=== PATIENT | female | born 1945 | race Caucasian/White ===

== ENCOUNTER 2019-03-08 08:23 | Emergency (ER) | payer MEDICARE, OTHER, SELFPAY ==
--- NOTE | ~2019-03-08 | XR_ITS ---
EXAMINATION: XR chest 2V EXAM DATE: 03/08/2019 08:47 INDICATION: Nausea, weakness. TECHNIQUE: Frontal and lateral projections of the chest obtained and reviewed. Comparison is made to prior examination from 02/15/2019. FINDINGS: Right lower lobe posterior segmental airspace disease probably interval development of pne umonia. There is severe chronic hyperinflation. There is no pneumothorax suspected. There are no pleu ral effusions. Cardiomediastinal silhouette is normal. The bones are osteopenic. There are bony dege nerative changes. IMPRESSION: 1. Interval development segmental right basilar airspace disease probably pneumonia. Reviewed, dictated and finalized at location A. SFER WORKER IMPRESSION: 1. Interval development segmental right basilar airspace disease probably pne umonia.
--- NOTE | 2019-03-08 08:26 | ECG_ITS ---
Measurements Intervals [place] Rate: 102 P: 71 MO: 122 QRS: -52 QRSD: 98 T: 79 QT: 318 QTc: 414 Interpretive Statements SINUS TACHYCARDIA VENTRICULAR PREMATURE COMPLEX LEFT ANTERIOR FASCICULAR BLOCK ABNORMAL ECG Electronically Signed On 03-08-2019 8:45:17 REVERSE UNIT OPERATOR FISHERMAN by Kevin Conde D.O.
[2019-03-08 08:28] VITALS: BP 119/82; PULSE 104; RESP 18; TEMP 36.9; O2SAT 97
[2019-03-08 08:41] VITALS: PULSE 104
--- NOTE | 2019-03-08 08:41 | ED.CHESTPAIN ---
HPI - Chest Pain General Chief Complaint: Chest Pain Stated Complaint: well, Im sick all over Time Seen by Provider: 03/08/19 08:27 Source: patient and RN notes reviewed Mode of arrival: ambulatory Limitations: no limitations History of Present Illness HPI narrative: Pt is a 73 y/o female who presents to the ED with c/o midsternal chest pain which radiates to her LUE. She reports the pain to be a 4/10. Pt also reports a fever, a productive cough, sinus congestion, and SOB which she has been feeling for several weeks. She has tried to use inhalers without much relief. Pt also reports nausea, but denies vomiting. Pt reports a PMHx of COPD. She states she went to an Urgent Care about 3 weeks ago, but was not having any alleviation of her symptoms. MD complaint: chest pain (midsternal) Pertinent past history: other (COPD) Onset (ago): unknown Pain location: other (midsternal) Pain radiation: left arm Pain scale (0-10): 4 Relieving factors: nothing Associated symptoms: nausea, dyspnea, fever, cough (productive) and other (sinus congestion) Treatment prior to arrival: other (inhaler) Related Data Home Medications Medication Instructions Recorded Confirmed albuterol sulfate 90 mcg/actuation 1 - 2 puff INHALATION Q4-6H PRN gm 03/08/19 03/08/19 aerosol inhaler fluticasone propionate-salmeterol 2 puff INHALATION BID 03/08/19 03/08/19 115 mcg-21 mcg/actuation HFA inhaler tiotropium bromide 18 mcg capsule 1 cap INHALATION DAILY 03/08/19 03/08/19 with inhalation device Allergies Allergy/AdvReac Type Severity Reaction Status Date / Time prednisone Allergy Agitated Verified 03/08/19 08:56 Review of Systems Review of Systems: All systems reviewed & are unremarkable except as noted in HPI and below Constitutional: Constitutional: Reports fever(s) ENT: Reports nasal congestion (sinus congestion) Cardiovascular: Cardiovascular: Reports chest pain (midsternal chest pain which radiates to her LUE) Respiratory: Respiratory: Reports cough (productive) and Reports dyspnea Gastrointestinal: Gastrointestinal: Reports nausea and Denies vomiting PMF Past Medical History Medical History (Updated 03/08/19 @ 10:32 by Marv Cali MD) COPD (chronic obstructive pulmonary disease) (Acute) Fibromyalgia (Acute) Surgical History Surgical History (Updated 03/08/19 @ 08:50 by Ann Maldonado [facility]) H/O: hysterectomy (Acute) History of hip surgery (Acute) Family History Family History (Updated 02/23/15 @ 14:08 by DOCTOR UNKNOWN) Other Family history of arthritis Family history of cardiovascular disease Family history of congenital heart disease Family history of multiple sclerosis Social History Social History Smoking status: Former smoker Smoking end date: 04/28/93 Alcohol intake: never Comments PCP: Dr. Ramirez Exam Const: Nutritional Appearance: thin (frail; elderly) Limitations: no limitations HENMT: Head: normal to inspection (atraumatic) Mouth: Yes moist mucous membranes Eyes: Conjunctivae: conjunctivae normal Chest: Chest palpation & inspection: normal inspection of the chest Resp: Auscultation: rhonchi (at the right base) Cardio: Rate: regular rate Rhythm: regular rhythm Other: no edema GI: Palpation (GI): Yes soft and Yes mass (no masses) Auscultation: normal bowel sounds Other: non-tender Back/Spine/Pelvis: Back: no CVA tenderness Other: normal ROM Skin: General skin exam: normal color Rashes: no rashes Neuro: General: oriented x3 and CN's II-XI intact bilaterally Speech: normal speech Other: motor intact Psych: Appearance: grossly normal Mental Status: mental status grossly normal Affect: normal affect Thought content: Yes normal Course Course Emergency Course: remains stable. vs wnl, sats jeaneth d/w dr freed for early f/u Reevaluation(s) Additional Reevaluation(s): PORT = low risk Vital Signs Vital signs: Vital Signs Temperature
[2019-03-08 08:43] VITALS: O2SAT 100
[2019-03-08] MEDS: ASPIRIN 81 MG CHEWABLE TABLET 324 MG PO (08:45)
--- NOTE | 2019-03-08 08:45 | PC.NURSE ---
Pt to xray via stretcher on tele monitor.
[2019-03-08 08:46] LABS: Basophils Percent Auto 0.2 % (0.2-1.2); Eosinophils Percent Auto 0.5 % (0-4.4); Hematocrit 38.6 % (37.0-47.0); Hemoglobin 12.5 g/dL (12.0-15.0); Immature Granulocyte Absolute 0.13 K/mm3 (0.00-0.031); Immature Granulocyte Percent A 1.5 % (0-0.5); Lymphocytes Absolute Auto 1.46 K/mm3 (0.9-3.2); Lymphocytes Percent Auto 16.5 % (18.3-44.2); Mean Corpuscular HGB Conc 32.4 g/dl (32-36); Mean Corpuscular Volume 98.7 fl (80-100); Mean Platelet Volume 9.1 fl (7.4-10.4); Monocytes Absolute Auto 0.6 K/mm3 (0.1-0.6); Monocytes Percent Auto 7.2 % (2.6-8.5); Neutrophils Absolute Auto 6.6 K/mm3 (1.3-6.7); Neutrophils Percent Auto 74.1 % (45.5-73.1); Platelet Count Result 256 k/mm3 (150-375); Red Blood Count 3.91 M/mm3 (4.2-5.4); Red Cell Distribution Width 13.9 % (11.5-14.5); White Blood Count 8.9 K/mm3 (4.5-10.0)
[2019-03-08 08:55] LABS: INR 0.9; Prothrombin Time 12.3 Seconds (11.1-14.7)
[2019-03-08 08:56] LABS: Partial Thromboplastin Time 35.6 SECONDS (22.3-36.8)
[2019-03-08 09:01] LABS: Blood Urea Nitrogen 29 mg/dL (7-17); Calcium 9.8 mg/dL (8.4-10.2); Carbon Dioxide 27 mmol/L (22-30); Chloride 104 mmol/L (98-107); Estimated CRCL calculation 63 ml/min; Estimated Glomerular Filt Rate > 60; Glucose 122 mg/dL (65-105); Potassium 3.3 mmol/L (3.4-5.0); Sodium 141 mmol/L (137-145)
[2019-03-08 09:13] LABS: Troponin I < 0.012 ng/mL (0.000-0.034)
[2019-03-08] MEDS: ALBUTEROL SULFATE NEB 2.5 MG/0.5 ML INH 5 MG INHALATION (09:18)
[2019-03-08] MEDS: IPRATROPIUM BR 0.02% INH SOLN 0.5 MG/2.5 ML VIAL INHALATION (09:18)
[2019-03-08 09:19] VITALS: PULSE 95; RESP 15
[2019-03-08 09:23] VITALS: PULSE 92; RESP 17; O2SAT 96
[2019-03-08] MEDS: DEXAMETHASONE SOD PHOS INJ 4 MG/ML VIAL 10 MG IV PUSH (09:39)
[2019-03-08] MEDS: POTASSIUM CHLORIDE 20 MEQ PACKET (FOR LIQUID) 40 MEQ PO (10:36)
[2019-03-08 11:20] VITALS: BP 125/70; PULSE 101; RESP 23; O2SAT 98
== END 2019-03-08 11:21 | disposition home or self-care (01) ==
PROVIDERS: Emergency Provider Emergency Medicine; PCP Internal Medicine
DX: J18.1 Lobar pneumonia, unspecified organism (principal); Z87.891 Personal history of nicotine dependence; J44.9 Chronic obstructive pulmonary disease, unspecified; M79.7 Fibromyalgia; R07.9 Chest pain, unspecified
CPT/HCPCS: 36415; 71046; 80048; 84484; 85025; 85610; 85730; 93005; 96365; 96366; 96375; 99284; A9270; J1100; J1956

== ENCOUNTER → 2019-06-10 10:31 | Outpatient (CLI) | payer MEDICARE, OTHER, SELFPAY ==
--- NOTE | ~2019-06-10 | XR_ITS ---
EXAMINATION: XR thoracic spine 2V DATE: 06/10/2019 11:28 INDICATION: Thoracic back pain. TECHNIQUE: 3 views of thoracic spine were obtained. COMPARISON: Thoracic spine radiographs 04/29/2019 FINDINGS: There is 19 degrees levoscoliosis of thoracic spine. There is kyphosis of thoracic spine. T here is mild chronic height loss of L1, T12, T8, T5, and T3 vertebral bodies. There is a compression fracture of L2 with changes of vertebroplasty. There is mildly decreased disc height at multiple leve ls. There is severely decreased disc height at T3-T4. There are endplate osteophytes at most levels. IMPRESSION: 1. Moderate thoracic spondylosis. 2. Thoracic levoscoliosis and kyphosis. Reviewed, dictated and finalized at location A. DENTIAL SUBCONTRACTOR
--- NOTE | ~2019-06-10 | XR_ITS ---
EXAMINATION: XR lumbar spine 2-3V DATE: 06/10/2019 11:28 INDICATION: Lumbar radiculopathy. TECHNIQUE: 3 views of lumbar spine were obtained. COMPARISON: Lumbar spine radiographs 05/18/2019, MRI 05/18/2019 FINDINGS: There is 22 degrees dextroscoliosis of lumbar spine. There is a compression fracture of L2 with changes of vertebroplasty. There is mild chronic height loss of L1 vertebral body. There is mode rately decreased disc height at L1-L2 and L2-L3 and severely decreased disc height at L3-L4. There is multilevel facet joint osteoarthritis, severe on the right at L5-S1. IMPRESSION: 1. Severe lumbar spondylosis. 2. Lumbar dextroscoliosis. Reviewed, dictated and finalized at location A. ISTRY TECHNOLOGIST
== END ==
PROVIDERS: Visit Provider Nurse Practitioner Adult Health
DX: M47.814 Spondylosis without myelopathy or radiculopathy, thoracic region (principal); M41.86 Other forms of scoliosis, lumbar region; M41.84 Other forms of scoliosis, thoracic region; M47.26 Other spondylosis with radiculopathy, lumbar region
CPT/HCPCS: 72070; 72100

== ENCOUNTER 2019-09-24 11:21 | Outpatient (CLI) | payer MEDICARE, OTHER, SELFPAY ==
--- NOTE | ~2019-09-24 | XR_ITS ---
XR chest 2V 09/24/2019 11:40 Indication: Shortness of breath. COPD. Procedure: PA and lateral views of the chest Comparison: Comparison to multiple prior studies sequentially, with oldest reviewed study dated 11/2014. Findings: Heart size normal. Chronic basilar scarring. No focal air space disease, pulmonary edema, p leural effusion or suspected pneumothorax. There is atherosclerosis. There are vertebroplasty changes in the upper lumbar spine. Impression: 1: No acute cardiopulmonary disease. Reviewed, dictated and finalized at location A. Impression: 1: No acute cardiopulmonary disease.
== END 2019-09-24 11:22 | disposition home or self-care (01) ==
PROVIDERS: PCP Internal Medicine; Visit Provider Clinical Nurse Specialist
DX: J44.9 Chronic obstructive pulmonary disease, unspecified (principal)
CPT/HCPCS: 71046

== ENCOUNTER → 2021-08-23 13:25 | Outpatient (CLI) | payer MEDICARE, SELFPAY ==
--- NOTE | ~2021-08-23 | MR_ITS ---
EXAMINATION: MR thoracic spine wo con DATE: 08/23/2021 14:09 INDICATION: Thoracic radiculopathy. Back pain. TECHNIQUE: Magnetic resonance imaging (MRI) of the thoracic spine was performed without intravenous c ontrast. Sagittal localizer T1-weighted FSE of the cervical spine was obtained. Thoracic spine sequen fabi included sagittal T2-weighted FSE, sagittal T1-weighted FSE, sagittal T2-weighted FS FSE, and axi al T2-weighted FSE. COMPARISON: Thoracic spine MRI 05/18/2019 FINDINGS: There is 27 degrees levoscoliosis of thoracic spine. There is kyphosis of thoracic spine. T here are chronic compression fractures of T3, T5, T6, T8, T12, L1, L2, and L3. There are changes of v ertebroplasty in T12 and L2. There is mildly decreased disc height at multiple levels. There is moder ately decreased disc height at T4-T5, severely decreased disc height at T5-T6, moderately decreased d isc height at T6-T7, severely decreased disc height at T7-T8, moderately decreased disc height at T8- T9 and T9-T10, and severely decreased disc height at T12-L1. At T5-T6, there is a left central extrus ion with mild central canal stenosis and ventral indentation of the spinal cord. At T6-T7, there is a right central extrusion with mild central canal stenosis. At T8-T9, there is a right central extrusi on with mild central canal stenosis. At T11-T12, the disc is bulging with mild central canal stenosis . At T12-L1, the disc is bulging with mild central canal stenosis. There is multilevel facet joint os teoarthritis. On the right, there is mild neural foraminal stenosis at T11-T12 and T12-L1, on the lef t, there is mild neural foraminal stenosis at T1-T2 and T12-L1. The spinal cord signal intensity is n ormal. IMPRESSION: 1. Severe thoracic spondylosis, stable from 05/18/2019. 2. Thoracic levoscoliosis and kyphosis. Reviewed, dictated and finalized at location A.
--- NOTE | ~2021-08-23 | MR_ITS ---
EXAMINATION: MR lumbar spine wo con DATE: 08/23/2021 14:16 INDICATION: Lumbar radiculopathy TECHNIQUE: Magnetic resonance imaging (MRI) of the lumbar spine was performed without intravenous con trast. Sequences included sagittal T2-weighted FSE, sagittal T2-weighted FS FSE, sagittal T1-weighted FSE, and axial T2-weighted FSE. COMPARISON: Lumbar spine radiographs dated 06/10/2019 and MRI dated 05/18/2019 FINDINGS: 20 degrees lumbar dextroscoliosis. 3 mm retrolisthesis L5 on S1. Chronic L2 compression fractures wit h 20% anterior vertebral body height loss and changes of prior vertebroplasty. Additional chronic mil d T12 and L1 compression fractures with Schmorl's nodes along the superior endplates in 20% anterior vertebral body height loss at both levels. Severe left-sided predominant disc height loss at L3-L4. M ild to moderate right-sided predominant disc height loss at L5-S1. Mild left-sided predominant disc h eight loss at T12-L1 through L2-L3. The conus medullaris terminates at L1-L2. There is normal signal in the caudal spinal cord. A millimeter T2 hyperintense right renal cyst. There is focal lung disease at the posterior sulci of the bilateral lower lobes. The following disc levels are specifically disc ussed: T12-L1: Disc is bulging with superimposed annular fissure and small right paracentral disc extrusion with disc material extending up to 5 mm cephalad to the inferior endplate of T12.. There is mild bila teral facet joint osteoarthritis. There is moderate right and mild left neural foraminal stenosis. Th ere is mild central canal stenosis. L1-L2: Annular fissure and broad-based disc extrusion extending from foraminal zone to foraminal zone with disc material extending a few millimeters cephalad and caudal to the level of the endplates. Th ere is hypertrophy of the ligamentum flavum. There is mild left and moderate right facet joint osteo arthritis. There is moderate bilateral, right greater than left neural foraminal stenosis. There is m ild central canal stenosis. L2-L3: Annular fissure with broad-based disc extrusion extending from foraminal zone to foraminal zon e with disc material extending a few millimeters cephalad and caudal to the level of the endplates. T here is mild hypertrophy of the ligamentum flavum. There is mild to moderate left and mild right fac et joint osteoarthritis. There is moderate bilateral, left greater than right neural foraminal stenos is. There is moderate central canal stenosis. L3-L4: Annular fissure and broad-based disc extrusion extending from foraminal zone to foraminal zone with disc material extending 3 mm caudal to the level of the superior endplate of L4. There is mild bilateral facet joint osteoarthritis. There is moderate right and moderate to severe left neural fora jamal stenosis. There is mild to moderate central canal stenosis. L4-L5: Disc is bulging. There is mild to moderate bilateral facet joint osteoarthritis. There is mode rate bilateral neural foraminal stenosis. There is mild to moderate central canal stenosis. L5-S1: Annular fissure with disc extrusion extending from foraminal zone to foraminal zone with disc material extending up to 4 mm caudal to the level of the superior endplate of S1. There is moderate b ilateral facet joint osteoarthritis. There is moderate right and moderate to severe left neural jaleesa inal stenosis. There is mild central canal stenosis. IMPRESSION: 1. Mild lumbar dextroscoliosis with severe spondylosis. 2. Focal lung disease at the posterior sulci of the bilateral lower lobes most likely atelectasis or pneumonia. Consider with chest radiograph or CT for further evaluation. Reviewed, dictated and finalized at location B.
== END ==
PROVIDERS: PCP Internal Medicine; Visit Provider Nurse Practitioner Adult Health
DX: M47.25 Other spondylosis with radiculopathy, thoracolumbar region (principal); M48.05 Spinal stenosis, thoracolumbar region; M40.204 Unspecified kyphosis, thoracic region; M47.27 Other spondylosis with radiculopathy, lumbosacral region; M48.07 Spinal stenosis, lumbosacral region
CPT/HCPCS: 72146; 72148

== ENCOUNTER 2021-08-28 10:55 | Emergency (ER) | payer MEDICARE, SELFPAY ==
--- NOTE | ~2021-08-28 | XR_ITS ---
EXAMINATION: XR chest 2V DATE: 08/28/2021 11:31 INDICATION: Cough TECHNIQUE: PA and lateral views of the chest are obtained. COMPARISON: 09/24/2019 FINDINGS: The lungs are hyperinflated free of acute opacities. There is no pleural effusion or pneumo thorax. The cardiomediastinal silhouette is normal. There is moderate thoracic spondylosis. Vertebrop lasty changes noted in the upper lumbar spine. IMPRESSION: 1. No acute cardiopulmonary abnormality. Reviewed, dictated and finalized at location A.
[2021-08-28 11:12] VITALS: BP 136/72; PULSE 114; RESP 24; TEMP 37.1; O2SAT 90
--- NOTE | 2021-08-28 11:14 | PC.NURSE ---
Pt. stated that 90% pulse ox is her normal.
--- NOTE | 2021-08-28 11:22 | ED.URI ---
HPI - URI/Sore Throat General Chief Complaint: Upper Respiratory Infection Stated Complaint: Bilateral Ear Irritation,Sore Throat,Runny Nose Time Seen by Provider: 08/28/21 11:15 Source: patient and RN notes reviewed Mode of arrival: ambulatory Limitations: no limitations History of Present Illness HPI Narrative: 76-year-old female with a history of COPD presented for complaint of headache, sinus congestion and runny nose, sore throat and cough for 2 days. She endorses breathing is labored but states it is due to sinus congestion. Also states 90% on room air is normal for her. Also states cough is not significantly worse than her chronic COPD cough. She is taking Tylenol and Mucinex for symptoms along with breathing treatments. She denies nausea, vomiting, diarrhea, fever or chills. 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 She cannot recall her home medications stating my head hurts too much. States she needs a COVID test before returning to work. MD elicited complaint: cough Related Data Home Medications Medication Instructions Recorded Confirmed albuterol sulfate 90 mcg/actuation 1 - 2 puff INHALATION Q4-6H PRN gm 03/08/19 10/19/20 aerosol inhaler Allergies Allergy/AdvReac Type Severity Reaction Status Date / Time No Known Allergies Allergy Verified 08/28/21 11:19 Review of Systems Review of Systems: CONSTITUTIONAL: Denies malaise, chills, sweats, fever EYES: Denies visual changes, redness, or discharge ENT: Reports rhinorrhea, congestion, sinus pain CARDIOVASCULAR: Denies chest pain, palpitations, edema RESPIRATORY: Reports cough, post nasal drainage, dyspnea GASTROINTESTINAL: Denies abdominal pain, nausea, vomiting, diarrhea SKIN: Denies rash or itching MUSCULOSKELETAL: denies myalgia NEUROLOGIC: Denies headache [facility] Past Medical History Medical History COPD (chronic obstructive pulmonary disease) Fibromyalgia Surgical History Surgical History H/O: hysterectomy History of hip surgery right hip surgery Family History Family History Other Family history of arthritis Family history of cardiovascular disease Family history of congenital heart disease Family history of multiple sclerosis Social History Social History Smoking status: Former smoker Smoking end date: 04/28/93 Alcohol intake: never Exam Narrative: GENERAL: Ill-appearing,pale, no acute distress. HEAD: Normocephalic EYES: conjunctivae clear ENT: Mucous membranes moist. TM pearly augustine with dull light reflex bilaterally; no tragal tenderness. Oropharynx erythematous without lesions or exudate, no drooling, no hoarseness, no trismus, uvula midline. No tripod positioning, muffled voice, soft palate or pharyngeal wall bulging NECK: Supple. No lymphadenopathy CHEST: Appears labored at rest, tachypneic, Audible expiration, Right upper lobe wheezing. speaks in full sentences. HEART: Regular rate and rhythm. No murmur heard. SKIN: Warm, dry, no rash. NEURO: Alert and oriented x3. PSYCH: Normal affect Course Course Emergency Course: Patient is aware of diagnosis, understands and agrees to treatment plan. Anticipatory guidance given. Patient agrees to follow-up as directed and is aware of reasons to seek care at the emergency department. Portions of this record may have been created with voice recognition software Level of Care: Express Care Visit Vital Signs Vital signs: Vital Signs Temperature 98.8 F 08/28/21 11:12 Pulse Rate 114 H 08/28/21 11:12 Respiratory Rate 24 H 08/28/21 11:12 Blood Pressure 136/72 08/28/21 11:12 Pulse Oximetry 90 08/28/21 11:12 Temperature 98.8 F 08/28/21 11:12 Pulse Rate 114 H 08/28/21 11:12 Respiratory Rate 24 H 08/28/21 11:12 B
== END 2021-08-28 11:56 | disposition home or self-care (01) ==
PROVIDERS: Emergency Provider Nurse Practitioner Family; PCP Internal Medicine
DX: J44.1 Chronic obstructive pulmonary disease with (acute) exacerbation (principal); M79.7 Fibromyalgia; Z87.891 Personal history of nicotine dependence; Z20.822 Contact with and (suspected) exposure to COVID-19
CPT/HCPCS: 71046; 87081; 87426; 87804; 87880; 99213; C9803; G0463

== ENCOUNTER 2021-12-12 10:09 | Outpatient (CLI) | payer MEDICARE, SELFPAY ==
[2021-12-12 18:28] LABS: Basophils Absolute Auto 0.1 K/mm3 (0.0-0.1); Basophils Percent Auto 0.5 % (0.2-1.2); Eosinophils Absolute Auto 0.1 K/mm3 (0-0.3); Eosinophils Percent Auto 0.9 % (0-4.4); Hematocrit 41.7 % (37.0-47.0); Hemoglobin 12.7 g/dL (12.0-15.0); Immature Granulocyte Absolute 0.05 K/mm3 (0.00-0.031); Immature Granulocyte Percent A 0.5 % (0-0.5); Lymphocytes Absolute Auto 2.45 K/mm3 (0.9-3.2); Lymphocytes Percent Auto 23.5 % (18.3-44.2); Mean Corpuscular HGB Conc 30.5 g/dl (32-36); Mean Corpuscular Hemoglobin 29.6 pg (26-34); Mean Corpuscular Volume 97.2 fl (80-100); Monocytes Absolute Auto 0.4 K/mm3 (0.1-0.6); Monocytes Percent Auto 3.8 % (2.6-8.5); Neutrophils Absolute Auto 7.4 K/mm3 (1.3-6.7); Neutrophils Percent Auto 70.8 % (45.5-73.1); Platelet Count Result 262 k/mm3 (150-375); Red Blood Count 4.29 M/mm3 (4.2-5.4); Red Cell Distribution Width 14.6 % (11.5-14.5); White Blood Count 10.4 K/mm3 (4.5-10.0)
[2021-12-12 18:39] LABS: Alanine Aminotransferase 17 U/L (6-35); Albumin Level 4.6 g/dL (3.5-5.1); Alkaline Phosphatase 111 U/L (38-126); Anion Gap 8 mmol/L (8-16); Aspartate Amino Transferase 30 U/L (14-36); Bilirubin,Total 0.5 mg/dL (0.2-1.3); Blood Urea Nitrogen 17 mg/dL (7-17); Calcium 9.5 mg/dL (8.4-10.2); Carbon Dioxide 27 mmol/L (22-30); Chloride 101 mmol/L (98-107); Cholesterol 213 mg/dL (0-200); Estimated Glomerular Filt Rate > 60; Glucose 92 mg/dL (65-110); HDL Direct 73 mg/dL; Potassium 4.4 mmol/L (3.4-5.0); Sodium 136 mmol/L (137-145); Triglycerides 84 mg/dL (<150)
[2021-12-12 18:50] LABS: LDL Cholesterol Direct 106 mg/dL
[2021-12-12 18:53] LABS: Vitamin D 25 Hydroxy 50.9 ng/mL
== END 2021-12-12 10:10 | disposition home or self-care (01) ==
PROVIDERS: PCP Internal Medicine; Visit Provider Nurse Practitioner
DX: Z13.29 Encounter for screening for other suspected endocrine disorder (principal); E55.9 Vitamin D deficiency, unspecified; E78.5 Hyperlipidemia, unspecified
CPT/HCPCS: 36415; 80053; 80061; 82306; 85025

== ENCOUNTER 2022-04-08 09:19 | Inpatient (IN) | payer MEDICARE, SELFPAY ==
[2022-04-08] VITALS (67 sets, daily range): BP systolic 115–172; BP diastolic 75–112; PULSE 90–111; RESP 14–33; TEMP 36.3–36.5; O2SAT 93–100
--- NOTE | ~2022-04-08 | XR_ITS ---
EXAMINATION: XR chest 2V Exam Date/Time: 04/10/2022 17:45 DIRECTOR SAFETY COUNCIL HISTORY: o2 sat, WEAKNESS, SOB, COPD Comparison: 04/08/2022 and 08/28/2021. RESULT: Lines, tubes, and devices: Vertebroplasty cement at L2. Lungs and pleura: Slightly increased peripheral mid and lower lung reticular opacities. Mild right c ostophrenic angle blunting Severe emphysematous change. Cardiomediastinal silhouette: Stable. Other: No acute osseous or upper abdominal finding. Moderate wedge deformity at T11. IMPRESSION: Pulmonary opacities may represent mild interstitial edema. Small right pleural effusion. Moderate wed ge deformity at T11, new since the comparison study from August, may represent acute or chronic Reviewed, dictated and finalized at location K. CTOR SAFETY COUNCIL IMPRESSION: Pulmonary opacities may represent mild interstitial edema. Small right pleural effusion. Moderate wedge deformity at T11, new since the comparison study from August, may represent acute or chronic
--- NOTE | ~2022-04-08 | NM_ITS ---
History: Right lower quadrant pain Interpretation: Following intravenous administration of 4.8 mCi. of technetium 99m Choletec, serial i mages obtained reveal prompt concentration by the liver which is normal in size and without any focal abnormalities. There is normal excretion from the liver. The gallbladder and small bowel are visua lized by 60 minutes. At 60 minutes the patient intravenously received 0.02 mcg/kg of CCK and 30 cc normal saline delivered by palm over 60 minutes. The patient was imaged for approximately the next 40 minutes. Regions of in terest were drawn about the gallbladder and background and gallbladder ejection fraction calculated. The gallbladder ejection fraction measures 36%. ( GBEF will measure > or = 49%, in 95% of normals. GBEF will measure > or= 38% in 99% of normals ) Impression: Patent cystic duct. Decreased gallbladder ejection fraction. This could reflect biliary dyskinesia. Darian et al.,Sincalide-Stimulated Cholescintigraphy: A Multicenter Investigation to Determine Opti mal Infusion Methodology and Gallbladder Ejection Fraction Normal Values. JNM. Vol 51. No.2. May 2009 . Reviewed, dictated and finalized at location . CONTROL MANAGER Impression: Patent cystic duct. Decreased gallbladder ejection fraction. This could reflect biliary dyskinesia. Darian et al.,Sincalide-Stimulated Cholescintigraphy: A Multicenter Investiga tion to Determine Optimal Infusion Methodology and Gallbladder Ejection Fractio n Normal Values. JNM. Vol 51. No.2. May 2009.
--- NOTE | ~2022-04-08 | CT_ITS ---
EXAMINATION: CT chest abdomen pelvis wo con DATE: 04/09/2022 10:29 INDICATION: Diarrhea. Vomiting. TECHNIQUE: Computed tomography (CT) of the chest, abdomen, and pelvis was performed without intraveno us contrast. Automated exposure control and iterative reconstruction technique were employed. The dos e-length product was 217.77 mGy-cm. COMPARISON: Chest CT 01/05/2015 FINDINGS: CHEST CT: There is mild scarring at the lung apices. There is severe emphysema. There is mild atelectasis in th e lungs with an inferior predominance. There is mucous in the mainstem bronchi and inferior trachea. There is a 5 mm nodule in right lower lobe, likely benign. A calcified right lung nodule and calcifie d right hilar lymph nodes are consistent with old granulomatous disease. No pleural effusion. The hea rt size is normal. There are coronary artery calcifications. No pericardial effusion. There is wall t hickening of the mid and distal esophagus. There is moderate lumbar spondylosis. There are multiple c hronic vertebral body fractures. ABDOMEN/PELVIS CT: The liver is normal. There are gallstones in the gallbladder, which is normal in size. The spleen, pa ncreas, and adrenal glands are normal. There is a 9 mm cyst in right kidney. There is calcified ather osclerosis of the aorta and many of the other arteries. A 4 mm calcification at the hilum of right ki dney may be a stone or vascular calcification. There are vascular calcifications at the hilum of left kidney. There is calcified plaque in infrarenal aorta with at least moderate stenosis. There is calc ified plaque in right common femoral artery with at least severe stenosis. There is wall thickening i n the distal stomach and proximal duodenum. There are no dilated loops of bowel. The appendix is not visualized. There are no pathologically enlarged lymph nodes. There is no free intraperitoneal fluid. There are pins in proximal right femur. There is severe lumbar spondylosis. There are multiple chron ic vertebral body fractures. There are changes of vertebroplasty in the L2. IMPRESSION: 1. Wall thickening of the mid and distal esophagus, likely esophagitis. 2. Wall thickening of the distal stomach and proximal duodenum, consistent with inflammation. 3. Severe emphysema. Reviewed, dictated and finalized at location A. RT MANAGER
--- NOTE | ~2022-04-08 | US_ITS ---
EXAMINATION: US abdomen limited DATE: 04/10/2022 20:21 INDICATION: RUQ pain, N/V TECHNIQUE: Multiple grayscale and Doppler ultrasound images of limited portions of the abdomen were o btained. COMPARISON: CT abdomen and pelvis 04/09/2022. FINDINGS: The visualized portions of the pancreas are normal. The liver is normal with normal echogen icity and echotexture. No surface nodularity. Normal hepatopetal flow in the main portal vein. Multip le adherent gallstones. No wall thickening or pericholecystic fluid. The common bile duct measures 2 mm. There was no sonographic Mata sign. IMPRESSION: Cholelithiasis, otherwise normal limited abdominal ultrasound findings. Specifically there is no sono graphic evidence of acute cholecystitis. Reviewed, dictated and finalized at location K. ENT RELATIONS LIAISON IMPRESSION: Cholelithiasis, otherwise normal limited abdominal ultrasound findings. Specifi yomi there is no sonographic evidence of acute cholecystitis.
--- NOTE | ~2022-04-08 | XR_ITS ---
EXAMINATION: XR chest 1V portable DATE: 04/08/2022 10:03 INDICATION: Shortness of breath. TECHNIQUE: A single frontal view of the chest was obtained. COMPARISON: Chest 2 views 08/28/2021, chest CT 01/05/2015 FINDINGS: The lungs are hyperexpanded with lucencies, consistent with emphysema. A calcified right ramy ng nodule and calcified mediastinal lymph nodes are consistent with old granulomatous disease. No ple ural effusion or pneumothorax. The heart size is normal. There are changes of vertebroplasty in lumba r spine. IMPRESSION: 1. Emphysema. Reviewed, dictated and finalized at location A. ARCH INTERVIEWER IMPRESSION: 1. Emphysema.
--- NOTE | 2022-04-08 09:52 | ED.SOB ---
HPI - SOB/Dyspnea General Chief Complaint: Shortness of Breath/Dyspnea Stated Complaint: SOB AND SICK CASE X 1 WEEK Time Seen by Provider: 04/08/22 09:22 History of Present Illness HPI Narrative: 77-year-old female with history of COPD presenting to the emergency department for evaluation of generalized fatigue with associated nausea and diarrhea. Patient reports she has had decreased p.o. intake over the course of the last week. Patient states that she does have a history of smoking but no longer smokes. Related Data Home Medications Medication Instructions Recorded Confirmed pregabalin 50 mg capsule (Lyrica) 50 mg PO TID 09/12/21 02/05/22 Allergies Allergy/AdvReac Type Severity Reaction Status Date / Time No Known Allergies Allergy Verified 04/08/22 09:32 Review of Systems Review of Systems: CONSTITUTIONAL: Generalized fatigue EYES: Denies visual changes, redness, or discharge. ENT: Denies rhinorrhea, congestion, sore throat, or otalgia. CARDIOVASCULAR: Denies chest pain, palpitations, or edema. RESPIRATORY: See HPI GASTROINTESTINAL: Denies abdominal pain but does have nausea and diarrhea GENITOURINARY: Denies dysuria or hematuria. SKIN: Denies rash or itching. MUSCULOSKELETAL: Denies back pain, joint pain, or myalgia. NEUROLOGIC: Denies headache, numbness, or weakness. [facility] Past Medical History Medical History COPD (chronic obstructive pulmonary disease) Depression Fibromyalgia Pain in thoracic spine Trochanteric bursitis, right hip Surgical History Surgical History H/O: hysterectomy History of hip surgery right hip surgery Hx of cataract surgery (~12/2021) Family History Family History Other Family history of arthritis Family history of cardiovascular disease Family history of congenital heart disease Family history of multiple sclerosis Social History Social History Smoking packs per day: 1.5 Smoking cigarettes per day: 30.0 Smoking status: Former smoker Tobacco type: cigarettes Smoking end date: 04/28/93 Alcohol intake: never Substance use: never Substance use type: does not use Lack of Transportation: No Lack of Food: Never True Current Housing: I Have Housing Concerned About Future Housing: No Difficulty Paying Gas/Electric Bills: No Difficulty Paying for Meds: No Currently Unemployed: No Education: Trade/Vocational Certificate Difficulty w/ Childcare or Family Care: No Spiritual care concerns: No (catholic) Exam Narrative: APPEARANCE: Ill and cachectic appearing HEAD: normocephalic, atraumatic. EYES: PERRLA/EOMI, conjunctivae clear. NOSE: Normal no drainage EARS:TMS clear with good light reflex. THROAT: Pharynx clear, no exudate. NECK: Supple. No adenopathy, no masses. RESPIRATORY: Airway patent, respirations nonlabored. Coarse lung sounds bilaterally but no wheezing.. CARDIOVASCULAR: Regular rate and rhythm without murmurs rubs or gallops. ABDOMINAL: Soft, nontender, nondistended, normal bowel sounds MUSCULOSKELETAL: Moves all extremities. Strength/ROM intact, No edema, No calf tenderness. NEURO: Alert. Cranial nerves II through XII intact. Grossly intact SKIN: Warm, dry. Normal Color Course Course Emergency Course: Patient is afebrile with a leukocytosis of 10.5. Awaiting patient was hypokalemic at 2.9. Patient's UA shows no evidence of a urinary tract infection. Patient was negative for influenza COVID and RSV. Patient was treated with Rocephin for a suspected underlying UTI. Due to patient's decreased p.o. intake and general fatigue she states she is unable to care for herself at home. Case was discussed with the hospitalist and patient was accepted for admission. Stool cultures were pending at time of admission
[2022-04-08 10:22] LABS: Basophils Percent Auto 0.3 % (0.2-1.2); Eosinophils Percent Auto 0.2 % (0-4.4); Hematocrit 43.3 % (37.0-47.0); Hemoglobin 14.1 g/dL (12.0-15.0); Immature Granulocyte Absolute 0.05 K/mm3 (0.00-0.031); Immature Granulocyte Percent A 0.5 % (0-0.5); Lymphocytes Absolute Auto 1.63 K/mm3 (0.9-3.2); Lymphocytes Percent Auto 15.5 % (18.3-44.2); Mean Corpuscular HGB Conc 32.6 g/dl (32-36); Mean Corpuscular Hemoglobin 29.6 pg (26-34); Mean Platelet Volume 9.4 fl (7.4-10.4); Monocytes Absolute Auto 0.6 K/mm3 (0.1-0.6); Neutrophils Absolute Auto 8.2 K/mm3 (1.3-6.7); Neutrophils Percent Auto 77.5 % (45.5-73.1); Platelet Count Result 351 k/mm3 (150-375); Red Blood Count 4.76 M/mm3 (4.2-5.4); Red Cell Distribution Width 14.6 % (11.5-14.5); White Blood Count 10.5 K/mm3 (4.5-10.0)
[2022-04-08 10:29] LABS: Alanine Aminotransferase 21 U/L (6-35); Albumin Level 4.4 g/dL (3.5-5.1); Alkaline Phosphatase 70 U/L (38-126); Anion Gap 6 mmol/L (8-16); Aspartate Amino Transferase 21 U/L (14-36); Bilirubin,Total 0.6 mg/dL (0.2-1.3); Blood Urea Nitrogen 31 mg/dL (7-17); Calcium 9.6 mg/dL (8.4-10.2); Carbon Dioxide 32 mmol/L (22-30); Chloride 100 mmol/L (98-107); Estimated CRCL calculation 38 ml/min; Estimated Glomerular Filt Rate > 60; Glucose 109 mg/dL (65-110); Potassium 2.9 mmol/L (3.4-5.0); Sodium 138 mmol/L (137-145)
[2022-04-08 10:30] LABS: Lactic Acid Reflex 1.1 mmol/L (0.7-2.0)
[2022-04-08 10:33] LABS: Influenza A QL RT-PCR Negative (Negative); Influenza B QL RT-PCR Negative (Negative); RSV RNA, RT-PCR Negative (Negative); SARS-CoV-2 RNA PCR Negative
[2022-04-08 10:36] LABS: INR 1.3; Prothrombin Time 15.7 Seconds (11.1-14.7)
[2022-04-08 10:37] LABS: Partial Thromboplastin Time 32.5 SECONDS (22.3-36.8)
[2022-04-08] MEDS: SODIUM CHLORIDE 0.9% IV 1,000 ML 999 ML IV CONT ×2 (10:54→12:50)
[2022-04-08 12:16] LABS: Appearance Urine Slightly Cloudy (Clear); Bilirubin Urine 1+ (Negative); Blood Urine 2+ (Negative); Glucose Urine UA Negative (Negative); Ketones Urine 2+ mg/dL (Negative); Leukocyte Esterase Ur Trace LEU/UL (Negative); Nitrate Urine Negative (Negative); Protein Urine 2+ mg/dL (Negative); Specific Grav Ur 1.025 (1.001-1.035); Urobilinogen Urine 0.2 mg/dL (<2.0); pH Urine 5.5 (5.0-9.0)
[2022-04-08 12:18] LABS: Add Urine Microscopic? YES; Color Urine Light Yellow (Yellow)
[2022-04-08 12:43] LABS: Bacteria Urine Trace /hpf; Mucus Urine Moderate /lpf; Squamous Epithelial Cell Urine Occasional /hpf (Few); WBC Urine 31-50 /hpf
[2022-04-08] MEDS: POTASSIUM CHLORIDE 20 MEQ PACKET (FOR LIQUID) PO (13:07)
[2022-04-08] MEDS: KCL 20 MEQ/SW 100 ML 100 ML 50 MEQ IVPB (13:24)
[2022-04-08] MEDS: ALBUTEROL SULFATE NEB 2.5 MG/3 ML INH 5 MG INHALATION ×2 (13:59→21:21)
--- NOTE | 2022-04-08 14:23 | ECG_ITS ---
Measurements Intervals [place] Rate: 110 P: 75 IA: 126 QRS: -70 QRSD: 98 T: 75 QT: 322 QTc: 437 Interpretive Statements SINUS TACHYCARDIA POSSIBLE LEFT ATRIAL ENLARGEMENT [-0.1mV P WAVE IN V1/V2] LEFT ANTERIOR FASCICULAR BLOCK [QRS AXIS <= -45, QR IN I, RS IN II] LEFT VENTRICULAR HYPERTROPHY AND ST-T CHANGE [VOLTAGE CRITERIA PLUS ST/T ABNORMALITY] ABNORMAL ECG COMPARED TO ECG 03/08/2019 08:31:59 PATIENT IS MORE TACHYCARDIC AND PVCS ARE NOT SEEN Electronically Signed On 04-08-2022 15:07:19 REEL CART OPERATOR by Froilan Peterson M.D.
--- NOTE | 2022-04-08 17:13 | PC.NURSE ---
clear liquid dinner tray ordered
--- NOTE | 2022-04-08 18:00 | PM.IMHP ---
H&P: HPI History of Present Illness Date/Time: 04/08/22 18:00 Chief Complaint: Multiple complaints. Narrative: This is a pleasant 77-year-old female former smoker with COPD who presented to the emergency department for evaluation of multiple complaints. She has not been feeling well for the last week or so with multiple symptoms to include chills, subjective fever, acute on chronic nonproductive cough, multiple episodes of diarrhea each day, nausea, poor oral intake, and progressive weakness. She also feels more short of breath from baseline and reports that her nebulizers are not providing her with longstanding benefit. At the time my evaluation she is also complaining of acute on chronic back pain which she attributes to the uncomfortable gurney on which she is lying in the ED. She denies sick contacts, headache, sinus congestion, sore throat, abdominal pain, chest pain, pleuritic pain, vomiting, and dysuria. No known sick contacts. She denies recent travel and antibiotic use. Review of Systems Review of Systems: Contacts. Twelve systems were reviewed and are negative except for as per HPI. [facility] Past Medical History Medical History COPD (chronic obstructive pulmonary disease) Depression Fibromyalgia Pain in thoracic spine Trochanteric bursitis, right hip Surgical History Surgical History H/O: hysterectomy History of hip surgery right hip surgery Hx of cataract surgery (~12/2021) Family History Family History Other Family history of arthritis Family history of cardiovascular disease Family history of congenital heart disease Family history of multiple sclerosis Social History Social History (Updated 04/08/22 @ 21:49 by Maria De Jesus Zendejas PA-C) Social History: Code status: Full code. Smoking packs per day: 1.5 Smoking cigarettes per day: 30.0 Smoking status: Former smoker Tobacco type: cigarettes Smoking end date: 04/28/93 Alcohol intake: never Substance use: never Substance use type: does not use Lack of Transportation: No Lack of Food: Never True Current Housing: I Have Housing Concerned About Future Housing: No Difficulty Paying Gas/Electric Bills: No Difficulty Paying for Meds: No Currently Unemployed: No Education: Trade/Vocational Certificate Difficulty w/ Childcare or Family Care: No Additional living arrangements comments: Lives with in [place]. Spiritual care concerns: No Meds Home Medications and Allergies Home Medications Medication Instructions Recorded Confirmed Type albuterol sulfate 90 mcg/actuation 1 - 2 puff inhalation Q4-6H PRN 02/05/22 04/08/22 Rx aerosol inhaler (ProAir HFA) Shortness Of Breath #8.5 grams fluticasone 250 mcg-salmeterol 50 1 inh inhalation BID #60 ea 02/05/22 04/08/22 Rx mcg/dose blistr powdr for inhalation (Advair Diskus) sertraline 50 mg tablet 50 mg PO DAILY #90 tabs 02/05/22 04/08/22 Rx trazodone 100 mg tablet 100 mg PO QHS PRN insomnia #90 tabs 02/05/22 04/08/22 Rx albuterol sulfate 2.5 mg/3 mL See Rx Instructions .Route 03/26/22 04/08/22 Rx (0.083 %) solution for nebulization .COMPLEX #75 mL Allergies Allergy/AdvReac Type Severity Reaction Status Date / Time No Known Allergies Allergy Verified 04/08/22 09:32 Vital Signs Vital Signs - 24 hr 04/08/22 09:22 04/08/22 09:30 04/08/22 09:31 Temperature 97.7 F Pulse Rate 111 H 110 H Respiratory Rate 33 H Blood Pressure 146/95 H Pulse Oximetry 100 100 Oxygen Delivery Room Air Room Air 04/08/22 09:34 04/08/22 14:03 04/08/22 09:33 Temperature Pulse Rate 99 110 H Respiratory Rate 24 H 19 Blood Pressure Pulse Oximetry 98 100 Oxygen Delivery Room Air 04/08/22 09:45 04/08/22 09:46 04/08/22 10:00 Temperature Pulse Rate 108 H 108 H
--- NOTE | 2022-04-08 18:42 | ADMGEN ---
This patient, Cecy Jackson, was admitted to 3 [facility] Room 315-01. Patient/family oriented to hospital policies and general routines including ID bracelet, bed and alarms, visiting hours, pain management, procedures, bathroom and other care routines, personal items, smoking policy, room service/diet, and visiting hours. Information on how to activate the Rapid Response Team has been discussed. Patient/Family are encouraged to report perceived risks to care and to ask questions if they do not understand what they are told or what they should do. Got report from Supa in the ER.
[2022-04-08] MEDS: MORPHINE SULFATE (*CRX) 2 MG/ML INJ 1 MG IV PUSH (21:55)
[2022-04-08 22:29] LABS: Anion Gap 7 mmol/L (8-16); Blood Urea Nitrogen 22 mg/dL (7-17); Calcium 8.8 mg/dL (8.4-10.2); Carbon Dioxide 24 mmol/L (22-30); Chloride 103 mmol/L (98-107); Estimated CRCL calculation 55 ml/min; Estimated Glomerular Filt Rate > 60; Glucose 112 mg/dL (65-110); Magnesium 1.8 mg/dL (1.6-2.3); Potassium 2.9 mmol/L (3.4-5.0); Sodium 134 mmol/L (137-145)
[2022-04-08] MEDS: traMADol HCL (*CRX) 25 MG TABLET PO (22:42)
[2022-04-08] MEDS: SODIUM CHLORIDE 0.9% IV 1,000 ML 75 ML IV CONT (22:42)
[2022-04-09] VITALS (10 sets, daily range): BP systolic 122–143; BP diastolic 71–88; PULSE 86–112; RESP 14–24; TEMP 36.3–37.2; O2SAT 90–94; BMI 15.5
[2022-04-09] MEDS: ACETAMINOPHEN 325 MG TABLET 650 MG PO (00:12)
[2022-04-09] MEDS: traZODone HCL 50 MG TABLET 100 MG PO ×2 (00:13→20:34)
[2022-04-09] MEDS: POTASSIUM CHLORIDE 20 MEQ TABLET 40 MEQ PO (02:01)
[2022-04-09] MEDS: ALBUTEROL SULFATE NEB 2.5 MG/3 ML INH 5 MG INHALATION ×3 (02:42→21:55)
[2022-04-09] MEDS: MORPHINE SULFATE (*CRX) 2 MG/ML INJ 1 MG IV PUSH ×5 (04:39→22:41)
[2022-04-09] MEDS: traMADol HCL (*CRX) 25 MG TABLET PO ×2 (04:39→20:34)
[2022-04-09] MEDS: FLUTICASONE/SALMETEROL 115-21 MCG INHALER 1 PUFF 2 PUFF INHALATION ×2 (08:12→21:55)
[2022-04-09] MEDS: SERTRALINE HCL 50 MG TABLET PO (08:20)
--- NOTE | 2022-04-09 09:00 | PM.IMPN ---
Progress Note: A&P Assessment and Plan (1) Diarrhea: Code(s): R19.7 - Diarrhea, unspecified Status: Acute Assessment and Plan: CT abdomen pelvis: Wall thickening of the mid and distal esophagus, likely esophagitis. Wall thickening of the distal stomach and proximal duodenum consistent with inflammation. Severe emphysema. White blood cell count of 11.9. Inflammation could be due to retching and vomiting. Zofran 4 mg q.6 hours Protonix 40 b.i.d. Analgesics prescribed for pain and discomfort. C diff negative Stool cultures pending Continue hydration with IV fluids (2) Dehydration: Code(s): E86.0 - Dehydration Status: Acute Assessment and Plan: patient put on continuous IV fluids monitor BMP and CBC. (3) Hypokalemia: Code(s): E87.6 - Hypokalemia Status: Acute Assessment and Plan: Patient given potassium and ED. Will replenish potassium as needed Potassium this morning 3.6. Continue to monitor (4) Abnormal urinalysis: Code(s): R82.90 - Unspecified abnormal findings in urine Status: Acute Assessment and Plan: UA: Trace leukocyte esterase, 6-10 rbc's and 21-50 WBC Urine culture pending Patient started on ceftriaxone 1 g daily (5) Chronic obstructive pulmonary disease: Code(s): J44.9 - Chronic obstructive pulmonary disease, unspecified Status: Acute Assessment and Plan: Ipratropium neb q.6 hours albuterol nebs q.6 hours (6) Back pain: Code(s): M54.9 - Dorsalgia, unspecified Status: Acute Assessment and Plan: analgesics p.r.n. Time Spent With Patient Time with patient: Greater than 35 minutes Subjective Date/time seen: 04/09/22 09:00 Interval history: 77 year old with a history of COPD, CHF and chronic back pain. Patient presented to the ER with increased fatigue,nausea and vomiting. patient states that she has felt ill for a week and has gotten increasingly worse patient has not had a episode of vomiting since arriving to the floor but has had continuous diarrhea. She describes the diarrhea as extremely foul smelling. Patient has a loss of appetite. Patient has had increasing shortness of breath and states that she has had COVID 3 times in the past 2 years and each time her shortness of breath has worsened and not recovered. Patient denies associated cough and fever. Review of Systems Review of Systems: All systems reviewed & are unremarkable except as noted in HPI and below Exam Narrative: GENERAL: Comfortable, no acute distress , cachectic HENMT: moist mucous membranes EYES: EOM intact b/l NECK: no lymphadenopathy RESPIRATORY: decreased breath sounds CARDIO: distant heart sounds GI: soft, nontender, bowel sounds present SKIN: no rashes EXTREMITIES: no edema, redness or tenderness Objective Data Vital Signs Vital Signs: Vital Signs - 24 hr 04/08/22 09:22 04/08/22 09:30 04/08/22 09:31 Temperature 97.7 F Pulse Rate 111 H 110 H Respiratory Rate 33 H Blood Pressure 146/95 H Pulse Oximetry 100 100 Oxygen Delivery Room Air Room Air 04/08/22 09:34 04/08/22 14:03 04/08/22 09:33 Temperature Pulse Rate 99 110 H Respiratory Rate 24 H 19 Blood Pressure Pulse Oximetry 98 100 Oxygen Delivery Room Air 04/08/22 09:45 04/08/22 09:46 04/08/22 10:00 Temperature Pulse Rate 108 H 108 H 106 H Respiratory Rate 25 H 31 H 31 H Blood Pressure 127/100 H Pulse Oximetry 97 97 100 Oxygen Delivery 04/08/22 10:01 04/08/22 10:15 04/08/22 10:30 Temperature Pulse Rate 110 H 104 H 104 H Respiratory Rate 19 33 H 21 H Blood Pressure 115/85 Pulse Oximetry 99 95 95 Oxygen Delivery 04/08/22 10:45 04/08/22 11:00 04/08/22 11:15 Temperature Pulse Rate 101 H 101 H 99 Respiratory Rate 21 H 25 H 17 Blood Pressure Pulse Oximetry 94 94 94 Oxygen Delivery 04/08/22 11:30 04/08/22 11:45 04/08/22 12:00 Temperature Pulse
[2022-04-09 09:22] LABS: Hematocrit 38.1 % (37.0-47.0); Hemoglobin 12.1 g/dL (12.0-15.0); Mean Corpuscular HGB Conc 31.8 g/dl (32-36); Mean Corpuscular Volume 94.5 fl (80-100); Platelet Count Result 284 k/mm3 (150-375); Red Blood Count 4.03 M/mm3 (4.2-5.4); White Blood Count 11.9 K/mm3 (4.5-10.0)
[2022-04-09 09:33] LABS: Anion Gap 8 mmol/L (8-16); Blood Urea Nitrogen 18 mg/dL (7-17); Calcium 9.1 mg/dL (8.4-10.2); Carbon Dioxide 24 mmol/L (22-30); Chloride 106 mmol/L (98-107); Estimated CRCL calculation 58 ml/min; Estimated Glomerular Filt Rate > 60; Glucose 93 mg/dL (65-110); Potassium 3.6 mmol/L (3.4-5.0); Sodium 138 mmol/L (137-145)
[2022-04-09 09:54] LABS: Toxigenic C. Diff NEGATIVE (NEGATIVE)
[2022-04-09] MEDS: SODIUM CHLORIDE 0.9% IV 1,000 ML 75 ML IV CONT (11:54)
[2022-04-09] MEDS: ONDANSETRON INJ 4 MG/2 ML VIAL IV PUSH ×3 (12:05→22:41)
[2022-04-09] MEDS: PANTOPRAZOLE SODIUM IV 40 MG VIAL IV PUSH (20:34)
[2022-04-09] MEDS: IPRATROPIUM BR 0.02% INH SOLN 0.5 MG/2.5 ML VIAL INHALATION (21:56)
[2022-04-10] VITALS (8 sets, daily range): BP systolic 123–141; BP diastolic 63–89; PULSE 84–104; RESP 14–18; TEMP 36.4–37.1; O2SAT 91–98
[2022-04-10] MEDS: MORPHINE SULFATE (*CRX) 2 MG/ML INJ 1 MG IV PUSH ×5 (02:39→19:57)
[2022-04-10] MEDS: SODIUM CHLORIDE 0.9% IV 1,000 ML 75 ML IV CONT ×2 (02:39→16:26)
[2022-04-10] MEDS: ONDANSETRON INJ 4 MG/2 ML VIAL IV PUSH (06:29)
[2022-04-10 06:59] LABS: Hematocrit 33.3 % (37.0-47.0); Hemoglobin 10.3 g/dL (12.0-15.0); Mean Corpuscular HGB Conc 30.9 g/dl (32-36); Mean Corpuscular Hemoglobin 29.1 pg (26-34); Mean Corpuscular Volume 94.1 fl (80-100); Mean Platelet Volume 8.7 fl (7.4-10.4); Platelet Count Result 265 k/mm3 (150-375); Red Blood Count 3.54 M/mm3 (4.2-5.4); Red Cell Distribution Width 15.2 % (11.5-14.5); White Blood Count 8.9 K/mm3 (4.5-10.0)
[2022-04-10 07:16] LABS: Alanine Aminotransferase 18 U/L (6-35); Albumin Level 3.4 g/dL (3.5-5.1); Alkaline Phosphatase 49 U/L (38-126); Anion Gap 3 mmol/L (8-16); Aspartate Amino Transferase 22 U/L (14-36); Bilirubin,Total 0.3 mg/dL (0.2-1.3); Blood Urea Nitrogen 8 mg/dL (7-17); Calcium 8.2 mg/dL (8.4-10.2); Carbon Dioxide 29 mmol/L (22-30); Chloride 105 mmol/L (98-107); Estimated CRCL calculation 64 ml/min; Estimated Glomerular Filt Rate > 60; Glucose 100 mg/dL (65-110); Magnesium 1.8 mg/dL (1.6-2.3); Sodium 137 mmol/L (137-145)
[2022-04-10] MEDS: PANTOPRAZOLE SODIUM IV 40 MG VIAL IV PUSH ×2 (08:01→20:01)
[2022-04-10] MEDS: SERTRALINE HCL 50 MG TABLET PO (08:01)
[2022-04-10] MEDS: ALBUTEROL SULFATE NEB 2.5 MG/3 ML INH 5 MG INHALATION ×2 (09:28→13:58)
[2022-04-10] MEDS: IPRATROPIUM BR 0.02% INH SOLN 0.5 MG/2.5 ML VIAL INHALATION ×2 (09:28→13:57)
[2022-04-10] MEDS: FLUTICASONE/SALMETEROL 115-21 MCG INHALER 1 PUFF 2 PUFF INHALATION (09:28)
[2022-04-10] MEDS: POTASSIUM CHLORIDE 20 MEQ PACKET (FOR LIQUID) 60 MEQ PO (09:32)
--- NOTE | 2022-04-10 13:23 | PM.IMPN ---
Progress Note: A&P Assessment and Plan (1) Diarrhea: Code(s): R19.7 - Diarrhea, unspecified Status: Acute Assessment and Plan: CT abdomen pelvis: Wall thickening of the mid and distal esophagus, likely esophagitis. Wall thickening of the distal stomach and proximal duodenum consistent with inflammation. Severe emphysema. White blood cell count of 11.9. Continue Zofran 4 mg q.6 hours PRN, Protonix 40 b.i.d. and Analgesics prescribed for pain and discomfort. C diff negative Stool cultures pending Consult GI for persistent symptoms and new anemia. Trial empiric antibiotics- ciprofloxacin 400 mg IV BID and metronidazole 500 mg Q8 hours. Diet as tolerated. (2) Dehydration: Code(s): E86.0 - Dehydration Status: Acute Assessment and Plan: patient put on continuous IV fluids on admission, but with increased SOB and chest x-ray suggesting pulmonary edema. Stop IV fluids for now. Hold diuretics as she will be NPO after midnight. monitor BMP and CBC. Monitor I/O. (3) Hypokalemia: Code(s): E87.6 - Hypokalemia Status: Acute Assessment and Plan: K 2.9 on admission secondary to loose stool. She was given potassium replacement in the ED. BMP monitored. 04/10- K 3.0. given 60 mEQ PO x1 today. Check Magnesium level. (4) Abnormal urinalysis: Code(s): R82.90 - Unspecified abnormal findings in urine Status: Acute Assessment and Plan: UA: Trace leukocyte esterase, 6-10 rbc's and 21-50 WBC Urine culture pending Rocephin stopped due to medication change to cipro and metronidazole. (5) Chronic obstructive pulmonary disease: Qualifiers: COPD type: emphysema Emphysema type: unspecified Qualified Code(s): J43.9 - Emphysema, unspecified Code(s): J44.9 - Chronic obstructive pulmonary disease, unspecified Status: Chronic Assessment and Plan: Chronic, continue Ipratropium neb q.6 hours and albuterol nebs q.6 hours Monitor respiratory status (6) Back pain: Qualifiers: Back pain location: low back pain Chronicity: chronic Back pain laterality: midline Sciatica presence: without sciatica Qualified Code(s): M54.50 - Low back pain, unspecified; G89.29 - Other chronic pain Code(s): M54.9 - Dorsalgia, unspecified Status: Chronic Assessment and Plan: Chronic, continue analgesics p.r.n. Plan code status: full code Disposition: inpatient Discharge plan: home with spouse. Time Spent With Patient Time with patient: 25 - 35 minutes Subjective Date/time seen: 04/10/22 13:23 She reports persistent abdominal pain and nausea. She tried eating oatmeal today and kept some of it down. She has had symptoms for more than 1 week. Nursing reports the patient c/o SOB and required 1 L O2 NC applied this afternoon for spO2 91%. Chest x-ray obtained. Review of Systems Review of Systems: All systems reviewed & are unremarkable except as noted in HPI and below Exam Narrative: GENERAL: Mild distress , cachectic, frail older adult male. HEENT: Normocephalic. sclera nonicteric. PERRL. EOM intact, dry mucous membranes NECK: no lymphadenopathy. No JVD. RESPIRATORY: RR regular at rest. Lung sounds decreased bibasilar lobes. No wheezing. CARDIO: Normal S1 and S2 regular rate and rhythm. No murmurs. GI: soft, RUQ/epigastric tenderness to palpation. bowel sounds present SKIN: Fair, warm & dry. no rashes or open lesions. EXTREMITIES: Grossly normal ROM. no edema, redness or tenderness. radial and dorsalis pedis pulses palpable and equal. NEURO: no focal deficits. Cranial nerves 2-12 grossly normal. Objective Data Vital Signs Vital Signs: Vital Signs - 24 hr 04/09/22 14:00 04/09/22 20:00 04/09/22 20:00 Temperature 99.0 F 98.9 F Pulse Rate 97 101 H Respiratory Rate 16 14 Blood Pressure 122/71 143/79 H Pulse Oximetry 90 90 Oxygen Delivery Room Air 04/09/22 21:50 04/09/22 21:50
[2022-04-10] MEDS: metroNIDAZOLE 500 MG/ISO 100ML 500 MG/100 ML BAG 100 MG IVPB ×2 (13:42→23:31)
[2022-04-10 14:32] LABS: Lactic Acid Reflex 1.3 mmol/L (0.7-2.0)
[2022-04-10] MEDS: CIPROFLOXACIN 400 MG/D5W 200ML 200 ML 200 MG IVPB ×2 (14:49→19:59)
[2022-04-10] MEDS: PROMETHAZINE HCL 25 MG/ML AMPUL 12.5 MG IV PUSH ×2 (14:57→19:57)
[2022-04-10 15:05] LABS: Hepatitis B Surface Antigen Negative (Negative)
[2022-04-10 15:10] LABS: HAV RESULT Negative (Negative); Hepatitis B Core IgM Result Negative (Negative)
[2022-04-10 15:22] LABS: Hepatitis C Virus Antibody Negative (Negative)
--- NOTE | 2022-04-10 15:31 | WPDGICN ---
Assessment and Plan Assessment and plan (1) Nausea and vomiting: Code(s): R11.2 - Nausea with vomiting, unspecified Status: Acute Assessment and Plan: for the past week she has been very nauseated has been vomiting as well she does not have issues with food getting caught when she eats. (2) Abnormal CT scan, gastrointestinal tract: Code(s): R93.3 - Abnormal findings on diagnostic imaging of other parts of digestive tract Status: Acute Assessment and Plan: CT scan shows: 1. Wall thickening of the mid and distal esophagus, likely esophagitis. 2. Wall thickening of the distal stomach and proximal duodenum, consistent with inflammation. 3. Severe emphysema. This could be due to gastritis and/or esophagitis or even ulcer disease particularly with the thickening in the duodenum. I will schedule her for EGD to be done tomorrow morning. (3) Chronic obstructive pulmonary disease: Code(s): J44.9 - Chronic obstructive pulmonary disease, unspecified Status: Acute Assessment and Plan: This is an ongoing problem. She is an ex-smoker (4) Fatigue: Code(s): R53.83 - Other fatigue Status: Acute Assessment and Plan: she feels very tired. She states it is difficult to lift her arms because they are so fatigued. (5) Diarrhea: Code(s): R19.7 - Diarrhea, unspecified Status: Acute Assessment and Plan: This began about a week ago when the nausea vomiting began. A stool for C difficile has been performed and is negative. (6) Anemia: Code(s): D64.9 - Anemia, unspecified Status: Acute Assessment and Plan: hemoglobin has dropped from 14.12 days ago to 10.3 at present time. There is no sign however of bleeding. Stool Hemoccult has been ordered. GI Consult Note Consult date/time: 04/10/22 15:31 HPI: Cecy Jackson is a 77 year old female With severe COPD who is admitted at this time because of diarrhea and severe nausea for the past week. She feels very tired. She states that her arms feel very heavy and she has a headache. She denies dysphagia but states that she has no appetite. Her stools have been loose but not bloody. She does have COPD for which she uses nebulizers. Review of Systems Review of Systems: All systems reviewed & are unremarkable except as noted in HPI and below PMFSH Past Medical History Medical History COPD (chronic obstructive pulmonary disease) Depression Fibromyalgia Pain in thoracic spine Trochanteric bursitis, right hip Surgical History Surgical History H/O: hysterectomy History of hip surgery right hip surgery Hx of cataract surgery (~12/2021) Family History Family History Other Family history of arthritis Family history of cardiovascular disease Family history of congenital heart disease Family history of multiple sclerosis Social History Social History Social History: Code status: Full code. Smoking packs per day: 1.5 Smoking cigarettes per day: 30.0 Smoking status: Former smoker Tobacco type: cigarettes Smoking end date: 04/28/93 Alcohol intake: never Substance use: never Substance use type: does not use Lack of Transportation: No Lack of Food: Never True Current Housing: I Have Housing Concerned About Future Housing: No Difficulty Paying Gas/Electric Bills: No Difficulty Paying for Meds: No Currently Unemployed: No Education: Trade/Vocational Certificate Difficulty w/ Childcare or Family Care: No Additional living arrangements comments: Lives with in [place]. Spiritual care concerns: No Meds Home Medications and Allergies Home Medications Medication Instructions Recorded Confirmed Typ
[2022-04-10] MEDS: traZODone HCL 50 MG TABLET 100 MG PO (19:58)
[2022-04-10] MEDS: traMADol HCL (*CRX) 25 MG TABLET PO (19:58)
[2022-04-10] MEDS: ACETAMINOPHEN 325 MG TABLET 650 MG PO (23:50)
[2022-04-11] VITALS (17 sets, daily range): BP systolic 89–140; BP diastolic 52–97; PULSE 88–107; RESP 12–24; TEMP 36.2–37.1; O2SAT 87–98
--- NOTE | 2022-04-11 00:43 | PCRCNOTE ---
window of time for administration has passed. see next available administration.
[2022-04-11] MEDS: MORPHINE SULFATE (*CRX) 2 MG/ML INJ 1 MG IV PUSH ×5 (00:55→21:56)
[2022-04-11] MEDS: PROMETHAZINE HCL 25 MG/ML AMPUL 12.5 MG IV PUSH ×3 (00:56→20:08)
[2022-04-11] MEDS: IPRATROPIUM BR 0.02% INH SOLN 0.5 MG/2.5 ML VIAL INHALATION ×3 (01:45→21:19)
[2022-04-11] MEDS: ALBUTEROL SULFATE NEB 2.5 MG/3 ML INH 5 MG INHALATION ×3 (01:45→21:18)
[2022-04-11] MEDS: metroNIDAZOLE 500 MG/ISO 100ML 500 MG/100 ML BAG 100 MG IVPB ×3 (05:33→23:04)
[2022-04-11] MEDS: traMADol HCL (*CRX) 25 MG TABLET PO ×2 (05:33→18:37)
[2022-04-11 06:42] LABS: Basophils Percent Auto 0.4 % (0.2-1.2); Eosinophils Absolute Auto 0.2 K/mm3 (0-0.3); Eosinophils Percent Auto 2.7 % (0-4.4); Hematocrit 36.3 % (37.0-47.0); Hemoglobin 11.4 g/dL (12.0-15.0); Immature Granulocyte Absolute 0.17 K/mm3 (0.00-0.031); Lymphocytes Absolute Auto 2.06 K/mm3 (0.9-3.2); Lymphocytes Percent Auto 24.1 % (18.3-44.2); Mean Corpuscular HGB Conc 31.4 g/dl (32-36); Mean Corpuscular Volume 95.5 fl (80-100); Mean Platelet Volume 8.8 fl (7.4-10.4); Monocytes Absolute Auto 0.6 K/mm3 (0.1-0.6); Monocytes Percent Auto 7.3 % (2.6-8.5); Neutrophils Absolute Auto 5.4 K/mm3 (1.3-6.7); Neutrophils Percent Auto 63.5 % (45.5-73.1); Platelet Count Result 288 k/mm3 (150-375); Red Cell Distribution Width 15.3 % (11.5-14.5); White Blood Count 8.5 K/mm3 (4.5-10.0)
[2022-04-11 06:48] LABS: INR 1.1; Prothrombin Time 13.8 Seconds (11.1-14.7)
[2022-04-11 06:49] LABS: Partial Thromboplastin Time 30.2 SECONDS (22.3-36.8)
[2022-04-11 06:51] LABS: Anion Gap 2 mmol/L (8-16); Blood Urea Nitrogen 4 mg/dL (7-17); Calcium 8.3 mg/dL (8.4-10.2); Carbon Dioxide 30 mmol/L (22-30); Chloride 100 mmol/L (98-107); Estimated CRCL calculation 52 ml/min; Estimated Glomerular Filt Rate > 60; Glucose 98 mg/dL (65-110); Potassium 3.3 mmol/L (3.4-5.0); Sodium 132 mmol/L (137-145)
[2022-04-11] MEDS: PANTOPRAZOLE SODIUM IV 40 MG VIAL IV PUSH ×2 (08:21→20:04)
[2022-04-11] MEDS: SERTRALINE HCL 50 MG TABLET PO (08:21)
[2022-04-11] MEDS: CIPROFLOXACIN 400 MG/D5W 200ML 200 ML 100 MG IVPB (08:21)
--- NOTE | 2022-04-11 08:42 | PM.IMPN ---
Progress Note: A&P Assessment and Plan (1) Diarrhea: Qualifiers: Diarrhea type: presumed infectious Qualified Code(s): R19.7 - Diarrhea, unspecified Code(s): R19.7 - Diarrhea, unspecified Status: Acute Assessment and Plan: CT abdomen pelvis: Wall thickening of the mid and distal esophagus, likely esophagitis. Wall thickening of the distal stomach and proximal duodenum consistent with inflammation. Severe emphysema. White blood cell count of 11.9. Continue Zofran 4 mg q.6 hours PRN, Protonix 40 b.i.d. and Analgesics prescribed for pain and discomfort. C diff negative Stool cultures pending Consult GI for persistent symptoms and new anemia. Day 2 empiric antibiotics- ciprofloxacin 400 mg IV BID and metronidazole 500 mg Q8 hours. EGD scheduled for today (2) Nausea and vomiting: Qualifiers: Vomiting type: bilious vomiting Qualified Code(s): R11.14 - Bilious vomiting Code(s): R11.2 - Nausea with vomiting, unspecified Status: Acute Assessment and Plan: N/V x 1 week with RUQ abd pain. CT abdomen/pelvis as above. GI following and EGD today RUQ US with cholelithiasis noted, but no CBD distension or gallbladder wall thickening. If EGD negative and pain persists, will consider HIDA scan (3) Dehydration: Code(s): E86.0 - Dehydration Status: Acute Assessment and Plan: patient put on continuous IV fluids on admission, but with increased SOB and chest x-ray suggesting pulmonary edema. Stop IV fluids for now. Hold diuretics as she will be NPO after midnight. monitor BMP and CBC. Monitor I/O. (4) Hypokalemia: Code(s): E87.6 - Hypokalemia Status: Acute Assessment and Plan: K 2.9 on admission secondary to loose stool. She was given potassium replacement in the ED. BMP monitored. 04/10- K 3.0. given 60 mEQ PO x1 today. 04/11 K 3.3. give 40 mEQ IVPB x1 (5) Abnormal urinalysis: Code(s): R82.90 - Unspecified abnormal findings in urine Status: Acute Assessment and Plan: UA: Trace leukocyte esterase, 6-10 rbc's and 21-50 WBC Urine culture with mixed betsy Rocephin stopped due to medication change to cipro and metronidazole for above GI coverage (6) Chronic obstructive pulmonary disease: Qualifiers: COPD type: emphysema Emphysema type: unspecified Qualified Code(s): J43.9 - Emphysema, unspecified Code(s): J44.9 - Chronic obstructive pulmonary disease, unspecified Status: Chronic Assessment and Plan: Chronic, continue Ipratropium neb q.6 hours and albuterol nebs q.6 hours Monitor respiratory status 04/10 Chest x-ray with pulmonary opacities with mild interstitial edema and small right pleural effusion. No cardiomegaly. IV fluids stopped. (7) Back pain: Qualifiers: Back pain laterality: midline Back pain location: low back pain Chronicity: chronic Sciatica presence: without sciatica Qualified Code(s): M54.50 - Low back pain, unspecified; G89.29 - Other chronic pain Code(s): M54.9 - Dorsalgia, unspecified Status: Chronic Assessment and Plan: Chronic, continue analgesics p.r.n. Plan code status: full code Disposition: inpatient Discharge plan: home with spouse. Time Spent With Patient Time with patient: 25 - 35 minutes Subjective Date/time seen: 04/11/22 08:42 She reports back pain radiating to her chest and abdomen that is sharp. She has nausea, but no emesis. She is scheduled for EGD today. She does endorse previous episodes of neck pain with radiating pain down both arms, but she is not having this pain today, she states. Repeat EKG obtained. Review of Systems Review of Systems: All systems reviewed & are unremarkable except as noted in HPI and below Exam Narrative: GENERAL: Mild distress, cachectic, frail older adult female. Sitting up in the chair. HEENT: Normocephalic. sclera nonicteric. PERRL. EOM intact,
[2022-04-11] MEDS: FLUTICASONE/SALMETEROL 115-21 MCG INHALER 1 PUFF 2 PUFF INHALATION ×2 (10:00→21:23)
--- NOTE | 2022-04-11 10:47 | ECG_ITS ---
Measurements Intervals [place] Rate: 99 P: 69 [place]: 120 QRS: -64 QRSD: 112 T: 70 QT: 336 QTc: 432 Interpretive Statements SINUS RHYTHM LEFT ANTERIOR FASCICULAR BLOCK [QRS AXIS <= -45, QR IN I, RS IN II] ANTERIOR MYOCARDIAL INFARCTION , OF INDETERMINATE AGE [40+ ms Q WAVE AND/OR ST/T ABNORMALITY IN V3/V4] COMPARED TO ECG 04/08/2022 09:30:08 SINUS RHYTHM NOW PRESENT Electronically Signed On 04-11-2022 16:05:14 [employer] by Manuela Robledo M.D.
[2022-04-11] MEDS: POTASSIUM CHLORIDE INJ 40 MEQ in SODIUM CHLORIDE 0.9% IV 500 ML 130 MEQ IVPB (12:31)
--- NOTE | 2022-04-11 13:47 | WPDANESEPPF ---
Anes - Initial Pre Proc Eval Procedure: Operation Date: 04/11/22 13:00 Proposed Procedures p Esophagogastroduodenoscopy - Stevenson Holt MD Date/Time: 04/11/22 13:47 Surgeon: Emiliano Beaver MD Pre Op Diagnosis: Dehydration/Generalized Fatigue/Tachycardia Patient Data Age: 77 Gender: F Height: 1.57 m Weight: 44 kg Last Vital Signs Temp 36.5 C 04/11/22 09:45 Pulse 91 04/11/22 10:05 Resp 22 H 04/11/22 10:05 BP 117/71 04/11/22 09:45 Pulse Ox 87 L 04/11/22 10:05 O2 Del Method Room Air 04/11/22 10:05 O2 Flow Rate 2 04/11/22 07:06 Allergies Allergy/AdvReac Type Severity Reaction Status Date / Time No Known Allergies Allergy Verified 04/08/22 09:32 Home Medications Medication Instructions Recorded Confirmed Type albuterol sulfate 90 mcg/actuation 1 - 2 puff inhalation Q4-6H PRN 02/05/22 04/08/22 Rx aerosol inhaler (ProAir HFA) Shortness Of Breath #8.5 grams fluticasone 250 mcg-salmeterol 50 1 inh inhalation BID #60 ea 02/05/22 04/08/22 Rx mcg/dose blistr powdr for inhalation (Advair Diskus) sertraline 50 mg tablet 50 mg PO DAILY #90 tabs 02/05/22 04/08/22 Rx trazodone 100 mg tablet 100 mg PO QHS PRN insomnia #90 tabs 02/05/22 04/08/22 Rx albuterol sulfate 2.5 mg/3 mL See Rx Instructions .Route 03/26/22 04/08/22 Rx (0.083 %) solution for nebulization .COMPLEX #75 mL Laboratory Tests 04/10/22 04/10/22 04/10/22 13:56 13:56 13:56 WBC RBC Hgb Cancelled Hct Cancelled MCV MCH MCHC RDW Plt Count MPV Immature Gran % (Auto) Neut % (Auto) Lymph % (Auto) [place] % (Auto) Eos % (Auto) Baso % (Auto) Lymph # (Auto) [place] # (Auto) Eos # (Auto) Baso # (Auto) Abs Immat Gran (auto) Absolute Neuts (auto) Absolute Nucleated RBC Nucleated RBC % PT INR APTT Sodium Potassium Chloride Carbon Dioxide Anion Gap BUN Creatinine Estim Creat Clear Calc Estimated GFR Glucose Lactic Acid 1.3 mmol/L mmol/L (0.7-2.0) Calcium Hepatitis A IgM Ab Negative (Negative) Hep Bs Antigen Negative (Negative) Hep B Core IgM Ab Negative (Negative) Hepatitis C Ab Screen Negative (Negative) 04/11/22 04/11/22 04/11/22 06:17 06:17 06:17 WBC 8.5 K/mm3 K/mm3 (4.5-10.0) RBC 3.80 M/mm3 L M/mm3 (4.2-5.4) Hgb 11.4 g/dL L g/dL (12.0-15.0) Hct 36.3 % L % (37.0-47.0) MCV 95.5 fl fl (80-100) MCH 30.0 pg pg (26-34) MCHC 31.4 g/dl L g/dl (32-36) RDW 15.3 % H % (11.5-14.5) Plt Count 288 k/mm3 k/mm3 (150-375) MPV 8.8 fl fl (7.4-10.4) Immature Gran % (Auto) 2.0 % H % (0-0.5) Neut % (Auto) 63.5 % % (45.5-73.1) Lymph % (Auto) 24.1 % % (18.3-44.2) [place] % (Auto) 7.3 % % (2.6-8.5) Eos % (Auto) 2.7 % % (0-4.4) Baso % (Auto) 0.4 % % (0.2-1.2) Lymph # (Auto) 2.06 K/mm3 K/mm3 (0.9-3.2) [place] # (Auto) 0.6 K/mm3 K/mm3 (0.1-0.6) Eos # (Auto) 0.2 K/mm3 K/mm3 (0-0.3) Baso # (Auto) 0.0 K/mm3 K/mm3 (0.0-0.1) Abs Immat Gran (auto) 0.17 K/mm3 H K/mm3 (0.00-0.031) Absolute Neuts (auto) 5.4 K/mm3 K/mm3 (1.3-6.7) Absolute Nucleated RBC 0.0 K/mm3 K/mm3 (0.0-0.012) Nucleated RBC % 0.0 % % (0.0-0.2) PT 13.8 Seconds Seconds (11.1-14.7) INR 1.1 APTT 30.2 SECONDS SECONDS (22.3-36.8) Sodium 132 mmol/L
[2022-04-11] MEDS: LACTATED RINGERS 1,000 ML 150 ML IV CONT (14:09)
[2022-04-11] MEDS: CIPROFLOXACIN 400 MG/D5W 200ML 200 ML 200 MG IVPB (21:57)
[2022-04-11] MEDS: traZODone HCL 50 MG TABLET 100 MG PO (22:04)
[2022-04-12] VITALS (15 sets, daily range): BP systolic 91–118; BP diastolic 63–74; PULSE 86–121; RESP 18–22; TEMP 36.8–37.3; O2SAT 87–98
[2022-04-12] MEDS: traMADol HCL (*CRX) 25 MG TABLET PO ×2 (01:30→07:55)
[2022-04-12] MEDS: MORPHINE SULFATE (*CRX) 2 MG/ML INJ 1 MG IV PUSH ×3 (04:53→18:51)
[2022-04-12] MEDS: metroNIDAZOLE 500 MG/ISO 100ML 500 MG/100 ML BAG 100 MG IVPB (05:39)
[2022-04-12] MEDS: SERTRALINE HCL 50 MG TABLET PO (07:50)
[2022-04-12] MEDS: PANTOPRAZOLE SODIUM IV 40 MG VIAL IV PUSH ×2 (07:50→21:24)
[2022-04-12 09:24] LABS: Anion Gap 4 mmol/L (8-16); Blood Urea Nitrogen 3 mg/dL (7-17); Calcium 8.4 mg/dL (8.4-10.2); Carbon Dioxide 31 mmol/L (22-30); Chloride 102 mmol/L (98-107); Estimated CRCL calculation 51 ml/min; Estimated Glomerular Filt Rate > 60; Glucose 110 mg/dL (65-110); Magnesium 1.8 mg/dL (1.6-2.3); Potassium 3.3 mmol/L (3.4-5.0); Sodium 137 mmol/L (137-145)
[2022-04-12] MEDS: ALBUTEROL SULFATE NEB 2.5 MG/3 ML INH 5 MG INHALATION ×2 (09:26→21:28)
[2022-04-12] MEDS: IPRATROPIUM BR 0.02% INH SOLN 0.5 MG/2.5 ML VIAL INHALATION ×2 (09:26→21:28)
[2022-04-12] MEDS: CIPROFLOXACIN 400 MG/D5W 200ML 200 ML 100 MG IVPB (09:40)
--- NOTE | 2022-04-12 10:22 | WPDANESPN ---
Anes - Prog Note Post-Op Date/Time: 04/12/22 10:22 Cardiovascular status: normal Respiratory status: normal Airway patency: baseline Mental status: baseline Post-Op hydration status: normal Vital Signs: Last Vital Signs Temp 36.8 C 04/12/22 05:55 Pulse 97 04/12/22 05:55 Resp 18 04/12/22 05:55 BP 118/74 04/12/22 05:55 Pulse Ox 96 04/12/22 05:55 O2 Del Method Nasal Cannula 04/11/22 20:00 O2 Flow Rate 2 04/11/22 20:00 Pain Score (VAS): 0 I/O: Intake & Output 04/11/22 04/12/22 04/12/22 23:59 07:59 15:59 Intake Total 980 450 Output Total 300 Balance 680 450 Laboratory Tests 04/11/22 06:17 04/12/22 08:58 04/12/22 08:58 Sodium 137 Potassium 3.3 L Chloride 102 Carbon Dioxide 31 H Anion Gap 4 L BUN 3 L Creatinine 0.50 L Estim Creat Clear Calc 51 Estimated GFR > 60 Glucose 110 Calcium 8.4 Magnesium 1.8 Post-procedural complaints: none Patient Feedback: Patient satisfied with anesthetic care.
[2022-04-12] MEDS: ACETAMINOPHEN/CODEINE ELIXIR (*CRX) 120-12 MG/5 ML UDC 10 ML PO ×2 (11:35→22:01)
[2022-04-12] MEDS: ONDANSETRON HCL ODT 4 MG TABLET PO ×2 (13:08→18:46)
--- NOTE | 2022-04-12 13:53 | HOMEO2EVAL ---
Evaluation was performed at [facility] Home Oxygen Evaluation RC: Home Oxygen (O2) Evaluation Start: 04/12/22 10:53 Freq: ONCE Status: Active Protocol: RPE Activity Type Activity Date Activity User E-sign Co-sign Detail Recorded Client Recorded Date Recorded By Document 04/12/22 13:00 MARIYA [email or web address] 04/12/22 13:50 MARIYA Document 04/12/22 13:02 MARIYA [email or web address] 04/12/22 13:50 MARIYA Document 04/12/22 13:05 MARIYA [email or web address] 04/12/22 13:50 MARIYA Document 04/12/22 13:07 MARIYA [email or web address] 04/12/22 13:50 MARIYA Document 04/12/22 13:49 MARIYA [email or web address] 04/12/22 13:50 MARIYA 04/12/22 04/12/22 04/12/22 13:00 13:02 13:05 Home O2 Evaluation [Oxygen] -Test Phase Resting Resting Exercise -Oxygen Delivery Room Air Nasal Cannula Nasal Cannula -Oxygen Flow Rate (L/min) 1 1 [Pulse Oximetry] -Pulse Oximetry (90-100 %) 87 L 91 87 L [Pulse Rate] -Pulse Rate (60-100 beats/min) 90 93 118 H [Comments] -Home Oxygen Evaluation Comments [Charges] -Treatment Charges O2 Evaluation - Inpatient 04/12/22 04/12/22 13:07 13:49 Home O2 Evaluation [Oxygen] -Test Phase Exercise Resting -Oxygen Delivery Nasal Cannula Nasal Cannula -Oxygen Flow Rate (L/min) 2 1 [Pulse Oximetry] -Pulse Oximetry (90-100 %) 92 92 [Pulse Rate] -Pulse Rate (60-100 beats/min) 121 H 93 [Comments] -Home Oxygen Evaluation Comments Pt requires 1 L home O2 at rest and 2 L with activity/ exertion [Charges] -Treatment Charges
[2022-04-12] MEDS: POTASSIUM CHLORIDE 20 MEQ TABLET 40 MEQ PO (14:48)
--- NOTE | 2022-04-12 15:16 | PM.IMPN ---
Progress Note: A&P Assessment and Plan (1) Diarrhea: Qualifiers: Diarrhea type: presumed infectious Qualified Code(s): R19.7 - Diarrhea, unspecified Code(s): R19.7 - Diarrhea, unspecified Status: Acute Assessment and Plan: CT abdomen pelvis: Wall thickening of the mid and distal esophagus, likely esophagitis. Wall thickening of the distal stomach and proximal duodenum consistent with inflammation. Severe emphysema. White blood cell count of 11.9. Continue Zofran 4 mg q.4 hours PRN C diff negative Stool cultures pending (2) Nausea and vomiting: Qualifiers: Vomiting type: bilious vomiting Qualified Code(s): R11.14 - Bilious vomiting Code(s): R11.2 - Nausea with vomiting, unspecified Status: Acute Assessment and Plan: N/V x 1 week with RUQ abd pain. CT abdomen/pelvis as above. Consult GI for persistent symptoms and new anemia. EGD showed gastric and duodenal ulcers not bleeding, esophagitis and severe duodenitis. JONATHAN test and biopsy pending. Continue Protonix 40 mg BID. Stop antibiotics as these are not routinely given for duodenitis, unless H.pylori is present. Analgesics prescribed for pain and discomfort. Trial tylenol w/codeine elixer. (3) Dehydration: Code(s): E86.0 - Dehydration Status: Acute Assessment and Plan: patient put on continuous IV fluids on admission, but with increased SOB and chest x-ray suggesting pulmonary edema. Stopped IV fluids 04/10. monitor BMP and CBC. Monitor I/O. (4) Hypokalemia: Code(s): E87.6 - Hypokalemia Status: Acute Assessment and Plan: K 2.9 on admission secondary to loose stool. She was given potassium replacement in the ED. BMP monitored. 04/10- K 3.0. given 60 mEQ PO x1 today. 04/11 K 3.3. give 40 mEQ IVPB x1 04/12 K 3.3. give 40 mEQ PO x1 (5) Abnormal urinalysis: Code(s): R82.90 - Unspecified abnormal findings in urine Status: Ruled-out Assessment and Plan: UA: Trace leukocyte esterase, 6-10 rbc's and 21-50 WBC Urine culture with mixed betsy Rocephin stopped due to medication change to cipro and metronidazole for above GI coverage (6) Chronic obstructive pulmonary disease: Qualifiers: COPD type: emphysema Emphysema type: unspecified Qualified Code(s): J43.9 - Emphysema, unspecified Code(s): J44.9 - Chronic obstructive pulmonary disease, unspecified Status: Chronic Assessment and Plan: Chronic, continue Ipratropium neb q.6 hours and albuterol nebs q.6 hours Monitor respiratory status 04/10 Chest x-ray with pulmonary opacities with mild interstitial edema and small right pleural effusion. No cardiomegaly. IV fluids stopped. 04/12 home O2 eval shows patient needs 1 liter NC at rest, 2 liter NC with exertion/sleep (7) Back pain: Qualifiers: Back pain location: low back pain Chronicity: chronic Back pain laterality: midline Sciatica presence: without sciatica Qualified Code(s): M54.50 - Low back pain, unspecified; G89.29 - Other chronic pain Code(s): M54.9 - Dorsalgia, unspecified Status: Chronic Assessment and Plan: Chronic, continue analgesics p.r.n. as above Plan code status: full code Disposition: inpatient Discharge plan: home with spouse. Will plan to discharge in am if symptoms improved and tolerating diet. Time Spent With Patient Time with patient: 15 - 25 minutes Subjective Date/time seen: 04/12/22 15:16 Interval history: She still has some nausea and abdominal pain, but it is improving. She is eating small bites of food this morning. No emesis. She has not had loose stool in the past 2 days. She reports seeing Dr. Mccain, Pulmonology, outpatient recently with plans for evaluating her oxygen. She is currently on 1 liter of oxygen. Review of Systems Review of Systems: All systems reviewed & are unremarkable except as noted in HPI and below Exam
--- NOTE | 2022-04-12 16:14 | WPDGIPROGNO ---
Progress Note: A&P Assessment and Plan (1) Nausea and vomiting: Qualifiers: Vomiting type: bilious vomiting Qualified Code(s): R11.14 - Bilious vomiting Code(s): R11.2 - Nausea with vomiting, unspecified Status: Acute Assessment and Plan: for the past week she has been very nauseated has been vomiting as well she does not have issues with food getting caught when she eats. 04/12/2022 EGD did reveal extensive ulceration in the body of the stomach and also small ulcerations and edema in the duodenum. The specimen for H pylori is negative. Duodenal biopsies are pending but will likely only show inflammation. I doubt that she has celiac disease. She is no longer vomiting and is willing to try eating regular food. I will advance her diet tonight (2) Abnormal CT scan, gastrointestinal tract: Code(s): R93.3 - Abnormal findings on diagnostic imaging of other parts of digestive tract Status: Acute Assessment and Plan: CT scan shows: 1. Wall thickening of the mid and distal esophagus, likely esophagitis. 2. Wall thickening of the distal stomach and proximal duodenum, consistent with inflammation. 3. Severe emphysema. This could be due to gastritis and/or esophagitis or even ulcer disease particularly with the thickening in the duodenum. I will schedule her for EGD to be done tomorrow morning. (3) Chronic obstructive pulmonary disease: Qualifiers: COPD type: emphysema Emphysema type: unspecified Qualified Code(s): J43.9 - Emphysema, unspecified Code(s): J44.9 - Chronic obstructive pulmonary disease, unspecified Status: Chronic Assessment and Plan: This is an ongoing problem. She is an ex-smoker (4) Fatigue: Code(s): R53.83 - Other fatigue Status: Acute Assessment and Plan: she feels very tired. She states it is difficult to lift her arms because they are so fatigued. (5) Diarrhea: Qualifiers: Diarrhea type: presumed infectious Qualified Code(s): R19.7 - Diarrhea, unspecified Code(s): R19.7 - Diarrhea, unspecified Status: Acute Assessment and Plan: This began about a week ago when the nausea vomiting began. A stool for C difficile has been performed and is negative. she has not had diarrhea in the last 24 hours. I told her that if it returns that we would investigate further with perhaps other stool cultures. She states that this is not a chronic problem but began around the same time as the nausea. (6) Anemia: Code(s): D64.9 - Anemia, unspecified Status: Acute Assessment and Plan: hemoglobin has dropped from 14.12 days ago to 10.3 at present time. There is no sign however of bleeding. Stool Hemoccult has been ordered. 04/12/2022 hemoglobin actually is increasing now, 11.4 versus 10.3 yesterday. Consequently there is no likelihood of gastrointestinal bleeding Plan Advance diet as tolerated. Probable discharge in morning. Follow-up EGD in 6 weeks Subjective Date/time seen: 04/12/22 16:14 She is tolerating her diet since the EGD. No further nausea or vomiting at this point with full liquid diet. She is willing to try regular diet. H pylori is negative but biopsies from the duodenum are still pending. I asked her again about NSAIDs. She does not seem to take as many as we would expect given the degree of ulcerations in her duodenum and stomach Exam Const: General: alert, tired appearing and thin Nutritional Appearance: thin Orientation/consciousness: patient oriented x3 Resp: Effort & Inspection: pursed lip breathing Auscultation: clear to auscultation bilaterally Cardio: Rhythm: regular rhythm GI: Auscultation: normal bowel sounds Neuro: General: patient oriented x3 Objective Data Vital Signs Vital Signs: Vital Signs - 24 hr 04/11/22 16:34 04/11/22 16:44 04/11/22 16:54 Temperature Pulse Rate 91 93 91 Respiratory Rate 21 H 2
[2022-04-12] MEDS: traZODone HCL 50 MG TABLET 100 MG PO (21:24)
[2022-04-12] MEDS: FLUTICASONE/SALMETEROL 115-21 MCG INHALER 1 PUFF 2 PUFF INHALATION (21:28)
[2022-04-13] VITALS (7 sets, daily range): BP systolic 93–100; BP diastolic 60–68; PULSE 98–102; RESP 16–20; TEMP 36.8–37.1; O2SAT 90–96
[2022-04-13] MEDS: ONDANSETRON HCL ODT 4 MG TABLET PO ×3 (02:55→14:40)
[2022-04-13] MEDS: MORPHINE SULFATE (*CRX) 2 MG/ML INJ 1 MG IV PUSH ×2 (03:11→08:43)
--- NOTE | 2022-04-13 05:17 | PCRCNOTE ---
Patient did want to be awakened for 0200 updraft treatment.
[2022-04-13] MEDS: ACETAMINOPHEN 325 MG TABLET 650 MG PO (06:21)
--- NOTE | 2022-04-13 06:52 | WPDGIPROGNO ---
Progress Note: A&P Assessment and Plan (1) Nausea and vomiting: Qualifiers: Vomiting type: bilious vomiting Qualified Code(s): R11.14 - Bilious vomiting Code(s): R11.2 - Nausea with vomiting, unspecified Status: Acute Assessment and Plan: for the past week she has been very nauseated has been vomiting as well she does not have issues with food getting caught when she eats. 04/12/2022 EGD did reveal extensive ulceration in the body of the stomach and also small ulcerations and edema in the duodenum. The specimen for H pylori is negative. Duodenal biopsies are pending but will likely only show inflammation. I doubt that she has celiac disease. She is no longer vomiting and is willing to try eating regular food. I will advance her diet tonight 04/13/2022. For some reason the kitchen did not bring her dinner last night. She will try breakfast this morning. If she tolerates it well then she could be discharged. The plan is that she will go home PPI b.i.d. and I will perform EGD in 6 weeks for follow-up of her ulcers. (2) Abnormal CT scan, gastrointestinal tract: Code(s): R93.3 - Abnormal findings on diagnostic imaging of other parts of digestive tract Status: Acute Assessment and Plan: CT scan shows: 1. Wall thickening of the mid and distal esophagus, likely esophagitis. 2. Wall thickening of the distal stomach and proximal duodenum, consistent with inflammation. 3. Severe emphysema. This could be due to gastritis and/or esophagitis or even ulcer disease particularly with the thickening in the duodenum. I will schedule her for EGD to be done tomorrow morning. (3) Chronic obstructive pulmonary disease: Qualifiers: COPD type: emphysema Emphysema type: unspecified Qualified Code(s): J43.9 - Emphysema, unspecified Code(s): J44.9 - Chronic obstructive pulmonary disease, unspecified Status: Chronic Assessment and Plan: This is an ongoing problem. She is an ex-smoker (4) Fatigue: Code(s): R53.83 - Other fatigue Status: Acute Assessment and Plan: she feels very tired. She states it is difficult to lift her arms because they are so fatigued. (5) Diarrhea: Qualifiers: Diarrhea type: presumed infectious Qualified Code(s): R19.7 - Diarrhea, unspecified Code(s): R19.7 - Diarrhea, unspecified Status: Acute Assessment and Plan: This began about a week ago when the nausea vomiting began. A stool for C difficile has been performed and is negative. she has not had diarrhea in the last 24 hours. I told her that if it returns that we would investigate further with perhaps other stool cultures. She states that this is not a chronic problem but began around the same time as the nausea. (6) Anemia: Code(s): D64.9 - Anemia, unspecified Status: Acute Assessment and Plan: hemoglobin has dropped from 14.12 days ago to 10.3 at present time. There is no sign however of bleeding. Stool Hemoccult has been ordered. 04/12/2022 hemoglobin actually is increasing now, 11.4 versus 10.3 yesterday. Consequently there is no likelihood of gastrointestinal bleeding Plan Advance diet as tolerated. Probable discharge i Later today Follow-up EGD in 6 weeks Subjective Date/time seen: 04/13/22 06:52 She states that she wanted to eat but apparently her meal never came last night. The nursing staff confirms this. He did however offer her a sandwich However she declined. she states that she is not nauseated today and is eager to try breakfast. Staff added that the patient had requested received morphine last night but this is I think for her back. Exam Const: General: alert, tired appearing and thin Nutritional Appearance: thin Orientation/consciousness: patient oriented x3 Resp: Effort & Inspection: pursed lip breathing Auscultation: clear to auscultation bilaterally Cardio: Rhyth
[2022-04-13] MEDS: FLUTICASONE/SALMETEROL 115-21 MCG INHALER 1 PUFF 2 PUFF INHALATION ×2 (08:31→20:29)
[2022-04-13] MEDS: ALBUTEROL SULFATE NEB 2.5 MG/3 ML INH 5 MG INHALATION (08:31)
[2022-04-13] MEDS: IPRATROPIUM BR 0.02% INH SOLN 0.5 MG/2.5 ML VIAL INHALATION (08:31)
[2022-04-13] MEDS: PANTOPRAZOLE SODIUM IV 40 MG VIAL IV PUSH ×2 (08:47→21:57)
[2022-04-13] MEDS: SERTRALINE HCL 50 MG TABLET PO (08:47)
[2022-04-13 08:59] LABS: Anion Gap 2 mmol/L (8-16); Blood Urea Nitrogen 3 mg/dL (7-17); Calcium 8.6 mg/dL (8.4-10.2); Carbon Dioxide 34 mmol/L (22-30); Chloride 98 mmol/L (98-107); Estimated CRCL calculation 51 ml/min; Estimated Glomerular Filt Rate > 60; Glucose 99 mg/dL (65-110); Sodium 134 mmol/L (137-145)
--- NOTE | 2022-04-13 09:43 | PCPTNOTE ---
Attempted PT evaluation, pt refused stating she feels too nauseous. RN aware. Will follow.
--- NOTE | 2022-04-13 09:47 | PCOTNOTE ---
Attempted OT evaluation, pt refused stating she feels too nauseous. RN aware. Will follow.
--- NOTE | 2022-04-13 12:29 | PM.IMPN ---
Progress Note: A&P Assessment and Plan (1) Diarrhea: Qualifiers: Diarrhea type: presumed infectious Qualified Code(s): R19.7 - Diarrhea, unspecified Code(s): R19.7 - Diarrhea, unspecified Status: Acute Assessment and Plan: CT abdomen pelvis: Wall thickening of the mid and distal esophagus, likely esophagitis. Wall thickening of the distal stomach and proximal duodenum consistent with inflammation. Severe emphysema. White blood cell count of 11.9. Continue Zofran 4 mg ODT or IV phenergan PRN C diff negative Stool cultures- giardia and cryptosporidium negative. Ecoli/Shiga, salmonella, shigella, and campylobacter pending. PRN Imodium (2) Nausea and vomiting: Qualifiers: Vomiting type: bilious vomiting Qualified Code(s): R11.14 - Bilious vomiting Code(s): R11.2 - Nausea with vomiting, unspecified Status: Acute Assessment and Plan: N/V x 1 week with RUQ abd pain. CT abdomen/pelvis as above. Consult GI for persistent symptoms and anemia. EGD showed gastric and duodenal ulcers not bleeding, esophagitis and severe duodenitis. JONATHAN test and biopsy pending. Continue Protonix 40 mg BID. 04/12 Stopped antibiotics as these are not routinely given for duodenitis, unless H.pylori is present. Analgesics PO/IV prescribed for pain and discomfort. Morphine appears to help the best. RUQ US with cholelithiasis, but no evidence of common bile duct dilation, obstruction or gallbladder wall thickening. Patient's symptoms persist. Trial carafate before meals. PRN phenergan IV Will get HIDA scan on Friday to rule out gallbladder as source of symptoms. 04/[address]/SR left anterior fascicular block and Q-waves V3-4 unchanged from 04/08. LAFB also noted in EKG on 02/2019 and not new. N/V and pain appears related to GI source. (3) Dehydration: Code(s): E86.0 - Dehydration Status: Acute Assessment and Plan: patient put on continuous IV fluids on admission, but with increased SOB and chest x-ray suggesting pulmonary edema. Stopped IV fluids 04/10. monitor BMP and CBC. Monitor I/O. (4) Hypokalemia: Code(s): E87.6 - Hypokalemia Status: Acute Assessment and Plan: K 2.9 on admission secondary to loose stool. She was given potassium replacement in the ED. BMP monitored. 04/10- K 3.0. given 60 mEQ PO x1 today. 04/11 K 3.3. give 40 mEQ IVPB x1 04/12 K 3.3. give 40 mEQ PO x1 04/13 K 4.0 (5) Abnormal urinalysis: Code(s): R82.90 - Unspecified abnormal findings in urine Status: Ruled-out Assessment and Plan: UA: Trace leukocyte esterase, 6-10 rbc's and 21-50 WBC Urine culture with mixed betsy Antibiotics stopped. (6) Chronic obstructive pulmonary disease: Qualifiers: COPD type: emphysema Emphysema type: unspecified Qualified Code(s): J43.9 - Emphysema, unspecified Code(s): J44.9 - Chronic obstructive pulmonary disease, unspecified Status: Chronic Assessment and Plan: Chronic, continue Ipratropium and albuterol nebs q.6 hours PRN Continue Advair and add Incruse Ellipta for triple therapy. Monitor respiratory status 04/10 Chest x-ray with pulmonary opacities with mild interstitial edema and small right pleural effusion. No cardiomegaly. IV fluids stopped. 04/12 home O2 eval shows patient needs 1 liter NC at rest, 2 liter NC with exertion/sleep Started on mucinex BID (7) Back pain: Qualifiers: Back pain location: low back pain Chronicity: chronic Back pain laterality: midline Sciatica presence: without sciatica Qualified Code(s): M54.50 - Low back pain, unspecified; G89.29 - Other chronic pain Code(s): M54.9 - Dorsalgia, unspecified Status: Chronic Assessment and Plan: Chronic, continue analgesics p.r.n. as above ?worsening of back pain secondary to gallbladder disease. Plan code status: full code Disposition: inpatient Discharge plan: home
[2022-04-13] MEDS: guaiFENesin 12 HR 600 MG TABCR PO ×2 (13:15→21:57)
[2022-04-13] MEDS: MORPHINE SULFATE (*CRX) 2 MG/ML INJ IV PUSH ×2 (13:18→22:05)
[2022-04-13] MEDS: ENOXAPARIN 40 MG/0.4 ML SYRINGE SUB-Q (17:42)
[2022-04-13] MEDS: SUCRALFATE SUSP 100 MG/ML 10 ML UDC 1000 MG PO ×2 (17:43→21:56)
[2022-04-13] MEDS: traZODone HCL 50 MG TABLET 100 MG PO (21:57)
[2022-04-14] VITALS (9 sets, daily range): BP systolic 88–101; BP diastolic 50–65; PULSE 94–104; RESP 18–22; TEMP 36.4; O2SAT 94–95
[2022-04-14] MEDS: ONDANSETRON HCL ODT 4 MG TABLET PO (04:00)
[2022-04-14] MEDS: SODIUM CHLORIDE 0.9% IV 250 ML IV CONT (06:23)
[2022-04-14] MEDS: SUCRALFATE SUSP 100 MG/ML 10 ML UDC 1000 MG PO ×4 (07:20→21:37)
[2022-04-14] MEDS: PANTOPRAZOLE SODIUM IV 40 MG VIAL IV PUSH ×2 (08:46→21:37)
[2022-04-14] MEDS: guaiFENesin 12 HR 600 MG TABCR PO ×2 (08:46→21:37)
[2022-04-14] MEDS: SERTRALINE HCL 50 MG TABLET PO (08:46)
[2022-04-14] MEDS: ENOXAPARIN 40 MG/0.4 ML SYRINGE SUB-Q (08:46)
[2022-04-14] MEDS: MORPHINE SULFATE (*CRX) 2 MG/ML INJ IV PUSH (08:51)
[2022-04-14] MEDS: UMECLIDINIUM BROMIDE 62.5 MCG ELLIPTA 1 PUFF INHALATION (09:31)
[2022-04-14] MEDS: FLUTICASONE/SALMETEROL 115-21 MCG INHALER 1 PUFF 2 PUFF INHALATION ×2 (09:31→21:06)
--- NOTE | 2022-04-14 10:46 | PCPTNOTE ---
Attempted PT evaluation. Pt refused stating she is getting up and going to the bathroom by herself. Hospitalist contacted about pt refusing and agreeable to Discharge of therapy orders at this time.
[2022-04-14 11:00] LABS: Basophils Absolute Auto 0.1 K/mm3 (0.0-0.1); Basophils Percent Auto 0.5 % (0.2-1.2); Eosinophils Absolute Auto 0.2 K/mm3 (0-0.3); Eosinophils Percent Auto 2.1 % (0-4.4); Hematocrit 34.9 % (37.0-47.0); Hemoglobin 10.7 g/dL (12.0-15.0); Immature Granulocyte Absolute 0.06 K/mm3 (0.00-0.031); Immature Granulocyte Percent A 0.5 % (0-0.5); Lymphocytes Absolute Auto 2.23 K/mm3 (0.9-3.2); Lymphocytes Percent Auto 20.3 % (18.3-44.2); Mean Corpuscular HGB Conc 30.7 g/dl (32-36); Mean Corpuscular Hemoglobin 30.1 pg (26-34); Mean Platelet Volume 8.5 fl (7.4-10.4); Monocytes Absolute Auto 0.5 K/mm3 (0.1-0.6); Monocytes Percent Auto 4.7 % (2.6-8.5); Neutrophils Absolute Auto 7.9 K/mm3 (1.3-6.7); Neutrophils Percent Auto 71.9 % (45.5-73.1); Platelet Count Result 333 k/mm3 (150-375); Red Blood Count 3.56 M/mm3 (4.2-5.4); Red Cell Distribution Width 16.1 % (11.5-14.5)
[2022-04-14 11:07] LABS: Alanine Aminotransferase 21 U/L (6-35); Albumin Level 3.8 g/dL (3.5-5.1); Alkaline Phosphatase 54 U/L (38-126); Anion Gap 3 mmol/L (8-16); Aspartate Amino Transferase 24 U/L (14-36); Bilirubin,Total 0.4 mg/dL (0.2-1.3); Blood Urea Nitrogen 3 mg/dL (7-17); Calcium 8.8 mg/dL (8.4-10.2); Carbon Dioxide 32 mmol/L (22-30); Chloride 100 mmol/L (98-107); Estimated CRCL calculation 51 ml/min; Estimated Glomerular Filt Rate > 60; Glucose 129 mg/dL (65-110); Potassium 3.8 mmol/L (3.4-5.0); Sodium 135 mmol/L (137-145)
[2022-04-14] MEDS: SODIUM CHLORIDE 0.9% IV 250 ML 100 ML IV CONT (11:07)
[2022-04-14] MEDS: SODIUM CHLORIDE 0.9% IV 1,000 ML 70 ML IV CONT ×2 (11:07→21:52)
--- NOTE | 2022-04-14 12:16 | PCOTNOTE ---
Pt refuses evaluation and reports she is getting up and going to the bathroom by herself. Hospitalist contacted about pt refusing and agreeable to Discharge of therapy orders at this time.
[2022-04-14] MEDS: ACETAMINOPHEN/CODEINE ELIXIR (*CRX) 120-12 MG/5 ML UDC 10 ML PO (12:57)
--- NOTE | 2022-04-14 13:14 | PM.IMPN ---
Progress Note: A&P Assessment and Plan (1) Diarrhea: Qualifiers: Diarrhea type: presumed infectious Qualified Code(s): R19.7 - Diarrhea, unspecified Code(s): R19.7 - Diarrhea, unspecified Status: Acute Assessment and Plan: CT abdomen pelvis: Wall thickening of the mid and distal esophagus, likely esophagitis. Wall thickening of the distal stomach and proximal duodenum consistent with inflammation. Severe emphysema. White blood cell count of 11.9. Continue Zofran 4 mg ODT or IV phenergan PRN C diff negative Stool cultures- giardia and cryptosporidium negative. Ecoli/Shiga, salmonella, shigella, and campylobacter pending. PRN Imodium (2) Nausea and vomiting: Qualifiers: Vomiting type: bilious vomiting Qualified Code(s): R11.14 - Bilious vomiting Code(s): R11.2 - Nausea with vomiting, unspecified Status: Acute Assessment and Plan: N/V x 1 week with RUQ abd pain. CT abdomen/pelvis as above. Consult GI for persistent symptoms and anemia. EGD showed gastric and duodenal ulcers not bleeding, esophagitis and severe duodenitis. JONATHAN test and biopsy pending. Continue Protonix 40 mg BID. 04/12 Stopped antibiotics as these are not routinely given for duodenitis, unless H.pylori is present. Analgesics PO/IV prescribed for pain and discomfort. Morphine appears to help the best. RUQ US with cholelithiasis, but no evidence of common bile duct dilation, obstruction or gallbladder wall thickening. Patient's symptoms persist. Trial carafate before meals. PRN phenergan IV Will get HIDA scan on Friday to rule out gallbladder as source of symptoms. 04/[address]/SR left anterior fascicular block and Q-waves V3-4 unchanged from 04/08. LAFB also noted in EKG on 02/2019 and not new. N/V and pain appears related to GI source. 04/14 awaiting HIDA scan in am. (3) Dehydration: Code(s): E86.0 - Dehydration Status: Acute Assessment and Plan: patient put on continuous IV fluids on admission, but with increased SOB and chest x-ray suggesting pulmonary edema. Stopped IV fluids 04/10. monitor BMP and CBC. Monitor I/O. BP 88/65, HR 104 and patient appears dry. 250 mL NS bolus x1 then start gentle fluids NS@70 mL/hour. (4) Hypokalemia: Code(s): E87.6 - Hypokalemia Status: Acute Assessment and Plan: K 2.9 on admission secondary to loose stool. She was given potassium replacement in the ED. BMP monitored. 04/10- K 3.0. given 60 mEQ PO x1 today. 04/11 K 3.3. give 40 mEQ IVPB x1 04/12 K 3.3. give 40 mEQ PO x1 04/13 K 4.0 Stable. (5) Abnormal urinalysis: Code(s): R82.90 - Unspecified abnormal findings in urine Status: Ruled-out Assessment and Plan: UA: Trace leukocyte esterase, 6-10 rbc's and 21-50 WBC Urine culture with mixed betsy Antibiotics stopped. (6) Chronic obstructive pulmonary disease: Qualifiers: COPD type: emphysema Emphysema type: unspecified Qualified Code(s): J43.9 - Emphysema, unspecified Code(s): J44.9 - Chronic obstructive pulmonary disease, unspecified Status: Chronic Assessment and Plan: Chronic, continue Ipratropium and albuterol nebs q.6 hours PRN Continue Advair and add Incruse Ellipta for triple therapy. Monitor respiratory status 04/10 Chest x-ray with pulmonary opacities with mild interstitial edema and small right pleural effusion. No cardiomegaly. IV fluids stopped. 04/12 home O2 eval shows patient needs 1 liter NC at rest, 2 liter NC with exertion/sleep Started on mucinex BID (7) Back pain: Qualifiers: Back pain laterality: midline Back pain location: low back pain Chronicity: chronic Sciatica presence: without sciatica Qualified Code(s): M54.50 - Low back pain, unspecified; G89.29 - Other chronic pain Code(s): M54.9 - Dorsalgia, unspecified Status: Chronic Assessment and Plan: Chronic, continue analgesics p.r.n. as
[2022-04-14] MEDS: DULoxetine HCL 30 MG CAPSULE.DR PO (15:06)
[2022-04-14] MEDS: CYCLOBENZAPRINE HCL 5 MG TABLET PO ×2 (15:06→21:39)
[2022-04-14] MEDS: ACETAMINOPHEN 325 MG TABLET 650 MG PO ×2 (15:07→21:37)
[2022-04-14] MEDS: predniSONE 20 MG TABLET PO (15:07)
[2022-04-14] MEDS: traZODone HCL 50 MG TABLET 100 MG PO (21:37)
[2022-04-15] MEDS: ACETAMINOPHEN/CODEINE ELIXIR (*CRX) 120-12 MG/5 ML UDC 10 ML PO ×2 (01:46→05:54)
[2022-04-15 05:50] VITALS: BP 130/74; PULSE 66; RESP 20; TEMP 36.4; O2SAT 95
[2022-04-15] MEDS: SUCRALFATE SUSP 100 MG/ML 10 ML UDC 1000 MG PO ×3 (05:54→20:24)
[2022-04-15 06:49] LABS: Basophils Percent Auto 0.2 % (0.2-1.2); Eosinophils Percent Auto 0.1 % (0-4.4); Hematocrit 32.6 % (37.0-47.0); Hemoglobin 10.2 g/dL (12.0-15.0); Immature Granulocyte Absolute 0.06 K/mm3 (0.00-0.031); Immature Granulocyte Percent A 0.6 % (0-0.5); Lymphocytes Absolute Auto 1.63 K/mm3 (0.9-3.2); Mean Corpuscular HGB Conc 31.3 g/dl (32-36); Mean Corpuscular Hemoglobin 29.7 pg (26-34); Mean Platelet Volume 9.3 fl (7.4-10.4); Monocytes Absolute Auto 0.3 K/mm3 (0.1-0.6); Monocytes Percent Auto 3.3 % (2.6-8.5); Neutrophils Absolute Auto 7.6 K/mm3 (1.3-6.7); Neutrophils Percent Auto 78.8 % (45.5-73.1); Platelet Count Result 296 k/mm3 (150-375); Red Blood Count 3.43 M/mm3 (4.2-5.4); Red Cell Distribution Width 15.9 % (11.5-14.5); White Blood Count 9.6 K/mm3 (4.5-10.0)
[2022-04-15 07:19] LABS: Alanine Aminotransferase 20 U/L (6-35); Albumin Level 3.4 g/dL (3.5-5.1); Alkaline Phosphatase 56 U/L (38-126); Anion Gap 3 mmol/L (8-16); Aspartate Amino Transferase 18 U/L (14-36); Bilirubin,Total 0.2 mg/dL (0.2-1.3); Blood Urea Nitrogen 7 mg/dL (7-17); Calcium 8.5 mg/dL (8.4-10.2); Carbon Dioxide 30 mmol/L (22-30); Chloride 105 mmol/L (98-107); Estimated CRCL calculation 62 ml/min; Estimated Glomerular Filt Rate > 60; Glucose 120 mg/dL (65-110); Potassium 3.7 mmol/L (3.4-5.0); Sodium 138 mmol/L (137-145)
--- NOTE | 2022-04-15 07:40 | PCRCNOTE ---
HOME O2 1L AT REST AND 2L WITH ACTIVITY. SET UP WITH [employer]. PHONE NUMBER
[2022-04-15 08:00] VITALS: O2SAT 93
[2022-04-15] MEDS: FLUTICASONE/SALMETEROL 115-21 MCG INHALER 1 PUFF 2 PUFF INHALATION (08:42)
[2022-04-15 08:43] VITALS: PULSE 86; RESP 16; O2SAT 93
[2022-04-15] MEDS: UMECLIDINIUM BROMIDE 62.5 MCG ELLIPTA 1 PUFF INHALATION (08:43)
[2022-04-15 09:00] VITALS: PULSE 86; RESP 16
[2022-04-15] MEDS: BUMETANIDE INJ 1 MG/4 ML VIAL (09:50)
[2022-04-15] MEDS: guaiFENesin 12 HR 600 MG TABCR PO ×2 (09:51→20:24)
[2022-04-15] MEDS: PANTOPRAZOLE SODIUM IV 40 MG VIAL IV PUSH ×2 (09:51→20:24)
[2022-04-15] MEDS: predniSONE 20 MG TABLET PO (09:51)
[2022-04-15] MEDS: ENOXAPARIN 40 MG/0.4 ML SYRINGE SUB-Q (09:51)
[2022-04-15] MEDS: SERTRALINE HCL 50 MG TABLET PO (09:51)
[2022-04-15] MEDS: polyethylene glycoL 3350 17 GM POWD.PACK PO (09:52)
--- NOTE | 2022-04-15 10:58 | PCNFU ---
Nutrition Follow-Up Complete: Inadequate energy intake related to poor appetite and intake as evidenced by pt report, low BMI of 15.6 Goal:PO intake 50% or greater for meals and supplements Pt current nutrition is NPO for a scan, was low fiber. Nutrition recommendation: reinitiate diet post procedure, Add Ensure Enlive BID to trays Last recorded weight is 41.3 kg - up from 38kg. Bowel Motility: +BM 04/13 Labs Reviewed: Hgb:10.2, HCT:32.6, Alb:3.4, CR:0.4 Meds Noted: lovenox, prednisone Skin: no skin issues noted Additional Notes: Pt NPO for a HIDA scan today, was low fiber. Noted dislikes the Ensure Clear. Agreed to Ensure Enlive when diet is restarted. Monitor intake, wt, labs. Follow up in 5 days.
--- NOTE | 2022-04-15 11:37 | PM.IMPN ---
Progress Note: A&P Assessment and Plan (1) Diarrhea: Qualifiers: Diarrhea type: presumed infectious Qualified Code(s): R19.7 - Diarrhea, unspecified Code(s): R19.7 - Diarrhea, unspecified Status: Acute Assessment and Plan: CT abdomen pelvis: Wall thickening of the mid and distal esophagus, likely esophagitis. Wall thickening of the distal stomach and proximal duodenum consistent with inflammation. Severe emphysema. White blood cell count of 11.9. Continue Zofran 4 mg ODT or IV phenergan PRN C diff negative Stool cultures- giardia and cryptosporidium negative. Ecoli/Shiga, salmonella, shigella, and campylobacter pending. PRN Imodium (2) Nausea and vomiting: Qualifiers: Vomiting type: bilious vomiting Qualified Code(s): R11.14 - Bilious vomiting Code(s): R11.2 - Nausea with vomiting, unspecified Status: Acute Assessment and Plan: N/V x 1 week with RUQ abd pain. CT abdomen/pelvis as above. Consult GI for persistent symptoms and anemia. EGD showed gastric and duodenal ulcers not bleeding, esophagitis and severe duodenitis. JONATHAN test and biopsy pending. Continue Protonix 40 mg BID. 04/12 Stopped antibiotics as these are not routinely given for duodenitis, unless H.pylori is present. Analgesics PO/IV prescribed for pain and discomfort. Morphine appears to help the best. RUQ US with cholelithiasis, but no evidence of common bile duct dilation, obstruction or gallbladder wall thickening. Patient's symptoms persist. Trial carafate before meals. PRN phenergan IV Will get HIDA scan on Friday to rule out gallbladder as source of symptoms. 04/[address]/SR left anterior fascicular block and Q-waves V3-4 unchanged from 04/08. LAFB also noted in EKG on 02/2019 and not new. N/V and pain appears related to GI source. 04/14 awaiting HIDA scan in am. 04/15 HIDA scan with gallbladder EF 36%. Changed to clear liquid diet. [place] PRN for pain. (3) Dehydration: Code(s): E86.0 - Dehydration Status: Acute Assessment and Plan: patient put on continuous IV fluids on admission, but with increased SOB and chest x-ray suggesting pulmonary edema. Stopped IV fluids 04/10. monitor BMP and CBC. Monitor I/O. BP 88/65, HR 104 and patient appears dry. 250 mL NS bolus x1 then start gentle fluids NS@70 mL/hour. Appears improved. BP 101/66 HR 102 (4) Hypokalemia: Code(s): E87.6 - Hypokalemia Status: Acute Assessment and Plan: K 2.9 on admission secondary to loose stool. She was given potassium replacement in the ED. BMP monitored. 04/10- K 3.0. given 60 mEQ PO x1 today. 04/11 K 3.3. give 40 mEQ IVPB x1 04/12 K 3.3. give 40 mEQ PO x1 04/13 K 4.0 04/15 K 3.7 Stable. (5) Abnormal urinalysis: Code(s): R82.90 - Unspecified abnormal findings in urine Status: Ruled-out Assessment and Plan: UA: Trace leukocyte esterase, 6-10 rbc's and 21-50 WBC Urine culture with mixed betsy Antibiotics stopped. (6) Chronic obstructive pulmonary disease: Qualifiers: COPD type: emphysema Emphysema type: unspecified Qualified Code(s): J43.9 - Emphysema, unspecified Code(s): J44.9 - Chronic obstructive pulmonary disease, unspecified Status: Chronic Assessment and Plan: Chronic, continue Ipratropium and albuterol nebs q.6 hours PRN Continue Advair and added Incruse Ellipta for triple therapy. Monitor respiratory status 04/10 Chest x-ray with pulmonary opacities with mild interstitial edema and small right pleural effusion. No cardiomegaly. IV fluids stopped. 04/12 home O2 eval shows patient needs 1 liter NC at rest, 2 liter NC with exertion/sleep Continue mucinex BID (7) Back pain: Qualifiers: Back pain location: low back pain Chronicity: chronic Back pain laterality: midline Sciatica presence: without sciatica Qualified Code(s): M54.50 - Low back pain, unspecified; G89.29 - Other chronic p
[2022-04-15] MEDS: LORazepam INJ (*CRX) 2 MG/ML VIAL 1 MG IV PUSH (11:48)
[2022-04-15 14:25] VITALS: BP 101/66; PULSE 102; RESP 14; TEMP 36.8; O2SAT 100
[2022-04-15 18:06] LABS: Lipase 77 U/L (23-300)
[2022-04-15] MEDS: HYDROcodone/acetaminophen (*CRX) 5-325 MG TABLET 1 TAB PO (18:09)
[2022-04-15] MEDS: CYCLOBENZAPRINE HCL 5 MG TABLET PO (20:23)
[2022-04-15] MEDS: traZODone HCL 50 MG TABLET 100 MG PO (20:24)
[2022-04-15 22:00] VITALS: BP 108/65; PULSE 94; RESP 16; TEMP 37.1; O2SAT 97
--- NOTE | 2022-04-15 23:43 | PCRCNOTE ---
pt was sleeping however past tx time do to tx load
[2022-04-16] MEDS: HYDROcodone/acetaminophen (*CRX) 5-325 MG TABLET 1 TAB PO ×3 (02:07→14:11)
[2022-04-16 06:00] VITALS: BP 116/60; PULSE 86; RESP 18; TEMP 37.6; O2SAT 95
[2022-04-16] MEDS: CYCLOBENZAPRINE HCL 5 MG TABLET PO (06:11)
[2022-04-16] MEDS: SUCRALFATE SUSP 100 MG/ML 10 ML UDC 1000 MG PO ×2 (06:11→11:20)
[2022-04-16 06:49] LABS: Basophils Percent Auto 0.2 % (0.2-1.2); Eosinophils Absolute Auto 0.1 K/mm3 (0-0.3); Eosinophils Percent Auto 0.8 % (0-4.4); Hematocrit 29.8 % (37.0-47.0); Hemoglobin 9.4 g/dL (12.0-15.0); Immature Granulocyte Absolute 0.04 K/mm3 (0.00-0.031); Immature Granulocyte Percent A 0.5 % (0-0.5); Lymphocytes Absolute Auto 2.27 K/mm3 (0.9-3.2); Lymphocytes Percent Auto 26.4 % (18.3-44.2); Mean Corpuscular HGB Conc 31.5 g/dl (32-36); Mean Corpuscular Hemoglobin 30.4 pg (26-34); Mean Corpuscular Volume 96.4 fl (80-100); Mean Platelet Volume 8.7 fl (7.4-10.4); Monocytes Absolute Auto 0.6 K/mm3 (0.1-0.6); Monocytes Percent Auto 6.5 % (2.6-8.5); Neutrophils Absolute Auto 5.6 K/mm3 (1.3-6.7); Neutrophils Percent Auto 65.6 % (45.5-73.1); Platelet Count Result 326 k/mm3 (150-375); Red Blood Count 3.09 M/mm3 (4.2-5.4); Red Cell Distribution Width 15.9 % (11.5-14.5); White Blood Count 8.6 K/mm3 (4.5-10.0)
[2022-04-16 06:57] LABS: Alanine Aminotransferase 17 U/L (6-35); Albumin Level 3.3 g/dL (3.5-5.1); Alkaline Phosphatase 50 U/L (38-126); Anion Gap 1 mmol/L (8-16); Aspartate Amino Transferase 20 U/L (14-36); Bilirubin,Total 0.3 mg/dL (0.2-1.3); Blood Urea Nitrogen 13 mg/dL (7-17); Calcium 8.7 mg/dL (8.4-10.2); Carbon Dioxide 34 mmol/L (22-30); Chloride 97 mmol/L (98-107); Estimated CRCL calculation 62 ml/min; Estimated Glomerular Filt Rate > 60; Glucose 84 mg/dL (65-110); Potassium 3.8 mmol/L (3.4-5.0); Sodium 132 mmol/L (137-145)
[2022-04-16] MEDS: PANTOPRAZOLE SODIUM IV 40 MG VIAL IV PUSH (08:28)
[2022-04-16] MEDS: ACETAMINOPHEN 325 MG TABLET 650 MG PO (08:28)
[2022-04-16] MEDS: DULoxetine HCL 30 MG CAPSULE.DR PO (08:29)
[2022-04-16] MEDS: SERTRALINE HCL 50 MG TABLET PO (08:29)
[2022-04-16] MEDS: guaiFENesin 12 HR 600 MG TABCR PO (08:29)
[2022-04-16] MEDS: predniSONE 20 MG TABLET PO (08:29)
[2022-04-16] MEDS: ENOXAPARIN 40 MG/0.4 ML SYRINGE SUB-Q (08:29)
[2022-04-16] MEDS: HYDROmorphone HCL INJ (*CRX) 1 MG/ML SYR 0.5 MG IV PUSH (08:31)
[2022-04-16 08:50] VITALS: O2SAT 96
--- NOTE | 2022-04-16 10:59 | PM.DS ---
DS: Admitting Diagnosis Discharge Date 04/16/22 1110 Admitting Diagnosis Dehydration Hypokalemia Diarrhea Abnormal urinalysis Chronic obstructive pulmonary disease Back pain DS: Discharge Diagnosis Discharge Diagnosis (1) Diarrhea: Qualifiers: Diarrhea type: presumed infectious Qualified Code(s): R19.7 - Diarrhea, unspecified Code(s): R19.7 - Diarrhea, unspecified Status: Acute Assessment and Plan: CT abdomen pelvis: Wall thickening of the mid and distal esophagus, likely esophagitis. Wall thickening of the distal stomach and proximal duodenum consistent with inflammation. Severe emphysema. White blood cell count of 11.9 on admission Continue Zofran 4 mg ODT or IV phenergan PRN for nausea C diff negative Stool cultures- giardia and cryptosporidium negative. Ecoli/Shiga, salmonella, shigella, and campylobacter pending. PRN Imodium EGD showed gastritis/duodenitis with non-bleeding ulcerations (2) Nausea and vomiting: Qualifiers: Vomiting type: bilious vomiting Qualified Code(s): R11.14 - Bilious vomiting Code(s): R11.2 - Nausea with vomiting, unspecified Status: Acute Assessment and Plan: N/V x 1 week with RUQ abd pain. CT abdomen/pelvis as above. Consult GI for persistent symptoms and anemia. EGD showed gastric and duodenal ulcers not bleeding, esophagitis and severe duodenitis. JONATHNA test and biopsy pending. Continued Protonix 40 mg BID. 04/12 Empirically treated with IV ciprofloxacin and metronidazole for severe symptoms. Stopped antibiotics as these are not routinely given for duodenitis, unless H.pylori is present. Analgesics PO/IV prescribed for pain and discomfort. Morphine frequently requested as it appeared to help the best. RUQ US with cholelithiasis, but no evidence of common bile duct dilation, obstruction or gallbladder wall thickening. Patient's symptoms persist. Trialled carafate before meals. PRN phenergan IV 04/14 HIDA scan showed gallbladder EF 36% and otherwise stable. Discussed with GI. Changed to clear liquid diet. [place] PRN for pain.? 04/[address]/SR left anterior fascicular block and Q-waves V3-4 unchanged from 04/08. LAFB also noted in EKG on 02/2019 and not new. N/V and pain appears related to GI source. ?N/V secondary to severe back pain (3) Dehydration: Code(s): E86.0 - Dehydration Status: Acute Assessment and Plan: patient put on continuous IV fluids on admission, but with increased SOB and chest x-ray suggesting pulmonary edema. Stopped IV fluids 04/10. 04/14/22 BP 88/65, HR 104 and patient appears dry. 250 mL NS bolus x1 then start gentle fluids NS@70 mL/hour. Improved. BP 101/66 HR 102 I/O monitored (4) Hypokalemia: Code(s): E87.6 - Hypokalemia Status: Acute Assessment and Plan: K 2.9 on admission secondary to loose stool. She was given potassium replacement in the ED. BMP monitored. 04/10- K 3.0. given 60 mEQ PO x1 today. 04/11 K 3.3. give 40 mEQ IVPB x1 04/12 K 3.3. give 40 mEQ PO x1 04/13 K 4.0 04/15 K 3.7 Stable. (5) Abnormal urinalysis: Code(s): R82.90 - Unspecified abnormal findings in urine Status: Ruled-out Assessment and Plan: UTI ruled out. UA: Trace leukocyte esterase, 6-10 rbc's and 21-50 WBC Urine culture with mixed betsy Antibiotics stopped. (6) Chronic obstructive pulmonary disease: Qualifiers: COPD type: emphysema Emphysema type: unspecified Qualified Code(s): J43.9 - Emphysema, unspecified Code(s): J44.9 - Chronic obstructive pulmonary disease, unspecified Status: Chronic Assessment and Plan: Chronic, continue Ipratropium and albuterol nebs q.6 hours PRN Continue Advair and added Incruse Ellipta for triple therapy. Monitor respiratory status 04/10 Chest x-ray with pulmonary opacities with mild interstitial edema and small right pleural effusion. No cardiomegaly. IV fluids stopped. 04/12 Pat
[2022-04-16 14:00] VITALS: PULSE 94; O2SAT 88
[2022-04-16 14:05] VITALS: PULSE 95; O2SAT 92
--- NOTE | 2022-04-16 15:43 | HOMEO2EVAL ---
Evaluation was performed at [facility] Home Oxygen Evaluation RC: Home Oxygen (O2) Evaluation Start: 04/12/22 10:53 Freq: ONCE Status: Discharge Protocol: RPE Activity Type Activity Date Activity User E-sign Co-sign Detail Recorded Client Recorded Date Recorded By Document 04/16/22 14:00 MARIYA [id number] 04/16/22 15:43 MARIYA Document 04/16/22 14:05 MARIYA [id number] 04/16/22 15:43 MARIYA 04/16/22 04/16/22 14:00 14:05 Home O2 Evaluation [Oxygen] -Test Phase Resting Resting -Oxygen Delivery Room Air Nasal Cannula -Oxygen Flow Rate (L/min) 1 [Pulse Oximetry] -Pulse Oximetry (90-100 %) 88 L 92 [Pulse Rate] -Pulse Rate (60-100 beats/min) 94 95 [Comments] -Home Oxygen Evaluation Comments ROOM AIR 1 LITER O2 [Charges] -Treatment Charges O2 Evaluation - Inpatient
== END 2022-04-16 14:50 | disposition home or self-care (01) | DRG 392 ==
LOC: ANHED 13:47 → ANH3MEDSUR 16:13
PROVIDERS: Internal Medicine Critical Care Medicine; Internal Medicine Gastroenterology; Physician Assistant; Admitting Provider Internal Medicine; Emergency Provider Emergency Medicine; PCP Internal Medicine; Visit Provider Nurse Practitioner Family
PROC: 0DJ08ZZ Inspection of Upper Intestinal Tract, Via Natural or Artificial Opening Endoscopic (ICD-10-PCS; CPT 43235; principal; 2022-04-11 13:00)
DX: R19.7 Diarrhea, unspecified (principal); R64 Cachexia; Z68.1 Body mass index [BMI] 19.9 or less, adult; R11.2 Nausea with vomiting, unspecified; E86.0 Dehydration; K21.00 Gastro-esophageal reflux disease with esophagitis, without bleeding; K25.9 Gastric ulcer, unspecified as acute or chronic, without hemorrhage or perforation; K26.9 Duodenal ulcer, unspecified as acute or chronic, without hemorrhage or perforation; K29.80 Duodenitis without bleeding; R93.3 Abnormal findings on diagnostic imaging of other parts of digestive tract; E87.6 Hypokalemia; M54.50 Low back pain, unspecified; J43.9 Emphysema, unspecified; F41.9 Anxiety disorder, unspecified; G89.29 Other chronic pain; Z20.822 Contact with and (suspected) exposure to COVID-19; M79.7 Fibromyalgia; I50.9 Heart failure, unspecified; M70.61 Trochanteric bursitis, right hip; D64.9 Anemia, unspecified; R82.90 Unspecified abnormal findings in urine; Z87.891 Personal history of nicotine dependence; Z90.710 Acquired absence of both cervix and uterus; Z86.16 Personal history of COVID-19
CPT/HCPCS: 36415; 71045; 71046; 71250; 74176; 76705; 78226; 80048; 80053; 80074; 81001; 83605; 83690; 83735; 85025; 85027; 85610; 85730; 87045; 87081; 87086; 87088; 87269; 87272; 87427; 87493; 87637; 88305; 89055; 93005; 94618; 94640; 96361; 96365; 96366; 96368; 96375; 96376; 99285; A9270; A9537; C9113; G0378; J0131; J0696; J0744; J1170; J1650; J2060; J2270; J2405; J2550; J2704; J3480; J7030; J7040; J7050; J7120; J7512

== ENCOUNTER 2022-06-12 08:12 | Outpatient (CLI) | payer MEDICARE, SELFPAY ==
[2022-06-12 08:38] LABS: Alveolar/Arterial O2 Gradient 31.6 mmHg; Fractional Inspired Oxygen 21 %; HCO3 ABG 25.3 mEq/l (22.0-26.0); Oxygen Content ABG 15.8 %vol (16.0-22.0); Oxygen Saturation ABG 92.4 % (95.0-100.0); Oxyhemoglobin 91.4 % THb (90.0-100.0); PO2 ABG 65.4 mmHg (80.0-100.0); PO2 FiO2 Ratio Arterial Blood 3.11 %; Total Hemoglobin 12.3 g/dL (12.0-18.0); pH ABG 7.378 (7.350-7.450)
[2022-06-12 08:41] LABS: Device ROOM AIR; Modified Allen's Test Pass; Site Drawn RIGHT RADIAL
--- NOTE | 2022-06-12 09:08 | PCRCNOTE ---
6 MINUTE WALK NOT DONE, PT STATES IT WAS DONE IN DR ESCOBAR'S OFFICE. THIS IS ALSO NOTED ON MY SCHEDULE
--- NOTE | 2022-06-12 12:59 | WPDPFTINT ---
PFT Procedure Performed PFT Procedure Performed Spirometry with Pre/Post Bronchodilator Plethysmography (Lung Vol) Diffusing Cap (DLCO) Flow Vol Loop PFT Interpretation This is a pulmonary function test with pre and post-bronchodilator spirometry, plethysmography and diffusing capacity. The test was performed and results interpreted in accordance with the 2019 and 2005 ATS/ERS Task Force guidelines respectively using the Global Lung Function Initiative-2012 reference equations. Patient demonstrated good effort and cooperation. Reproducibility criteria were met. The quality of the pre bronchodilator spirometry maneuver was Grade A and post bronchodilator spirometry maneuver was Grade A. Findings: Spirometry: There is decreased maximal expiratory airflow at all lung volumes with concave expiratory flow tracing. The contour the inspiratory flow tracing is normal. The pre bronchodilator FVC is 1.85 L, 78% predicted. The pre bronchodilator FEV1 is 0.68 L, 38% predicted peak. The pre bronchodilator FEV1: FVC ratio is 37%. The post bronchodilator FVC is 1.86 L, representing no change. The post bronchodilator FEV1 is 0.67 L, representing a 2% decrease. The post bronchodilator FEV1: FVC ratio was 36%. Plethysmography: The total lung capacity is 5.54 L, 120% predicted. The functional residual capacity is 4.24 L, 161% predicted. The residual volume is 3.68 L, 169% predicted. Diffusing capacity: The diffusing capacity unadjusted for hemoglobin and carboxyhemoglobin is 7.9, 43% predicted. The diffusing capacity adjusted for alveolar volume is 2.66, 62% predicted. Impression: There is a severe obstructive abnormality without significant improvement after inhaling a single dose of albuterol. The increase in residual volume is consistent with air trapping from an obstructive abnormality. Hyperinflation is present as demonstrated by the increase in functional residual capacity and is consistent with an obstructive abnormality. The diffusing capacity unadjusted for hemoglobin and carboxyhemoglobin is moderately decreased and remains mildly decreased when adjusted for alveolar volume. There are no prior studies for comparison
== END 2022-06-12 08:13 | disposition home or self-care (01) ==
LOC: ANHPFT 08:13
PROVIDERS: PCP Internal Medicine; Visit Provider Internal Medicine Critical Care Medicine
DX: U09.9 Post COVID-19 condition, unspecified (principal); J44.9 Chronic obstructive pulmonary disease, unspecified; R06.09 Other forms of dyspnea
CPT/HCPCS: 36600; 82805; 94060; 94726; 94729

== ENCOUNTER 2022-07-01 08:31 | Outpatient (CLI) | payer MEDICARE, SELFPAY ==
--- NOTE | ~2022-07-01 | NM_ITS ---
EXAMINATION: NM ming stress w perfusion DATE: 07/01/2022 12:16 INDICATION: Chest pain, unspecified. TECHNIQUE: Rest images were obtained following intravenous administration of 10.9 mCi Tc99m tetrofosm in (Myoview). The patient was infused intravenously with Lexiscan (regadenoson). Then, 33.6 mCi Tc99m tetrofosmin (Myoview) was administered intravenously, and stress images were obtained. Data was stefanie nstructed into short axis and horizontal and vertical long axis SPECT images. Gated SPECT images were also obtained. COMPARISON: Chest CT 04/09/2022 FINDINGS: There is a large, severe, predominantly reversible perfusion defect involving left ventricu lar apex, apical segments, and mid anteroseptal segment, consistent with ischemia. There is a small, mild, fixed perfusion defect in apical septal segment of left ventricle, consistent with infarct. The re is no segmental wall motion abnormality. Left ventricular ejection fraction measures 68%. IMPRESSION: 1. Large distribution of severe ischemia involving left ventricular apex, the apical segments, and mi d anteroseptal segment 2. Small area of mild infarct involving apical septal segment of left ventricle. 3. Normal left ventricular ejection fraction measuring 68%. Reviewed, dictated and finalized at location A. LAB OPERATOR IMPRESSION: 1. Large distribution of severe ischemia involving left ventricular apex, the a pical segments, and mid anteroseptal segment 2. Small area of mild infarct involving apical septal segment of left ventricle . 3. Normal left ventricular ejection fraction measuring 68%.
--- NOTE | 2022-07-01 08:47 | ECHO_ITS ---
Patient Info Name: Cecy Jackson Age: 77 years : 1945 Gender: Female Ht: 61 in Wt: 86 lbs BSA: 1.28 m2 HR: 94 bpm BP: 148 / 89 mmHg Technical Quality: Good Exam Date: 07/01/2022 8:55 AM Exam Location: [facility] Pulmonary Patient Status: Outpatient Admit Date: 07/01/2022 Staff Ordering Physician: Kevin Conde DO [place] Cutter: Mavis Al RDCS Attending Provider: Kevin Conde DO Referring Physician: Elton KIM; Exam Type: CA echo doppler color flow Study Info Indications R06.09 - Other forms of dyspnea Complete two-dimensional, color flow and Doppler transthoracic echocardiogram is performed. Summary 1. Complete two-dimensional, color flow and Doppler transthoracic echocardiogram is performed. 2. Left ventricular chamber dimension is normal. 3. Left ventricular systolic function is normal, estimated at 55-60%. 4. There is mild concentric increased left ventricular wall thickness. 5. The left ventricular diastolic function is grade I diastolic dysfunction. 6. E/e' 9 is minimally elevated. 7. Global longitudinal strain is abnormal at -12.5%. 8. Right ventricular systolic function is reduced based on abnormal TAPSE 1.6 cm. 9. There is mild aortic valve sclerosis. 10. There is mild aortic valve stenosis based on a peak velocity of 254.52 cm/s, mean gradient of 7 mmHg, and aortic valve area of 1.49 cm2. 11. There is mild tricuspid valve regurgitation. 12. No pulmonary hypertension, estimated pulmonary arterial systolic pressure is 34 mmHg. Left Ventricle E/e' 9 is minimally elevated. Global longitudinal strain is abnormal at -12.5%. Left ventricular chamber dimension is normal. Left ventricular systolic function is normal, estimated at 55-60%. There is mild concentric increased left ventricular wall thickness. The left ventricular diastolic function is grade I diastolic dysfunction. Right Ventricle Right ventricular systolic function is reduced based on abnormal TAPSE 1.6 cm. Right ventricular chamber dimension is not well visualized. Left Atria Left atrial chamber dimension is normal. Right Atria Right atrial chamber dimension is normal. Aortic Valve There is mild aortic valve stenosis based on a peak velocity of 254.52 cm/s, mean gradient of 7 mmHg, and aortic valve area of 1.49 cm2. The aortic valve is trileaflet. There is mild aortic valve sclerosis. There is no aortic valve regurgitation. Pulmonic Valve There is no pulmonic regurgitation. Mitral Valve There is no mitral valve stenosis. There is no mitral valve regurgitation. Tricuspid Valve There is mild tricuspid valve regurgitation. No pulmonary hypertension, estimated pulmonary arterial systolic pressure is 34 mmHg. Pericardium/Pleural There is no pericardial effusion. Inferior Vena Cava Normal inferior vena cava with >50% collapse upon inspiration consistent with normal right atrial pressure, 5 mmHg. Aorta The aortic root size at the sinus of Valsalva is normal. Left Ventricular Outflow Tract Name Value Normal LVOT 2D LVOT Diameter 1.93 cm LVOT Doppler LVOT Peak Gradient 7 mmHg
--- NOTE | 2022-07-01 08:47 | EST_ITS ---
Patient Info Name: Cecy Jackson Age: 77 years : 1945 Gender: Female Ht: 61 in Wt: 86 lbs BSA: 1.28 m2 HR: 97 bpm BP: 144 / 86 mmHg Exam Date: 07/01/2022 11:11 AM Exam Location: [facility] Stress Patient Status: Outpatient Admit Date: 07/01/2022 Staff Ordering Physician: Kevin Conde DO Attending Provider: Kevin Conde DO Exercise Technologist: Sonia Vidal CT Exercise Physician: Kevin Conde DO Exam Type: CA stress ming w NM Study Info Indications R07.9 - Chest pain, unspecified A regadenoson stress test was performed. Summary 1. 1. Negative lexiscan stress test for ischemic ST changes by ECG criteria. 2. 2. Baseline hypertension. 3. 3. Nuclear scan to follow and will be reported separately. Please correlate with it. 4. 4. Patient informed of the above results. Protocol: Lexiscan Stress ECG Details Stage: REST Duration (min): 1 min : 39 sec HR (bpm): 95 SBP (mmHg): 144 DBP (mmHg): 86 Stage: REST Duration (min): 8 min : 23 sec HR (bpm): 98 SBP (mmHg): 144 DBP (mmHg): 86 Stage: STAGE 1 Duration (min): 0 min : 59 sec HR (bpm): 110 SBP (mmHg): 140 DBP (mmHg): 71 Stage: RECOVERY Duration (min): 1 min : 0 sec HR (bpm): 117 SBP (mmHg): 140 DBP (mmHg): 71 Stage: RECOVERY Duration (min): 2 min : 0 sec HR (bpm): 117 SBP (mmHg): 140 DBP (mmHg): 71 Stage: RECOVERY Duration (min): 3 min : 0 sec HR (bpm): 118 SBP (mmHg): 136 DBP (mmHg): 74 Stage: RECOVERY Duration (min): 3 min : 25 sec HR (bpm): 116 SBP (mmHg): 136 DBP (mmHg): 74 Rest HR: 98 bpm Peak HR: 120 bpm Rest Sys BP: 144 mmHg Peak Sys BP: 140 mmHg Max Pred HR: 143 bpm % Max Pred HR: 84 % Target HR: 122 bpm Max RPP: 16,800 bpm*mmHg Termination Reason: Completed protocol Cardiac Symptoms: Shortness of breath Total Time: 1 min : 0 sec Rest Moon BP: 86 mmHg Peak Moon BP: 71 mmHg Total Dose: 0.4 mg Resting ECG Sinus rhythm, cannot r/o septal infarct, age indeterminate. Stress ECG No ST changes. Arrhythmias None. Report Signatures
== END 2022-07-01 08:32 | disposition home or self-care (01) ==
LOC: ANHCARD 08:32
PROVIDERS: PCP Internal Medicine; Visit Provider Internal Medicine Cardiovascular Disease
DX: R06.09 Other forms of dyspnea (principal); R07.9 Chest pain, unspecified; I36.1 Nonrheumatic tricuspid (valve) insufficiency
CPT/HCPCS: 78452; 93017; 93306; A9502; J2785

== ENCOUNTER 2022-07-19 00:57 | Day surgery (SDC) | payer MEDICARE, SELFPAY ==
[2022-07-12 08:48] VITALS: BMI 16.2
--- NOTE | 2022-07-18 14:32 | PM.HPGS ---
History of Present Illness History of Present Illness Consent: Risks, benefits, and alternatives have been discussed and questions answered. Patient agrees to proceed with procedure. Chief complaint: gastric ulcers Narrative: Cecy Jackson is a 77 year old female Who in March was hospitalized found to have multiple gastric ulcers up to 25 mm in diameter. She also had duodenitis with several small duodenal ulcers. She returns now after treatment with pantoprazole 40 mg b.i.d. for a couple months to assess the degree of healing. Review of Systems Review of Systems: All systems reviewed & are unremarkable except as noted in HPI and below PMFSH Past Medical History Medical History Abnormal CT scan, gastrointestinal tract Anxiety Back pain CAD (coronary artery disease) needs stent, cardiology wants to confirm no ulcers before stenting Chronic obstructive pulmonary disease COPD (chronic obstructive pulmonary disease) Depression Fibromyalgia Hyperlipidemia Insomnia Malnutrition of mild degree On home O2 Pain in thoracic spine Trochanteric bursitis, right hip Surgical History Surgical History H/O: hysterectomy History of hip surgery right hip surgery Hx of cataract surgery (~12/2021) Family History Family History Other Family history of arthritis Family history of cardiovascular disease Family history of congenital heart disease Family history of multiple sclerosis Social History Social History Social History: Code status: Full code. Smoking packs per day: 1.5 Smoking cigarettes per day: 30.0 Years smoked: 30 Smoking pack-years: 45.00 Smoking status: Former smoker Tobacco type: cigarettes Smoking end date: 04/28/93 Alcohol intake: never Substance use: never Substance use type: does not use Lack of Transportation: No Lack of Food: Never True Current Housing: I Have Housing Concerned About Future Housing: No Difficulty Paying Gas/Electric Bills: No Difficulty Paying for Meds: No Currently Unemployed: No Education: Trade/Vocational Certificate Difficulty w/ Childcare or Family Care: No Living arrangements: with family Additional living arrangements comments: Lives with in [place]. Spiritual care concerns: No Meds Home Medications and Allergies Home Medications Medication Instructions Recorded Confirmed Type albuterol sulfate 90 mcg/actuation 1 - 2 puff inhalation Q4-6H PRN 02/05/22 07/19/22 Rx aerosol inhaler (ProAir HFA) Shortness Of Breath #8.5 grams ondansetron 4 mg oral soluble film 4 mg PO Q8H PRN nausea and 04/16/22 07/19/22 Rx vomiting #21 ea trazodone 50 mg tablet 50 mg PO QHS PRN insomnia #30 tabs 04/30/22 07/19/22 Rx duloxetine 30 mg capsule,delayed 30 mg PO QAM #90 caps 05/15/22 07/19/22 Rx release (Cymbalta) pantoprazole 40 mg tablet,delayed 40 mg PO BID #60 tabs 05/17/22 07/19/22 Rx release sertraline 50 mg tablet 50 mg PO DAILY #90 tabs 06/13/22 07/19/22 Rx cyclobenzaprine 5 mg tablet 5 mg PO TID PRN muscle spasm #30 06/24/22 07/19/22 Rx tabs pravastatin 10 mg tablet 10 mg PO DAILY #90 tabs 07/03/22 07/19/22 Rx aspirin 325 mg tablet 325 mg PO DAILY 07/12/22 07/19/22 History albuterol sulfate 2.5 mg/3 mL 2.5 mg (3 mL) inhalation Q6H PRN 07/15/22 07/19/22 Rx (0.083 %) solution for nebulization shortness of breath or wheezing 3 months #180 vials hydrocodone 5 mg-acetaminophen 325 1 tablet PO Q6H PRN Pain Rated 4-6 07/18/22 07/19/22 Rx mg tablet #30 tabs Allergies Allergy/AdvReac Type Severity Reaction Status Date / Time No Known Allergies Allergy Verified 07/19/22 06:58 Exam Const: General: alert Orientation/consciousness: patient oriented x3 Resp: Auscultation: clear to a
[2022-07-19 07:01] VITALS: BP 126/75; PULSE 97; RESP 18; TEMP 37; O2SAT 91
--- NOTE | 2022-07-19 07:05 | WPDANESEPPF ---
Anes - Initial Pre Proc Eval Procedure: Operation Date: 07/19/22 08:00 Proposed Procedures p Esophagogastroduodenoscopy - Stevenson Holt MD Date/Time: 07/19/22 07:05 Surgeon: Stevenson Holt MD Pre Op Diagnosis: gastric ulcers Patient Data Age: 77 Gender: F Height: 1.55 m Weight: 39 kg Allergies Allergy/AdvReac Type Severity Reaction Status Date / Time No Known Allergies Allergy Verified 07/19/22 06:58 Home Medications Medication Instructions Recorded Confirmed Type albuterol sulfate 90 mcg/actuation 1 - 2 puff inhalation Q4-6H PRN 02/05/22 07/19/22 Rx aerosol inhaler (ProAir HFA) Shortness Of Breath #8.5 grams ondansetron 4 mg oral soluble film 4 mg PO Q8H PRN nausea and 04/16/22 07/19/22 Rx vomiting #21 ea trazodone 50 mg tablet 50 mg PO QHS PRN insomnia #30 tabs 04/30/22 07/19/22 Rx duloxetine 30 mg capsule,delayed 30 mg PO QAM #90 caps 05/15/22 07/19/22 Rx release (Cymbalta) pantoprazole 40 mg tablet,delayed 40 mg PO BID #60 tabs 05/17/22 07/19/22 Rx release sertraline 50 mg tablet 50 mg PO DAILY #90 tabs 06/13/22 07/19/22 Rx cyclobenzaprine 5 mg tablet 5 mg PO TID PRN muscle spasm #30 06/24/22 07/19/22 Rx tabs pravastatin 10 mg tablet 10 mg PO DAILY #90 tabs 07/03/22 07/19/22 Rx aspirin 325 mg tablet 325 mg PO DAILY 07/12/22 07/19/22 History albuterol sulfate 2.5 mg/3 mL 2.5 mg (3 mL) inhalation Q6H PRN 07/15/22 07/19/22 Rx (0.083 %) solution for nebulization shortness of breath or wheezing 3 months #180 vials hydrocodone 5 mg-acetaminophen 325 1 tablet PO Q6H PRN Pain Rated 4-6 07/18/22 07/19/22 Rx mg tablet #30 tabs Patient hx anesthesia problems: none Family hx anesthesia problems: none Results Review: All pre-operative results and documents have been reviewed as part of the pre-operative evaluation. [facility] Past Medical History Medical History (Updated 07/19/22 @ 07:24 by Jose Cruz Schmitz DO) Abnormal CT scan, gastrointestinal tract Anxiety Back pain CAD (coronary artery disease) needs stent, cardiology wants to confirm no ulcers before stenting Chronic obstructive pulmonary disease COPD (chronic obstructive pulmonary disease) Depression Fibromyalgia Hyperlipidemia Insomnia Malnutrition of mild degree On home O2 Pain in thoracic spine Trochanteric bursitis, right hip Surgical History Surgical History H/O: hysterectomy History of hip surgery right hip surgery Hx of cataract surgery (~12/2021) Family History Family History Other Family history of arthritis Family history of cardiovascular disease Family history of congenital heart disease Family history of multiple sclerosis Social History Social History Social History: Code status: Full code. Smoking packs per day: 1.5 Smoking cigarettes per day: 30.0 Years smoked: 30 Smoking pack-years: 45.00 Smoking status: Former smoker Tobacco type: cigarettes Smoking end date: 04/28/93 Alcohol intake: never Substance use: never Substance use type: does not use Lack of Transportation: No Lack of Food: Never True Current Housing: I Have Housing Concerned About Future Housing: No Difficulty Paying Gas/Electric Bills: No Difficulty Paying for Meds: No Currently Unemployed: No Education: Trade/Vocational Certificate Difficulty w/ Childcare or Family Care: No Living arrangements: with family Additional living arrangements comments: Lives with in [place]. Spiritual care concerns: No Anes - Eval Final PreProcedure Day of Procedure 07/19/22 07:05 Patient weight: cachectic Heart: regular rate and rhythm Lungs: clear to auscultation Airway: Mallampati scale class II Neurological: alert and oriented Last oral intake: >/= 8 hours ASA classification: IV Emergen
[2022-07-19] MEDS: LACTATED RINGERS 1,000 ML 150 ML IV CONT (07:17)
[2022-07-19] MEDS: BENZOCAINE (*SP) 60 ML SPRAY CAN (HURRICAINE) 1 SPRAY MUCOUS MEM (07:55)
[2022-07-19 08:21] VITALS: BP 153/77; PULSE 92; RESP 22; O2SAT 91
[2022-07-19 08:31] VITALS: BP 145/79; PULSE 93; RESP 22; O2SAT 91
[2022-07-19 08:41] VITALS: BP 147/80; PULSE 88; RESP 20; O2SAT 100
== END 2022-07-19 08:54 | disposition home or self-care (01) ==
PROVIDERS: PCP Internal Medicine; Visit Provider Internal Medicine Gastroenterology
PROC: 0DJ08ZZ Inspection of Upper Intestinal Tract, Via Natural or Artificial Opening Endoscopic (ICD-10-PCS; CPT 43235; principal; 2022-07-19 08:00)
DX: Z09 Encounter for follow-up examination after completed treatment for conditions other than malignant neoplasm (principal); K21.9 Gastro-esophageal reflux disease without esophagitis; K29.70 Gastritis, unspecified, without bleeding; Z87.11 Personal history of peptic ulcer disease; I25.10 Atherosclerotic heart disease of native coronary artery without angina pectoris; J44.9 Chronic obstructive pulmonary disease, unspecified; E78.5 Hyperlipidemia, unspecified; M79.7 Fibromyalgia; F32.A Depression, unspecified; F41.9 Anxiety disorder, unspecified; Z99.81 Dependence on supplemental oxygen; Z87.891 Personal history of nicotine dependence; R64 Cachexia; Z68.1 Body mass index [BMI] 19.9 or less, adult; Z79.51 Long term (current) use of inhaled steroids; Z79.82 Long term (current) use of aspirin; Z79.891 Long term (current) use of opiate analgesic
CPT/HCPCS: 43235; J7120

== ENCOUNTER 2022-07-30 00:09 | Day surgery (SDC) | payer MEDICARE, SELFPAY ==
[2022-07-29 11:30] VITALS: BMI 17.2
[2022-07-30] VITALS (14 sets, daily range): BP systolic 96–152; BP diastolic 49–89; PULSE 60–95; RESP 16–20; TEMP 36.9–37; O2SAT 90–98; BMI 16.7
[2022-07-30 07:55] LABS: Basophils Percent Auto 0.6 % (0.2-1.2); Eosinophils Absolute Auto 0.1 K/mm3 (0-0.3); Eosinophils Percent Auto 2.6 % (0-4.4); Hematocrit 36.9 % (37.0-47.0); Hemoglobin 11.1 g/dL (12.0-15.0); Immature Granulocyte Absolute 0.01 K/mm3 (0.00-0.031); Immature Granulocyte Percent A 0.2 % (0-0.5); Lymphocytes Percent Auto 32.6 % (18.3-44.2); Mean Corpuscular HGB Conc 30.1 g/dl (32-36); Mean Corpuscular Hemoglobin 28.9 pg (26-34); Mean Corpuscular Volume 96.1 fl (80-100); Mean Platelet Volume 9.6 fl (7.4-10.4); Monocytes Absolute Auto 0.4 K/mm3 (0.1-0.6); Monocytes Percent Auto 8.1 % (2.6-8.5); Neutrophils Absolute Auto 2.7 K/mm3 (1.3-6.7); Neutrophils Percent Auto 55.9 % (45.5-73.1); Platelet Count Result 164 k/mm3 (150-375); Red Blood Count 3.84 M/mm3 (4.2-5.4); Red Cell Distribution Width 15.9 % (11.5-14.5); White Blood Count 4.9 K/mm3 (4.5-10.0)
[2022-07-30 08:04] LABS: Anion Gap 7 mmol/L (8-16); Blood Urea Nitrogen 18 mg/dL (7-17); Calcium 9.1 mg/dL (8.4-10.2); Carbon Dioxide 34 mmol/L (22-30); Chloride 99 mmol/L (98-107); Estimated CRCL calculation 61 ml/min; Estimated Glomerular Filt Rate > 60; Glucose 101 mg/dL (65-110); Potassium 3.8 mmol/L (3.4-5.0); Sodium 140 mmol/L (137-145)
--- NOTE | 2022-07-30 08:45 | WPDHPUPDATE1 ---
History and Physical Update Update Date/Time: 07/30/22 08:45 History and Physical has been reviewed, including an updated exam of the patient. There are NO changes in the patient's condition. Risks, benefits, and alternatives have been discussed and questions answered. Patient agrees to proceed with procedure.
--- NOTE | 2022-07-30 08:45 | WPDMODSED ---
Moderate Sedation Note-Pt Data Patient Data Diagnosis: Abnormal stress test Present Complaint: Abnormal stress test Procedure to be performed/Plan: Coronary angiography, LHC, +/-PCI Allergies Allergy/AdvReac Type Severity Reaction Status Date / Time No Known Allergies Allergy Verified 07/30/22 07:39 Home Medications Medication Instructions Recorded Confirmed Type albuterol sulfate 90 mcg/actuation 1 - 2 puff inhalation Q4-6H PRN 02/05/22 07/29/22 Rx aerosol inhaler (ProAir HFA) Shortness Of Breath #8.5 grams trazodone 50 mg tablet 50 mg PO QHS PRN insomnia #30 tabs 04/30/22 07/29/22 Rx duloxetine 30 mg capsule,delayed 30 mg PO QAM #90 caps 05/15/22 07/29/22 Rx release (Cymbalta) pantoprazole 40 mg tablet,delayed 40 mg PO BID #60 tabs 05/17/22 07/29/22 Rx release sertraline 50 mg tablet 50 mg PO DAILY #90 tabs 06/13/22 07/29/22 Rx cyclobenzaprine 5 mg tablet 5 mg PO TID PRN muscle spasm #30 06/24/22 07/29/22 Rx tabs pravastatin 10 mg tablet 10 mg PO DAILY #90 tabs 07/03/22 07/29/22 Rx albuterol sulfate 2.5 mg/3 mL 2.5 mg (3 mL) inhalation Q6H PRN 07/15/22 07/30/22 Rx (0.083 %) solution for nebulization shortness of breath or wheezing 3 months #180 vials hydrocodone 5 mg-acetaminophen 325 1 tablet PO Q6H PRN Pain Rated 4-6 07/18/22 07/29/22 Rx mg tablet #30 tabs aspirin 81 mg tablet,delayed 81 mg PO DAILY 07/24/22 07/29/22 History release Current Medications: Active Medications Sodium Chloride (Normal Saline Iv) 500 mls @ 100 mls/hr IV CONT .Q5H AMBER Sedation/Anesthesia: No previous sedation/anesthesia problems (including family history). [facility] Past Medical History Medical History Abnormal CT scan, gastrointestinal tract Anxiety Back pain CAD (coronary artery disease) needs stent, cardiology wants to confirm no ulcers before stenting Chronic obstructive pulmonary disease COPD (chronic obstructive pulmonary disease) Depression Fibromyalgia Hyperlipidemia Insomnia Malnutrition of mild degree On home O2 Pain in thoracic spine Trochanteric bursitis, right hip Surgical History Surgical History H/O: hysterectomy History of hip surgery right hip surgery Hx of cataract surgery (~12/2021) Family History Family History Other Family history of arthritis Family history of cardiovascular disease Family history of congenital heart disease Family history of multiple sclerosis Social History Social History Social History: Code status: Full code. Smoking packs per day: 1.5 Smoking cigarettes per day: 30.0 Years smoked: 30 Smoking pack-years: 45.00 Smoking status: Former smoker Tobacco type: cigarettes Second hand tobacco smoke exposure: No Smoking end date: 04/28/13 Alcohol intake: never Substance use: never Substance use type: does not use Lack of Transportation: No Lack of Food: Never True Current Housing: I Have Housing Concerned About Future Housing: No Difficulty Paying Gas/Electric Bills: No Difficulty Paying for Meds: No Currently Unemployed: No Education: Trade/Vocational Certificate Difficulty w/ Childcare or Family Care: No Living arrangements: with family Additional living arrangements comments: Lives with in [place]. Spiritual care concerns: No Mod Sed Physical Exam Physical Exam Pre Procedural Exam: Normal: Appearance, Lungs, Heart Rate, Heart Rhythm, Neuro Exam, Abdomen, Extremities and Skin Hours since solid foods: 12 Hours since liquid intake: 8 Mallampati Classification: class II Internal Medicine - PN: Obj Da Vital Signs Vital Signs: Vital Signs - 24 hr 07/30/22 07:45 Temperature 36.9 C Pulse Rate 82 Respiratory Rate 20 Blood Pressure 152/89 H Pulse Oximetry 95 Oxygen Deliver
--- NOTE | 2022-07-30 08:46 | WPDCARDPROC ---
Cardiac Cath Procedure Note Date of procedure:: 07/30/22 Performing physician:: CATHETERIZATION LABORATORY REPORT Procedure Date: 07/30/2022 Psychology Teacher: Manuela Robledo M.D., [facility]? Referring Physician: Dr. Conde ? Anesthesia: Versed and Fentanyl were ordered and given in my presence at 08:45, procedure ended at 09:15. Supervision of nurse monitored moderate sedation with Versed and Fentanyl was provided for 30 minutes. Total of Versed 1.5mg and Fentanyl 100mcg were administered by the Spar Machine Operator Helper RN Graciela Rivera. Pre-op Diagnosis: Coronary artery disease Post-op Diagnosis: Multivessel coronary artery disease involving the distal left main, ramus, OM-1, and RCA along with PHYSICAL THERAPIST TECHNICIAN of LAD and PHYSICAL THERAPIST TECHNICIAN of OM-2 Procedure(s): Coronary angiography Access Site: Right radial artery Brief History and Clinical Indications: Patient is a 77-year-old female who is referred for [facility] for anginal symptoms in the setting of abnormal stress test. All risks, benefits and alternatives to left heart catheterization with or without percutaneous coronary intervention was discussed at length with the patient. Risk of complications including but not limited to bleeding, infection, arrhythmia, stroke, worsening kidney function, blood loss, groin hematoma, limb loss, emergency coronary artery bypass grafting, and even were discussed with the patient and all questions were answered. The patient understood and wished to proceed. Time out called, patient name, date of , medical record number, allergies, procedure performed, identify Psychology Teacher, patient and staff member concurred with accurate data, procedure carried on. Findings: LEFT HEART CATHETERIZATION FINDINGS: 1. Left main: The left main coronary artery is heavily calcified. The distal left main has a significantly hazy calcific eccentric 80% stenosis. 2. Left anterior descending: Calcifications seen in the LAD. The LAD is PHYSICAL THERAPIST TECHNICIAN in its ostium. The distal LAD is supplied by retrograde flow from well-formed rezbj-dk-ycap collaterals. There are some odet-kr-admw collaterals seen filling very small caliber diagonal branches. 3. Ramus: There is a Ramus branch with moderate ostial disease. The mid portion has a 70-80% stenosis. 4. Left circumflex: The proximal LCX has 50-60% stenosis. The LCX continues into OM-1 vessel that has a 70-80% stenosis in its proximal-mid section. The remainder of the OM vessel is without obstructive disease. There is a second OM branch that is PHYSICAL THERAPIST TECHNICIAN, which is filled distally via xixt-kw-fhne collaterals. 5. Right coronary artery: The RCA is a heavily calcified vessel. The RCA is the dominant vessel. The RCA is diffuse diseased. There is a 60-70% lesion in the proximal RCA. The mid-distal portion of the RCA has an 80-90% stenosis. No obstructive disease in the RPDA and the RPLV. The RCA provides well-formed [id number]-ui-dwkk collaterals to the distal LAD. Description of Procedure: Informed consent signed and placed in the chart. Patient transferred to garden labourer room. Prepped and draped in usual sterile fashion. 2% lidocaine injected subcutaneously in right wrist area. 22-gauge venipuncture catheter used to access the right radial artery with the Seldinger technique. 6-FR slender sheath placed in right radial artery. Nitroglycerine and Verapamil were given intraarterial through the sheath. Versacore wire advanced under fluoroscopy 5F Tig 4 diagnostic catheter engaged Left Main Coronary Artery. 5F Tig 4 diagnostic catheter engaged Right Coronary Artery Multiple orthogonal angiogram obtained and reviewed Unable to cross the aortic valve to obtain LVEDP with a 5F Pigtail diagnostic catheter. Hemostasis was achieved by application of TR band. ? Assessment: Multivessel coronary artery disease involving the distal left main, ramus, OM-1, and RCA along with PHYSICAL THERAPIST TECHNICIAN of LAD and PHYSICAL THERAPIST TECHNICIAN of OM-2 Post Operative Condition: Stable No significant blood loss Disposition: Home Plan: The [facility]t
[2022-07-30] MEDS: HYDROcodone/acetaminophen (*CRX) 5-325 MG TABLET 1 TAB PO (10:58)
== END 2022-07-30 15:35 | disposition home or self-care (01) ==
PROVIDERS: PCP Internal Medicine; Visit Provider Internal Medicine
PROC: (CPT 93454; principal; 2022-07-30 08:30)
DX: I25.10 Atherosclerotic heart disease of native coronary artery without angina pectoris (principal); R94.39 Abnormal result of other cardiovascular function study; J44.9 Chronic obstructive pulmonary disease, unspecified; E78.5 Hyperlipidemia, unspecified; M79.7 Fibromyalgia; F41.9 Anxiety disorder, unspecified; F32.A Depression, unspecified; E44.1 Mild protein-calorie malnutrition; Z68.1 Body mass index [BMI] 19.9 or less, adult; Z99.81 Dependence on supplemental oxygen; Z79.51 Long term (current) use of inhaled steroids; Z79.891 Long term (current) use of opiate analgesic; Z87.891 Personal history of nicotine dependence
CPT/HCPCS: 36415; 80048; 85025; 93454; A9270; C1769; C1887; C1894; J1644; J2250; J3010; J7040

== ENCOUNTER 2022-08-20 15:15 | Inpatient (IN) | payer MEDICARE, SELFPAY ==
[2022-08-20] VITALS (19 sets, daily range): BP systolic 102–178; BP diastolic 65–113; PULSE 95–121; RESP 16–30; TEMP 36.2–36.8; O2SAT 90–100; BMI 16.3
--- NOTE | ~2022-08-20 | XR_ITS ---
Portable chest x-ray Comparison: 08/23/2022 Clinical History: Pneumonia Findings: COPD pattern of the lungs present. No consolidation or pleural effusion. Cardiomediastina l silhouette is stable. Bones and soft tissues are unremarkable. Impression: COPD. Reviewed, dictated and finalized at [facility]. Impression: COPD.
--- NOTE | ~2022-08-20 | XR_ITS ---
Portable chest x-ray Comparison: 08/20/2022 Clinical History: Pneumonia Findings: There is COPD with associated probable minimal bibasilar interstitial prominence. No conso lidation or pleural effusion evident. Cardiomediastinal silhouette is stable. Bones and soft tissues are unremarkable. Impression: COPD and associated bibasilar interstitial prominence. Reviewed, dictated and finalized at location . Impression: COPD and associated bibasilar interstitial prominence.
--- NOTE | ~2022-08-20 | CT_ITS ---
EXAMINATION: CTA chest PE abdomen pel DATE: 08/20/2022 17:35 INDICATION: Shortness of breath, pneumonia, generalized abdominal pain, elevated WBC count. TECHNIQUE: Computed tomography angiography (CTA) of the chest was performed with 85 mL Omnipaque-350 intravenous contrast timed to evaluate the pulmonary arteries, followed by portal venous phase imagin g of the abdomen and pelvis. Coronal maximum intensity projection 3D-reconstructions were created by the technologist. The dose-length product (DLP) was 317.41 mGy-cm. Automated exposure control and ite rative reconstruction technique were employed. COMPARISON: 04/09/2022. FINDINGS: CHEST: Lung parenchyma and airways: Stable peripheral right lower lobe nodule, likely benign. Severe emphyse matous change. Left basilar and dependent atelectasis/consolidation. Right basilar scar/atelectasis Pleura: Unremarkable. Thoracic inlet, axillae and chest wall: Unremarkable. Thoracic aorta: Mild ectasia. Moderate atherosclerotic calcification.. Mediastinum: Calcified lymph nodes. Heart and pericardium: Normal. Coronary artery calcifications: Moderate. Thoracic bones: No acute osseous finding. Stable severe T11 compression deformity Pulmonary arteries: Study quality: Adequate. No pulmonary emboli detected. ABDOMEN/PELVIS: Liver: Normal. Biliary/Gallbladder: Gallbladder is partially collapsed. Gallstones. No bile duct dilation. Pancreas: No mass or duct dilation. Spleen: Normal. Adrenals:No mass. Kidneys: Simple right upper pole cyst. Bilateral hypodensities too small to characterize but most lik josé represent cysts. Bilateral nonobstructing calculi. GI tract: Mild distal esophageal wall edema. No small or large bowel dilation. Appendix not, probably visualized Mesentery/Peritoneum: No ascites, mass, or free air. Retroperitoneum: No mass. Atherosclerotic abdominal aortic and/or arterial calcifications. Moderate i nfrarenal abdominal aorta stenosis. Severe right common femoral artery stenosis. Pelvis: Normal urinary bladder. Uterus not visualized. Soft Tissues: Soft tissues and body wall unremarkable. Abdominopelvic bones: No acute osseous finding. Stable multilevel vertebral body height loss. Verteb roplasty cement at L2. Uncomplicated appearing right femoral neck fixation IMPRESSION: No CT evidence of acute pulmonary embolus. Dependent atelectasis/consolidation in the left lung base, infection and aspiration should be considered in the differential. Mild distal esophagitis, otherwis e no acute abdominopelvic process detected. Reviewed, dictated and finalized at location [facility]. IMPRESSION: No CT evidence of acute pulmonary embolus. Dependent atelectasis/consolidation in the left lung base, infection and aspiration should be considered in the dif ferential. Mild distal esophagitis, otherwise no acute abdominopelvic process d etected.
--- NOTE | ~2022-08-20 | XR_ITS ---
EXAMINATION: XR chest 2V DATE: 08/20/2022 16:13 INDICATION: Chest pain and shortness of breath TECHNIQUE: AP and lateral views of the chest are obtained. COMPARISON: 04/10/2022 FINDINGS: There are trace pleural effusions without significant change. Minimal airspace opacities ar e present in the lung bases. The cardiomediastinal silhouette is normal. Calcified mediastinal and ri ght hilar lymph nodes are consistent with old granulomatous disease. There is moderate thoracic spond ylosis and chronic compression fracture of the lower thoracic spine. IMPRESSION: 1. Small pleural effusions with minimal bibasilar airspace opacity, atelectasis versus pneumonia. Reviewed, dictated and finalized at location L.
--- NOTE | 2022-08-20 15:30 | ECG_ITS ---
Measurements Intervals [place] Rate: 116 P: 71 DC: 142 QRS: -58 QRSD: 93 T: 79 QT: 305 QTc: 424 Interpretive Statements SINUS TACHYCARDIA LEFT ANTERIOR FASCICULAR BLOCK [QRS AXIS <= -45, QR IN I, RS IN II] SEPTAL MYOCARDIAL INFARCTION , PROBABLY OLD [40+ ms Q WAVE IN V1/V2] COMPARED TO ECG 04/11/2022 11:12:30 SINUS TACHYCARDIA NOW PRESENT Electronically Signed On 08-21-2022 9:34:48 CDT by Manuela Robledo M.D.
--- NOTE | 2022-08-20 15:42 | ED.GENADULT ---
HPI - General Adult General Chief complaint: Shortness of Breath/Dyspnea Stated complaint: sob Time Seen by Provider: 08/20/22 15:32 History of Present Illness HPI narrative: 77 yo female with a pmh of cad/copd presents for eval of worsening dyspnea and pain all over for the past few days. Pt recently had cardiac cath and they were unable to place stents because everything is blocked . She is awaiting eval with cardiothoracic surgery. Related Data Home Medications Medication Instructions Recorded Confirmed aspirin 81 mg tablet,delayed 81 mg PO DAILY 07/24/22 08/19/22 release Allergies Allergy/AdvReac Type Severity Reaction Status Date / Time No Known Allergies Allergy Verified 08/20/22 16:05 Review of Systems Review of Systems: CONSTITUTIONAL: Denies fever, chills, or sweats. EYES: Denies visual changes, redness, or discharge. ENT: Denies rhinorrhea, congestion, sore throat, or otalgia. CARDIOVASCULAR: Denies chest pain, palpitations, or edema. RESPIRATORY: Denies cough or dyspnea. GASTROINTESTINAL: Denies abdominal pain, nausea, vomiting, or diarrhea. GENITOURINARY: Denies dysuria or hematuria. SKIN: Denies rash or itching. MUSCULOSKELETAL: Denies back pain, joint pain, or myalgia. NEUROLOGIC: Denies headache, numbness, or weakness. PSYCHIATRIC: Denies anxiety or depression. [facility] Past Medical History Medical History Abnormal CT scan, gastrointestinal tract Anxiety Back pain CAD (coronary artery disease) needs stent, cardiology wants to confirm no ulcers before stenting Chronic obstructive pulmonary disease COPD (chronic obstructive pulmonary disease) Depression Fibromyalgia Hyperlipidemia Insomnia Malnutrition of mild degree On home O2 Pain in thoracic spine Trochanteric bursitis, right hip Surgical History Surgical History H/O: hysterectomy History of hip surgery right hip surgery Hx of cataract surgery (~12/2021) Family History Family History Other Family history of arthritis Family history of cardiovascular disease Family history of congenital heart disease Family history of multiple sclerosis Social History Social History Social History: Code status: Full code. Smoking packs per day: 1.5 Smoking cigarettes per day: 30.0 Years smoked: 30 Smoking pack-years: 45.00 Smoking status: Former smoker Tobacco type: cigarettes Second hand tobacco smoke exposure: No Smoking end date: 04/28/13 Alcohol intake: never Substance use: never Substance use type: does not use Lack of Transportation: No Lack of Food: Never True Current Housing: I Have Housing Concerned About Future Housing: No Difficulty Paying Gas/Electric Bills: No Difficulty Paying for Meds: No Currently Unemployed: No Education: Trade/Vocational Certificate Difficulty w/ Childcare or Family Care: No Living arrangements: with family Additional living arrangements comments: Lives with in [place]. Spiritual care concerns: No Exam Narrative: GENERAL: Well-appearing, cachectic, and in no acute distress. HEAD: Normocephalic, atraumatic. EYES: PERRLA and EOMI. ENT: Nares clear, no rhinorrhea or epistaxis. Mucous membranes moist. NECK: Supple. CHEST: Decreased breath sounds HEART: Regular rate and rhythm. No murmur heard. Normal peripheral pulses. ABDOMEN: Soft, nontender, nondistended, normal active bowel sounds. EXTREMITIES: Normal range of motion. No edema. SKIN: Warm, dry, no rash. NEURO: No focal deficits. Alert and oriented x3. PSYCH: Normal mood and affect. Course Vital Signs Vital signs: Vital Signs Temperature 98.3 F 08/20/22 15:18 Pulse Rate 121 H 08/20/22 15:18 Respiratory Rate 24 H 08/20/22 15:18 Pulse Oxim
[2022-08-20 15:48] LABS: Basophils Percent Auto 0.2 % (0.2-1.2); Eosinophils Percent Auto 0.2 % (0-4.4); Hematocrit 36.6 % (37.0-47.0); Hemoglobin 11.2 g/dL (12.0-15.0); Immature Granulocyte Absolute 0.15 K/mm3 (0.00-0.031); Immature Granulocyte Percent A 0.6 % (0-0.5); Lymphocytes Absolute Auto 1.67 K/mm3 (0.9-3.2); Mean Corpuscular HGB Conc 30.6 g/dl (32-36); Mean Corpuscular Hemoglobin 28.7 pg (26-34); Mean Corpuscular Volume 93.8 fl (80-100); Mean Platelet Volume 9.7 fl (7.4-10.4); Monocytes Absolute Auto 1.4 K/mm3 (0.1-0.6); Monocytes Percent Auto 5.7 % (2.6-8.5); Neutrophils Absolute Auto 20.5 K/mm3 (1.3-6.7); Neutrophils Percent Auto 86.3 % (45.5-73.1); Platelet Count Result 174 k/mm3 (150-375); Red Cell Distribution Width 15.2 % (11.5-14.5); White Blood Count 23.7 K/mm3 (4.5-10.0)
[2022-08-20] MEDS: ALBUTEROL SULFATE NEB 2.5 MG/3 ML INH INHALATION (15:54)
[2022-08-20 16:00] LABS: Alanine Aminotransferase 21 U/L (6-35); Albumin Level 4.5 g/dL (3.5-5.1); Alkaline Phosphatase 75 U/L (38-126); Anion Gap 6 mmol/L (8-16); Aspartate Amino Transferase 31 U/L (14-36); Bilirubin,Total 0.9 mg/dL (0.2-1.3); Blood Urea Nitrogen 18 mg/dL (7-17); Calcium 9.5 mg/dL (8.4-10.2); Carbon Dioxide 32 mmol/L (22-30); Chloride 101 mmol/L (98-107); Estimated Glomerular Filt Rate > 60; Glucose 135 mg/dL (65-110); Lipase 35 U/L (23-300); Potassium 3.8 mmol/L (3.4-5.0); Sodium 139 mmol/L (137-145)
[2022-08-20 16:01] LABS: INR 1.1; Prothrombin Time 13.4 Seconds (11.1-14.7)
[2022-08-20 16:02] LABS: Partial Thromboplastin Time 35.7 SECONDS (22.3-36.8)
[2022-08-20] MEDS: MAGNESIUM SULF 1 GM/D5W 100 ML 1 GM/100 ML BAG IVPB (16:02)
[2022-08-20 16:10] LABS: Troponin I 0.012 ng/mL (0.000-0.034)
[2022-08-20] MEDS: ASPIRIN 81 MG CHEWABLE TABLET 324 MG PO (16:38)
[2022-08-20] MEDS: MORPHINE SULFATE (*CRX) 2 MG/ML INJ IV PUSH (18:01)
[2022-08-20] MEDS: PIPERACILLN/TAZ 3.375GM/NS50ML 3.375 GM/50 ML BAG IVPB (18:01)
[2022-08-20 19:20] LABS: Troponin I < 0.012 ng/mL (0.000-0.034)
--- NOTE | 2022-08-20 20:02 | PM.IMHP ---
H&P: HPI History of Present Illness Date/Time: 08/20/22 20:02 Chief Complaint: Shortness of breath Narrative: This is a 77-year-old female with past medical history significant for COPD/emphysema, hypoxic respiratory failure on 2 L of supplemental oxygen by nasal cannula, coronary artery disease, fibromyalgia. Patient presents to the emergency room due to worsening shortness of breath for the last 2 days or so at nighttime had to increase her oxygen to 3 L from 2 L has had cough productive of [place] to greenish sputum which is unusual for her has had chills but and subjective fevers, poor appetite. Patient needs coronary artery bypass graft and is in the midst of getting her appointment with the doctor however doctor has relocated to [place] she is currently getting her care establish with a new doctor. Preliminary workup today was significant for chest x-ray was reported as: EXAMINATION: XR chest 2V DATE: 08/20/2022 16:13 INDICATION: Chest pain and shortness of breath TECHNIQUE: AP and lateral views of the chest are obtained. COMPARISON: 04/10/2022 FINDINGS: There are trace pleural effusions without significant change. Minimal airspace opacities are present in the lung bases. The cardiomediastinal silhouette is normal. Calcified mediastinal and right hilar lymph nodes are consistent with old granulomatous disease. There is moderate thoracic spondylosis and chronic compression fracture of the lower thoracic spine. IMPRESSION: 1. Small pleural effusions with minimal bibasilar airspace opacity, atelectasis versus pneumonia. CTA of chest abdomen and pelvis: FINDINGS:? CHEST: Lung parenchyma and airways: Stable peripheral right lower lobe nodule, likely benign. Severe emphysematous change. Left basilar and dependent atelectasis/consolidation. Right basilar scar/atelectasis Pleura: Unremarkable. Thoracic inlet, axillae and chest wall: Unremarkable. Thoracic aorta: Mild ectasia. Moderate atherosclerotic calcification.. Mediastinum: Calcified lymph nodes. Heart and pericardium: Normal. Coronary artery calcifications: Moderate. Thoracic bones: No acute osseous finding. Stable severe T11 compression deformity Pulmonary arteries: Study quality: Adequate. No pulmonary emboli detected. ABDOMEN/PELVIS: Liver: Normal.? Biliary/Gallbladder: Gallbladder is partially collapsed. Gallstones. No bile duct dilation. Pancreas: No mass or duct dilation. Spleen: Normal. Adrenals:No mass. Kidneys: Simple right upper pole cyst. Bilateral hypodensities too small to characterize but most likely represent cysts. Bilateral nonobstructing calculi. GI tract: Mild distal esophageal wall edema. No small or large bowel dilation. Appendix not, probably visualized Mesentery/Peritoneum: No ascites, mass, or free air. Retroperitoneum: No mass. Atherosclerotic abdominal aortic and/or arterial calcifications. Moderate infrarenal abdominal aorta stenosis. Severe right common femoral artery stenosis. Pelvis: Normal urinary bladder. Uterus not visualized. Soft Tissues: Soft tissues and body wall unremarkable. Abdominopelvic bones:? No acute osseous finding. Stable multilevel vertebral body height loss. Vertebroplasty cement at L2. Uncomplicated appearing right femoral neck fixation IMPRESSION: No CT evidence of acute pulmonary embolus. Dependent atelectasis/consolidation in the left lung base, infection and aspiration should be considered in the differential. Mild distal esophagitis, otherwise no acute abdominopelvic process detected. Review of Systems Review of Systems: Shortness of breath, productive cough of [place] to green sputum, chills, subjective fever, poor appetite Constitutional: Constitutional: Reports chills, Reports fatigue, Reports fever(s), Reports lethargy, Reports malaise, Reports poor appetite and Reports weakness Eyes: Eyes: Denies change in vision ENT: Denies dysphagia, Denies vertigo, Denies dizziness and Denies odynophagia Cardiovascular: Cardiovascul
--- NOTE | 2022-08-20 21:57 | ADMGEN ---
This patient, Cecy Jackson, was admitted to 2 Medical Room 259-01. Patient/family oriented to hospital policies and general routines including ID bracelet, bed and alarms, visiting hours, pain management, procedures, bathroom and other care routines, personal items, smoking policy, room service/diet, and visiting hours. Information on how to activate the Rapid Response Team has been discussed. Patient/Family are encouraged to report perceived risks to care and to ask questions if they do not understand what they are told or what they should do.
[2022-08-20 22:50] LABS: Troponin I < 0.012 ng/mL (0.000-0.034)
[2022-08-21] VITALS (11 sets, daily range): BP systolic 104–152; BP diastolic 65–90; PULSE 85–119; RESP 15–30; TEMP 35.8–36.8; O2SAT 95–100; BMI 16.3
[2022-08-21] MEDS: HYDROcodone/acetaminophen (*CRX) 5-325 MG TABLET 1 TAB PO ×4 (01:04→22:58)
[2022-08-21] MEDS: traZODone HCL 50 MG TABLET PO ×2 (01:11→22:58)
[2022-08-21] MEDS: PRAVASTATIN SODIUM 10 MG TABLET PO ×2 (01:11→21:36)
[2022-08-21 05:41] LABS: Estimated CRCL calculation 59 ml/min; Estimated Glomerular Filt Rate > 60
[2022-08-21] MEDS: ASPIRIN 81 MG ENTERIC TABLET PO (08:12)
[2022-08-21] MEDS: DULoxetine HCL 30 MG CAPSULE.DR PO (08:12)
[2022-08-21] MEDS: PANTOPRAZOLE 40 MG TABLET PO (08:13)
[2022-08-21] MEDS: SERTRALINE HCL 50 MG TABLET PO (08:13)
[2022-08-21] MEDS: ENOXAPARIN 40 MG/0.4 ML SYRINGE SUB-Q (08:15)
[2022-08-21] MEDS: ALBUTEROL SULFATE (*SP) AEROSOL 1 PUFF 2 PUFF INHALATION (09:25)
[2022-08-21] MEDS: FLUTICASONE/SALMETEROL 115-21 MCG INHALER 1 PUFF 2 PUFF INHALATION ×2 (09:25→21:15)
[2022-08-21] MEDS: CYCLOBENZAPRINE HCL 5 MG TABLET PO ×2 (10:05→16:38)
--- NOTE | 2022-08-21 11:44 | ECG_ITS ---
Measurements Intervals [place] Rate: 115 P: 68 [place]: 148 QRS: -56 QRSD: 97 T: 81 QT: 323 QTc: 447 Interpretive Statements SINUS TACHYCARDIA INCOMPLETE RIGHT BUNDLE BRANCH BLOCK [90+ ms QRS DURATION, TERMINAL R IN V1/V2, 40+ ms S IN I/aVL/V4/V5/V6] LEFT ANTERIOR FASCICULAR BLOCK [QRS AXIS <= -45, QR IN I, RS IN II] SEPTAL MYOCARDIAL INFARCTION , PROBABLY OLD [40+ ms Q WAVE IN V1/V2] ABNORMAL ECG Electronically Signed On 08-21-2022 13:38:28 CDT by Cristo Flor M.D.
[2022-08-21] MEDS: metroNIDAZOLE 500 MG/ISO 100ML 500 MG/100 ML BAG 100 MG IVPB ×3 (11:46→22:58)
[2022-08-21] MEDS: MORPHINE SULFATE (*CRX) 2 MG/ML INJ 1 MG IV PUSH (12:15)
[2022-08-21 12:24] LABS: Troponin I < 0.012 ng/mL (0.000-0.034)
--- NOTE | 2022-08-21 12:47 | PCCCNOTE ---
On 08/21/22, the student, [Michelle Vidal], provided care and completed [facility] documentation on this patient. I have reviewed the student's documentation and agree with the findings.
--- NOTE | 2022-08-21 13:03 | WPDPN ---
Progress Note: A&P Assessment and Plan (1) Pneumonia: Code(s): J18.9 - Pneumonia, unspecified organism Status: Acute Assessment and Plan: Admit to regular medical floor Patient started on Rocephin and Zithromax Await cultures Supportive care 08/21/2022 interval history: Patient admitted with shortness of breath is found to have aspiration pneumonia and being treated with ceftriaxone, vancomycin and Flagyl, patient also has a history of severe coronary artery disease, and Interventional Cardiology recommended thoracic surgery for revascularization however patient also complains persistent chest pain will order EKG, troponin and consult cashier ticket selling further recommend will continue to monitor. (2) Acute and chronic respiratory failure with hypoxia: Code(s): J96.21 - Acute and chronic respiratory failure with hypoxia Status: Acute Assessment and Plan: On supplemental oxygen by nasal cannula Patient is usually a on 2 L of oxygen by nasal cannula at home (3) CAD (coronary artery disease): Qualifiers: Coronary Disease-Associated Artery/Lesion type: [place] artery [place] vs. transplanted heart: [place] heart Associated angina: with unspecified form of angina Qualified Code(s): I25.119 - Atherosclerotic heart disease of [place] coronary artery with unspecified angina pectoris Code(s): I25.10 - Atherosclerotic heart disease of [place] coronary artery without angina pectoris Status: Acute Assessment and Plan: No chest pain at this time Patient is status post left heart catheterization Awaiting coronary artery bypass graft (4) Acute UTI: Code(s): N39.0 - Urinary tract infection, site not specified Status: Acute Assessment and Plan: Continue Rocephin Await cultures (5) COPD (chronic obstructive pulmonary disease): Qualifiers: COPD type: unspecified COPD Qualified Code(s): J44.9 - Chronic obstructive pulmonary disease, unspecified Code(s): J44.9 - Chronic obstructive pulmonary disease, unspecified Status: Acute Assessment and Plan: Schedule breathing treatments Subjective Date/time seen: 08/21/22 13:03 Shortness of breath HPI-Narrative: This is a 77-year-old female with past medical history significant for COPD/emphysema, hypoxic respiratory failure on 2 L of supplemental oxygen by nasal cannula, coronary artery disease, fibromyalgia.? Patient presents to the emergency room due to worsening shortness of breath for the last 2 days or so at nighttime had to increase her oxygen to 3 L from 2 L has had cough productive of [place] to greenish sputum which is unusual for her has had chills but and subjective fevers, poor appetite.? Patient needs coronary artery bypass graft and is in the midst of getting her appointment with the doctor however? doctor has relocated to [place] she is currently getting her care establish with a new doctor.? Preliminary workup today was significant for chest x-ray was reported as: 08/21/2022 interval history: Patient admitted with shortness of breath is found to have aspiration pneumonia and being treated with ceftriaxone, vancomycin and Flagyl, patient also has a history of severe coronary artery disease, and Interventional Cardiology recommended thoracic surgery for revascularization however patient also complains persistent chest pain will order EKG, troponin and consult cashier ticket selling further recommend will continue to monitor. Review of Systems Review of Systems: Shortness of breath, productive cough of [place] to green sputum, chills, subjective fever, poor appetite Constitutional: Constitutional: Reports chills, Reports fatigue, Reports fever(s), Reports lethargy, Reports malaise, Reports poor appetite and Reports weakness Eyes: Eyes: Denies change in vision ENT: Denies dysphagia, Denies vertigo, Denies dizziness and Denies odynophagia Cardiovascular: Cardiovascular: Denies irregular heart rhythm,
--- NOTE | 2022-08-21 13:17 | PM.CNCAR ---
Assessment and Plan Assessment and plan (1) Pneumonia: Code(s): J18.9 - Pneumonia, unspecified organism Status: Acute Assessment and Plan: On antibiotics. Followed by hospitalist. (2) CAD (coronary artery disease): Qualifiers: Coronary Disease-Associated Artery/Lesion type: [place] artery [place] vs. transplanted heart: [place] heart Associated angina: with unspecified form of angina Qualified Code(s): I25.119 - Atherosclerotic heart disease of [place] coronary artery with unspecified angina pectoris Code(s): I25.10 - Atherosclerotic heart disease of [place] coronary artery without angina pectoris Status: Acute Assessment and Plan: Stable. She had been referred to CV surgeon at [facility] for CABG, awaiting appointment with them. On aspirin. (3) Hyperlipidemia: Code(s): E78.5 - Hyperlipidemia, unspecified Status: Acute Assessment and Plan: On Pravastatin. (4) COPD with exacerbation: Code(s): J44.1 - Chronic obstructive pulmonary disease with (acute) exacerbation Status: Acute History of Present Illness History of Present Illness Consult date/time: 08/21/22 13:17 Reason For Visit: pna, sob Narrative: 77 yr old woman who is my regular cardiology patient and a patient of Dr. Landis presents to hospital for sob. She has a history of CAD, dyslipidemia, COPD on home oxygen, covid infection on 08/30/19 and she had it 2 more times, former smoking quit in 2013. Reports in last 2 days having intermittent sob associated with left chest and arm pain. It was found she had Left sided pneumonia. She wears her oxygen for sleep and sometimes while walking. She is limited at walking short distances due to MASTERS first then chronic back pain. Reports random chest heaviness in mid chest with radiation down both arms intermittently for last 2 months. Denies orthopnea, PND, edema, palpitations, dizziness. 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 [place]o: Distal LM 80%, LAD [employer] UND[employer]WR[employer] ostial, with right to left collaterals, Ramus 70-80% mid, LCx with prox 50-60% prox OM1, 70-80% prox-mid OM2 with left to left collaterals, RCA heavily calcified with 60-70% prox, 80-90% mid. Echo/MUGA:: 07/01/22 Echo: EF 55-60%, mild LVH, grade I diastolic dysfunction (E/e' 9), RV hypokinesis based on TAPSE 1.6 cm, mild (MARCIO 1.46 cm2), mild TR. Electrophysiology:: 08/15/22 EKG: Sinus rhythm, IRBBB, LAFB. 04/11/22 EKG: Sinus rhythm, LAFB, anteroseptal infarct, age indeterminate. Stress Tests:: 07/01/22 Lexiscan myoview: Abnormal with large area of ischemia of apical and mid anteroseptal segments. 04/11/22 CT chest: Esophagitis, duodenitis. Severe emphysema. Small right pleural effusion. Review of Systems Review of Systems: All systems reviewed & are unremarkable except as noted in HPI and below Constitutional: Constitutional: Reports as per HPI, Reports chills, Reports fatigue and Reports fever(s) Cardiovascular: Cardiovascular: Reports as per HPI, Reports chest pain and Denies irregular heart rhythm Respiratory: Respiratory: Reports as per HPI and Reports dyspnea Gastrointestinal: Gastrointestinal: Reports as per HPI and Denies abdominal pain Genitourinary: Genitourinary: Reports as per HPI and Denies dysuria Musculoskeletal: Musculoskeletal: Reports as per HPI Neurologic: Reports as per HPI, Denies dizziness and Denies syncope PMFSH Past Medical History Medical History Abnormal CT scan, gastrointestinal tract Anxiety Back pain CAD (coronary artery disease) needs stent, cardiology wants to confirm no ulcers before stenting Chronic obstructive pulmonary disease COPD (chronic obstructive pulmonary disease) Depression Fibromyalgia Hyperlipidemia Insomnia Malnutrition of mild degree On home O2 Pain in thoracic spine Trochanteric bursitis, right hip Surgical History Surgical History (Reviewed 08/20/22 @ 15:44 by Andrew Thomson
[2022-08-21] MEDS: cefTRIAXone 2 GM/NS 100 ML 2 GM/100 ML BAG IVPB (13:20)
[2022-08-22] VITALS (13 sets, daily range): BP systolic 95–145; BP diastolic 60–74; PULSE 83–106; RESP 14–18; TEMP 36.5–36.7; O2SAT 93–100
[2022-08-22] MEDS: metroNIDAZOLE 500 MG/ISO 100ML 500 MG/100 ML BAG 100 MG IVPB ×4 (05:31→23:07)
[2022-08-22 05:49] LABS: Estimated CRCL calculation 49 ml/min; Estimated Glomerular Filt Rate > 60
[2022-08-22 06:03] LABS: Vancomycin Trough 7.1 ug/mL (10.0-20.0)
[2022-08-22] MEDS: HYDROcodone/acetaminophen (*CRX) 5-325 MG TABLET 1 TAB PO ×3 (06:33→22:32)
--- NOTE | 2022-08-22 07:51 | PM.PNCARD ---
Progress Note: A&P Assessment and Plan (1) Pneumonia: Code(s): J18.9 - Pneumonia, unspecified organism Status: Acute Assessment and Plan: On antibiotics. Followed by hospitalist. (2) CAD (coronary artery disease): Qualifiers: Coronary Disease-Associated Artery/Lesion type: [place] artery [place] vs. transplanted heart: [place] heart Associated angina: with unspecified form of angina Qualified Code(s): I25.119 - Atherosclerotic heart disease of [place] coronary artery with unspecified angina pectoris Code(s): I25.10 - Atherosclerotic heart disease of [place] coronary artery without angina pectoris Status: Acute Assessment and Plan: Stable. She had been referred to CV surgeon at [facility] for CABG, awaiting appointment with them. On aspirin. Start Isosorbide mononitrate 15 mg daily. (3) Hyperlipidemia: Code(s): E78.5 - Hyperlipidemia, unspecified Status: Acute Assessment and Plan: On Pravastatin. (4) COPD with exacerbation: Code(s): J44.1 - Chronic obstructive pulmonary disease with (acute) exacerbation Status: Acute Subjective Date/time seen: 08/22/22 07:51 Interval history: Patient has left sided chest pain that is improving but intermittent. Has sob. Exam Const: General: cooperative, healthy appearing and comfortable Orientation/consciousness: oriented to person, oriented to place and oriented to time Resp: Auscultation: no crackles, no rales, no rhonchi, no wheezes and diminished lung sounds Cardio: Rate: regular rate Rhythm: regular rhythm Heart sounds: no murmurs Peripheral pulses: dorsalis pedis present Neuro: General: oriented to person, oriented to place and oriented to time Extrem: Right lower extremity: no edema Left lower extremity: no edema Objective Data Vital Signs Vital Signs: Vital Signs - 24 hr 08/21/22 08:00 08/21/22 09:28 08/21/22 08:00 Temperature 97.8 F Pulse Rate 90 103 H Respiratory Rate 16 Blood Pressure 123/81 Pulse Oximetry 100 95 Oxygen Delivery Nasal Cannula Oxygen Flow Rate 2 08/21/22 08:00 08/21/22 11:49 08/21/22 12:00 Temperature Pulse Rate 119 H 114 H Respiratory Rate Blood Pressure 116/65 Pulse Oximetry 95 99 Oxygen Delivery Nasal Cannula Oxygen Flow Rate 2 08/21/22 14:00 08/21/22 16:00 08/21/22 16:00 Temperature 97.9 F 98.3 F Pulse Rate 108 H 105 H 110 H Respiratory Rate 20 20 Blood Pressure 116/73 104/69 Pulse Oximetry 99 96 Oxygen Delivery Oxygen Flow Rate 08/21/22 20:00 08/21/22 21:18 08/21/22 20:00 Temperature 98.0 F Pulse Rate 94 96 Respiratory Rate 15 Blood Pressure 113/90 Pulse Oximetry 96 96 Oxygen Delivery Nasal Cannula Oxygen Flow Rate 2 08/21/22 20:00 08/22/22 00:00 08/22/22 00:00 Temperature 98.0 F Pulse Rate 94 100 95 Respiratory Rate 15 14 Blood Pressure 111/69 Pulse Oximetry 96 96 Oxygen Delivery Nasal Cannula Oxygen Flow Rate 2 08/22/22 04:00 08/22/22 04:00 Temperature 97.9 F Pulse Rate 83 92 Respiratory Rate 15 Blood Pressure 145/73 H Pulse Oximetry 93 Oxygen Delivery Oxygen Flow Rate Intake/Output Intake/Output: Intake & Output 08/19/22 08/20/22 08/21/22 08/22/22 23:59 23:59 23:59 23:59 Intake Total 400 1420 100 Output Total 300 0 Balance 400 1120 100 Meds/Results Medications: Active Medications Generic Name Dose Route Start Last Admin Trade Name Freq PRN Reason Stop Dose Admin Hydrocodone Bitart/Acetaminophen 1 tab 08/21/22 00:39 08/22/22 06:33 Hydrocodone/Acetaminophen (*Crx) 5-325 Mg Tablet PO 1 tab Q6H PRN Administration Pain Rated 4-6 Albuterol 2.5 mg 08/21/22 00:39 Albuterol Sulfate Neb 2.5 Mg/3 Ml Inh INHALATION Q6H PRN Wheezing Albuterol 2 puff 08/21/22 00:39 08/21/22 09:25 Albuterol Sulfate (*Sp) Aerosol 1 Puff INHALATION 2 puff Q4-6H PRN Administration Shortness Of Breath Aspiri
[2022-08-22] MEDS: DULoxetine HCL 30 MG CAPSULE.DR PO (08:21)
[2022-08-22] MEDS: SERTRALINE HCL 50 MG TABLET PO (08:21)
[2022-08-22] MEDS: ASPIRIN 81 MG ENTERIC TABLET PO (08:21)
[2022-08-22] MEDS: PANTOPRAZOLE 40 MG TABLET PO (08:21)
[2022-08-22] MEDS: FLUTICASONE/SALMETEROL 115-21 MCG INHALER 1 PUFF 2 PUFF INHALATION ×2 (08:52→21:41)
[2022-08-22] MEDS: ISOSORBIDE MONONITRATE 15 MG TAB.ER.24H PO (09:29)
[2022-08-22] MEDS: ENOXAPARIN 40 MG/0.4 ML SYRINGE SUB-Q (10:27)
[2022-08-22] MEDS: cefTRIAXone 2 GM/NS 100 ML 2 GM/100 ML BAG IVPB (12:09)
--- NOTE | 2022-08-22 12:24 | P.CDI_ITS ---
CDI Query Clarified Diagnosis Clarified Diagnosis: BMI 16.3 Nutritional Diagnostic Statement: Severe Malnutrition related to inadequate protein-energy intake with increased protein-energy needs in the setting of chronic disease or condition (COPD) as evidence by minimal oral intake for > 1-2 months; severe subcutaneous fat loss (orbital fat pads) and muscle wasting (deltoids). Please refer to Comprehensive Nutrition assessment for further information. Please clarify severity of protein calorie malnutrition: * Mild * Moderate * Severe * Other /Unspecified <Yasmine Trujillo RN - Last Filed: 08/22/22 12:31> Provider Comments Severe Malnutrition related to inadequate protein-energy intake with increased protein-energy needs in the setting of chronic disease or condition (COPD) as evidence by minimal oral intake for > 1-2 months; severe subcutaneous fat loss (orbital fat pads) and muscle wasting (deltoids). <Joselo Gomez MD - Last Filed: 08/25/22 16:39>
--- NOTE | 2022-08-22 13:39 | PM.IMPN ---
Progress Note: A&P Assessment and Plan (1) Pneumonia: Code(s): J18.9 - Pneumonia, unspecified organism Status: Acute Assessment and Plan: Admit to regular medical floor Patient started on Rocephin and Zithromax Await cultures Supportive care 08/22/2022 interval history: Patient admitted with shortness of breath is found to have aspiration pneumonia and being treated with ceftriaxone, vancomycin and Flagyl, today patient stats her breathing has improved and not as short of breath, patient also has a history of severe coronary artery disease, and Interventional Cardiology recommended thoracic surgery for revascularization however patient also complains persistent chest pain will order EKG, troponin and consult roof bolting coal miner, her trops and EKG were showed not acute injury and seen by roof bolting coal miner started patient low dose imdur 15mg qd, will monitor. will have PT/OT evaluate the patient (2) Acute and chronic respiratory failure with hypoxia: Code(s): J96.21 - Acute and chronic respiratory failure with hypoxia Status: Acute Assessment and Plan: On supplemental oxygen by nasal cannula Patient is usually a on 2 L of oxygen by nasal cannula at home (3) CAD (coronary artery disease): Qualifiers: Coronary Disease-Associated Artery/Lesion type: [place] artery [place] vs. transplanted heart: [place] heart Associated angina: with unspecified form of angina Qualified Code(s): I25.119 - Atherosclerotic heart disease of [place] coronary artery with unspecified angina pectoris Code(s): I25.10 - Atherosclerotic heart disease of [place] coronary artery without angina pectoris Status: Acute Assessment and Plan: No chest pain at this time Patient is status post left heart catheterization Awaiting coronary artery bypass graft (4) Acute UTI: Code(s): N39.0 - Urinary tract infection, site not specified Status: Acute Assessment and Plan: Continue Rocephin Await cultures (5) COPD (chronic obstructive pulmonary disease): Qualifiers: COPD type: unspecified COPD Qualified Code(s): J44.9 - Chronic obstructive pulmonary disease, unspecified Code(s): J44.9 - Chronic obstructive pulmonary disease, unspecified Status: Acute Assessment and Plan: Schedule breathing treatments Subjective Date/time seen: 08/22/22 13:39 Admit to regular medical floor Patient started on Rocephin and Zithromax Await cultures Supportive care 08/22/2022 interval history: Patient admitted with shortness of breath is found to have aspiration pneumonia and being treated with ceftriaxone, vancomycin and Flagyl, today patient stats her breathing has improved and not as short of breath, patient also has a history of severe coronary artery disease, and Interventional Cardiology recommended thoracic surgery for revascularization however patient also complains persistent chest pain will order EKG, troponin and consult roof bolting coal miner, her trops and EKG were showed not acute injury and seen by roof bolting coal miner started patient low dose imdur 15mg qd, will monitor. will have PT/OT evaluate the patient Review of Systems Review of Systems: Shortness of breath, productive cough of [place] to green sputum, chills, subjective fever, poor appetite Exam Narrative: Elderly frail Patient is comfortable, NAD HEENT: eyes are clear and none icteric LUNGS: Normal respiratory effort ABD: Not distended Lower extremities: no edema SKIN: nonjaundiced Neuro: grossly intact. Objective Data Vital Signs Vital Signs: Vital Signs - 24 hr 08/21/22 14:00 08/21/22 16:00 08/21/22 16:00 Temperature 97.9 F 98.3 F Pulse Rate 108 H 105 H 110 H Respiratory Rate 20 20 Blood Pressure 116/73 104/69 Pulse Oximetry 99 96 Oxygen Delivery Oxygen Flow Rate 08/21/22 20:00 08/21/22 21:18 08/21/22 20:00 Temperature 98.0 F Pulse Rate 94 96 Respiratory Rate 15 Blood Pressu
--- NOTE | 2022-08-22 13:40 | PC.NURSE ---
On 08/22/22, the student, [Marcia Spears], provided care and completed [facility] documentation on this patient. I have reviewed the student's documentation and agree with the findings.
--- NOTE | 2022-08-22 15:24 | PCCCNOTE ---
On 08/22/22, the student, [Michelle Vidal], provided care and completed [facility] documentation on this patient. I have reviewed the student's documentation and agree with the findings.
[2022-08-22] MEDS: PRAVASTATIN SODIUM 10 MG TABLET PO (20:52)
[2022-08-22] MEDS: CYCLOBENZAPRINE HCL 5 MG TABLET PO (20:52)
[2022-08-22] MEDS: traZODone HCL 50 MG TABLET PO (23:19)
[2022-08-23] VITALS (16 sets, daily range): BP systolic 110–132; BP diastolic 56–77; PULSE 78–113; RESP 16–18; TEMP 36.4–36.8; O2SAT 95–99
[2022-08-23] MEDS: metroNIDAZOLE 500 MG/ISO 100ML 500 MG/100 ML BAG 100 MG IVPB ×2 (05:45→13:06)
[2022-08-23] MEDS: HYDROcodone/acetaminophen (*CRX) 5-325 MG TABLET 1 TAB PO ×3 (05:45→20:43)
[2022-08-23 07:14] LABS: Estimated CRCL calculation 59 ml/min; Estimated Glomerular Filt Rate > 60
[2022-08-23] MEDS: FLUTICASONE/SALMETEROL 115-21 MCG INHALER 1 PUFF 2 PUFF INHALATION ×2 (07:38→20:42)
[2022-08-23 07:39] LABS: Vancomycin Trough 20.2 ug/mL (10.0-20.0)
--- NOTE | 2022-08-23 07:41 | PM.PNCARD ---
Progress Note: A&P Assessment and Plan (1) Pneumonia: Code(s): J18.9 - Pneumonia, unspecified organism Status: Acute Assessment and Plan: On antibiotics. Followed by hospitalist. (2) CAD (coronary artery disease): Qualifiers: Coronary Disease-Associated Artery/Lesion type: [place] artery [place] vs. transplanted heart: [place] heart Associated angina: with unspecified form of angina Qualified Code(s): I25.119 - Atherosclerotic heart disease of [place] coronary artery with unspecified angina pectoris Code(s): I25.10 - Atherosclerotic heart disease of [place] coronary artery without angina pectoris Status: Acute Assessment and Plan: Stable. She had been referred to CV surgeon at [facility] for CABG, awaiting appointment with them. On aspirin. Started Isosorbide mononitrate 15 mg daily and BP tolerating it well. She has been contacted by [facility] CV surgeon and will arrange for it once complete treatment for pneumonia. (3) Hyperlipidemia: Code(s): E78.5 - Hyperlipidemia, unspecified Status: Acute Assessment and Plan: On Pravastatin. (4) COPD with exacerbation: Code(s): J44.1 - Chronic obstructive pulmonary disease with (acute) exacerbation Status: Acute Subjective Date/time seen: 08/23/22 07:41 Interval history: Patient has left sided chest pain that is improving but intermittent. Has sob. Exam Const: General: cooperative, healthy appearing and comfortable Orientation/consciousness: oriented to person, oriented to place and oriented to time Resp: Auscultation: no crackles, no rales, no rhonchi, no wheezes and diminished lung sounds Cardio: Rate: regular rate Rhythm: regular rhythm Heart sounds: no murmurs Peripheral pulses: dorsalis pedis present Neuro: General: oriented to person, oriented to place and oriented to time Extrem: Right lower extremity: no edema Left lower extremity: no edema Objective Data Vital Signs Vital Signs: Vital Signs - 24 hr 08/22/22 08:00 08/22/22 08:55 08/22/22 08:55 Temperature 97.7 F Pulse Rate 87 95 94 Respiratory Rate 16 Blood Pressure 120/68 Pulse Oximetry 100 98 Oxygen Delivery Nasal Cannula Oxygen Flow Rate 2 08/22/22 09:33 08/22/22 08:56 08/22/22 08:00 Temperature Pulse Rate 91 Respiratory Rate Blood Pressure 128/74 Pulse Oximetry 98 Oxygen Delivery Nasal Cannula Oxygen Flow Rate 2 08/22/22 11:05 08/22/22 12:00 08/22/22 16:00 Temperature Pulse Rate 106 H 90 Respiratory Rate Blood Pressure Pulse Oximetry 96 Oxygen Delivery Nasal Cannula Oxygen Flow Rate 2 08/22/22 12:00 08/22/22 16:00 08/22/22 14:00 Temperature 97.7 F 97.7 F 97.7 F Pulse Rate 88 96 102 H Respiratory Rate 16 16 16 Blood Pressure 126/68 100/68 95/60 L Pulse Oximetry 98 99 98 Oxygen Delivery Oxygen Flow Rate 08/22/22 21:42 08/22/22 20:57 08/23/22 00:28 Temperature 97.7 F 97.8 F Pulse Rate 96 84 Respiratory Rate 18 16 Blood Pressure 119/68 120/62 Pulse Oximetry 94 98 99 Oxygen Delivery Nasal Cannula Oxygen Flow Rate 2 08/22/22 20:00 08/22/22 20:00 08/23/22 00:00 Temperature Pulse Rate 87 84 82 Respiratory Rate 16 Blood Pressure Pulse Oximetry 99 Oxygen Delivery Nasal Cannula Oxygen Flow Rate 2 08/23/22 04:00 08/23/22 05:17 Temperature 97.6 F Pulse Rate 95 95 Respiratory Rate 16 Blood Pressure 132/77 Pulse Oximetry 95 Oxygen Delivery Oxygen Flow Rate Intake/Output Intake/Output: Intake & Output 08/20/22 08/21/22 08/22/22 08/23/22 23:59 23:59 23:59 23:59 Intake Total 400 1420 1860 400 Output Total 300 0 Balance 400 1120 1860 400 Meds/Results Medications: Active Medications Generic Name Dose Route Start Last Admin Trade Name Freq PRN Reason Stop Dose Admin Hydrocodone Bitart/Acetaminophen 1 tab 08/21/22 00:39 08/23/22 05:45 Hydrocodone/Acetaminophen (*Crx) 5-325 Mg Tablet PO 1 t
[2022-08-23] MEDS: ISOSORBIDE MONONITRATE 15 MG TAB.ER.24H PO (08:24)
[2022-08-23] MEDS: ASPIRIN 81 MG ENTERIC TABLET PO (08:24)
[2022-08-23] MEDS: PANTOPRAZOLE 40 MG TABLET PO (08:24)
[2022-08-23] MEDS: SERTRALINE HCL 50 MG TABLET PO (08:24)
[2022-08-23] MEDS: ENOXAPARIN 40 MG/0.4 ML SYRINGE SUB-Q (08:24)
[2022-08-23] MEDS: DULoxetine HCL 30 MG CAPSULE.DR PO (08:24)
[2022-08-23] MEDS: cefTRIAXone 2 GM/NS 100 ML 2 GM/100 ML BAG IVPB (12:33)
--- NOTE | 2022-08-23 12:37 | PC.NURSE ---
On 08/23/22, the student, [Marcia Spears], provided care and [facility]. I have reviewed the student's documentation and agree with the findings.
--- NOTE | 2022-08-23 13:20 | PM.IMPN ---
Progress Note: A&P Assessment and Plan (1) Pneumonia: Code(s): J18.9 - Pneumonia, unspecified organism Status: Acute Assessment and Plan: Admit to regular medical floor Patient started on Rocephin and Zithromax Await cultures Supportive care 08/23/2022 interval history: Patient admitted with shortness of breath is found to have aspiration pneumonia and being treated with ceftriaxone, vancomycin and Flagyl, repeat x-ray showed improvement in her pneumonia, also patient stats her breathing has improved and not as short of breath, patient also has a history of severe coronary artery disease, and Interventional Cardiology recommended thoracic surgery for revascularization however patient also complains persistent chest pain will order EKG, troponin and consult creative manager, her trops and EKG were showed no acute injury and seen by creative manager started patient low dose imdur 15mg qd, will monitor. Because of patient severe coronary artery disease unable to participate in PT. (2) Acute and chronic respiratory failure with hypoxia: Code(s): J96.21 - Acute and chronic respiratory failure with hypoxia Status: Acute Assessment and Plan: On supplemental oxygen by nasal cannula Patient is usually a on 2 L of oxygen by nasal cannula at home (3) CAD (coronary artery disease): Qualifiers: Associated angina: with unspecified form of angina Coronary Disease-Associated Artery/Lesion type: [place] artery [place] vs. transplanted heart: [place] heart Qualified Code(s): I25.119 - Atherosclerotic heart disease of [place] coronary artery with unspecified angina pectoris Code(s): I25.10 - Atherosclerotic heart disease of [place] coronary artery without angina pectoris Status: Acute Assessment and Plan: No chest pain at this time Patient is status post left heart catheterization Awaiting coronary artery bypass graft (4) Acute UTI: Code(s): N39.0 - Urinary tract infection, site not specified Status: Acute Assessment and Plan: Continue Rocephin Await cultures (5) COPD (chronic obstructive pulmonary disease): Qualifiers: COPD type: unspecified COPD Qualified Code(s): J44.9 - Chronic obstructive pulmonary disease, unspecified Code(s): J44.9 - Chronic obstructive pulmonary disease, unspecified Status: Acute Assessment and Plan: Schedule breathing treatments Subjective Date/time seen: 08/23/22 13:20 Interval history: Admit to regular medical floor Patient started on Rocephin and Zithromax Await cultures Supportive care 08/23/2022 interval history: Patient admitted with shortness of breath is found to have aspiration pneumonia and being treated with ceftriaxone, vancomycin and Flagyl, repeat x-ray showed improvement in her pneumonia, also patient stats her breathing has improved and not as short of breath, patient also has a history of severe coronary artery disease, and Interventional Cardiology recommended thoracic surgery for revascularization however patient also complains persistent chest pain will order EKG, troponin and consult creative manager, her trops and EKG were showed no acute injury and seen by creative manager started patient low dose imdur 15mg qd, will monitor. Because of patient severe coronary artery disease unable to participate in PT. Review of Systems Review of Systems: Shortness of breath, productive cough of [place] to green sputum, chills, subjective fever, poor appetite Exam Narrative: Elderly frail Patient is comfortable, NAD HEENT: eyes are clear and none icteric LUNGS: Normal respiratory effort ABD: Not distended Lower extremities: no edema SKIN: nonjaundiced Neuro: grossly intact. Objective Data Vital Signs Vital Signs: Vital Signs - 24 hr 08/22/22 16:00 08/22/22 16:00 08/22/22 14:00 Temperature 97.7 F 97.7 F Pulse Rate 90 96 102 H Respiratory Rate 16 16 Blood Pressure 100/68 95
[2022-08-23] MEDS: CYCLOBENZAPRINE HCL 5 MG TABLET PO (17:38)
[2022-08-23] MEDS: PRAVASTATIN SODIUM 10 MG TABLET PO (21:10)
[2022-08-23] MEDS: metroNIDAZOLE 250 MG TABLET 500 MG PO (21:10)
[2022-08-23] MEDS: traZODone HCL 50 MG TABLET PO (21:10)
[2022-08-24] VITALS (10 sets, daily range): BP systolic 111–134; BP diastolic 70–84; PULSE 67–123; RESP 16–24; TEMP 36.4–37.2; O2SAT 94–99
[2022-08-24] MEDS: metroNIDAZOLE 250 MG TABLET 500 MG PO ×3 (05:27→21:15)
[2022-08-24] MEDS: HYDROcodone/acetaminophen (*CRX) 5-325 MG TABLET 1 TAB PO ×3 (05:27→21:15)
[2022-08-24] MEDS: ASPIRIN 81 MG ENTERIC TABLET PO (08:08)
[2022-08-24] MEDS: ISOSORBIDE MONONITRATE 15 MG TAB.ER.24H PO (08:08)
[2022-08-24] MEDS: ENOXAPARIN 40 MG/0.4 ML SYRINGE SUB-Q (08:08)
[2022-08-24] MEDS: SERTRALINE HCL 50 MG TABLET PO (08:08)
[2022-08-24] MEDS: PANTOPRAZOLE 40 MG TABLET PO (08:08)
[2022-08-24] MEDS: DULoxetine HCL 30 MG CAPSULE.DR PO (08:08)
[2022-08-24] MEDS: CYCLOBENZAPRINE HCL 5 MG TABLET PO ×2 (08:09→17:27)
[2022-08-24] MEDS: FLUTICASONE/SALMETEROL 115-21 MCG INHALER 1 PUFF 2 PUFF INHALATION ×2 (08:17→22:48)
[2022-08-24] MEDS: cefTRIAXone 2 GM/NS 100 ML 2 GM/100 ML BAG IVPB (12:30)
--- NOTE | 2022-08-24 13:04 | PM.IMPN ---
Progress Note: A&P Assessment and Plan (1) Pneumonia: Code(s): J18.9 - Pneumonia, unspecified organism Status: Acute Assessment and Plan: Admit to regular medical floor Patient started on Rocephin and Zithromax Await cultures Supportive care 08/24/2022 interval history: Patient admitted with shortness of breath is found to have aspiration pneumonia and being treated with ceftriaxone, vancomycin and Flagyl, repeat x-ray showed improvement in her pneumonia, also patient stats her breathing has improved and not as short of breath, still feels tired and fatigue, patient also has a history of severe coronary artery disease, and Interventional Cardiology recommended thoracic surgery for revascularization however patient also complains persistent chest pain will order EKG, troponin and consult marina manager, her trops and EKG were showed no acute injury and seen by marina manager started patient low dose imdur 15mg qd, will monitor. Because of patient severe coronary artery disease unable to participate in PT. (2) Acute and chronic respiratory failure with hypoxia: Code(s): J96.21 - Acute and chronic respiratory failure with hypoxia Status: Acute Assessment and Plan: On supplemental oxygen by nasal cannula Patient is usually a on 2 L of oxygen by nasal cannula at home (3) CAD (coronary artery disease): Qualifiers: Coronary Disease-Associated Artery/Lesion type: [place] artery [place] vs. transplanted heart: [place] heart Associated angina: with unspecified form of angina Qualified Code(s): I25.119 - Atherosclerotic heart disease of [place] coronary artery with unspecified angina pectoris Code(s): I25.10 - Atherosclerotic heart disease of [place] coronary artery without angina pectoris Status: Acute Assessment and Plan: No chest pain at this time Patient is status post left heart catheterization Awaiting coronary artery bypass graft (4) Acute UTI: Code(s): N39.0 - Urinary tract infection, site not specified Status: Acute Assessment and Plan: Continue Rocephin Await cultures (5) COPD (chronic obstructive pulmonary disease): Qualifiers: COPD type: unspecified COPD Qualified Code(s): J44.9 - Chronic obstructive pulmonary disease, unspecified Code(s): J44.9 - Chronic obstructive pulmonary disease, unspecified Status: Acute Assessment and Plan: Schedule breathing treatments Subjective Date/time seen: 08/24/22 13:04 Interval history: Admit to regular medical floor Patient started on Rocephin and Zithromax Await cultures Supportive care 08/24/2022 interval history: Patient admitted with shortness of breath is found to have aspiration pneumonia and being treated with ceftriaxone, vancomycin and Flagyl, repeat x-ray showed improvement in her pneumonia, also patient stats her breathing has improved and not as short of breath, still feels tired and fatigue, patient also has a history of severe coronary artery disease, and Interventional Cardiology recommended thoracic surgery for revascularization however patient also complains persistent chest pain will order EKG, troponin and consult marina manager, her trops and EKG were showed no acute injury and seen by marina manager started patient low dose imdur 15mg qd, will monitor. Because of patient severe coronary artery disease unable to participate in PT. Review of Systems Review of Systems: Shortness of breath, productive cough of [place] to green sputum, chills, subjective fever, poor appetite Exam Narrative: Elderly frail Patient is comfortable, NAD HEENT: eyes are clear and none icteric LUNGS: Normal respiratory effort ABD: Not distended Lower extremities: no edema SKIN: nonjaundiced Neuro: grossly intact. Objective Data Vital Signs Vital Signs: Vital Signs - 24 hr 08/23/22 16:00 08/23/22 14:00 08/23/22 16:00 Temperature 98.0 F 98.2 F Pulse Rate 9
[2022-08-24] MEDS: traZODone HCL 50 MG TABLET PO (21:16)
[2022-08-24] MEDS: PRAVASTATIN SODIUM 10 MG TABLET PO (21:16)
[2022-08-25] VITALS (13 sets, daily range): BP systolic 94–133; BP diastolic 62–74; PULSE 85–110; RESP 12–18; TEMP 36.2–36.9; O2SAT 95–98
[2022-08-25] MEDS: HYDROcodone/acetaminophen (*CRX) 5-325 MG TABLET 1 TAB PO ×3 (05:49→21:01)
[2022-08-25] MEDS: metroNIDAZOLE 250 MG TABLET 500 MG PO ×3 (05:49→21:02)
[2022-08-25 06:16] LABS: Hematocrit 38.8 % (37.0-47.0); Hemoglobin 11.7 g/dL (12.0-15.0); Mean Corpuscular HGB Conc 30.2 g/dl (32-36); Mean Corpuscular Hemoglobin 28.1 pg (26-34); Mean Corpuscular Volume 93.3 fl (80-100); Mean Platelet Volume 8.8 fl (7.4-10.4); Platelet Count Result 196 k/mm3 (150-375); Red Blood Count 4.16 M/mm3 (4.2-5.4); Red Cell Distribution Width 14.7 % (11.5-14.5); White Blood Count 5.5 K/mm3 (4.5-10.0)
[2022-08-25 06:25] LABS: Anion Gap 4 mmol/L (8-16); Blood Urea Nitrogen 15 mg/dL (7-17); Calcium 9.2 mg/dL (8.4-10.2); Carbon Dioxide 34 mmol/L (22-30); Chloride 101 mmol/L (98-107); Estimated CRCL calculation 49 ml/min; Estimated Glomerular Filt Rate > 60; Glucose 96 mg/dL (65-110); Magnesium 2.2 mg/dL (1.6-2.3); Potassium 3.8 mmol/L (3.4-5.0); Sodium 139 mmol/L (137-145)
[2022-08-25] MEDS: ISOSORBIDE MONONITRATE 15 MG TAB.ER.24H PO (08:55)
[2022-08-25] MEDS: DULoxetine HCL 30 MG CAPSULE.DR PO (08:55)
[2022-08-25] MEDS: ASPIRIN 81 MG ENTERIC TABLET PO (08:55)
[2022-08-25] MEDS: SERTRALINE HCL 50 MG TABLET PO (08:55)
[2022-08-25] MEDS: PANTOPRAZOLE 40 MG TABLET PO (08:55)
[2022-08-25] MEDS: ENOXAPARIN 40 MG/0.4 ML SYRINGE SUB-Q (08:55)
[2022-08-25] MEDS: FLUTICASONE/SALMETEROL 115-21 MCG INHALER 1 PUFF 2 PUFF INHALATION ×2 (08:56→21:39)
[2022-08-25] MEDS: CYCLOBENZAPRINE HCL 5 MG TABLET PO (10:16)
[2022-08-25] MEDS: cefTRIAXone 2 GM/NS 100 ML 2 GM/100 ML BAG IVPB (12:28)
--- NOTE | 2022-08-25 13:34 | PM.IMPN ---
Progress Note: A&P Assessment and Plan (1) Pneumonia: Code(s): J18.9 - Pneumonia, unspecified organism Status: Acute Assessment and Plan: Admit to regular medical floor Patient started on Rocephin and Zithromax Await cultures Supportive care 08/25/2022 interval history: Patient admitted with shortness of breath is found to have aspiration pneumonia and being treated with ceftriaxone, vancomycin and Flagyl, repeat x-ray showed improvement in her pneumonia, also patient stats her breathing has improved and not as short of breath, still feels tired and fatigue, today patient states see ambulated to bathroom and was quite short winded, will repeat chest x-ray tomorrow and further recommendation to follow, patient also has a history of severe coronary artery disease, and Interventional Cardiology recommended thoracic surgery for revascularization however patient also complains persistent chest pain, ordered EKG, troponin no acute changes and seen by cable respooler, her trops and EKG were showed no acute injury and seen by cable respooler started patient low dose imdur 15mg qd, will monitor. Because of patient severe coronary artery disease unable to participate in PT. (2) Acute and chronic respiratory failure with hypoxia: Code(s): J96.21 - Acute and chronic respiratory failure with hypoxia Status: Acute Assessment and Plan: On supplemental oxygen by nasal cannula Patient is usually a on 2 L of oxygen by nasal cannula at home (3) CAD (coronary artery disease): Qualifiers: Coronary Disease-Associated Artery/Lesion type: [place] artery [place] vs. transplanted heart: [place] heart Associated angina: with unspecified form of angina Qualified Code(s): I25.119 - Atherosclerotic heart disease of [place] coronary artery with unspecified angina pectoris Code(s): I25.10 - Atherosclerotic heart disease of [place] coronary artery without angina pectoris Status: Acute Assessment and Plan: No chest pain at this time Patient is status post left heart catheterization Awaiting coronary artery bypass graft (4) Acute UTI: Code(s): N39.0 - Urinary tract infection, site not specified Status: Acute Assessment and Plan: Continue Rocephin Await cultures (5) COPD (chronic obstructive pulmonary disease): Qualifiers: COPD type: unspecified COPD Qualified Code(s): J44.9 - Chronic obstructive pulmonary disease, unspecified Code(s): J44.9 - Chronic obstructive pulmonary disease, unspecified Status: Acute Assessment and Plan: Schedule breathing treatments Subjective Date/time seen: 08/25/22 13:34 Interval history: Admit to regular medical floor Patient started on Rocephin and Zithromax Await cultures Supportive care 08/25/2022 interval history: Patient admitted with shortness of breath is found to have aspiration pneumonia and being treated with ceftriaxone, vancomycin and Flagyl, repeat x-ray showed improvement in her pneumonia, also patient stats her breathing has improved and not as short of breath, still feels tired and fatigue, today patient states see ambulated to bathroom and was quite short winded, will repeat chest x-ray tomorrow and further recommendation to follow, patient also has a history of severe coronary artery disease, and Interventional Cardiology recommended thoracic surgery for revascularization however patient also complains persistent chest pain, ordered EKG, troponin no acute changes and seen by cable respooler, her trops and EKG were showed no acute injury and seen by cable respooler started patient low dose imdur 15mg qd, will monitor. Because of patient severe coronary artery disease unable to participate in PT. Review of Systems Review of Systems: Shortness of breath, productive cough of [place] to green sputum, chills, subjective fever, poor appetite Exam Narrative: Elderly frail Patient is comfortable, NAD HEENT: amie
[2022-08-25] MEDS: PRAVASTATIN SODIUM 10 MG TABLET PO (21:02)
[2022-08-25] MEDS: traZODone HCL 50 MG TABLET PO (21:02)
[2022-08-26] VITALS (8 sets, daily range): BP systolic 126–133; BP diastolic 69–76; PULSE 70–112; RESP 16–18; TEMP 36.7–36.8; O2SAT 96–100
[2022-08-26] MEDS: HYDROcodone/acetaminophen (*CRX) 5-325 MG TABLET 1 TAB PO ×2 (05:20→12:14)
[2022-08-26] MEDS: metroNIDAZOLE 250 MG TABLET 500 MG PO (05:20)
[2022-08-26 05:41] LABS: Hematocrit 35.8 % (37.0-47.0); Mean Corpuscular HGB Conc 30.7 g/dl (32-36); Mean Corpuscular Hemoglobin 28.9 pg (26-34); Platelet Count Result 198 k/mm3 (150-375); Red Blood Count 3.81 M/mm3 (4.2-5.4); Red Cell Distribution Width 14.9 % (11.5-14.5); White Blood Count 5.5 K/mm3 (4.5-10.0)
[2022-08-26 06:02] LABS: Anion Gap 5 mmol/L (8-16); Blood Urea Nitrogen 16 mg/dL (7-17); Calcium 8.9 mg/dL (8.4-10.2); Carbon Dioxide 32 mmol/L (22-30); Chloride 103 mmol/L (98-107); Estimated CRCL calculation 49 ml/min; Estimated Glomerular Filt Rate > 60; Glucose 96 mg/dL (65-110); Magnesium 2.1 mg/dL (1.6-2.3); Potassium 3.7 mmol/L (3.4-5.0); Sodium 140 mmol/L (137-145)
[2022-08-26] MEDS: FLUTICASONE/SALMETEROL 115-21 MCG INHALER 1 PUFF 2 PUFF INHALATION (07:55)
[2022-08-26] MEDS: PANTOPRAZOLE 40 MG TABLET PO (09:16)
[2022-08-26] MEDS: ASPIRIN 81 MG ENTERIC TABLET PO (09:16)
[2022-08-26] MEDS: ISOSORBIDE MONONITRATE 15 MG TAB.ER.24H PO (09:17)
[2022-08-26] MEDS: SERTRALINE HCL 50 MG TABLET PO (09:17)
[2022-08-26] MEDS: ENOXAPARIN 40 MG/0.4 ML SYRINGE SUB-Q (09:17)
[2022-08-26] MEDS: DULoxetine HCL 30 MG CAPSULE.DR PO (09:17)
[2022-08-26] MEDS: CYCLOBENZAPRINE HCL 5 MG TABLET PO (09:18)
--- NOTE | 2022-08-26 11:45 | PCNFU ---
Nutrition Follow-Up Complete: Severe Malnutrition related to inadequate protein-energy intake with increased protein-energy needs in the setting of chronic disease or condition (COPD) as evidenced by minimal oral intake for > 1-2 months; servere subcutaneous fat loss (orbital fat pads) and muscle wasting (deltoids). Adequate Intake of at least 75% of meals/supplements - Progressing to goal Goal: Pt current nutrition is Regular diet. Ensure compact ordered BID for additional 220 kcals and 9 g protein each. Nutrition recommendation: Continue current nutrition care plan. Agree with orders Last recorded weight is 39.2 kg. Bowel Motility: Last BM +2 08/15/22 Labs Reviewed: Hgb 11.0, Hct 35.8, Cre 0,5 Meds Noted: Mobile, Lovenox, Protonix Skin: WNL Additional Notes: Appetite is improved to 30-95% meals. Drinking some Ensure. Still having pain which can effect her appetite. RD will monitor every 5 days.
[2022-08-26] MEDS: cefTRIAXone 2 GM/NS 100 ML 2 GM/100 ML BAG IVPB (12:14)
--- NOTE | 2022-08-26 13:10 | PM.DS ---
DS: Admitting Diagnosis Discharge Date 08/26/2022 Admitting Diagnosis Shortness of breath DS: Discharge Diagnosis Discharge Diagnosis (1) Pneumonia: Code(s): J18.9 - Pneumonia, unspecified organism Status: Acute Assessment and Plan: Admit to regular medical floor Patient started on Rocephin and Zithromax Await cultures Supportive care 08/25/2022 interval history: Patient admitted with shortness of breath is found to have aspiration pneumonia and being treated with ceftriaxone, vancomycin and Flagyl, repeat x-ray showed improvement in her pneumonia, also patient stats her breathing has improved and not as short of breath, still feels tired and fatigue, today patient states see ambulated to bathroom and was quite short winded, will repeat chest x-ray tomorrow and further recommendation to follow, patient also has a history of severe coronary artery disease, and Interventional Cardiology recommended thoracic surgery for revascularization however patient also complains persistent chest pain, ordered EKG, troponin no acute changes and seen by adjunct instructor in economics, her trops and EKG were showed no acute injury and seen by adjunct instructor in economics started patient low dose imdur 15mg qd, will monitor. Because of patient severe coronary artery disease unable to participate in PT. (2) Acute and chronic respiratory failure with hypoxia: Code(s): J96.21 - Acute and chronic respiratory failure with hypoxia Status: Acute Assessment and Plan: On supplemental oxygen by nasal cannula Patient is usually a on 2 L of oxygen by nasal cannula at home (3) CAD (coronary artery disease): Qualifiers: Coronary Disease-Associated Artery/Lesion type: [place] artery [place] vs. transplanted heart: [place] heart Associated angina: with unspecified form of angina Qualified Code(s): I25.119 - Atherosclerotic heart disease of [place] coronary artery with unspecified angina pectoris Code(s): I25.10 - Atherosclerotic heart disease of [place] coronary artery without angina pectoris Status: Acute Assessment and Plan: No chest pain at this time Patient is status post left heart catheterization Awaiting coronary artery bypass graft (4) Acute UTI: Code(s): N39.0 - Urinary tract infection, site not specified Status: Acute Assessment and Plan: Continue Rocephin Await cultures (5) COPD (chronic obstructive pulmonary disease): Qualifiers: COPD type: unspecified COPD Qualified Code(s): J44.9 - Chronic obstructive pulmonary disease, unspecified Code(s): J44.9 - Chronic obstructive pulmonary disease, unspecified Status: Acute Assessment and Plan: Schedule breathing treatments DS: Summary Hospital Course Reason for hospitalization: Shortness of breath Narrative: This is a 77-year-old female with past medical history significant for COPD/emphysema, hypoxic respiratory failure on 2 L of supplemental oxygen by nasal cannula, coronary artery disease, fibromyalgia.? Patient presents to the emergency room due to worsening shortness of breath for the last 2 days or so at nighttime had to increase her oxygen to 3 L from 2 L has had cough productive of [place] to greenish sputum which is unusual for her has had chills but and subjective fevers, poor appetite.? Patient needs coronary artery bypass graft and is in the midst of getting her appointment with the doctor however? doctor has relocated to [place] she is currently getting her care establish with a new doctor.. Hospital Course: atient admitted with shortness of breath is found to have aspiration pneumonia and being treated with ceftriaxone,? vancomycin and Flagyl, repeat x-ray showed improvement in her pneumonia, also patient stats her breathing has improved and not as short of breath, still feels tired and fatigue, today patient states see ambulated to bathroom and was quite short winded, will repeat chest x-ray tomorrow and further recommend
== END 2022-08-26 14:00 | disposition home or self-care (01) | DRG 177 ==
LOC: ANHED 19:11 → ANH2MED 21:07
PROVIDERS: Emergency Medicine; Admitting Provider Internal Medicine; Emergency Provider Emergency Medicine; PCP Internal Medicine; Visit Provider Family Medicine
DX: J69.0 Pneumonitis due to inhalation of food and vomit (principal); E43 Unspecified severe protein-calorie malnutrition; J96.21 Acute and chronic respiratory failure with hypoxia; N39.0 Urinary tract infection, site not specified; Z68.1 Body mass index [BMI] 19.9 or less, adult; I25.10 Atherosclerotic heart disease of native coronary artery without angina pectoris; J43.9 Emphysema, unspecified; M79.7 Fibromyalgia; M70.61 Trochanteric bursitis, right hip; Z99.81 Dependence on supplemental oxygen; Z90.710 Acquired absence of both cervix and uterus; Z87.891 Personal history of nicotine dependence
CPT/HCPCS: 36415; 71045; 71046; 71275; 74177; 80048; 80053; 80202; 82565; 83690; 83735; 84484; 85025; 85027; 85610; 85730; 87081; 93005; 94640; 96365; 96367; 96375; 99285; A9270; G0378; J0696; J1100; J1650; J2270; J2543; J3370; J3475; Q9967

== ENCOUNTER 2022-09-13 12:37 | Outpatient (CLI) | payer MEDICARE, SELFPAY ==
[2022-09-13 18:11] LABS: Basophils Percent Auto 0.4 % (0.2-1.2); Eosinophils Absolute Auto 0.1 K/mm3 (0-0.3); Eosinophils Percent Auto 1.1 % (0-4.4); Hemoglobin 11.4 g/dL (12.0-15.0); Immature Granulocyte Absolute 0.02 K/mm3 (0.00-0.031); Immature Granulocyte Percent A 0.3 % (0-0.5); Lymphocytes Absolute Auto 1.33 K/mm3 (0.9-3.2); Lymphocytes Percent Auto 18.9 % (18.3-44.2); Mean Corpuscular Hemoglobin 29.1 pg (26-34); Mean Corpuscular Volume 96.9 fl (80-100); Mean Platelet Volume 10.3 fl (7.4-10.4); Monocytes Absolute Auto 0.5 K/mm3 (0.1-0.6); Monocytes Percent Auto 7.1 % (2.6-8.5); Neutrophils Absolute Auto 5.1 K/mm3 (1.3-6.7); Neutrophils Percent Auto 72.2 % (45.5-73.1); Platelet Count Result 190 k/mm3 (150-375); Red Blood Count 3.92 M/mm3 (4.2-5.4); Red Cell Distribution Width 14.7 % (11.5-14.5)
[2022-09-13 18:22] LABS: Anion Gap 6 mmol/L (8-16); Blood Urea Nitrogen 18 mg/dL (7-17); Calcium 9.4 mg/dL (8.4-10.2); Carbon Dioxide 33 mmol/L (22-30); Chloride 102 mmol/L (98-107); Estimated Glomerular Filt Rate > 60; Glucose 95 mg/dL (65-110); Potassium 4.3 mmol/L (3.4-5.0); Sodium 141 mmol/L (137-145)
[2022-09-13 18:23] LABS: Appearance Urine Cloudy (Clear); Bacteria Urine None Seen /hpf; Bilirubin Urine Negative (Negative); Blood Urine Negative (Negative); Color Urine Dark Yellow (Yellow); Glucose Urine UA Negative (Negative); Hyaline Casts Urine Present /lpf; Ketones Urine Negative (Negative); Leukocyte Esterase Ur Negative LEU/UL (NEGATIVE); Nitrate Urine Negative (Negative); Protein Urine 1+ mg/dL (Negative); Squamous Epithelial Cell Urine None seen /hpf (Few); WBC Urine 0-5 /hpf (0-3); pH Urine 5.5 (5.0-9.0)
[2022-09-13 18:25] LABS: Add Urine Microscopic? YES
== END 2022-09-13 12:38 | disposition home or self-care (01) ==
LOC: ANHGOSHLAB 12:41
PROVIDERS: PCP Internal Medicine; Visit Provider Internal Medicine
DX: I25.10 Atherosclerotic heart disease of native coronary artery without angina pectoris (principal)
CPT/HCPCS: 36415; 80048; 81001; 85025

== ENCOUNTER 2022-11-20 13:37 | Observation (INO) | payer MEDICARE, SELFPAY ==
[2022-11-20] VITALS (18 sets, daily range): BP systolic 104–163; BP diastolic 71–101; PULSE 97–116; RESP 13–28; TEMP 36.1–36.8; O2SAT 97–100; BMI 15.5
--- NOTE | ~2022-11-20 | XR_ITS ---
Portable chest x-ray Comparison: 08/26/2022 Clinical History: Dyspnea Findings: Lungs are clear, without focal consolidation or pleural effusion. Possible COPD. Cardiome diastinal silhouette is stable. Bones and soft tissues are unremarkable. Impression: COPD. Clear lungs. Reviewed, dictated and finalized at location . Impression: COPD. Clear lungs.
--- NOTE | ~2022-11-20 | CT_ITS ---
EXAMINATION: CTA chest PE protocol DATE: 11/20/2022 14:58 INDICATION: Dyspnea. Chest pain. TECHNIQUE: Computed tomography angiography (CTA) of the chest was performed with 90 CC Omnipaque 350 intravenous contrast timed to evaluate the pulmonary arteries. Coronal maximum intensity projection 3 D-reconstructions were created by the technologist. Automated exposure control and iterative reconstr uction technique were employed. Exam dose: 132.67 mGy-cm total exam DLP. COMPARISON: 11/20/2022 portable upright AP chest 08/20/2022 CTA chest abdomen pelvis FINDINGS: There is diagnostic contrast enhancement of the pulmonary arteries and no evidence of pulmo nary embolism. Prominent calcified subcarinal lymph nodes. No hilar or mediastinal mass lesion or lymphadenopathy is detected. Prominent calcified subcarinal lymph nodes. Normal heart size. No thoracic aortic aneurysm or dissection is evident. Coronary artery calcificatio ns. Trace pericardial effusion. No pleural effusion. Severe emphysematous changes of the lungs. Mild bila teral apical scarring. Mild discoid atelectasis or scarring at the posteromedial right lung base. Diffuse osteopenia. Fusion at C6-7 interspace. Degenerative disc disease at C4-5 and C5-6. There are numerous chronic compression fractures of the thoracic and upper lumbar spine. Status post vertebroplasty at L2. IMPRESSION: No evidence of pulmonary embolism Severe emphysematous changes Mild focal discoid atelectasis or scarring at the posteromedial right lung base Reviewed, dictated and finalized at Location A. Reviewed, dictated and finalized at location B.
--- NOTE | 2022-11-20 13:37 | ECG_ITS ---
Measurements Intervals [place] Rate: 103 P: 74 [place]: 133 QRS: -65 QRSD: 98 T: 83 QT: 266 QTc: 348 Interpretive Statements SINUS TACHYCARDIA INCOMPLETE RIGHT BUNDLE BRANCH BLOCK LEFT ANTERIOR FASCICULAR BLOCK CANNOT RULE OUT SEPTAL INFARCT, AGE INDETERMINATE BORDERLINE ST-T WAVE ABNORMALITY- LAT/HIGH LAT LEADS BASELINE ARTIFACT- I, II, III, AVR, AVL, AVF, V1-V2 ABNORMAL ECG COMPARED TO ECG 08/21/2022 11:54:41 NO SIGNIFICANT CHANGES Electronically Signed On 11-20-2022 16:14:55 CDT by Kevin Conde D.O.
[2022-11-20 14:01] LABS: Basophils Percent Auto 0.4 % (0.2-1.2); Eosinophils Percent Auto 0.6 % (0-4.4); Hematocrit 41.1 % (37.0-47.0); Hemoglobin 12.7 g/dL (12.0-15.0); Immature Granulocyte Absolute 0.03 K/mm3 (0.00-0.031); Immature Granulocyte Percent A 0.4 % (0-0.5); Lymphocytes Absolute Auto 0.82 K/mm3 (0.9-3.2); Lymphocytes Percent Auto 11.8 % (18.3-44.2); Mean Corpuscular HGB Conc 30.9 g/dl (32-36); Mean Corpuscular Hemoglobin 27.7 pg (26-34); Mean Corpuscular Volume 89.7 fl (80-100); Mean Platelet Volume 9.8 fl (7.4-10.4); Monocytes Absolute Auto 0.5 K/mm3 (0.1-0.6); Monocytes Percent Auto 7.1 % (2.6-8.5); Neutrophils Absolute Auto 5.5 K/mm3 (1.3-6.7); Neutrophils Percent Auto 79.7 % (45.5-73.1); Platelet Count Result 251 k/mm3 (150-375); Red Blood Count 4.58 M/mm3 (4.2-5.4); Red Cell Distribution Width 15.5 % (11.5-14.5)
[2022-11-20] MEDS: MORPHINE SULFATE (*CRX) 4 MG/ML INJ IV PUSH (14:02)
[2022-11-20] MEDS: ONDANSETRON INJ 4 MG/2 ML VIAL IV PUSH (14:02)
[2022-11-20 14:17] LABS: Prothrombin Time 13.1 Seconds (11.1-14.7)
[2022-11-20 14:19] LABS: Alanine Aminotransferase 20 U/L (6-35); Albumin Level 4.7 g/dL (3.5-5.1); Alkaline Phosphatase 105 U/L (38-126); Anion Gap 10 mmol/L (8-16); Aspartate Amino Transferase 31 U/L (14-36); Bilirubin,Total 0.4 mg/dL (0.2-1.3); Blood Urea Nitrogen 17 mg/dL (7-17); Calcium 9.5 mg/dL (8.4-10.2); Carbon Dioxide 30 mmol/L (22-30); Chloride 100 mmol/L (98-107); Estimated Glomerular Filt Rate > 60; Glucose 101 mg/dL (65-110); Lipase 72 U/L (23-300); Potassium 3.4 mmol/L (3.4-5.0); Sodium 140 mmol/L (137-145)
[2022-11-20 14:28] LABS: Troponin I < 0.012 ng/mL (0.000-0.034)
[2022-11-20 14:40] LABS: NT Pro B Type Natriuretic Pept 1640 pg/mL (19.9-100)
[2022-11-20] MEDS: ALBUTEROL SULFATE NEB 2.5 MG/3 ML INH INHALATION (15:47)
--- NOTE | 2022-11-20 16:31 | ED.CHESTPAIN ---
HPI - Chest Pain General Chief Complaint: Chest Pain Stated Complaint: chest/back pain Time Seen by Provider: 11/20/22 13:46 History of Present Illness HPI narrative: This is a 77-year-old female with past history of COPD and coronary artery disease status post multiple stents, who presents emergency department complaining of midline crushing chest pain, rated 7/10, radiating to the bilateral arms beginning approximately 1 hour prior to arrival. Related Data Home Medications Medication Instructions Recorded Confirmed fluticasone 250 mcg-salmeterol 50 1 inh inhalation DAILY 08/20/22 11/20/22 mcg/dose blistr powdr for inhalation (Advair Diskus) pravastatin 10 mg tablet 10 mg PO HS 08/20/22 11/20/22 trazodone 50 mg tablet 50 mg PO QHS 08/20/22 11/20/22 aspirin 81 mg tablet,delayed 81 mg PO BID 10/23/22 11/20/22 release clopidogrel 75 mg tablet (Plavix) 75 mg PO DAILY 10/23/22 11/20/22 guaifenesin 600 mg tablet, 600 mg PO BID PRN Congestion 11/20/22 11/20/22 extended release 12 hr (Mucinex) Allergies Allergy/AdvReac Type Severity Reaction Status Date / Time No Known Allergies Allergy Verified 11/12/22 11:25 Review of Systems Review of Systems: CONSTITUTIONAL: Denies fever, chills, or sweats. CARDIOVASCULAR: Chest pain radiating to both arms denies palpitations, or edema. RESPIRATORY: Cough and dyspnea GASTROINTESTINAL: Denies abdominal pain, nausea, vomiting, or diarrhea. GENITOURINARY: Denies dysuria or hematuria. SKIN: Denies rash or itching. MUSCULOSKELETAL: Back pain denies joint pain, or myalgia. NEUROLOGIC: Denies headache, numbness, dizziness, or weakness. PSYCHIATRIC: Denies anxiety or depression. [facility] Past Medical History Medical History Abnormal CT scan, gastrointestinal tract Anxiety Back pain CAD (coronary artery disease) needs stent, cardiology wants to confirm no ulcers before stenting Chronic obstructive pulmonary disease COPD (chronic obstructive pulmonary disease) Depression Fibromyalgia Hyperlipidemia Insomnia Malnutrition of mild degree On home O2 Pain in thoracic spine Trochanteric bursitis, right hip Surgical History Surgical History H/O: hysterectomy History of hip surgery right hip surgery Hx of cataract surgery (~12/2021) Family History Family History Mother Family history of arthritis Family history of cardiovascular disease Father Family history of arthritis Family history of multiple sclerosis Other Family history of congenital heart disease Social History Social History Social History: Code status: Full code. Smoking packs per day: 1.5 Smoking cigarettes per day: 30.0 Years smoked: 50 Smoking pack-years: 75.00 Smoking status: Former smoker Tobacco type: cigarettes Second hand tobacco smoke exposure: No Smoking end date: 04/28/13 Alcohol intake: current Alcohol use details: socially, very rare. Substance use: never Substance use type: does not use Lack of Transportation: No Lack of Food: Never True Current Housing: I Have Housing Concerned About Future Housing: No Difficulty Paying Gas/Electric Bills: No Difficulty Paying for Meds: No Currently Unemployed: No Education: Trade/Vocational Certificate Difficulty w/ Childcare or Family Care: No Living arrangements: with family Additional living arrangements comments: Lives with in [place]. Occupation/Education: retired Gender identity (if verbalized by the patient): Female Spiritual care concerns: No Exam Narrative: GENERAL: Well-developed, cachectic, in moderate distress due to pain HEAD: Normocephalic, atraumatic. EYES: PERRLA and EOMI. ENT: Nares clear, no rhinorrhea or epistaxis. Mucous membranes dipti
[2022-11-20 17:48] LABS: Troponin I < 0.012 ng/mL (0.000-0.034)
[2022-11-20] MEDS: MORPHINE SULFATE (*CRX) 2 MG/ML INJ IV PUSH (18:14)
--- NOTE | 2022-11-20 19:52 | ADMGEN ---
This patient, Cecy Jackson, was admitted to IMU Room 205-01. Patient/family oriented to hospital policies and general routines including ID bracelet, bed and alarms, visiting hours, pain management, procedures, bathroom and other care routines, personal items, smoking policy, room service/diet, and visiting hours. Information on how to activate the Rapid Response Team has been discussed. Patient/Family are encouraged to report perceived risks to care and to ask questions if they do not understand what they are told or what they should do.
--- NOTE | 2022-11-20 20:51 | PM.IMHP ---
H&P: HPI History of Present Illness Date/Time: 11/20/22 20:51 Chief Complaint: Chest pain Narrative: This is a 77-year-old female patient who has COPD and is chronically on oxygen at home. The patient stated she recently received 6 cardiac stents at [facility].. She had a cardiac catheterization here at [facility] and then was sent to [facility] for a total 6 stents placed in 3 vessels. The patient is chronically on oxygen at 2 L per nasal cannula. The patient came in today because she was complaining of left chest pain that did not radiate to her arm but radiated to her back. The patient stated that her pain was crushing and was rated 7/10. The patient stated that she does have coronary artery disease and has multivessel disease. The patient was given aspirin, morphine, Zofran and a nebulizer treatment in the emergency room. Chest x-ray was read as clear lungs. CTA was read as no evidence of pulmonary embolism severe emphysematous changes. Mild focal discoid atelectasis or scarring at the posterior medial right lung base. Troponin negative x3. the patient is being admitted to observation status on the date of service of 11/20/2022. Review of Systems Review of Systems: All systems reviewed & are unremarkable except as noted in HPI and below Constitutional: Constitutional: Reports as per HPI and Reports no additional constitutional complaints Eyes: Eyes: Reports as per HPI and Reports no additional eye complaints ENT: Reports system reviewed and no additional complaints, except as documented and Reports Normal hearing present Cardiovascular: Cardiovascular: Reports no additional cardiovascular complaints Respiratory: Respiratory: Reports no additional respiratory complaints and Reports no additional respiratory complaints Gastrointestinal: Gastrointestinal: Reports as per HPI and Reports no additional gastrointestinal complaints Musculoskeletal: Musculoskeletal: Reports no additional musculoskeletal complaints Integumentary/Breasts: Skin/Breast: Reports system reviewed and no additional complaints, except as docu and Reports as per HPI Neurologic: Reports system reviewed and no additional complaints, except as documented, Reports as per HPI and Reports Normal hearing present Psychiatric: Psychiatric: Reports no additional psychiatric complaints and Reports as per HPI Endocrine: Endocrine: Reports no additional endocrine complaints Hematologic/Lymphatic: Hematologic/Lymphatic: Reports no additional hematologic/lymphatic complaints Allergic/Immunologic: Allergic/Immunologic: Reports no additional allergic/immunologic complaints [facility] Past Medical History Medical History (Updated 11/20/22 @ 23:05 by Alejandrina Mccurdy NP) Abnormal CT scan, gastrointestinal tract Anxiety Back pain CAD (coronary artery disease) needs stent, cardiology wants to confirm no ulcers before stenting Chest pain Chronic obstructive pulmonary disease COPD (chronic obstructive pulmonary disease) Depression Fibromyalgia Hyperlipidemia Insomnia Malnutrition of mild degree On home O2 Pain in thoracic spine Trochanteric bursitis, right hip Surgical History Surgical History (Updated 11/20/22 @ 22:59 by Alejandrina Mccurdy NP) H/O heart artery stent X6 stents H/O: hysterectomy History of hip surgery right hip surgery Hx of cataract surgery (~12/2021) Family History Family History Mother Family history of arthritis Family history of cardiovascular disease Father Family history of arthritis Family history of multiple sclerosis Other Family history of congenital heart disease Social History Social History (Updated 11/20/22 @ 23:01 by Alejandrina Mccurdy NP) Social History: She lives with her . The patient had 2 sons with a a . Her is her durable power compliance attorney for healthcare. Code status: Full code. Smoking packs per day: 1.5 Smoking cigarettes p
[2022-11-20 21:30] LABS: Troponin I < 0.012 ng/mL (0.000-0.034)
--- NOTE | 2022-11-20 23:01 | PCRCNOTE ---
Window of time for administration has passed. See next scheduled administration.
[2022-11-20] MEDS: HYDROcodone/acetaminophen (*CRX) 5-325 MG TABLET 1 TAB PO (23:07)
[2022-11-20] MEDS: PRAVASTATIN SODIUM 10 MG TABLET PO (23:07)
[2022-11-20] MEDS: traZODone HCL 50 MG TABLET PO (23:07)
[2022-11-21] VITALS (19 sets, daily range): BP systolic 100–132; BP diastolic 65–72; PULSE 82–120; RESP 16–20; TEMP 36.1–36.9; O2SAT 92–100; BMI 15.5
--- NOTE | 2022-11-21 02:59 | PCRCNOTE ---
Pt refused her 0200 treatment due to wanting to sleep. Treatment to resume at 0800.
[2022-11-21 05:15] LABS: Basophils Percent Auto 0.7 % (0.2-1.2); Eosinophils Absolute Auto 0.1 K/mm3 (0-0.3); Eosinophils Percent Auto 2.6 % (0-4.4); Hematocrit 37.5 % (37.0-47.0); Hemoglobin 11.4 g/dL (12.0-15.0); Immature Granulocyte Absolute 0.01 K/mm3 (0.00-0.031); Immature Granulocyte Percent A 0.2 % (0-0.5); Lymphocytes Absolute Auto 1.54 K/mm3 (0.9-3.2); Lymphocytes Percent Auto 28.4 % (18.3-44.2); Mean Corpuscular HGB Conc 30.4 g/dl (32-36); Mean Corpuscular Hemoglobin 27.5 pg (26-34); Mean Corpuscular Volume 90.6 fl (80-100); Mean Platelet Volume 10.1 fl (7.4-10.4); Monocytes Absolute Auto 0.6 K/mm3 (0.1-0.6); Monocytes Percent Auto 10.7 % (2.6-8.5); Neutrophils Absolute Auto 3.1 K/mm3 (1.3-6.7); Neutrophils Percent Auto 57.4 % (45.5-73.1); Platelet Count Result 240 k/mm3 (150-375); Red Blood Count 4.14 M/mm3 (4.2-5.4); Red Cell Distribution Width 15.5 % (11.5-14.5); White Blood Count 5.4 K/mm3 (4.5-10.0)
[2022-11-21 05:35] LABS: Anion Gap 7 mmol/L (8-16); Blood Urea Nitrogen 19 mg/dL (7-17); Calcium 8.9 mg/dL (8.4-10.2); Carbon Dioxide 32 mmol/L (22-30); Chloride 100 mmol/L (98-107); Estimated CRCL calculation 46 ml/min; Estimated Glomerular Filt Rate > 60; Glucose 97 mg/dL (65-110); Potassium 3.1 mmol/L (3.4-5.0); Sodium 139 mmol/L (137-145)
[2022-11-21] MEDS: HYDROcodone/acetaminophen (*CRX) 5-325 MG TABLET 1 TAB PO ×2 (06:02→16:32)
[2022-11-21] MEDS: ALBUTEROL SULFATE NEB 2.5 MG/3 ML INH INHALATION ×3 (08:50→19:46)
[2022-11-21] MEDS: FLUTICASONE/SALMETEROL 115-21 MCG INHALER 1 PUFF 2 PUFF INHALATION ×2 (08:51→19:46)
[2022-11-21] MEDS: DULoxetine HCL 30 MG CAPSULE.DR PO (09:42)
[2022-11-21] MEDS: ISOSORBIDE MONONITRATE 15 MG TAB.ER.24H PO (09:42)
[2022-11-21] MEDS: SERTRALINE HCL 50 MG TABLET PO (09:42)
[2022-11-21] MEDS: CLOPIDOGREL BISULFATE 75 MG TABLET PO (09:42)
[2022-11-21] MEDS: ASPIRIN 81 MG ENTERIC TABLET PO ×2 (09:42→16:32)
[2022-11-21] MEDS: POTASSIUM CHLORIDE 20 MEQ ER TABLET 40 MEQ PO (09:42)
--- NOTE | 2022-11-21 10:01 | PM.CNCAR ---
Assessment and Plan Assessment and plan (1) Chest pain: Code(s): R07.9 - Chest pain, unspecified Status: Acute Assessment and Plan: Probably musculoskeletal or costochondritis. She is r/o for IN by EKG and serial troponin. Increase Isosorbide mononitrate 30 mg daily to enhance coronary blood flow. Need pain control for musculoskeletal pains. (2) CAD (coronary artery disease): Qualifiers: Coronary Disease-Associated Artery/Lesion type: [place] artery [place] vs. transplanted heart: [place] heart Associated angina: with unspecified form of angina Qualified Code(s): I25.119 - Atherosclerotic heart disease of [place] coronary artery with unspecified angina pectoris Code(s): I25.10 - Atherosclerotic heart disease of [place] coronary artery without angina pectoris Status: Acute Assessment and Plan: Stable. Do not stop dual antiplatelet agents with aspirin and Clopidogrel. (3) Hyperlipidemia: Code(s): E78.5 - Hyperlipidemia, unspecified Status: Acute Assessment and Plan: On pravastatin. History of Present Illness History of Present Illness Consult date/time: 11/21/22 10:01 Reason For Visit: Unstable Angina Narrative: 77 yr old woman who is my regular cardiology patient and a patient of Dr. Landis presents to ER with chest pain. She has a history of CAD, dyslipidemia, COPD on home oxygen, covid infection on 08/30/19 and she had it 2 more times, former smoking quit in 2013. Reports for last 3-4 days she had sharp mid chest and left sided chest pains with radiation to left arm with coughing or moving her torso from side to side. She wears her oxygen for sleep and sometimes while walking. She is limited at walking short distances due to MASTERS first then chronic back pain. Denies orthopnea, PND, edema, palpitations, dizziness. Cardiovascular Procedures Nursing Home Assistant:: 09/20/22 Main [facility] cath: Stent of LM into LCx with jailed balloon technique to preserve normal LAD, stent of OM1, sten of prox, mid, distal RCA with 4 overlapping stents, residual [employer]INKEY [employer]INE [employer]ER mid LAD with right to left collateral, 80% 1st Diag, DIN[employer]ER OM2 with left to left collateral. 07/30/[address] Robledo: Distal LM 80%, LAD DINKEY [employer]INE [employer]ER ostial, with right to left collaterals, Ramus 70-80% mid, LCx with prox 50-60% prox OM1, 70-80% prox-mid OM2 with left to left collaterals, RCA heavily calcified with 60-70% prox, 80-90% mid. Echo/MUGA:: 07/01/22 Echo: EF 55-60%, mild LVH, grade I diastolic dysfunction (E/e' 9), RV hypokinesis based on TAPSE 1.6 cm, mild (MARCIO 1.46 cm2), mild TR. Electrophysiology:: 08/15/22 EKG: Sinus rhythm, IRBBB, LAFB. 04/11/22 EKG: Sinus rhythm, LAFB, anteroseptal infarct, age indeterminate. Stress Tests:: 07/01/22 Lexiscan myoview: Abnormal with large area of ischemia of apical and mid anteroseptal segments. 04/11/22 CT chest: Esophagitis, duodenitis. Severe emphysema. Small right pleural effusion. Review of Systems Review of Systems: All systems reviewed & are unremarkable except as noted in HPI and below Constitutional: Constitutional: Reports as per HPI, Denies chills and Denies fever(s) Cardiovascular: Cardiovascular: Reports as per HPI, Reports chest pain, Denies irregular heart rhythm, Denies leg edema and Denies lightheadedness Respiratory: Respiratory: Reports as per HPI and Reports dyspnea Gastrointestinal: Gastrointestinal: Reports as per HPI and Denies abdominal pain Genitourinary: Genitourinary: Reports as per HPI and Denies dysuria Musculoskeletal: Musculoskeletal: Reports as per HPI and Reports back pain Neurologic: Reports as per HPI, Denies dizziness and Denies syncope [facility] Past Medical History Medical History (Updated 11/20/22 @ 23:05 by Alejandrina Mccurdy NP) Abnormal CT scan, gastrointestinal tract Anxiety Back pain CAD (coronary artery disease) needs stent, cardiology wants to confirm no ulcers before stenting Chest pain Chronic obstructive pulmonary disease COPD (chronic obstr
--- NOTE | 2022-11-21 16:19 | PM.IMPN ---
Progress Note: A&P Assessment and Plan (1) Chest pain: Code(s): R07.9 - Chest pain, unspecified Status: Acute Assessment and Plan: Troponins are negative x3. Cardiology has been consulted. Continue with analgesics. Continue with oxygen. She is chronically on oxygen at 2 L per nasal cannula. The patient recently had [address] [facility]. She is still on 2 0 therapy with Plavix and aspirin. The patient stated she has not been able to complete cardiac rehab because she has been in too much pain and has been too short of breath. Continue with isosorbide. 11/21: isosorbide dose increased per cardio, appreciate consultation, possible component of costochondritis, add lidocaine patch, valium, significant anxiety/panic symptoms noted with chest pain, as well (2) Hyperlipidemia: Code(s): E78.5 - Hyperlipidemia, unspecified Status: Acute Assessment and Plan: Continue with pravastatin (3) Anxiety: Code(s): F41.9 - Anxiety disorder, unspecified Status: Acute Assessment and Plan: Continue with Cymbalta and sertraline (4) Insomnia: Qualifiers: Insomnia type: unspecified Qualified Code(s): G47.00 - Insomnia, unspecified Code(s): G47.00 - Insomnia, unspecified Status: Acute Assessment and Plan: Continue with trazodone (5) Anemia: Code(s): D64.9 - Anemia, unspecified Status: Acute Assessment and Plan: H&H is normal. (6) CAD (coronary artery disease): Qualifiers: Coronary Disease-Associated Artery/Lesion type: [place] artery [place] vs. transplanted heart: [place] heart Associated angina: with unspecified form of angina Qualified Code(s): I25.119 - Atherosclerotic heart disease of [place] coronary artery with unspecified angina pectoris Code(s): I25.10 - Atherosclerotic heart disease of [place] coronary artery without angina pectoris Status: Acute Assessment and Plan: The patient had [address] [facility] earlier this year. Continue with dual anti-platelet therapy aspirin and Plavix. Continue with isosorbide. Cardiology has been consulted (7) COPD (chronic obstructive pulmonary disease): Qualifiers: COPD type: unspecified COPD Qualified Code(s): J44.9 - Chronic obstructive pulmonary disease, unspecified Code(s): J44.9 - Chronic obstructive pulmonary disease, unspecified Status: Acute Assessment and Plan: The patient is chronically on oxygen at 2 L per nasal cannula. Continue with nebulizer treatments. (8) Thoracic back pain: Qualifiers: Chronicity: chronic Back pain laterality: midline Qualified Code(s): M54.6 - Pain in thoracic spine; G89.29 - Other chronic pain Code(s): M54.6 - Pain in thoracic spine Status: Acute Assessment and Plan: Continue with home medication of [place]. Plan DVT prophylaxis with SCDs GI prophylaxis not indicated Code status full code Subjective Date/time seen: 11/21/22 16:19 Interval history: 77-year-old female with long history of heart disease and COPD on home oxygen is presenting with chest pain and currently being treated for possible ischemic anginal pain comorbid with costochondritis. No overnight events noted. No shortness of breath. No nausea, vomiting or diarrhea. No fevers or chills. Still with some tight chest pain, some of it is reproducible some of it is not. Review of Systems Review of Systems: 12 point review of systems was assessed and was negative except as noted in the HPI Exam Narrative: General: No acute distress, alert and oriented per baseline HEENT: Atraumatic, normocephalic, mucous membranes moist CV: Regular rate and rhythm, S1, S2 Lungs: Clear to auscultation bilaterally, no rales or crackles noted, no wheezes, good air entry Abdomen: Soft, nontender, nondistended Extremities: Normal to inspection Skin: No rashes noted, no lesions or wo
[2022-11-21] MEDS: diazePAM (*CRX) 5 MG TABLET PO (17:30)
[2022-11-21] MEDS: PRAVASTATIN SODIUM 10 MG TABLET PO (20:45)
[2022-11-21] MEDS: traZODone HCL 50 MG TABLET PO (20:45)
[2022-11-22] VITALS (13 sets, daily range): BP systolic 100–112; BP diastolic 53–61; PULSE 71–119; RESP 17–20; TEMP 35.8–36.2; O2SAT 94–98
--- NOTE | 2022-11-22 02:14 | PCRCNOTE ---
Addendum entered by Madeline Polo, SOLE LEVELING MACHINE OPERATOR 11/22/22 02:18: RN aware Original Note: Pt Refused neb treatment at this time
[2022-11-22] MEDS: HYDROcodone/acetaminophen (*CRX) 5-325 MG TABLET 1 TAB PO ×2 (05:05→13:25)
[2022-11-22] MEDS: ALBUTEROL SULFATE NEB 2.5 MG/3 ML INH INHALATION ×2 (07:20→13:00)
[2022-11-22] MEDS: FLUTICASONE/SALMETEROL 115-21 MCG INHALER 1 PUFF 2 PUFF INHALATION (07:24)
--- NOTE | 2022-11-22 07:37 | PM.PNCARD ---
Progress Note: A&P Assessment and Plan (1) Chest pain: Code(s): R07.9 - Chest pain, unspecified Status: Acute Assessment and Plan: Probably musculoskeletal or costochondritis. She is r/o for CO by EKG and serial troponin. Due to low normal BP, will keep her Isosorbide mononitrate 15 mg daily. Need pain control for musculoskeletal pains. No further cardiac workup is needed. Will sign off. (2) CAD (coronary artery disease): Qualifiers: Coronary Disease-Associated Artery/Lesion type: [place] artery [place] vs. transplanted heart: [place] heart Associated angina: with unspecified form of angina Qualified Code(s): I25.119 - Atherosclerotic heart disease of [place] coronary artery with unspecified angina pectoris Code(s): I25.10 - Atherosclerotic heart disease of [place] coronary artery without angina pectoris Status: Acute Assessment and Plan: Stable. Do not stop dual antiplatelet agents with aspirin and Clopidogrel. (3) Hyperlipidemia: Code(s): E78.5 - Hyperlipidemia, unspecified Status: Acute Assessment and Plan: On pravastatin. Subjective Date/time seen: 11/22/22 07:37 Interval history: Patient reports chest pain is better but does come on with movement of her torso. Has chronic sob. Exam Const: General: cooperative, healthy appearing and comfortable Orientation/consciousness: oriented to person, oriented to place and oriented to time Resp: Auscultation: no crackles, no rales, no rhonchi, no wheezes and diminished lung sounds Cardio: Rate: regular rate Rhythm: regular rhythm Heart sounds: no murmurs Peripheral pulses: dorsalis pedis present Neuro: General: oriented to person, oriented to place and oriented to time Extrem: Right lower extremity: no edema Left lower extremity: no edema Objective Data Vital Signs Vital Signs: Vital Signs - 24 hr 11/21/22 08:00 11/21/22 08:51 11/21/22 08:47 Temperature 98.3 F Pulse Rate 99 104 H Respiratory Rate 20 20 Blood Pressure 132/71 Pulse Oximetry 94 96 Oxygen Delivery Nasal Cannula Oxygen Flow Rate 2 11/21/22 08:00 11/21/22 10:00 11/21/22 08:00 Temperature Pulse Rate 120 H 114 H Respiratory Rate Blood Pressure Pulse Oximetry 96 Oxygen Delivery Nasal Cannula Oxygen Flow Rate 2 11/21/22 12:00 11/21/22 12:00 11/21/22 14:00 Temperature 98.0 F Pulse Rate 100 102 H 89 Respiratory Rate 20 Blood Pressure 103/68 Pulse Oximetry 96 Oxygen Delivery Oxygen Flow Rate 11/21/22 12:00 11/21/22 09:00 11/21/22 15:05 Temperature Pulse Rate 108 H 99 Respiratory Rate 20 20 Blood Pressure Pulse Oximetry 96 Oxygen Delivery Nasal Cannula Oxygen Flow Rate 2 11/21/22 16:00 11/21/22 16:00 11/21/22 16:00 Temperature 98.4 F Pulse Rate 105 H 96 Respiratory Rate 16 Blood Pressure 130/72 Pulse Oximetry 97 97 Oxygen Delivery Nasal Cannula Oxygen Flow Rate 2 11/21/22 18:00 11/21/22 19:48 11/21/22 19:49 Temperature Pulse Rate 103 H 97 Respiratory Rate 18 Blood Pressure Pulse Oximetry 92 Oxygen Delivery Room Air Oxygen Flow Rate 11/21/22 20:00 11/21/22 20:00 11/21/22 20:00 Temperature 97.1 F L Pulse Rate 97 90 95 Respiratory Rate 18 20 Blood Pressure 120/70 Pulse Oximetry 92 93 Oxygen Delivery Room Air Oxygen Flow Rate 11/21/22 22:00 11/22/22 00:00 11/22/22 00:00 Temperature 97.2 F L Pulse Rate 99 102 H 102 H Respiratory Rate 18 18 Blood Pressure 112/53 L Pulse Oximetry 97 97 Oxygen Delivery Room Air Oxygen Flow Rate 11/22/22 00:00 11/21/22 20:10 11/22/22 02:00 Temperature Pulse Rate 88 102 H 85 Respiratory Rate 20 Blood Pressure Pulse Oximetry Oxygen Delivery Oxygen Flow Rate 11/22/22 04:00 11/22/22 04:00 11/22/22 04:00 Temperature 97.1 F L Pulse Rate 85 78 71 Respiratory Rate 18 20 Blood Pressure 100/57 L Pulse Oximetry 97
[2022-11-22] MEDS: ASPIRIN 81 MG ENTERIC TABLET PO (09:03)
[2022-11-22] MEDS: SERTRALINE HCL 50 MG TABLET PO (09:03)
[2022-11-22] MEDS: CLOPIDOGREL BISULFATE 75 MG TABLET PO (09:03)
[2022-11-22] MEDS: DULoxetine HCL 30 MG CAPSULE.DR PO (09:03)
[2022-11-22] MEDS: diazePAM (*CRX) 5 MG TABLET PO (09:03)
[2022-11-22] MEDS: ISOSORBIDE MONONITRATE 15 MG TAB.ER.24H PO (09:03)
[2022-11-22] MEDS: ACETAMINOPHEN 325 MG TABLET 650 MG PO (10:23)
--- NOTE | 2022-11-22 12:27 | PM.DS ---
DS: Admitting Diagnosis Discharge Date 11/22/22 Admitting Diagnosis chest pain DS: Discharge Diagnosis Discharge Diagnosis (1) Chest pain: Code(s): R07.9 - Chest pain, unspecified Status: Acute Assessment and Plan: Troponins are negative x3. Cardiology has been consulted. Continue with analgesics. Continue with oxygen. She is chronically on oxygen at 2 L per nasal cannula. The patient recently had 6 stents placed at [facility]. She is still on 2 0 therapy with Plavix and aspirin. The patient stated she has not been able to complete cardiac rehab because she has been in too much pain and has been too short of breath. Continue with isosorbide. 11/21: isosorbide dose increased per cardio, appreciate consultation, possible component of costochondritis, add lidocaine patch, valium, significant anxiety/panic symptoms noted with chest pain, as well 11/22: unable to tolerate higher isosorbide dose due to hypotension, symptoms resolved (2) Hyperlipidemia: Code(s): E78.5 - Hyperlipidemia, unspecified Status: Acute Assessment and Plan: Continue with pravastatin (3) Anxiety: Code(s): F41.9 - Anxiety disorder, unspecified Status: Acute Assessment and Plan: Continue with Cymbalta and sertraline (4) Insomnia: Qualifiers: Insomnia type: unspecified Qualified Code(s): G47.00 - Insomnia, unspecified Code(s): G47.00 - Insomnia, unspecified Status: Acute Assessment and Plan: Continue with trazodone (5) Anemia: Code(s): D64.9 - Anemia, unspecified Status: Acute Assessment and Plan: H&H is normal. (6) CAD (coronary artery disease): Qualifiers: Associated angina: with unspecified form of angina Coronary Disease-Associated Artery/Lesion type: [place] artery [place] vs. transplanted heart: [place] heart Qualified Code(s): I25.119 - Atherosclerotic heart disease of [place] coronary artery with unspecified angina pectoris Code(s): I25.10 - Atherosclerotic heart disease of [place] coronary artery without angina pectoris Status: Acute Assessment and Plan: The patient had 6 stents placed at [facility] earlier this year. Continue with dual anti-platelet therapy aspirin and Plavix. Continue with isosorbide. Cardiology has been consulted (7) COPD (chronic obstructive pulmonary disease): Qualifiers: COPD type: unspecified COPD Qualified Code(s): J44.9 - Chronic obstructive pulmonary disease, unspecified Code(s): J44.9 - Chronic obstructive pulmonary disease, unspecified Status: Acute Assessment and Plan: The patient is chronically on oxygen at 2 L per nasal cannula. Continue with nebulizer treatments. (8) Thoracic back pain: Qualifiers: Back pain laterality: midline Chronicity: chronic Qualified Code(s): M54.6 - Pain in thoracic spine; G89.29 - Other chronic pain Code(s): M54.6 - Pain in thoracic spine Status: Acute Assessment and Plan: Continue with home medication of [place]. Plan Pleurisy with cervicalgia: increased dose norco + valium DVT prophylaxis with SCDs GI prophylaxis not indicated Code status full code DS: Summary Hospital Course Hospital Course: 77-year-old female with long history of heart disease and COPD on home oxygen is presenting with chest pain and currently being treated for possible ischemic anginal pain comorbid with costochondritis. Cardiology was consulted and recommended increasing her isosorbide dose for possible underlying angina. However, due to hypotension, patient was unable to tolerate this. They suspect the underlying etiology is musculoskeletal, pleuritic or costochondritic. Patient also complained of neck muscle tension and pain. She responded to Valium and [place]. All symptoms resolved. She also noted new onset tremors a few months ago and is to follow up with Neurology outpatient. Please see above and m
== END 2022-11-22 13:38 | disposition home or self-care (01) ==
LOC: ANHED 17:38 → ANHIMU 18:38
PROVIDERS: Admitting Provider Student in an Organized Health Care Education/Training Program; Emergency Provider Preventive Medicine Aerospace Medicine; PCP Internal Medicine; Visit Provider Student in an Organized Health Care Education/Training Program
DX: I25.110 Atherosclerotic heart disease of native coronary artery with unstable angina pectoris (principal); Z95.5 Presence of coronary angioplasty implant and graft; J44.1 Chronic obstructive pulmonary disease with (acute) exacerbation; M54.6 Pain in thoracic spine; R05.9 Cough, unspecified; R06.00 Dyspnea, unspecified; M54.9 Dorsalgia, unspecified; F41.9 Anxiety disorder, unspecified; F32.A Depression, unspecified; I45.2 Bifascicular block; R00.0 Tachycardia, unspecified; D64.9 Anemia, unspecified; R94.31 Abnormal electrocardiogram [ECG] [EKG]; M79.7 Fibromyalgia; E78.5 Hyperlipidemia, unspecified; G47.00 Insomnia, unspecified; Z99.81 Dependence on supplemental oxygen; E46 Unspecified protein-calorie malnutrition; Z68.1 Body mass index [BMI] 19.9 or less, adult; Z87.891 Personal history of nicotine dependence; F10.90 Alcohol use, unspecified, uncomplicated; Z79.51 Long term (current) use of inhaled steroids; Z79.82 Long term (current) use of aspirin; Z79.02 Long term (current) use of antithrombotics/antiplatelets; Z79.899 Other long term (current) drug therapy
CPT/HCPCS: 36415; 71045; 71275; 80048; 80053; 83690; 83735; 83880; 84484; 85025; 85610; 85730; 93005; 94640; 96374; 96375; 96376; 99285; A9270; G0378; J2270; J2405; Q9967

== ENCOUNTER 2023-02-17 16:30 | Outpatient (RCR) | payer MEDICARE, SELFPAY | END 2023-02-17 23:59 | disposition home or self-care (01) | LOC: ANHCPREHAB 16:30 | PROVIDERS: PCP Internal Medicine; Visit Provider Internal Medicine Cardiovascular Disease | DX: Z95.5 Presence of coronary angioplasty implant and graft (principal) | CPT/HCPCS: 93798 ==

== ENCOUNTER 2023-04-10 15:00 | Outpatient (RCR) | payer MEDICARE, SELFPAY | END 2023-04-10 15:16 | disposition home or self-care (01) | LOC: ANHCPREHAB 15:00 | PROVIDERS: PCP Internal Medicine; Visit Provider Internal Medicine Cardiovascular Disease | DX: Z95.5 Presence of coronary angioplasty implant and graft (principal) | CPT/HCPCS: 93798 ==

== ENCOUNTER 2023-12-22 13:14 | Outpatient (CLI) | payer MEDICARE, SELFPAY ==
[2023-12-22 14:47] LABS: Alanine Aminotransferase 11 U/L (6-35); Albumin Level 4.6 g/dL (3.5-5.1); Alkaline Phosphatase 76 U/L (38-126); Anion Gap 8 mmol/L (4-12); Aspartate Amino Transferase 54 U/L (14-36); Bilirubin,Total 0.5 mg/dL (0.2-1.3); Blood Urea Nitrogen 14 mg/dL (7-17); Calcium 9.6 mg/dL (8.4-10.2); Carbon Dioxide 32 mmol/L (22-30); Chloride 101 mmol/L (98-107); Cholesterol 197 mg/dL (0-200); Estimated Glomerular Filt Rate > 60; Glucose 97 mg/dL (65-110); HDL Direct 84 mg/dL; Sodium 141 mmol/L (137-145); Triglycerides 143 mg/dL (<150)
[2023-12-22 14:58] LABS: LDL Cholesterol Direct 74 mg/dL
== END 2023-12-22 13:15 | disposition home or self-care (01) ==
LOC: ANHGOSHLAB 13:16
PROVIDERS: PCP Internal Medicine; Visit Provider Internal Medicine Cardiovascular Disease
DX: E78.5 Hyperlipidemia, unspecified (principal)
CPT/HCPCS: 36415; 80053; 80061; 83735

== ENCOUNTER 2024-06-22 07:39 | Outpatient (CLI) | payer MEDICARE, SELFPAY ==
--- NOTE | 2024-06-22 07:41 | ECHO_ITS ---
Patient Info Name: Cecy Jackson Age: 79 years : 1945 Gender: Female Ht: 60 in Wt: 90 lbs BSA: 1.31 m2 HR: 110 bpm BP: 101 / 56 mmHg Heart Rhythm: Sinus Rhythm Technical Quality: Good Exam Date: 06/22/2024 7:47 AM Exam Location: Echo Lab Patient Status: Outpatient Admit Date: 06/22/2024 Staff Ordering Physician: Kevin Conde DO Racehorse Trainer: Christal Jackson RDCS Attending Provider: Kevin Conde DO Referring Physician: Elton KIM; Exam Type: CA echo doppler color flow Study Info Indications R06.00 - Dyspnea, unspecified Complete two-dimensional, color flow and Doppler transthoracic echocardiogram is performed. Summary 1. Complete two-dimensional, color flow and Doppler transthoracic echocardiogram is performed. 2. Left ventricular chamber dimension is normal. 3. Mid to apical septum is hypokinetic. 4. Left ventricular systolic function is normal, estimated at 60-65%. 5. The left ventricular diastolic function is grade I diastolic dysfunction. 6. E/e' 12 is mildly elevated. 7. Left atrial chamber dimension is mildly enlarged. 8. There is moderate aortic valve sclerosis. 9. There is mild tricuspid valve regurgitation. 10. No pulmonary hypertension, estimated pulmonary arterial systolic pressure is 38 mmHg. Left Ventricle E/e' 12 is mildly elevated. Mid to apical septum is hypokinetic. Left ventricular chamber dimension is normal. Left ventricular systolic function is normal, estimated at 60-65%. The left ventricular diastolic function is grade I diastolic dysfunction. Right Ventricle Right ventricular chamber dimension is normal. Right ventricular systolic function is normal. Left Atria Left atrial chamber dimension is mildly enlarged. Right Atria Right atrial chamber dimension is normal. Aortic Valve The aortic valve is trileaflet. There is moderate aortic valve sclerosis. There is no aortic valve stenosis. There is no aortic valve regurgitation. Pulmonic Valve There is no pulmonic regurgitation. Mitral Valve There is no mitral valve stenosis. There is no mitral valve regurgitation. Tricuspid Valve There is mild tricuspid valve regurgitation. No pulmonary hypertension, estimated pulmonary arterial systolic pressure is 38 mmHg. Pericardium/Pleural There is no pericardial effusion. Inferior Vena Cava Normal inferior vena cava with >50% collapse upon inspiration consistent with normal right atrial pressure, 5 mmHg. Aorta The aortic root size at the sinus of Valsalva is normal. Left Ventricular Outflow Tract Name Value Normal LVOT 2D LVOT Diameter 2.0 cm LVOT Doppler LVOT Peak Gradient 6 mmHg LVOT Mean Gradient 3 mmHg LVOT VTI 22 cm LVOT VTI/AV VTI Ratio 0.7 LVOT Stroke Volume 70 ml LVOT CO 6.4 l/min LVOT CI 4.9 l/min/m2 Pulmonic Valve Name Value Normal RVOT Doppler RVOT Peak Gradient 4 mmHg PV Doppler PV Peak Gradient 5 mmHg Mitral Valve Name Value Normal MV Doppler MV Decel Ward 513 cm/s2 MV PHT 47 ms MV Area (PHT) 4.7 cm2 4.0-5.0 MV Diastolic Function MV E Peak Velocity 83 cm/s MV A Peak Velocity 142 cm/s MV E/A 0.6 MV Decel Time 161 ms MV Annular TDI MV E/e' (Septal) 12.9 <=8.0 MV E/e' (Lateral) 11.6 <=8.0 MV E/e' (Average) 12.3 Tricuspid Valve Name Value Normal TV Regurgitation Doppler TR Peak Velocity 287 cm/s TR Peak Gradient 23 mmHg Estimated PAP/RSVP RA Pressure 5 mmHg <=5 PA Systolic Pressure 38 mmHg <36 RV Systolic Pressure 38 mmHg <36 Aorta Name Value Normal Ascending Aorta Ao Root Diameter (MM) 3.3 cm Ao Root Diam Index (MM) 2.5 cm/m2 Aortic Valve Name Value Normal AV Doppler AV Peak Velocity 189 cm/s AV Peak Gradient 14 mmHg AV Mean Gradient 7 mmHg AV VTI 29 cm AV Area (Cont Eq VTI) 2.4 cm2 >=3.0 AV Area (Cont Eq Galileo) 2.0 cm2 AV Regurgitation 2D LVOT Area 3.2 cm2 Ventricles Name Value Normal LV Dimensions 2D/MM IVS Diastolic Thickness (2D) 0.7 cm 0.6-1.0 LVID Diastole (2D) 4.9 cm 3.8-5.2 LVIW Diastolic Thickness (2D) 0.6 cm 0.6-0.9 LVID Systole (2D) 3.1 cm 2.2-3.5 LVOT Diameter 2.0 cm LV Mass (2D Cubed) 100.46 g 67.00-162.00 LV Mass Index (2D Cubed) 77 g/m2 43-95 Relative Wall Thickness (2D) 0.23 LV Fractional Shortening/Ejection Fraction 2D/MM LV Fractional Shortening (2D) 36 % 27-45 LV EF (2D Teicholz) 65 % 54-74 LV Diastolic Volume (4C MOD) 42 ml LV EF (4C MOD) 62 % LV Diastolic Volume (2C MOD) 41 ml LV EF (2C MOD) 58 % LV Diastolic Volume (BP MOD) 43 ml 46-106 LV Diastolic Volume Index (BP MOD) 33 ml/m2 29-61 LV Systolic Volume (BP MOD) 17 ml 14-42 LV Systolic Volume Index (BP MOD) 13 ml/m2 8-24 LV EF (BP MOD) 61 % 54-74 LV Diastolic Length (4C) 6.9 cm LV Systolic Length (4C) 6.5 cm LV Stroke Volume (4C MOD) 26 ml Atria Name Value Normal LA Dimensions LA Dimension (MM) 3.4 cm 2.7-3.8 LA Volume (4C A-L) 41 ml LA Volume (BP A-L) 45 ml RA Dimensions RA Area (4C) 9.8 cm2 <=18.0 Report Signatures
--- OUTSIDE RECORDS SUMMARY | 2024-06-22 07:42 | XMS_ITS | Encounter Summary ---
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 Gender Identity Not on file Sexual Orientation Not on file documented as of this encounter Plan of Treatment Not on file documented as of this encounter Procedures Procedure Name Priority Date/Time Associated Diagnosis Comments CARDIOLOGY DOCUMENT SCAN 07/30/2022 documented in this encounter Results * CARDIOLOGY DOCUMENT SCAN (07/30/2022) Anatomical Region Laterality Modality Other us Provider Scanning [facility] CARDIAC SERVICES PROCEDURES Edited Result - Final documented in this encounter Visit Diagnoses Not on filedocumented in this encounter Care Teams Abstract Searcher Relationship Specialty Start Date End Date Sina Ramirez DO PCP - General Internal Medicine 06/27/22 documented as of this encounter
--- OUTSIDE RECORDS SUMMARY | 2024-06-22 07:42 | XMS_ITS | Referral Summary ---
Author Organization [facility] Virtual Care Address [facility]ly [facility] [place] [address] Phone Care Team Providers Care Stripper Opaquer Name Role Phone Sina Ramirez DO Primary Care Provider [phone]- [phone] Allergies No known active allergies Medications isosorbide mononitrate ER (IMDUR) 30 mg 24 hr tablet Take 0.5 tablets (15 mg total) by mouth daily 08/27/[address] (PROTONIX) 40 mg EC tablet Take 1 tablet (40 mg total) by mouth daily 07/17/19 23 Active sertraline (ZOLOFT) 50 mg tablet Take 1 tablet (50 mg total) by mouth daily 06/13/[address] (CYMBALTA) 30 mg capsule Take 1 capsule (30 mg total) by mouth daily 08/10/19 23 Active traZODone (DESYREL) 50 mg tablet Take 1 tablet (50 mg total) by mouth nightly 08/13/19 23 Active cyclobenzaprine (FLEXERIL) 5 mg tablet Take 1 tablet (5 mg total) by mouth every 8 (eight) hours as needed 08/10/19 23 Active HYDROcodone-aceta minophen (NORCO) 5-325 mg per tablet Take 1 tablet by mouth every 6 (six) hours as needed 08/13/19 23 Active albuterol 2.5 mg /3 mL (0.083 %) nebulizer solution Take 3 mL by nebulization every 6 (six) hours as needed 07/17/19 23 Active fluticasone propion-salmetero L (ADVAIR DISKUS) 250-50 mcg/dose diskus inhalerIndication s:Bronchospasm Prevention with COPD Inhale 1 puff 2 (two) times a day Rinse mouth with water after use. Do not swallow. Active albuterol (PROAIR RESPICLICK) 90 mcg/actuation inhalerIndication s:Chronic Obstructive Pulmonary Disease Inhale 2 puffs every 6 (six) hours as needed for wheezing Active aspirin 81 mg chewable tablet Take 325 mg by mouth daily Active pravastatin (PRAVACHOL) 10 mg tablet Take 1 tablet (10 mg total) by mouth daily 07/04/19 23 Active clopidogreL (PLAVIX) 75 mg tablet Take 1 tablet (75 mg total) by mouth daily 90 tablet 3 09/21/19 23 Active ipratropium-albut Anya (DUO-NEB) 0.5-2.5 mg/3 mL nebulizer solutionIndicatio ns:Chronic Obstructive Pulmonary Disease with Bronchospasms Take by nebulization every 6 (six) hours Active guaiFENesin ER (MUCINEX) 600 mg 12 hr tablet Take 2 tablets (1,200 mg total) by mouth 2 (two) times a day Active Active Problems Problem Noted Date Diagnosed Date Dyspnea on exertion 01/21/2023 PAD (peripheral artery disease) 09/21/2022 Assessment & Plan (09/21/2022 1:13 AM CDT): Noted upon doing the cardiac catheterization - refer to above COPD (chronic obstructive pulmonary disease) Assessment & Plan (09/21/2022 1:42 PM CDT): Patient started on Breo Ellipta while inpatient. Depression 09/21/2022 Assessment & Plan (09/21/2022 1:14 AM CDT): Continue duloxetine and Zoloft trazodone. Coronary artery disease of [place] artery of [place] heart with stable angina pectoris 09/20/2022 Assessment & Plan (09/21/2022 1:51 PM CDT): S/p stenting of left main into circumflex, stenting of 1st obtuse marginal, stenting of proximal mid and distal right coronary artery - Patient started on ASA, Plavix on 09/21. - Continue pravastatin, mononitrate Imdur. - Tele reviewed, no acute events. - c/f Pseudoaneurysm on exam, Vasc US notable for hematoma, no pseudoaneurysm. Coronary artery disease 09/10/2022 Social History Tobacco Use Types Packs/Day Years Used Date Smoking Tobacco: Former Cigarettes 1.5 30 0 04/28/1963 - 04/28/1993 Smokeless Tobacco: Never Tobacco Cessation:Counseling Given: Not Answered AUDIT-C Answer Date Recorded Q1: How often do you have a drink containing alc ohol? Monthly or less 09/20/2022 Q2: How many drinks containi ng alcohol do you have on a typical day when you are drinking? 1 or 2 09/20/2022 Q3: How often do you have si x or more drinks on one occasion? 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 Gender Identity Not on file Sexual Orientation Not on file Last Filed Vital Signs Vital Sign Reading Time Taken Comments Blood Pressure 124/78 01/21/2023 10:01 AM CDT Pulse 110 01/21/2023 10:01 AM CDT Temperature 36.7 C (98 F) 01/21/2023 10:01 AM CDT Respiratory Rate 20 01/21/2023 10:01 AM CDT Oxygen Saturation 99% 01/21/2023 10:01 AM CDT 4 liters Inhaled Oxygen Concentration - - Weight 37.6 kg (83 lb) 01/21/2023 10:01 AM CDT Height 149.9 cm (4' 11 ) 01/21/2023 10:01 AM CDT Body Mass Index 16.76 01/21/2023 10:01 AM CDT Plan of Treatment Not on file Medical Devices Implanted Type Area Accountant Device Identifier Shelf Expiration Date Model / Serial / Lot [employer] Angio-Seal Vip 6fr Closere Device [id number] - [id number] - [id number] Implanted:Qty: 1 on 09/20/2022 by Jasper Bautista MD at [facility] Collagen Right: Femoral [employer] Manas 04/27/2023 [id number] / [id number] / [id number] Medtronic Card Vasc Surgery 3.0 X 26mm [place] [employer] Coronary Stent [id number] - [id number] - [id number] Implanted:Qty: 1 on 09/20/2022 by Jasper Bautista MD at [facility] Stent Left: Main Coronary Artery Medtronic Card Vasc Surgery 04/02/2025 [id number] / [id number] / [id number] Medtronic Card Vasc Surgery 3.0 X 22mm [place] [employer] Coronary Stent [id number] - [id number] - [id number] Implanted:Qty: 1 on 09/20/2022 by Jasper Bautista MD at [facility] Stent Left: Main Coronary Artery Med[employer]onic Card Vasc Surgery 06/24/2025 [id number] / [id number] / [id number] Description:Left Main to Cir cumflex Med[employer]onic Card Vasc Surgery 3.0 X 38mm [place] [employer] Coronary Stent [id number] - [id number] - [id number] Implanted:Qty: 1 on 09/20/2022 by Jasper Bautista MD at [facility] Stent Right: Coronary Artery Med[employer]onic Card Vasc Surgery 10/20/2023 [id number] / [id number] / [id number] Med[employer]onic Card Vasc Surgery 3.0 X 22mm [place] [facility] Coronary Stent [id number] - [id number] - [id number] Implanted:Qty: 1 on 09/20/2022 by Jasper Bautista MD at [facility] Stent Right: Coronary Artery Med[employer]onic Card Vasc Surgery 04/29/2025 [id number] / [id number] / [id number] Medtronic Card Vasc Surgery 2.50 X 18mm [place] [employer] Coronary Stent [id number] - [id number] - [id number] Implanted:Qty: 1 on 09/20/2022 by Jasper Bautista MD at [facility] Stent Right: Coronary Artery Med[employer]onic Card Vasc Surgery 07/09/2023 [id number] / [id number] / [id number] Med[employer]onic Card Vasc Surgery 3.0 X 08mm [place] [employer] Coronary Stent [id number] - [id number] - [id number] Implanted:Qty: 1 on 09/20/2022 by Jasper Bautista MD at [facility] Stent Right: Coronary Artery Med[employer]onic Card Vasc Surgery 06/18/2025 [id number] / [id number] / [id number] Insurance MEDICARE [facility] MEDICARE MEDICARE [facility] Advance Directives For more information, please contact: [phone] * LIMITED - No CPR (Latest Code Status on File) Date Activated Date Inactivated Comments 09/20/2022 5:30 PM 09/21/2022 7:53 PM Question Answer Comments Provide aggressive medical m anagement before a full cardiopulmonary arrest occurs. Use antibiotics, IV Fluids, and medical treatment unless specifically selected below: No intubationNo non-invasive ventilation * Full Code Date Activated Date Inactivated Comments 09/20/2022 5:30 PM 09/20/2022 5:30 PM * Full Code Date Activated Date Inactivated Comments 09/20/2022 3:08 PM 09/20/2022 5:28 PM Care Teams Stripper Opaquer Relationship Specialty Start Date End Date Sina Ramirez DO PCP - General Internal Medicine 06/27/22
--- OUTSIDE RECORDS SUMMARY | 2024-06-22 07:42 | XMS_ITS | Clinical Summary ---
Author Organization [facility] Virtual Care Address [address] [place] [phone] Phone Care Team Providers Care Otm Consultant Name Role Phone Sina Ramirez DO Primary Care Provider +1- [phone] Allergies No known active allergies Medications isosorbide [...] artery disease of n ative artery of [place] heart with stable angina pectoris 09/20/2022 Assessment [...] hematoma, no pseudoaneurysm. Coronary artery disease 09/10/2022 Surgical History Surgery Date Site/Laterality Comments HYSTERECTOMY HIP SURGERY Right CATARACT EXTRACTION 12/27/2021 - 01/25/2022 CARDIAC CATHETERIZATION 07/30/2022 Medical History Medical History Date Comments Hyperlipidemia COPD (chronic obstructive pulmonary disease) (HC C) On home oxygen Covid x3 since 2019 Anxiety Back pain CAD (coronary artery disease) Depression Fibromyalgia Insomnia Malnutrition (CMS/HCC) (HCC) Trochanteric bursitis of right hip Emphysema lung (HCC) Family History Medical History Relation Name Comments Heart disease Mother rheumatic feve r Arthritis Other Congenital heart disease Other Multiple sclerosis Other cardiovascular disease Other Heart attack Son 49 Relation Name Status Comments Mother Other Son Social History Tobacco Use Types Packs/Day Years [...] on file 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 Gender Identity Not on file Sexual Orientation Not on file Obstetrics History Last Filed Vital Signs Vital Sign Reading [...] 01/21/2023 10:01 AM CDT Plan of Treatment Health Maintenance Due Date Last Done Comments Depression Screening 1945 Hepatitis C Screening 1945 Osteoporosis Screening-Bone Density Scan 1945 DTaP/Tdap/Td Vaccine (1 - Tdap) 1956 Hepatitis B Screening 1963 Zoster Vaccine (1 of 2) 1995 Well Visit 65+ 2010 Pneumococcal vaccine 65+ (2 of 2 - PPSV23) 07/29/2019 06/03/2019 Fall Risk Assessment 09/22/2023 09/21/2022 Covid-19 Vaccine (5 - 2023-2 5 season) 2023 10/10/2021, 02/07/2021, 05/24/2020, Additional history exists Influenza Vaccine (#1) 2023 06/03/2019, 2017 Medical Devices Implanted Type Area Golf Course Manager Device Identifier Shelf Expiration Date Model / Serial / Lot [employer]as Angio-Seal Vip 6fr Closere Device [id number] - [id number] - [id number] Implanted:Qty: 1 on 09/20/2022 by Jasper Bautista MD at [facility] Collagen Right: Femoral [employer] 04/27/2023 [id number] / [id number] / [id number] Medtronic Card Vasc Surgery 3.0 X 26mm [place] Rx Coronary Stent [id number] - [id number] - [id number] Implanted:Qty: 1 on 09/20/2022 by Jasper Bautista MD at [facility] Stent Left: Main Coronary Artery Medtronic Card Vasc Surgery 04/02/2025 [id number] 26UX / [id number] / [id number] Medtronic Card Vasc Surgery 3.0 X 22mm [place] Rx Coronary Stent [id number] - [id number] - [id number] Implanted:Qty: 1 on 09/20/2022 by Jasper Bautista MD at [facility] Stent Left: Main Coronary Artery Medtronic Card Vasc Surgery 06/24/2025 [id number] 22UX / [id number] / [id number] Description:Left Main to Cir cumflex Medtronic Card Vasc Surgery 3.0 X 38mm [place] Rx Coronary Stent [id number] - [id number] - [id number] Implanted:Qty: 1 on 09/20/2022 by Jasper Bautista MD at [facility] Stent Right: Coronary Artery Medtronic Card Vasc Surgery 10/20/2023 [id number] 38UX / [id number] / [id number] Medtronic Card Vasc Surgery 3.0 X 22mm [place] Rx Coronary Stent [id number] - [id number] - [id number] Implanted:Qty: 1 on 09/20/2022 by Jasper Bautista MD at [facility] Stent Right: Coronary Artery Medtronic Card Vasc Surgery 04/29/2025 [id number] 22UX / [id number] / [id number] Medtronic Card Vasc Surgery 2.50 X 18mm [place] Rx Coronary Stent [id number] - [id number] - [id number] Implanted:Qty: 1 on 09/20/2022 by Jasper Bautista MD at [facility] Stent Right: Coronary Artery Medtronic Card Vasc Surgery 07/09/2023 [id number] 18UX / [id number] / [id number] Medtronic Card Vasc Surgery 3.0 X 08mm [place] Rx Coronary Stent [id number] - [id number] 1 - [id number] Implanted:Qty: 1 on 09/20/2022 by Jasper Bautista MD at [facility] Stent Right: Coronary Artery Medtronic Card Vasc Surgery 06/18/2025 [id number] 08UX / [id number] / [id number] Insurance MEDICARE [facility] [id number] MEDICARE MEDICARE [facility] Advance Directives For more information, please contact: [phone] * LIMITED - No CPR (Latest Code [...] 3:08 PM 09/20/2022 5:28 PM Care Teams Otm Consultant Relationship Specialty Start Date End Date Sina Ramirez DO PCP - General Internal Medicine 06/27/22
== END 2024-06-22 07:40 | disposition home or self-care (01) ==
PROVIDERS: PCP Internal Medicine; Visit Provider Internal Medicine Cardiovascular Disease
DX: R93.1 Abnormal findings on diagnostic imaging of heart and coronary circulation (principal); R06.09 Other forms of dyspnea; U09.9 Post COVID-19 condition, unspecified
CPT/HCPCS: 93306

== ENCOUNTER 2025-01-20 15:13 | Outpatient (CLI) | payer MEDICARE, SELFPAY ==
[2025-01-20 17:19] LABS: Alanine Aminotransferase 12 U/L (6-35); Albumin Level 4.0 g/dL (3.5-5.1); Alkaline Phosphatase 89 U/L (38-126); Anion Gap 5 mmol/L (4-12); Aspartate Amino Transferase 42 U/L (14-36); Bilirubin,Total 0.2 mg/dL (0.2-1.3); Blood Urea Nitrogen 14 mg/dL (7-17); Calcium 9.0 mg/dL (8.4-10.2); Carbon Dioxide 32 mmol/L (22-30); Chloride 101 mmol/L (98-107); Estimated Glomerular Filt Rate > 60; Glucose 109 mg/dL (65-110); Potassium 4.5 mmol/L (3.4-5.0); Sodium 138 mmol/L (137-145); Total Protein 7.0 g/dL (6.3-8.2)
[2025-01-20 17:21] LABS: Hematocrit 26.1 % (37.0-47.0); Immature Granulocyte Percent A 0.3 % (0-0.5); Lymphocytes Absolute Auto 1.15 K/mm3 (0.9-3.2); Mean Corpuscular HGB Conc 26.4 g/dl (32-36); Mean Corpuscular Hemoglobin 21.0 pg (26-34); Mean Corpuscular Volume 79.3 fl (80-100); Nucleated Red Blood Cells Absolute Auto 0.000 K/mm3 (0.0-0.012); Nucleated Red Blood Cells Perc 0.0 % (0.0-0.2); Platelet Count Result 210 k/mm3 (150-375); Red Blood Count 3.29 M/mm3 (4.2-5.4); White Blood Count 5.9 K/mm3 (4.5-10.0)
--- OUTSIDE RECORDS SUMMARY | 2025-01-20 17:25 | XMS_ITS | Clinical Summary ---
Author Organization [facility] Virtual Care Address [address] [place] [phone] Phone Care Team Providers Care Buyer Assistant Name Role Phone Sina Ramirez DO Primary Care Provider +1- [phone] Allergies No known active allergies Medications isosorbide [...] artery disease of n ative artery of [place] heart with stable angina pectoris 09/20/2022 Assessment [...] Comments Hyperlipidemia COPD (chronic obstructive pulmonary disease) On home oxygen Covid x3 since 2019 Anxiety Back pain CAD (coronary artery disease) Depression Fibromyalgia Insomnia Malnutrition Trochanteric bursitis of right hip Emphysema lung Family History Medical History Relation Name Comments [...] on file 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 Gender Identity Not on file Sexual Orientation [...] 10:01 AM CDT Height 149.9 cm (4' 11) 01/21/2023 10:01 AM CDT Body Mass Index 16.76 01/21/2023 10:01 AM CDT Plan of Treatment Health Maintenance Due Date Last Done Comments Depression Screening 1945 Hepatitis C Screening 1945 Osteoporosis Screening-Bone Density Scan 1945 DTaP/Tdap/Td Vaccine (1 - Tdap) 1956 Hepatitis B Screening 1963 Zoster Vaccine (1 of 2) 1995 Well Visit 65+ 2010 Pneumococcal vaccine 65+ (2 of 2 - PPSV23, PCV20, or PCV21) 07/29/2019 06/03/2019 Fall Risk Assessment 09/22/2023 09/21/2022 Covid-19 Vaccine (5 - 2024-2 6 season) 2024 10/10/2021, 02/07/2021, 05/24/2020, Additional history exists Influenza Vaccine (#1) 2024 06/03/2019, 2017 Medical Devices Implanted Type Area Negative Checker Device Identifier Shelf Expiration Date Model / Serial / Lot [employer]as Angio-Seal Vip 6fr Closere Device [id number] - [id number] - [id number] Implanted:Qty: 1 on 09/20/2022 by Jasper Bautista MD at [facility] Collagen Right: Femoral [employer]as 04/27/2023 [id number] / [id number] / [id number] Medtronic Card Vasc Surgery 3.0 X 26mm [place] Rx Coronary Stent Dcclfw26421qu - [id number] 1 - [id number] Implanted:Qty: 1 on 09/20/2022 by Jasper Bautista MD at [facility] Stent Left: Main Coronary Artery Medtronic Card Vasc Surgery 04/02/2025 [id number] 26UX / [id number] / [id number] Medtronic Card Vasc Surgery 3.0 X 22mm [place] Rx Coronary Stent [id number] - [id number] 1 - [id number] Implanted:Qty: 1 on 09/20/2022 by Jasper Bautista MD at [facility] Stent Left: Main Coronary Artery Medtronic Card Vasc Surgery 06/24/2025 [id number] 22UX / [id number] / [id number] Description:Left Main to Cir cumflex Medtronic Card Vasc Surgery 3.0 X 38mm [place] Rx Coronary Stent [id number] - [id number] - [id number] Implanted:Qty: 1 on 09/20/2022 by Jasper Bautista MD at [facility] Stent Right: Coronary Artery Medtronic Card Vasc Surgery 10/20/2023 [id number] 38UX / [id number] / [id number] Medtronic Card Vasc Surgery 3.0 X 22mm [place] Rx Coronary Stent [id number] - [id number] 1 - [id number] Implanted:Qty: 1 on 09/20/2022 by Jasper Bautista MD at [facility] Stent Right: Coronary Artery Medtronic Card Vasc Surgery 04/29/2025 [id number] 22UX / [id number] / [id number] Medtronic Card Vasc Surgery 2.50 X 18mm [place] Rx Coronary Stent [id number] - [id number] - [id number] Implanted:Qty: 1 on 09/20/2022 by Jasper Bautista MD at [facility] Stent Right: Coronary Artery Medtronic Card Vasc Surgery 07/09/2023 [id number] 18UX / [id number] / [id number] Medtronic Card Vasc Surgery 3.0 X 08mm [place] Rx Coronary Stent Zizffb14258dg - [id number] 1 - [id number] Implanted:Qty: 1 on 09/20/2022 by Jasper Bautista MD at [facility] Stent Right: Coronary Artery Medtronic Card Vasc Surgery 06/18/2025 [id number] 08UX / [id number] / [id number] Insurance MEDICARE [facility] Member Subscriber Plan / Payer (Ef fective 2020-) Name:Cecy Jackson Relation to Subscriber:Self Name:Cecy Jackson Payer ID:[id number] (NAIC) Group ID:[id number] Type: OTHER Address: [address] [id number] MEDICARE MEDICARE [facility] Advance Directives For more information, please contact: [phone] * LIMITED - No CPR (Latest Code [...] 3:08 PM 09/20/2022 5:28 PM Care Teams Buyer Assistant Relationship Specialty Start Date End Date Sina Ramirez DO PCP - General Internal Medicine 06/27/22
--- OUTSIDE RECORDS SUMMARY | 2025-01-20 17:25 | XMS_ITS | Encounter Summary ---
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
[2025-01-20 18:16] LABS: Hemoglobin 6.9 g/dL (12.0-15.0)
[2025-01-20 18:17] LABS: Hypochromasia 2+; Ovalocytes 1+; Schistocytes None Seen
[2025-01-20 18:18] LABS: Anisocytosis Occasional; Macrocytosis Occasional (NORMAL)
== END 2025-01-20 15:14 | disposition home or self-care (01) ==
PROVIDERS: PCP Internal Medicine; Visit Provider Nurse Practitioner
DX: D64.9 Anemia, unspecified (principal); Z13.29 Encounter for screening for other suspected endocrine disorder
CPT/HCPCS: 36415; 80053; 85025

== ENCOUNTER 2025-01-20 21:17 | Inpatient (IN) | payer MEDICARE, SELFPAY ==
--- NOTE | ~2025-01-20 | CT_ITS ---
EXAMINATION: CT chest abdomen pelvis w con, 01/20/2025 22:40 CDT HISTORY: acute anemia, possible malignancy COMPARISON: No comparisons available. TECHNIQUE: CT scan of the chest, abdomen and pelvis was performed with contrast Isovue 300, 92cc injected IV. One or more of the following dose reduction techniques were used: automated exposure control, adjustment of the mA and/or kV according to patient size, use of iterative reconstruction technique. Unless otherwise stated, incidental findings do not require dedicated follow up imaging FINDINGS: CT chest: No significant coronary calcification is present ([id number]) LUNGS: No tracheomalacia. No bronchiectasis. Moderate emphysematous changes. No bullous formation. Mild pulmonary fibrotic changes. No honeycombing identified. Small right lower lobe infiltrate. There are pleural-based micronodules along this right lower lobe 6 mm, in a high-risk patient, six-month follow-up is suggested. There are some micronodules in the right upper lobe is demonstrated tree-in-bud distribution and may be infectious. HEART AND PERICARDIUM: Within normal limits. AORTA: Atherosclerotic changes of the aorta. MEDIASTINUM: There are calcified mediastinal lymph nodes. THYROID: The thyroid is unremarkable. CT abdomen: LIVER: Mild hepatic steatosis. Portal vein patent. No intrahepatic biliary duct dilatation. SPLEEN: Unremarkable, no splenomegaly. KIDNEYS: Right Kidney: Unremarkable. No calculi. No hydronephrosis. Left Kidney: Unremarkable. No calculi. No hydronephrosis ADRENAL GLANDS: Unremarkable. PANCREAS: Within the pancreatic head there is a cystic lesion measuring 1.5 x 1.6 cm suspected incompletely evaluated, contrast-enhanced MRI is recommended. GALLBLADDER/BILIARY: Cholelithiasis. CBD normal. STOMACH AND ESOPHAGUS: Thickening of the esophagus probable esophagitis. There is hyperemia with thickening of the distal gastric pylorus. BOWEL/MESENTERY: Moderate fecal content, no colitis or diverticulitis. Appendix not identified. Mesentery normal. No dilated small bowel loops. RETROPERITONEUM: Unremarkable AORTA/VASCULATURE: Normal caliber aorta. FREE FLUID OR FREE AIR: No free fluid.. CT pelvis: SOLID ORGANS/REPRODUCTIVE: Post hysterectomy. No adnexal mass. BLADDER: Within normal limits. LYMPHADENOPATHY: Enlarged pretracheal node 2.2 x 2 cm. OSSEOUS STRUCTURES: Fixation of the right femur. No fractures identified in the pelvis. No sclerotic or lytic lesions. Kyphoplasty changes noted in the spine. There are multiple remote appearing compression fractures throughout the visualized spine with kyphosis of the thoracic spine noted. OVERLYING SOFT TISSUES: Unremarkable. IMPRESSION: 1. Right lower lobe bronchopneumonia superimposed on chronic lung disease.Follow-up recommended to assess resolution 2. Probable gastritis. 3. Incidental findings detailed above Reviewed, dictated and finalized at location P. IMPRESSION: 1. Right lower lobe bronchopneumonia superimposed on chronic lung disease.Follo w-up recommended to assess resolution 2. Probable gastritis. 3. Incidental findings detailed above
--- NOTE | ~2025-01-20 | XR_ITS ---
EXAMINATION: XR chest 1V portable COMPARISON: No comparisons available. HISTORY: Pneumonia FINDINGS: Small left upper lobe and right lower lobe infiltrates. COPD changes. No pneumothorax. Mild cardiomegaly. Mediastinal and hilar contours are within normal limits. Bony thorax no acute abnormality. Miscellaneous: None Impression: Early bilateral pneumonia Reviewed, dictated and finalized at location P. Impression: Early bilateral pneumonia
[2025-01-20 21:15] VITALS: O2SAT 95
[2025-01-20 21:17] VITALS: BP 121/84; PULSE 99; RESP 18; TEMP 36.8; O2SAT 98
--- NOTE | 2025-01-20 21:25 | ECG_ITS ---
Test Date: 2025-01-20 21:31:12 Measurements Intervals [place] Rate: 94 P: 36 [place]: 141 QRS: -54 QRSD: 106 T: 70 QT: 347 QTc: 435 Interpretive Statements SINUS RHYTHM LEFT ANTERIOR SUPERIOR HEMIBLOCK ABNORMAL ECG No previous ECG available for comparison Electronically Signed On 01-21-2025 07:39:02 CDT by Froilan Peterson M.D.
[2025-01-20 21:32] LABS: Hematocrit 27.6 % (37.0-47.0); Hemoglobin 7.3 g/dL (12.0-15.0); Immature Granulocyte Percent A 0.6 % (0-0.5); Lymphocytes Absolute Auto 1.33 K/mm3 (0.9-3.2); Mean Corpuscular HGB Conc 26.4 g/dl (32-36); Mean Corpuscular Hemoglobin 21.1 pg (26-34); Mean Corpuscular Volume 79.8 fl (80-100); Nucleated Red Blood Cells Absolute Auto 0.000 K/mm3 (0.0-0.012); Nucleated Red Blood Cells Perc 0.0 % (0.0-0.2); Platelet Count Result 211 k/mm3 (150-375); Red Blood Count 3.46 M/mm3 (4.2-5.4); White Blood Count 8.8 K/mm3 (4.5-10.0)
[2025-01-20 21:41] LABS: Alanine Aminotransferase 12 U/L (6-35); Albumin Level 4.3 g/dL (3.5-5.1); Alkaline Phosphatase 90 U/L (38-126); Anion Gap 6 mmol/L (4-12); Aspartate Amino Transferase 29 U/L (14-36); Bilirubin,Total 0.2 mg/dL (0.2-1.3); Blood Urea Nitrogen 15 mg/dL (7-17); Calcium 9.0 mg/dL (8.4-10.2); Carbon Dioxide 35 mmol/L (22-30); Chloride 98 mmol/L (98-107); Estimated Glomerular Filt Rate > 60; Glucose 144 mg/dL (65-110); Potassium 4.3 mmol/L (3.4-5.0); Sodium 139 mmol/L (137-145); Total Protein 7.6 g/dL (6.3-8.2)
[2025-01-20 21:42] VITALS: PULSE 91; RESP 16; O2SAT 99
[2025-01-20 21:45] VITALS: PULSE 90; RESP 16; O2SAT 99
[2025-01-20 21:46] VITALS: BP 117/65; PULSE 91; RESP 15; O2SAT 100
[2025-01-20 21:46] LABS: Anisocytosis Occasional; Macrocytosis Occasional (NORMAL); Schistocytes None Seen
[2025-01-20 21:52] LABS: Hypochromasia 2+; Ovalocytes Occasional
--- OUTSIDE RECORDS SUMMARY | 2025-01-20 22:19 | XMS_ITS | Clinical Summary ---
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 Collagen Right: Femoral [employer]as 04/27/2023 [id number] / [id number] / [id number] Medtronic Card Vasc Surgery 3.0 X 26mm [place] Rx Coronary Stent [id number] - [id number] 1 - [id number] Implanted:Qty: 1 on 09/20/2022 by Jasper Bautista MD at [facility] Stent Left: Main Coronary Artery Medtronic Card Vasc Surgery 04/02/2025 [id number] 26UX / [id number] / [id number] Medtronic Card Vasc Surgery 3.0 X 22mm [place] Rx Coronary Stent [id number] - [id number] - [id number] Implanted:Qty: 1 on 09/20/2022 by Jasper Bautista MD at [facility] Stent Left: Main Coronary Artery Medtronic Card Vasc Surgery 06/24/2025 [id number] 22UX / [id number] / [id number] Description:Left Main to Cir cumflex Medtronic Card Vasc Surgery 3.0 X 38mm [place] Rx Coronary Stent [id number] - [id number] - [id number] Implanted:Qty: 1 on 09/20/2022 by Jasper Bautista MD at [facility] Stent Right: Coronary Artery Medtronic Card Vasc Surgery 10/20/2023 [id number] 38UX / [id number] / [id number] Medtronic Card Vasc Surgery 3.0 X 22mm [place] Rx Coronary Stent Lovgqh48004sz - [id number] - [id number] Implanted:Qty: 1 on 09/20/2022 by Jasper Bautista MD at [facility] Stent Right: Coronary Artery Medtronic Card Vasc Surgery 04/29/2025 [id number] 22UX / [id number] / [id number] Medtronic Card Vasc Surgery 2.50 X 18mm [place] Rx Coronary Stent [id number] - [id number] - [id number] Implanted:Qty: 1 on 09/20/2022 by Jasper Bautista MD at [facility] Stent Right: Coronary Artery Medtronic Card Vasc Surgery 07/09/2023 [id number] 18UX / [id number] / [id number] Medtronic Card Vasc Surgery 3.0 X 08mm [place] Rx Coronary Stent [id number] - [id number] 1 - [id number] Implanted:Qty: 1 on 09/20/2022 by Jasper Bautista MD at [facility] Stent Right: Coronary Artery Medtronic Card Vasc Surgery 06/18/2025 [id number] 08UX / [id number] / [id number] Insurance MEDICARE [facility] Member Subscriber Plan / Payer (Ef fective 2020-) Name:Cecy Jackson Relation to Subscriber:Self Name:Cecy Jackson Payer ID:[id number] (NAIC) Group ID:[id number] Type: OTHER Address: [address] [phone] MEDICARE MEDICARE [facility] Advance Directives For more information, please contact: [phone] * LIMITED - No CPR (Latest Code [...] 3:08 PM 09/20/2022 5:28 PM Care Teams Cbx Operator Relationship Specialty Start Date End Date Sina Ramirez DO PCP - General Internal Medicine 06/27/22
--- NOTE | 2025-01-20 22:42 | ED_ITS ---
HPI - Recheck/Abnormal Lab/Rx General Chief Complaint: Recheck/Abnormal Lab/Rx Stated Complaint: LOW BLOOD COUNT, SOB Time Seen by Provider: 01/20/25 21:58 History of Present Illness HPI narrative: 79-year-old female presenting to the emergency department for evaluation of abnormal outside hospital labs. She has a history of coronary disease on aspirin clopidogrel as well as nitroglycerin. History of COPD on chronic 4 L nasal cannula 247. History of anxiety depression as well as a gastric ulcer. She presents as she had outpatient labs today from routine visit that showed anemia. She does not have a history of iron deficiency anemia or GI bleeding to her knowledge. Patient states she has chronic pain from fibromyalgia but denies any new pain in her abdomen or chest. No difficulty in breathing. She is on her baseline oxygen. Denies any dark tarry stools or melanotic stools, bleeding per rectum. No vomiting. No fever, chills, mental status changes. Was otherwise in her normal state of health. Family members at bedside corroborates. Related Data Home Medications ?Medication ?Instructions ?Recorded ?Confirmed ?Last Taken ?Type aspirin 81 mg tablet,delayed 81 mg PO BID 10/23/22 Unknown History release Allergies Allergy/AdvReac Type Severity Reaction Status Date / Time No Known Allergies Allergy Verified 01/20/25 14:34 Review of Systems 2 Review of Systems: As reviewed above in [facility] Past Medical History Medical History CAD (coronary artery disease) needs stent, cardiology wants to confirm no ulcers before stenting On home O2 Chest pain Malnutrition of mild degree Abnormal CT scan, gastrointestinal tract Back pain Chronic obstructive pulmonary disease Depression Hyperlipidemia Trochanteric bursitis, right hip Pain in thoracic spine Anxiety Insomnia Fibromyalgia COPD (chronic obstructive pulmonary disease) Surgical History Surgical History H/O heart artery stent X6 stents Hx of cataract surgery (~12/2021) History of hip surgery right hip surgery H/O: hysterectomy Family History Family History Mother Family history of arthritis Family history of cardiovascular disease Father Family history of arthritis Family history of multiple sclerosis Other Family history of congenital heart disease Social History Social History Social History: She lives with her . The patient had 2 sons with a a . Her is her durable power environmental attorney for healthcare. Code status: Full code. Smoking packs per day: 1.5 Smoking cigarettes per day: 30.0 Years smoked: 50 Smoking pack-years: 75.00 Smoking status: Former smoker Tobacco type: cigarettes Second hand tobacco smoke exposure: No Smoking end date: 04/28/13 Alcohol intake: current Alcohol use details: socially, very rare. Substance use: never Substance use type: does not use Lack of Transportation: No Lack of Food: Never True Current Housing: I Have Housing Concerned About Future Housing: No Difficulty Paying Gas/Electric Bills: No Difficulty Paying for Meds: No Currently Unemployed: No Education: Trade/Vocational Certificate Difficulty w/ Childcare or Family Care: No Living arrangements: with family Additional living arrangements comments: Lives with in [place]. Occupation/Education: retired Gender identity (if verbalized by the patient): Female Spiritual care concerns: No Exam 2 Narrative: GENERAL: Chronically ill-appearing but not any acute distress, awake alert answering all questions with any dyspnea. Thin and frail appearing. HEAD: [Normocephalic, atraumatic.] EYES: [PERRLA and EOMI.] ENT: Nares clear, no rhinorrhea or epistaxis. Mucous membranes moist. NECK: Supple. CHEST: [Clear to auscultation. No respiratory distress.] HEART: [Regular rate and rhythm]. No murmur heard. [Normal peripheral pulses.] ABDOMEN: [Soft, nondistended], [nontender], [No rigidity or guarding] EXTREMITIES: Normal range of motion. [No edema.] SKIN: Warm, dry, no rash. NEURO: [No focal deficits]. Alert and oriented [x3.] PSYCH: [Normal mood and affect.] Course Vital Signs Vital signs: Vital Signs Pulse Oximetry 95 01/20/25 21:15 Oxygen Delivery Nasal Cannula 01/20/25 21:15 Oxygen Flow Rate 4 01/20/25 21:15 Temperature 36.8 C 01/20/25 21:17 Pulse Rate 91 01/20/25 21:46 Respiratory Rate 15 01/20/25 21:46 Blood Pressure 117/65 01/20/25 21:46 Pulse Oximetry 100 01/20/25 21:46 Oxygen Delivery Room Air 01/20/25 21:17 Oxygen Flow Rate 4 01/20/25 21:15 MDM - Recheck/Abnormal Lab/Rx MDM Narrative Medical decision making narrative: 79-year-old female presenting to the emergency department for evaluation of abnormal outside hospital labs. She has a history of coronary disease on aspirin clopidogrel as well as nitroglycerin. History of COPD on chronic 4 L nasal cannula 247. History of anxiety depression as well as a gastric ulcer. She presents as she had outpatient labs today from routine visit that showed anemia. She does not have a history of iron deficiency anemia or GI bleeding to her knowledge. Patient states she has chronic pain from fibromyalgia but denies any new pain in her abdomen or chest. No difficulty in breathing. She is on her baseline oxygen. Denies any dark tarry stools or melanotic stools, bleeding per rectum. No vomiting. No fever, chills, mental status changes. Was otherwise in her normal state of health. Family members at bedside corroborates. Patient has normal vital signs without any tachycardia, fever, hypoxemia blood pressure concerns. She is thin and frail and chronically ill-appearing but not any distress and awake and answering questions appropriately. No dyspnea. On her home oxygen dose at this time. Clear breath sounds throughout. Soft nontender nondistended abdomen. Repeat laboratory studies do show microcytic anemia but not as severe as outside hospital labs. Does not require emergent transfusion at this time without any hemodynamic instability or hypoxemia. Will evaluate for other potential causes such as new onset malignancy and obtain CT scan of the chest abdomen pelvis and further blood work and iron deficiency lab studies. Patient placed on monitor and re-evaluated. Patient re-evaluated was complaining of some pain. She was given her home dose of [place] 10 mg. Remains hemodynamically stable on her home oxygen dose at this time. Repeat labs show slightly improved hemoglobin but still much lower than her previous baseline. I reviewed patient's records and she did have a gastric antrum ulcer that previously was identified and then healed on repeat EGD in 2022 but this could be the source of patient's iron deficiency anemia. Her CT scan results reveal a right lower lobe pneumonia but no signs of PE or mass lesions in the abdomen or pelvis/chest. Chronic old compression fractures in the spine with degenerative disease and chronic right inferior pubic rami fracture. Patient started on antibiotics including Rocephin and azithromycin for atypical pneumonia coverage. She was given Protonix for suspected GI source of her iron deficiency anemia. Patient re-evaluated and complaining of cough and some shortness of breath and informed for pneumonia diagnosis. Combined with her acute anemia she would benefit from hospitalization for he coordinated care. Will discuss with the hospitalist for potential transfusion given her subjective dyspnea which could be attributed to the anemia or pneumonia or combination there above. GI consulted. Spoke to the hospitalist who agreed for admission to a telemetry monitored [facility] bed. Recommendations are to hold off on transfusion but to give her 500 mg dose of venofer for iron deficiency. Patient started on appropriate antibiotics and hemodynamically stable for admission. Patient and family updated on plan and comfortable with admission. Medical Records Attestation: I reviewed the patient's medical records. Lab Data Attestation: I reviewed the patient's lab results. 01/20/25 21:27 01/20/25 21:27 Labs: Lab Results 01/20/25 Range/Units 21:27 WBC 8.8 (4.5-10.0) K/mm3 RBC 3.46 L (4.2-5.4) M/mm3 Hgb 7.3 L (12.0-15.0) g/dL Hct 27.6 L (37.0-47.0) % MCV 79.8 L (80-100) fl MCH 21.1 L (26-34) pg MCHC 26.4 L (32-36) g/dl RDW 19.0 H (11.5-14.5) % Plt Count 211 (150-375) k/mm3 MPV 9.5 (7.4-10.4) fl Immature Gran % (Auto) 0.6 H (0-0.5) % Neut % (Auto) 75.5 H (45.5-73.1) % Lymph % (Auto) 15.1 L (18.3-44.2) % [place] % (Auto) 7.5 (2.6-8.5) % Eos % (Auto) 1.1 (0-4.4) % Baso % (Auto) 0.2 (0.2-1.2) % Lymph # (Auto) 1.33 (0.9-3.2) K/mm3 [place] # (Auto) 0.7 H (0.1-0.6) K/mm3 Eos # (Auto) 0.1 (0-0.3) K/mm3 Baso # (Auto) 0.0 (0.0-0.1) K/mm3 Abs Immat Gran (auto) 0.05 H (0.00-0.031) K/mm3 Absolute Neuts (auto) 6.6 (1.3-6.7) K/mm3 Absolute Nucleated RBC 0.000 (0.0-0.012) K/mm3 Band Neutrophils % Not Reportable Nucleated RBC % 0.0 (0.0-0.2) % Platelet Estimate Adequate (Adequate) Hypochromasia 2+ Anisocytosis Occasional Macrocytosis Occasional (NORMAL) Ovalocytes Occasional Schistocytes None seen Sodium 139 (137-145) mmol/L Potassium 4.3 (3.4-5.0) mmol/L Chloride 98 (98-107) mmol/L Carbon Dioxide 35 H (22-30) mmol/L Anion Gap 6 (4-12) mmol/L BUN 15 (7-17) mg/dL Creatinine 0.63 L (0.7-1.0) mg/dL Estim Creat Clear Calc Not Reportable Estimated GFR > 60 (59 - ) Glucose 144 H (65-110) mg/dL Calcium 9.0 (8.4-10.2) mg/dL Iron 34 L (37-170) ug/dL TIBC 449 (261-462) ug/dL % Saturation 8 L (20-50) % Ferritin 7.17 L (11.1-264) ng/mL Total Bilirubin 0.2 (0.2-1.3) mg/dL AST 29 (14-36) U/L ALT 12 (6-35) U/L Alkaline Phosphatase 90 (38-126) U/L Total Protein 7.6 (6.3-8.2) g/dL Albumin 4.3 (3.5-5.1) g/dL Imaging Data Attestation: I personally reviewed and interpreted this imaging study as follows: My impression: Right-sided pneumonia Critical Care Time Critical Care Time Critical Care Time: Yes Total Critical Care Time: 35 Discharge Plan Discharge Clinical Impression: Acute anemia, Pneumonia involving right lung, Chronic hypoxic respiratory failure, on home oxygen therapy, Iron deficiency Patient Disposition: Still a Patient Condition: Stable Patient Language: Luxembourger Prescriptions: No Action cyclobenzaprine 5 mg tablet 5 mg PO TID PRN (Reason: muscle spasm) Qty: 90 1RF aspirin 81 mg tablet,delayed release (DR/EC) 81 mg PO BID albuterol sulfate 2.5 mg /3 mL (0.083 %) solution for nebulization 2.5 mg inhalation Q6H PRN (Reason: shortness of breath or wheezing) 90 Days Qty: 180 2RF budesonide 0.5 mg/2 mL suspension for nebulization 0.5 mg inhalation BID Qty: 120 5RF Rx Instructions: Use 1 vial by nebulizer (2mL) twice daily - morning and night. arformoterol [Brovana] 15 mcg/2 mL solution for nebulization 2 ml inhalation BID Qty: 120 5RF Rx Instructions: Use 1 vial by nebulizer (2mL) twice daily - morning and night. albuterol sulfate [ProAir HFA] 90 mcg/actuation HFA aerosol inhaler 1 - 2 puff INHALATION Q4-6H PRN (Reason: Shortness Of Breath) Qty: 8.5 3RF isosorbide mononitrate 30 mg tablet extended release 24 hr See Rx Instructions .ROUTE .COMPLEX Qty: 30 5RF Dose Instruction: Take 1/2 (one-half) tablet by mouth once daily Rx Instructions: Take 1/2 (one-half) tablet by mouth once daily clopidogrel 75 mg tablet See Rx Instructions .ROUTE .COMPLEX Qty: 90 2RF Dose Instruction: Take 1 tablet by mouth once daily Rx Instructions: Take 1 tablet by mouth once daily nitroglycerin 0.4 mg tablet, sublingual See Rx Instructions .ROUTE .COMPLEX Qty: 25 5RF Dose Instruction: DISSOLVE ONE TABLET UNDER THE TONGUE EVERY 5 MINUTES NEEDED FOR CHEST PAIN. DO NOT EXCEED A TOTAL OF 3 DOSES IN 15 MINUTES Rx Instructions: DISSOLVE ONE TABLET UNDER THE TONGUE EVERY 5 MINUTES NEEDED FOR CHEST PAIN. DO NOT EXCEED A TOTAL OF 3 DOSES IN 15 MINUTES trazodone 150 mg tablet 150 mg PO QHS PRN (Reason: insomnia) Qty: 90 1RF ranolazine 500 mg tablet extended release 12 hr See Rx Instructions .ROUTE .COMPLEX Qty: 60 5RF Dose Instruction: Take 1 tablet by mouth twice daily Rx Instructions: Take 1 tablet by mouth twice daily pravastatin 10 mg tablet See Rx Instructions .ROUTE .COMPLEX Qty: 90 2RF Dose Instruction: Take 1 tablet by mouth once daily Rx Instructions: Take 1 tablet by mouth once daily duloxetine 30 mg capsule,delayed release(DR/EC) 30 mg PO QAM Qty: 90 0RF Rx Instructions: NEEDS APPOINTMENT FOR FURTHER REFILLS sertraline 100 mg tablet 100 mg PO DAILY Qty: 90 0RF Rx Instructions: NEEDS APPOINTMENT FOR FURTHER REFILLS hydrocodone-acetaminophen 10-325 mg tablet See Rx Instructions PO DAILY PRN (Reason: pain) Qty: 45 0RF Rx Instructions: orally daily PRN; Follow-up/Referrals: Sina Ramirez DO [Primary Care Provider, Internal Medicine] Time of Disposition: 02:12
[2025-01-20 22:46] LABS: Iron 34 ug/dL (37-170)
[2025-01-20 23:08] LABS: Percent Iron Saturation 8 % (20-50)
[2025-01-20 23:27] LABS: Ferritin 7.17 ng/mL (11.1-264)
[2025-01-21] VITALS (28 sets, daily range): BP systolic 115–155; BP diastolic 52–94; PULSE 91–110; RESP 16–22; TEMP 36.6–37.2; O2SAT 92–100; BMI 16.9
[2025-01-21] MEDS: cefTRIAXone 1 GM in SODIUM CHLORIDE 0.9% IV 50 ML 100 ML IVPB ×2 (01:31→21:43)
[2025-01-21] MEDS: HYDROcodone/acetaminophen (*CRX) 10-325 MG TABLET 1 TAB PO ×3 (01:33→21:42)
[2025-01-21] MEDS: PANTOPRAZOLE SODIUM IV 40 MG VIAL IV PUSH ×3 (01:36→21:44)
[2025-01-21] MEDS: AZITHROMYCIN IV 500 MG in SODIUM CHLORIDE 0.9% IV 250 ML IVPB ×2 (01:50→21:43)
[2025-01-21] MEDS: IRON SUCROSE COMPLEX 400 MG, IRON SUCROSE COMPLEX 100 MG in SODIUM CHLORIDE 0.9% IV 250 ML 78.57 MG IVPB (02:54)
--- NOTE | 2025-01-21 06:49 | P.HP_ITS ---
H&P: HPI History of Present Illness Date/Time: 01/21/25 06:49 Chief Complaint: Low hemoglobin Narrative: 79-year-old female with a past medical history of chronic hypoxic respiratory failure due to COPD on 4 L home O2 at all times, multiple gastric ulcers 2022, multi-vessel coronary artery disease with 6 cardiac stents 2022, fibromyalgia with chronic pain who presented to the ER from home after outpatient labs demonstrated low hemoglobin. She reported that after she returned home from err appointment she was called because she had a critically low hemoglobin and was directed to come to the ER. She denies having any recent melena or hematochezia but she has not had a bowel movement in at least a week. She does admit that she has been having nausea and frequent belching after she eats. She denies any hematuria. She has been having wear pads because functionally she cannot get to the bathroom due to her dyspnea. She is dyspneic at rest and takes maximum effort to do minimal activity. She reports that over the last 4-5 weeks she has also noticed increased pain between her shoulder blades that radiates down the back of her arms with any activity. She has also noticed some associated pain that will start in her gums and radiate up into her head that occurs with the chest pain. The pain is unrelieved despite her home [place] but is relieved when she takes sublingual nitroglycerin. The episodes of pain have been escalating in frequency over the last couple of weeks. She reports that she also has chronic orthopnea. She denies any lower extremity swelling. She states that her abdomen feels tight and distended. She denies any abdominal pain. She has had progressive weight loss. She has overall poor appetite. She reports that she has a chronic cough she states that after she uses her nebulizer treatments in the morning she can sometimes produce a lot of sputum in at other times she has difficulty with sputum production. She has not noticed a change in color or appearance of her sputum recently. She denies any fevers but is frequently chilled at baseline. She reports that she has sensation of incomplete bladder emptying which has been increasing in recent weeks. She denies any dysuria or or hematuria. Review of Systems 2 Review of Systems: 12 systems were reviewed with pertinent positives and negatives per HPI. Except as documented in the HPI, all other systems were reviewed and are negative. [facility] Past Medical History Medical History (Updated 01/21/25 @ 07:23 by Brittnee Cruz DO) Gastric cardia ulcer (2021) Chronic hypoxic respiratory failure, on home oxygen therapy Chronic obstructive pulmonary disease Depression Hyperlipidemia Trochanteric bursitis, right hip Anxiety Insomnia Fibromyalgia COPD (chronic obstructive pulmonary disease) Surgical History Surgical History (Updated 01/21/25 @ 07:23 by Brittnee Cruz DO) History of esophagogastroduodenoscopy (EGD) (06/2023) H/O heart artery stent X6 stents Hx of cataract surgery (~12/2021) History of hip surgery right hip surgery H/O: hysterectomy Family History Family History Mother Family history of arthritis Family history of cardiovascular disease Father Family history of arthritis Family history of multiple sclerosis Other Family history of congenital heart disease Social History Social History (Updated 01/21/25 @ 07:04 by Brittnee Cruz DO) Social History: She lives with her they have been together since she was approximately 40. The patient had 2 sons with a a . 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 Code status: DNR/DNI per patient request Healthcare power of consumer attorney: Smoking packs per day: 1.5 Smoking cigarettes per day: 30.0 Years smoked: 50 Smoking pack-years: 75.00 Smoking status: Former smoker Tobacco type: cigarettes Second hand tobacco smoke exposure: No Smoking end date: 04/28/13 Alcohol intake: current Alcohol use details: socially, very rare. Substance use: never Substance use type: does not use Lack of Transportation: No Lack of Food: Never True Current Housing: I Have Housing Concerned About Future Housing: No Difficulty Paying Gas/Electric Bills: No Difficulty Paying for Meds: No Currently Unemployed: No Education: Trade/Vocational Certificate Difficulty w/ Childcare or Family Care: No Living arrangements: with family Additional living arrangements comments: Lives with in [place]. Occupation/Education: retired Gender identity (if verbalized by the patient): Female Spiritual care concerns: No Meds Home Medications and Allergies Home Medications ?Medication ?Instructions ?Recorded ?Confirmed ?Type albuterol sulfate 2.5 mg/3 mL 2.5 mg (3 mL) inhalation Q6H PRN 07/15/22 01/20/25 Rx (0.083 %) solution for nebulization shortness of breat h or wheezing 3 months #180 vials aspirin 81 mg tablet,delayed 81 mg PO BID 10/23/22 History release albuterol sulfate 90 mcg/actuation 1 - 2 puff inhalati on Q4-6H PRN 12/25/22 01/20/25 Rx aerosol inhaler (ProAir HFA) Shortness Of Breath #8.5 grams arformoterol 15 mcg/2 mL solution 2 ml inhalation BID #120 mL 12/25/22 01/20/25 Rx for nebulization (Brovana) budesonide 0.5 mg/2 mL suspension 0.5 mg (2 mL) inhala tion BID #120 12/25/22 01/20/25 Rx for nebulization mL isosorbide mononitrate 30 mg See Rx Instructions .Rout e 04/26/24 01/20/25 Rx tablet,extended release 24 hr .COMPLEX #30 tabs clopidogrel 75 mg tablet See Rx Instructions .Route 0 06/11/24 01/20/25 Rx .COMPLEX #90 tabs nitroglycerin 0.4 mg sublingual See Rx Instructions .R oute 08/18/24 01/20/25 Rx tablet .COMPLEX #25 tabs trazodone 150 mg tablet 150 mg PO QHS PRN insomnia # 90 tabs 09/06/24 01/20/25 Rx ranolazine 500 mg tablet,extended See Rx Instructions .Route 10/04/24 01/20/25 Rx release,12 hr .COMPLEX #60 tabs pravastatin 10 mg tablet See Rx Instructions .Route 0 11/01/24 01/20/25 Rx .COMPLEX #90 tabs duloxetine 30 mg capsule,delayed 30 mg PO QAM #90 ea 0 12/01/24 01/20/25 Rx release sertraline 100 mg tablet 100 mg PO DAILY #90 tabs 10/2001/20/25 Rx hydrocodone 10 mg-acetaminophen See Rx Instructions PO DAILY PRN 01/12/25 01/20/25 Rx 325 mg tablet pain #45 tabs cyclobenzaprine 5 mg tablet 5 mg PO TID PRN muscle spa sm #90 01/20/25 01/20/25 Rx tabs Allergies Allergy/AdvReac Type Severity Reaction Status Date / Time No Known Allergies Allergy Verified 01/20/25 14:34 Vital Signs Vital Signs - 24 hr 01/20/25 21:15 01/20/25 21:17 01/20/25 21:42 Temperature 98.2 F Pulse Rate 99 91 Respiratory Rate 18 16 Blood Pressure 121/84 Pulse Oximetry 95 98 99 Oxygen Delivery Nasal Cannula Room Air Oxygen Flow Rate 4 01/20/25 21:45 01/20/25 21:46 Temperature Pulse Rate 90 91 Respiratory Rate 16 15 Blood Pressure 117/65 Pulse Oximetry 99 100 Oxygen Delivery Oxygen Flow Rate Exam 2 Narrative: Weight 39.7 kg Const: Other: Frail, elderly, appears older than stated age, chronically ill-appearing HENMT: Other: Mucous membranes are tacky, no oral pharyngeal erythema, conjunctival pallor, edentulous Eyes: Other: Bilateral lens implants noted, no scleral icterus, marked pallor Neck: Other: No JVD, loss of cervical lordosis Resp: Other: Labored respirations, coarse breath sounds bilateral lower lobes right greater than left, speaking in 3-4 word sentences Cardio: Other: Regular rate, regular rhythm, 2+ bilateral radial pedal pulses GI: Other: Distended, nontender, hyperactive bowel sounds Back/Spine/Pelvis: Other: Knocked thoracic kyphosis Skin: Other: Generalized pallor, non jaundice, cool to touch, cap refill 3-4 seconds Neuro: Other: Alert orient x4, speech is clear, no facial asymmetry, no localizing neurologic deficits noted during the course of conversation Extrem: Other: No cyanosis, no edema, moves all extremities equally Psych: Other: Appropriate mood and affect, pleasant and cooperative, judgment and insight intact H&P: Results Labs Labs: Laboratory Tests 01/20/25 21:27 01/20/25 21:27 01/20/25 21:27 WBC 8.8 RBC 3.46 L Hgb 7.3 L Hct 27.6 L MCV 79.8 L MCH 21.1 L MCHC 26.4 L RDW 19.0 H Plt Count 211 MPV 9.5 Immature Gran % (Auto) 0.6 H Neut % (Auto) 75.5 H Lymph % (Auto) 15.1 L [place] % (Auto) 7.5 Eos % (Auto) 1.1 Baso % (Auto) 0.2 Lymph # (Auto) 1.33 [place] # (Auto) 0.7 H Eos # (Auto) 0.1 Baso # (Auto) 0.0 Abs Immat Gran (auto) 0.05 H Absolute Neuts (auto) 6.6 Absolute Nucleated RBC 0.000 Band Neutrophils % Not Reportable Nucleated RBC % 0.0 Platelet Estimate Adequate Hypochromasia 2+ Anisocytosis Occasional Macrocytosis Occasional Ovalocytes Occasional Schistocytes None seen Sodium 139 Potassium 4.3 Chloride 98 Carbon Dioxide 35 H Anion Gap 6 BUN 15 Creatinine 0.63 L Estim Creat Clear Calc Not Reportable Estimated GFR > 60 Glucose 144 H Calcium 9.0 Iron 34 L TIBC 449 % Saturation 8 L Ferritin 7.17 L Total Bilirubin 0.2 AST 29 ALT 12 Alkaline Phosphatase 90 Total Protein 7.6 Albumin 4.3 Chest x-ray and CT of the chest were personally reviewed and interpreted. Stat read interpretation reviewed. Official radiologic interpretation pending at the time of my evaluation. EKG: Personally reviewed and interpreted. No acute ischemic changes. Cardiology interpretation pending Assessment and Plan Assessment and plan (1) Acute on chronic anemia: Code(s): D64.9 - Anemia, unspecified Status: Acute (2) Iron deficiency anemia: Qualifiers: Iron deficiency anemia type: chronic blood loss Qualified Code(s): D 50.0 - Iron deficiency anemia secondary to blood loss (chronic) Code(s): D50.9 - Iron deficiency anemia, unspecified Status: Acute (3) Acute and chronic respiratory failure with hypoxia: Code(s): J96.21 - Acute and chronic respiratory failure with hypoxia Status: Acute (4) Right lower lobe pneumonia: Qualifiers: Pneumonia type: due to unspecified organism Qualified Code(s): J18.9 - Pneumonia, unspecified organism Code(s): J18.9 - Pneumonia, unspecified organism Status: Acute (5) Severe protein-calorie malnutrition: Code(s): E43 - Unspecified severe protein-calorie malnutrition Status: Acute (6) CAD (coronary artery disease): Qualifiers: Coronary Disease-Associated Artery/Lesion type: [place] artery [place] vs. transplanted heart: [place] heart Associated angina: with unspecified form of angina Qualified Code(s): I25.119 - Atherosclerotic heart disease of [place] coronary artery with unspecified angina pectoris Code(s): I25.10 - Atherosclerotic heart disease of [place] coronary artery without angina pectoris Status: Acute (7) Angina at rest: Code(s): I20.89 - Other forms of angina pectoris Status: Acute Plan Patient presents with acute on chronic iron deficiency anemia. Differential for her name includes decreased oral intake with severe protein calorie malnutrition and or secondary losses. Patient does have a history of gastric ulcers, gastritis and duodenitis a couple of years ago. She does report nausea and symptoms of dyspepsia. Recurrence of gastritis are gastric ulcers not ruled out. Patient was started on Protonix in the ER and gastroenterology was consulted. Will continue Protonix IV q.12 hours Also concerning given the patient's presentation is report of back pain between her shoulder blades radiating down to her arms associated with pain in her jaw at is relieved with nitro which is concerning for anginal equivalent in this patient with history of multi-vessel coronary artery disease. Initial EKG in the ER did not demonstrate evidence of overt ischemia. Will check serial troponins and re-evaluate. Given the report of pain and concern for angina in the setting of patient having acute anemia in addition to the Venofer that was already ordered I will order 1 unit of packed red blood cells. Patient also has acute on chronic hypoxic respiratory failure which may be resulting in increased cardiac demand. Respiratory failure is likely due to the right lower lobe pneumonia in the setting of her chronic COPD. Will order scheduled nebulizer treatments. Patient was started on empiric antibiotic therapy with Rocephin and azithromycin in the ER. She does not meet sepsis criteria. Will wean oxygen as tolerated back down to the patient's home O2 of 4 L. will resume the patient's home [place]. The remainder the patient's home med rec is not available for my review at the time of this documentation. Will defer resuming patient's home medications to the oncoming hospitalist. Patient does report sensation of incomplete bladder emptying. Will have nursing staff check postvoid residual. Given concern for possible anginal equivalent will change the patient's bed placement to IMU. MEDICAL DECISION MAKING NARRATIVE -Spoke with the ED provider in detail regarding patient's evaluation, workup and management -Patient seen and examined at bedside -Collaborated with patient's nurse at the bedside in detail and addressed all concerns -Labs, electrolytes, radiology, investigations and test results personally reviewed and interpreted unless otherwise specified -ED/Consult/Nursing/Ancilliary notes on the chart reviewed and appreciated -Spoke with patient at bedside and diagnosis and plan of care was discussed. All questions answered. Quality VTE Prophylaxis VTE prophylaxis: mechanical ordered (SCDs) Hospitalist MIPS Advance Care Plan I have confirmed that the patient's Advanced Care Plan is present, code status is documented, or surrogate decision maker is listed in patient medical record.: Yes Medication Reconciliation I have utilized all available resources to obtain, update and review the patients current medications (includes all prescriptions, OTC, herbals, cannabis, and nutritional supplements).: Yes
[2025-01-21] MEDS: SODIUM CHLORIDE 0.9% IV 250 ML 30 ML IV CONT (07:11)
[2025-01-21 07:17] LABS: Hematocrit 28.1 % (37.0-47.0); Hemoglobin 7.4 g/dL (12.0-15.0); Mean Corpuscular HGB Conc 26.3 g/dl (32-36); Mean Corpuscular Hemoglobin 21.1 pg (26-34); Mean Corpuscular Volume 80.1 fl (80-100); Platelet Count Result 197 k/mm3 (150-375); Red Blood Count 3.51 M/mm3 (4.2-5.4); White Blood Count 5.0 K/mm3 (4.5-10.0)
[2025-01-21 07:41] LABS: Troponin I < 0.012 ng/mL (0.000-0.034)
[2025-01-21 07:55] LABS: Anion Gap 2 mmol/L (4-12); Blood Urea Nitrogen 11 mg/dL (7-17); Calcium 8.5 mg/dL (8.4-10.2); Carbon Dioxide 33 mmol/L (22-30); Chloride 100 mmol/L (98-107); Estimated Glomerular Filt Rate > 60; Glucose 91 mg/dL (65-110); Potassium 4.1 mmol/L (3.4-5.0); Sodium 135 mmol/L (137-145)
--- NOTE | 2025-01-21 08:27 | ADMGEN ---
This patient, Cecy Jackson, was admitted to IMU Room 203-01 @[id number]. Patient/family oriented to hospital policies and general routines including ID bracelet, bed and alarms, visiting hours, pain management, procedures, bathroom and other care routines, personal items, smoking policy, room service/diet, and visiting hours. Information on how to activate the Rapid Response Team has been discussed. Patient/Family are encouraged to report perceived risks to care and to ask questions if they do not understand what they are told or what they should do.
[2025-01-21 08:30] LABS: INR 1.1; Prothrombin Time 14.1 Seconds (11.1-14.7)
[2025-01-21 08:32] LABS: Partial Thromboplastin Time 56.0 Seconds (22.3-36.8)
[2025-01-21] MEDS: IPRATROPIUM 0.5 MG/ALBUTEROL SULFATE 2.5 MG AMPUL.NEB 3 ML INHALATION ×3 (08:36→20:29)
--- NOTE | 2025-01-21 08:53 | P.PNIM_ITS ---
Progress Note: A&P Assessment and Plan (1) Acute on chronic anemia: Code(s): D64.9 - Anemia, unspecified Status: Acute Assessment and Plan: * Hgb 6.9 - received 1 unit PRBC * Iron 34, TIBC 449, ferritin 7.17, * Pending B12, folic acid, and TSH * transfuse if <7 * trend H&H * GI consult * Continue Protonix IV q.12 hours (2) Iron deficiency anemia: Qualifiers: Iron deficiency anemia type: chronic blood loss Qualified Code(s): D50.0 - Iron deficiency anemia secondary to blood loss (chronic) Code(s): D50.9 - Iron deficiency anemia, unspecified Status: Acute Assessment and Plan: * See above (3) Right lower lobe pneumonia: Qualifiers: Pneumonia type: due to unspecified organism Qualified Code(s): J18.9 - Pneumonia, unspecified organism Code(s): J18.9 - Pneumonia, unspecified organism Status: Acute Assessment and Plan: * Chest/Abd/Pelvis CT: Right lower lobe bronchopneumonia superimposed on chronic lung disease.Follow-up recommended to assess resolution * started on CAP tx: azithromycin & ceftriaxone * Viral PCR: negative for Flu/COVID/RSV * Consider ordering legionella, mycoplasma and pneumococcal * no supplemental O2 requirement * supportive treatment * trend labs * Monitor vital signs, I&Os, neuro status and patient is a fall risk * Follow WBC, serum electrolytes, temperature curves and cultures * Send sputum cultures * Gentle IV fluid resuscitation (4) Acute and chronic respiratory failure with hypoxia: Code(s): J96.21 - Acute and chronic respiratory failure with hypoxia Status: Acute Assessment and Plan: * SpO2: 100% on 5L [place] * Suspected cause: Underlying pneumonia in setting of chronic COPD * EKG: NSR * Chest/abd/pelvis CTA: Right lower lobe bronchopneumonia superimposed on chronic lung disease.Follow-up recommended to assess resolution * Scheduled nebulizer treatments * Empiric antibiotic coverage - Rocephin and Azithromycin (5) Angina at rest: Code(s): I20.89 - Other forms of angina pectoris Status: Acute Assessment and Plan: * Monitor vital signs, I&Os, chest pain, shortness of breath and patient is a fall risk * Monitor PTT, serial troponins, Serum electrolytes, and cbc * Keep serum potassium >4 and keep magnesium >2 * Initial EKG in the ER did not demonstrate evidence of overt ischemia * Serial troponin negative * Presents with back between shoulder blades, radiates down arm/up to jaw, relieve with Nitro * Cardiology consulted, appreciate assistance and recommendations * Monitor for bloody bowel movements, chest pain, SOB or dizziness/lightheadedness * Diet: Heart healthy (6) CAD (coronary artery disease): Qualifiers: Associated angina: with unspecified form of angina Coronary Disease-Associated Artery/Lesion type: [place] artery [place] vs. transplanted heart: [place] heart Qualified Code(s): I25.119 - Atherosclerotic heart disease of [place] coronary artery with unspecified angina pectoris Code(s): I25.10 - Atherosclerotic heart disease of [place] coronary artery without angina pectoris Status: Acute Assessment and Plan: * Continue statin * Antiplatelets on hold in case of GI bleed (7) Severe protein-calorie malnutrition: Code(s): E43 - Unspecified severe protein-calorie malnutrition Status: Acute Subjective Date/time seen: 01/21/25 08:53 Interval history: 79-year-old female with a past medical history of chronic hypoxic respiratory failure due to COPD on 4 L home O2 at all times, multiple gastric ulcers 2022, multi-vessel coronary artery disease with 6 cardiac stents 2022, fibromyalgia with chronic pain who presented to the ER from home after outpatient labs demonstrated low hemoglobin. 01/21/2025 Patient sitting comfortable in bed at time of examination. Denies any chest pain, nausea/vomiting, or abdominal pain at this time. Endorses some shortness of breath but states that she is at her baseline, currently on 5 L NC (baseline is 4 L). GI consulted regarding symptomatic anemia. Clopidogrel on hold due to possible bleed. Review of Systems Review of Systems: 12 systems were reviewed with pertinent positives and negatives per HPI. Except as documented in the HPI, all other systems were reviewed and are negative. Exam Narrative: Weight 39.7 kg Const: Other: Frail, elderly, appears older than stated age, chronically ill-appearing HENMT: Other: Mucous membranes are tacky, no oral pharyngeal erythema, conjunctival pallor, edentulous Eyes: Other: Bilateral lens implants noted, no scleral icterus, marked pallor Neck: Other: No JVD, loss of cervical lordosis Resp: Other: Labored respirations, coarse breath sounds bilateral lower lobes right greater than left, speaking in 3-4 word sentences Cardio: Rate: tachycardic Other: regular rhythm, 2+ bilateral radial pedal pulses GI: Other: Distended, nontender, hyperactive bowel sounds Back/Spine/Pelvis: Other: Knocked thoracic kyphosis Skin: Other: Generalized pallor, non jaundice, cool to touch, cap refill 3-4 seconds Neuro: Other: Alert orient x4, speech is clear, no facial asymmetry, no localizing neurologic deficits noted during the course of conversation Extrem: Other: No cyanosis, no edema, moves all extremities equally Psych: Other: Appropriate mood and affect, pleasant and cooperative, judgment and insight intact Objective Data Vital Signs Vital Signs: Vital Signs - 24 hr 01/20/25 21:15 01/20/25 21:17 01/20/25 21:42 Temperature 98.2 F Pulse Rate 99 91 Respiratory Rate 18 16 Blood Pressure 121/84 Pulse Oximetry 95 98 99 Oxygen Delivery Nasal Cannula Room Air Oxygen Flow Rate 4 01/20/25 21:45 01/20/25 21:46 01/21/25 07:10 Temperature Pulse Rate 90 91 Respiratory Rate 16 15 Blood Pressure 117/65 Pulse Oximetry 99 100 96 Oxygen Delivery Nasal Cannula Oxygen Flow Rate 4 01/21/25 07:20 01/21/25 08:11 01/21/25 08:37 Temperature Pulse Rate 92 96 Respiratory Rate 20 20 Blood Pressure 117/94 H 155/52 H Pulse Oximetry 98 100 92 Oxygen Delivery Nasal Cannula Oxygen Flow Rate 4 01/21/25 08:37 01/21/25 08:43 Temperature Pulse Rate 103 H 97 Respiratory Rate 16 16 Blood Pressure Pulse Oximetry Oxygen Delivery Oxygen Flow Rate Intake/Output Intake/Output: Intake & Output 01/18/25 01/19/25 01/20/25 01/21/25 23:59 23:59 23:59 23:59 Intake Total 575 Balance 575 Meds/Results Medications: Active Medications Generic Name Dose Route Start Last Admin Trade Name Freq PRN Reason Stop Dose Admin Acetaminophen 650 mg 01/21/25 01:48 Acetaminophen 325 Mg Tablet PO Q4H PRN Mild Pain (1-3) or Fever Hydrocodone Bitart/Acetaminophen 1 tab 01/21/25 03:27 Hydrocodone/Acetaminophen (*Crx) 10-325 Mg Tablet PO Q6H PRN Pain Rated 7-10 Albuterol/Ipratropium 3 ml 01/21/25 08:00 01/21/25 08:36 Ipratropium 0.5 Mg/Albuterol Sulfate 2.5 Mg Ampul.Neb 3 Ml INHALATION 3 ml Q6HRT AMBER Administration Sodium Chloride 250 mls @ 30 mls/hr 01/21/25 06:46 01/21/25 07:11 Normal Saline Iv IV CONT 01/21/25 15:05 30 mls/hr .Q8H20M STA Administration Ceftriaxone Sodium 1 gm/ 50 mls @ 100 mls/hr 01/21/25 22:00 Sodium Chloride IVPB Q24H AMBER Azithromycin 500 mg/ Sodium 250 mls @ 250 mls/hr 01/21/25 21:00 Chloride IVPB 01/25/25 21:59 Q24H AMBER Pantoprazole Sodium 40 mg 01/21/25 09:00 Pantoprazole Sodium Iv 40 Mg Vial IV PUSH Q12HR [facility] Labs Labs: Laboratory Results - last 24 hr 01/20/25 01/21/25 01/21/25 21:27 07:06 07:08 WBC 8.8 5.0 RBC 3.46 L 3.51 L Hgb 7.3 L 7.4 L Hct 27.6 L 28.1 L MCV 79.8 L 80.1 MCH 21.1 L 21.1 L MCHC 26.4 L 26.3 L RDW 19.0 H 18.9 H Plt Count 211 197 MPV 9.5 9.5 Immature Gran % (Auto) 0.6 H Neut % (Auto) 75.5 H Lymph % (Auto) 15.1 L [place] % (Auto) 7.5 Eos % (Auto) 1.1 Baso % (Auto) 0.2 Lymph # (Auto) 1.33 [place] # (Auto) 0.7 H Eos # (Auto) 0.1 Baso # (Auto) 0.0 Abs Immat Gran (auto) 0.05 H Absolute Neuts (auto) 6.6 Absolute Nucleated RBC 0.000 Band Neutrophils % Not Reportable Nucleated RBC % 0.0 Platelet Estimate Adequate Hypochromasia 2+ Anisocytosis Occasional Macrocytosis Occasional Ovalocytes Occasional Schistocytes None seen PT 14.1 INR 1.1 APTT 56.0 H Sodium 139 135 L Potassium 4.3 4.1 Chloride 98 100 Carbon Dioxide 35 H 33 H Anion Gap 6 2 L BUN 15 11 Creatinine 0.63 L 0.57 L Estim Creat Clear Calc Not Reportable Not Reportable Estimated GFR > 60 > 60 Glucose 144 H 91 Calcium 9.0 8.5 Iron 34 L TIBC 449 % Saturation 8 L Ferritin 7.17 L Total Bilirubin 0.2 AST 29 ALT 12 Alkaline Phosphatase 90 Troponin I < 0.012 Total Protein 7.6 Albumin 4.3 Blood Type O Positive Antibody Screen Negative Crossmatch See Detail Quality VTE Prophylaxis VTE prophylaxis: mechanical ordered (SCDs)
[2025-01-21 10:02] LABS: Troponin I < 0.012 ng/mL (0.000-0.034)
[2025-01-21] MEDS: TUBING, BLOOD PLUM PUMP TUBING 1 EACH XX ×2 (12:34→16:01)
[2025-01-21 13:27] LABS: Troponin I < 0.012 ng/mL (0.000-0.034)
--- NOTE | 2025-01-21 13:51 | PM.CNCAR ---
Assessment and Plan Assessment and plan (1) Acute on chronic anemia: Code(s): D64.9 - Anemia, unspecified Status: Acute Assessment and Plan: GI consulted. Antiplatelets on hold in case it is due to a bleed. Receiving PRBC transfusion. If not bleeding and OK then may resume antiplatelets. (2) Hyperlipidemia: Code(s): E78.5 - Hyperlipidemia, unspecified Status: Acute Assessment and Plan: On Pravastatin. (3) CAD (coronary artery disease): Qualifiers: Coronary Disease-Associated Artery/Lesion type: [place] artery [place] vs. transplanted heart: sw[place] heart Associated angina: with unspecified form of angina Qualified Code(s): I25.119 - Atherosclerotic heart disease of [place] coronary artery with unspecified angina pectoris Code(s): I25.10 - Atherosclerotic heart disease of [place] coronary artery without angina pectoris Status: Acute Assessment and Plan: Stable. Troponin negative, EKG unremarkable. No further cardiac workup. Will sign off, please call with questions. (4) Right lower lobe pneumonia: Qualifiers: Pneumonia type: due to unspecified organism Qualified Code(s): J18.9 - Pneumonia, unspecified organism Code(s): J18.9 - Pneumonia, unspecified organism Status: Acute Assessment and Plan: On antibiotics. History of Present Illness History of Present Illness Consult date/time: 01/21/25 13:51 Reason For Visit: Acute iron deficiency anemia, pneumonia Narrative: 79 yr old woman who is my regular patient and a patient of Dr. Ramirez presents to hospital with anemia. She has a history of CAD, dyslipidemia, COPD on home oxygen, covid infection on 08/30/19 and she had it 2 more times, former smoking quit in 2013. States she had her blood drawn and was called to go back to ER for acute anemia. There she mentioned sob and pain between her shoulder blades radiating to her arms as a sharp tingling feeling. She was found to have pneumonia and Hb 6.9 . She wears her oxygen for sleep and sometimes while walking. She is limited at walking short distances due to MASTERS first then chronic back pain. She has both arm tingling pain that she can feel by touching them and neck pain in the mornings. Advise to let PCP know, and may need evaluation of cervicals. Reports random chest heaviness in mid chest for last 2 months. Denies orthopnea, PND, edema, palpitations, dizziness. Cardiovascular Procedures Lead Person:: 09/20/22 Main [facility] cath: Stent of LM into LCx with jailed balloon technique to preserve normal LAD, stent of OM1, stent of prox, mid, distal RCA with 4 overlapping stents, residual [employer] mid LAD with right to left collateral, 80% 1st Diag, [employer] OM2 with left to left collateral. 07/30/[address] Robledo: Distal LM 80%, LAD [employer] ostial, with right to left collaterals, Ramus 70-80% mid, LCx with prox 50-60% prox OM1, 70-80% prox-mid OM2 with left to left collaterals, RCA heavily calcified with 60-70% prox, 80-90% mid. Echo/MUGA:: 06/22/24 Echo: EF 60-65%, mid to apical septum hypokinetic, grade I diastolic dysfunction (E/e' 12), mild LAE, mild TR. 07/01/22 Echo: EF 55-60%, mild LVH, grade I diastolic dysfunction (E/e' 9), RV hypokinesis based on TAPSE 1.6 cm, mild (MARCIO 1.46 cm2), mild TR. Electrophysiology:: 01/22/23 EKG: Sinus tachycardia at 123 bpm, LAFB, cannot r/o septal infarct. 08/15/22 EKG: Sinus rhythm, IRBBB, LAFB. 04/11/22 EKG: Sinus rhythm, LAFB, anteroseptal infarct, age indeterminate. Stress Tests:: 07/01/22 Lexiscan myoview: Abnormal with large area of ischemia of apical and mid anteroseptal segments. 04/11/22 CT chest: Esophagitis, duodenitis. Severe emphysema. Small right pleural effusion. Review of Systems Review of Systems: All systems reviewed & are unremarkable except as noted in HPI and below Constitutional: Constitutional: Reports as per HPI, Denies chills, Reports fatigue and Denies fever(s) Cardiovascular: Cardiovascular: Reports as per HPI, Reports chest pain and Denies irregular heart rhythm Respiratory: Respiratory: Reports as per HPI and Reports dyspnea Gastrointestinal: Gastrointestinal: Reports as per HPI and Denies abdominal pain Genitourinary: Genitourinary: Reports as per HPI and Denies dysuria Musculoskeletal: Musculoskeletal: Reports as per HPI and Reports back pain Neurologic: Reports as per HPI, Denies dizziness and Denies syncope [facility] Past Medical History Medical History (Updated 01/21/25 @ 13:56 by Kevin Conde DO) Chest pain Gastric cardia ulcer (2021) Chronic hypoxic respiratory failure, on home oxygen therapy Chronic obstructive pulmonary disease Depression Hyperlipidemia Trochanteric bursitis, right hip Anxiety Insomnia Fibromyalgia COPD (chronic obstructive pulmonary disease) Surgical History Surgical History (Updated 01/21/25 @ 07:23 by Brittnee Cruz DO) History of esophagogastroduodenoscopy (EGD) (06/2023) H/O heart artery stent X6 stents Hx of cataract surgery (~12/2021) History of hip surgery right hip surgery H/O: hysterectomy Family History Family History Mother Family history of arthritis Family history of cardiovascular disease Father Family history of arthritis Family history of multiple sclerosis Other Family history of congenital heart disease Social History Social History (Updated 01/21/25 @ 07:04 by Brittnee Cruz DO) Social History: She lives with her they have been together since she was approximately 40. The patient had 2 sons with a a . 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 Code status: DNR/DNI per patient request Healthcare power of white sidewall tire buffer: Smoking packs per day: 1.5 Smoking cigarettes per day: 30.0 Years smoked: 50 Smoking pack-years: 75.00 Smoking status: Former smoker Tobacco type: cigarettes Second hand tobacco smoke exposure: No Smoking end date: 04/28/13 Alcohol intake: never Alcohol use details: socially, very rare. Substance use: never Substance use type: does not use Lack of Transportation: No Lack of Food: Never True Current Housing: I Have Housing Concerned About Future Housing: No Difficulty Paying Gas/Electric Bills: No Difficulty Paying for Meds: No Currently Unemployed: No Education: Decline to Answer Difficulty w/ Childcare or Family Care: No Living arrangements: with family Additional living arrangements comments: Lives with in [place]. Occupation/Education: retired Gender identity (if verbalized by the patient): Female Spiritual care concerns: No Meds Home Medications and Allergies Home Medications ?Medication ?Instructions ?Recorded ?Confirmed ?Type albuterol sulfate 2.5 mg/3 mL 2.5 mg (3 mL) inhalation Q6H PRN 07/15/22 01/21/25 Rx (0.083 %) solution for nebulization shortness of breath or wheezing 3 months #180 vials aspirin 81 mg tablet,delayed 81 mg PO BID 10/23/22 01/21/25 History release albuterol sulfate 90 mcg/actuation 1 - 2 puff inhalation Q4-6H PRN 12/25/22 01/21/25 Rx aerosol inhaler (ProAir HFA) Shortness Of Breath #8.5 grams arformoterol 15 mcg/2 mL solution 2 ml inhalation BID #120 mL 12/25/22 01/21/25 Rx for nebulization (Brovana) budesonide 0.5 mg/2 mL suspension 0.5 mg (2 mL) inhalation BID #120 12/25/22 01/21/25 Rx for nebulization mL isosorbide mononitrate 30 mg See Rx Instructions .Route 04/26/24 01/21/25 Rx tablet,extended release 24 hr .COMPLEX #30 tabs clopidogrel 75 mg tablet See Rx Instructions .Route 06/11/24 01/21/25 Rx .COMPLEX #90 tabs nitroglycerin 0.4 mg sublingual See Rx Instructions .Route 08/18/24 01/21/25 Rx tablet .COMPLEX #25 tabs trazodone 150 mg tablet 150 mg PO QHS PRN insomnia #90 tabs 09/06/24 01/21/25 Rx ranolazine 500 mg tablet,extended See Rx Instructions .Route 10/04/24 01/21/25 Rx release,12 hr .COMPLEX #60 tabs pravastatin 10 mg tablet See Rx Instructions .Route 11/01/24 01/21/25 Rx .COMPLEX #90 tabs duloxetine 30 mg capsule,delayed 30 mg PO QAM #90 ea 12/01/24 01/21/25 Rx release sertraline 100 mg tablet 100 mg PO DAILY #90 tabs 12/01/24 01/21/25 Rx hydrocodone 10 mg-acetaminophen See Rx Instructions PO DAILY PRN 01/12/25 01/21/25 Rx 325 mg tablet pain #45 tabs cyclobenzaprine 5 mg tablet 5 mg PO TID PRN muscle spasm #90 01/20/25 01/21/25 Rx tabs Allergies Allergy/AdvReac Type Severity Reaction Status Date / Time No Known Allergies Allergy Verified 01/20/25 14:34 Vital Signs Vital Signs - 24 hr 01/20/25 21:15 01/20/25 21:17 01/20/25 21:42 Temperature 98.2 F Pulse Rate 99 91 Respiratory Rate 18 16 Blood Pressure 121/84 Pulse Oximetry 95 98 99 Oxygen Delivery Nasal Cannula Room Air Oxygen Flow Rate 4 01/20/25 21:45 01/20/25 21:46 01/21/25 07:10 Temperature Pulse Rate 90 91 Respiratory Rate 16 15 Blood Pressure 117/65 Pulse Oximetry 99 100 96 Oxygen Delivery Nasal Cannula Oxygen Flow Rate 4 01/21/25 07:20 01/21/25 08:11 01/21/25 08:37 Temperature Pulse Rate 92 96 Respiratory Rate 20 20 Blood Pressure 117/94 H 155/52 H Pulse Oximetry 98 100 92 Oxygen Delivery Nasal Cannula Oxygen Flow Rate 4 01/21/25 08:37 01/21/25 08:43 01/21/25 09:10 Temperature 98.3 F Pulse Rate 103 H 97 98 Respiratory Rate 16 16 22 H Blood Pressure 122/70 Pulse Oximetry 96 Oxygen Delivery Oxygen Flow Rate 01/21/25 09:27 01/21/25 11:33 01/21/25 12:00 Temperature 98.3 F Pulse Rate 110 H Respiratory Rate 20 Blood Pressure 130/56 L Pulse Oximetry 100 100 100 Oxygen Delivery Nasal Cannula Nasal Cannula Oxygen Flow Rate 4 5 01/21/25 12:08 01/21/25 12:24 01/21/25 13:14 Temperature 98.3 F 98.3 F Pulse Rate 110 H 104 H 107 H Respiratory Rate 20 21 H 20 Blood Pressure 130/56 L 123/62 Pulse Oximetry 100 99 Oxygen Delivery Oxygen Flow Rate 01/21/25 13:20 01/21/25 13:24 01/21/25 13:48 Temperature 98.5 F 98.5 F Pulse Rate 103 H 105 H 105 H Respiratory Rate 20 20 20 Blood Pressure 130/61 130/61 Pulse Oximetry 99 99 Oxygen Delivery Oxygen Flow Rate Exam Const: General: cooperative, healthy appearing and comfortable Resp: Auscultation: no crackles, no rales, no rhonchi, no wheezes and diminished lung sounds Cardio: Rate: regular rate Rhythm: regular rhythm Heart sounds: no murmurs Peripheral pulses: dorsalis pedis present GI: GI Palp: No abdominal tenderness and Yes Soft to palpation Neuro: General: oriented to person, oriented to place and oriented to time Extrem: Right lower extremity: no edema Left lower extremity: no edema Results Labs and Meds 01/21/25 07:06 01/21/25 07:08 Lab results: Cardiac Enzymes 01/20/25 01/21/25 01/21/25 Range/Units 21:27 07:08 09:34 AST 29 (14-36) U/L Troponin I < 0.012 < 0.012 (0.000-0.034) ng/mL 01/21/25 Range/Units 12:56 AST (14-36) U/L Troponin I < 0.012 (0.000-0.034) ng/mL Coagulation 01/21/25 Range/Units 07:08 PT 14.1 (11.1-14.7) Seconds APTT 56.0 H (22.3-36.8) Seconds CBC 01/20/25 01/21/25 Range/Units 21:27 07:06 WBC 8.8 5.0 (4.5-10.0) K/mm3 RBC 3.46 L 3.51 L (4.2-5.4) M/mm3 Hgb 7.3 L 7.4 L (12.0-15.0) g/dL Hct 27.6 L 28.1 L (37.0-47.0) % Plt Count 211 197 (150-375) k/mm3 Lymph # (Auto) 1.33 (0.9-3.2) K/mm3 Bent # (Auto) 0.7 H (0.1-0.6) K/mm3 Eos # (Auto) 0.1 (0-0.3) K/mm3 Baso # (Auto) 0.0 (0.0-0.1) K/mm3 Comprehensive Metabolic Panel 01/20/25 01/21/25 Range/Units 21:27 07:08 Sodium 139 135 L (137-145) mmol/L Potassium 4.3 4.1 (3.4-5.0) mmol/L Chloride 98 100 (98-107) mmol/L Carbon Dioxide 35 H 33 H (22-30) mmol/L BUN 15 11 (7-17) mg/dL Creatinine 0.63 L 0.57 L (0.7-1.0) mg/dL Glucose 144 H 91 (65-110) mg/dL Calcium 9.0 8.5 (8.4-10.2) mg/dL AST 29 (14-36) U/L ALT 12 (6-35) U/L Alkaline Phosphatase 90 (38-126) U/L Total Protein 7.6 (6.3-8.2) g/dL Albumin 4.3 (3.5-5.1) g/dL Intake and Output 01/20/25 01/21/25 01/21/25 23:59 07:59 15:59 Intake Total 575 1190 Output Total 400 Balance 575 790 Intake: IV 575 Azithromycin IV 500 mg In 250 Sodium Chloride 0.9% IV 250 ml @ 250 mls/hr IVPB ONCE ONE Rx#: [id number] Iron Sucrose Complex 400 mg 275 Iron Sucrose Complex 100 mg In Sodium Chloride 0.9% IV 250 ml @ 78.571 mls/hr IVPB ONCE ONE Rx#:[id number] cefTRIAXone 1 gm In Sodium 50 Chloride 0.9% IV 50 ml @ 100 mls/hr IVPB ONCE STA Rx#: [id number] Intake (Blood Product) Amt 350 Leukocyte Reduced Rbc Unit 350 [id number] Oral 840 Output: Urine 400 Patient Weight 01/21/25 23:59 Weight 38.1 kg
[2025-01-21 13:53] LABS: Thyroid Stimulating Hormone Reflex 3.070 uIU/mL (0.465-4.68)
[2025-01-21 14:22] LABS: Vitamin B12 803.0 pg/mL (239-931)
[2025-01-21] MEDS: SERTRALINE HCL 50 MG TABLET 100 MG PO (16:02)
--- NOTE | 2025-01-21 16:28 | WPDGICN ---
Assessment and Plan Assessment and plan (1) Acute on chronic anemia: Code(s): D64.9 - Anemia, unspecified Status: Acute Assessment and Plan: no overt gib she has known small gastric ulcers she is high risk for anesthesia with advanced copd, now with pneumonia, cachectic- risk of aspiration and other problem with anesthesia recommend to treat medically assuming she could have ulcers again, continue with ppi daily and monitor for obvious signs of gib, no soopes unless obvious bleeding (2) Severe protein-calorie malnutrition: Code(s): E43 - Unspecified severe protein-calorie malnutrition Status: Acute (3) Acute and chronic respiratory failure with hypoxia: Code(s): J96.21 - Acute and chronic respiratory failure with hypoxia Status: Acute Assessment and Plan: oxygen, abx (4) Right lower lobe pneumonia: Qualifiers: Pneumonia type: due to unspecified organism Qualified Code(s): J18.9 - Pneumonia, unspecified organism Code(s): J18.9 - Pneumonia, unspecified organism Status: Acute (5) History of stomach ulcers: Code(s): Z87.11 - Personal history of peptic ulcer disease Status: Acute GI Consult Note Consult date/time: 01/21/25 16:28 Reason for consult: acute on chronic anemia HPI: Zandra Jackson is a 79 year old female with history of chronic hypoxic respiratory failure due to COPD on 4 L home O2 at all times (advanced copd), gastric ulcers 2021 then repeat EGD 2022 with gastritis, multi-vessel coronary artery disease with 6 cardiac stents 2022, fibromyalgia with chronic pain who presented to the ER from home after outpatient labs showed low hemoglobin. She denie any melena, blood in stools or any signs of gib. She normally is short of breath because her advanced copd, also she is very thin. She denies any abdominal pain. CT scan showed possible gastritis and also pneumonia, started on abx and given blood transfusion, also iv protonix. Review of Systems Constitutional: Constitutional: Reports weakness Eyes: Eyes: Denies blurry vision ENT: Reports Normal hearing present Cardiovascular: Cardiovascular: Denies pedal edema Respiratory: Respiratory: Reports dyspnea on exertion Gastrointestinal: Gastrointestinal: Denies abdominal pain and Denies melena Genitourinary: Genitourinary: Denies dysuria Musculoskeletal: Musculoskeletal: Denies neck pain Integumentary/Breasts: Skin/Breast: Denies rash Neurologic: Denies Abnormal speech present Psychiatric: Psychiatric: Denies behavioral changes [facility] Past Medical History Medical History (Updated 01/21/25 @ 16:32 by Woodrow Colvin MD) History of stomach ulcers Chest pain Gastric cardia ulcer (2021) Chronic hypoxic respiratory failure, on home oxygen therapy Chronic obstructive pulmonary disease Depression Hyperlipidemia Trochanteric bursitis, right hip Anxiety Insomnia Fibromyalgia COPD (chronic obstructive pulmonary disease) Surgical History Surgical History (Updated 01/21/25 @ 07:23 by Brittnee Cruz DO) History of esophagogastroduodenoscopy (EGD) (06/2023) H/O heart artery stent X6 stents Hx of cataract surgery (~12/2021) History of hip surgery right hip surgery H/O: hysterectomy Family History Family History Mother Family history of arthritis Family history of cardiovascular disease Father Family history of arthritis Family history of multiple sclerosis Other Family history of congenital heart disease Social History Social History (Updated 01/21/25 @ 07:04 by Brittnee Cruz DO) Social History: She lives with her they have been together since she was approximately 40. The patient had 2 sons with a a . 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 Code status: DNR/DNI per patient request Healthcare power of trust and estates attorney: Smoking packs per day: 1.5 Smoking cigarettes per day: 30.0 Years smoked: 50 Smoking pack-years: 75.00 Smoking status: Former smoker Tobacco type: cigarettes Second hand tobacco smoke exposure: No Smoking end date: 04/28/13 Alcohol intake: never Alcohol use details: socially, very rare. Substance use: never Substance use type: does not use Lack of Transportation: No Lack of Food: Never True Current Housing: I Have Housing Concerned About Future Housing: No Difficulty Paying Gas/Electric Bills: No Difficulty Paying for Meds: No Currently Unemployed: No Education: Decline to Answer Difficulty w/ Childcare or Family Care: No Living arrangements: with family Additional living arrangements comments: Lives with in [place]. Occupation/Education: retired Gender identity (if verbalized by the patient): Female Spiritual care concerns: No Meds Home Medications and Allergies Home Medications ?Medication ?Instructions ?Recorded ?Confirmed ?Type albuterol sulfate 2.5 mg/3 mL 2.5 mg (3 mL) inhalation Q6H PRN 07/15/22 01/21/25 Rx (0.083 %) solution for nebulization shortness of breath or wheezing 3 months #180 vials aspirin 81 mg tablet,delayed 81 mg PO BID 10/23/22 01/21/25 History release albuterol sulfate 90 mcg/actuation 1 - 2 puff inhalation Q4-6H PRN 12/25/22 01/21/25 Rx aerosol inhaler (ProAir HFA) Shortness Of Breath #8.5 grams arformoterol 15 mcg/2 mL solution 2 ml inhalation BID #120 mL 12/25/22 01/21/25 Rx for nebulization (Brovana) budesonide 0.5 mg/2 mL suspension 0.5 mg (2 mL) inhalation BID #120 12/25/22 01/21/25 Rx for nebulization mL isosorbide mononitrate 30 mg See Rx Instructions .Route 04/26/24 01/21/25 Rx tablet,extended release 24 hr .COMPLEX #30 tabs clopidogrel 75 mg tablet See Rx Instructions .Route 06/11/24 01/21/25 Rx .COMPLEX #90 tabs nitroglycerin 0.4 mg sublingual See Rx Instructions .Route 08/18/24 01/21/25 Rx tablet .COMPLEX #25 tabs trazodone 150 mg tablet 150 mg PO QHS PRN insomnia #90 tabs 09/06/24 01/21/25 Rx ranolazine 500 mg tablet,extended See Rx Instructions .Route 10/04/24 01/21/25 Rx release,12 hr .COMPLEX #60 tabs pravastatin 10 mg tablet See Rx Instructions .Route 11/01/24 01/21/25 Rx .COMPLEX #90 tabs duloxetine 30 mg capsule,delayed 30 mg PO QAM #90 ea 12/01/24 01/21/25 Rx release sertraline 100 mg tablet 100 mg PO DAILY #90 tabs 12/01/24 01/21/25 Rx hydrocodone 10 mg-acetaminophen See Rx Instructions PO DAILY PRN 01/12/25 01/21/25 Rx 325 mg tablet pain #45 tabs cyclobenzaprine 5 mg tablet 5 mg PO TID PRN muscle spasm #90 01/20/25 01/21/25 Rx tabs Allergies Allergy/AdvReac Type Severity Reaction Status Date / Time No Known Allergies Allergy Verified 01/20/25 14:34 Vital Signs Vital Signs - 24 hr 01/20/25 21:15 01/20/25 21:17 01/20/25 21:42 Temperature 98.2 F Pulse Rate 99 91 Respiratory Rate 18 16 Blood Pressure 121/84 Pulse Oximetry 95 98 99 Oxygen Delivery Nasal Cannula Room Air Oxygen Flow Rate 4 01/20/25 21:45 01/20/25 21:46 01/21/25 07:10 Temperature Pulse Rate 90 91 Respiratory Rate 16 15 Blood Pressure 117/65 Pulse Oximetry 99 100 96 Oxygen Delivery Nasal Cannula Oxygen Flow Rate 4 01/21/25 07:20 01/21/25 08:11 01/21/25 08:37 Temperature Pulse Rate 92 96 Respiratory Rate 20 20 Blood Pressure 117/94 H 155/52 H Pulse Oximetry 98 100 92 Oxygen Delivery Nasal Cannula Oxygen Flow Rate 4 01/21/25 08:37 01/21/25 08:43 01/21/25 09:10 Temperature 98.3 F Pulse Rate 103 H 97 98 Respiratory Rate 16 16 22 H Blood Pressure 122/70 Pulse Oximetry 96 Oxygen Delivery Oxygen Flow Rate 01/21/25 09:27 01/21/25 11:33 01/21/25 12:00 Temperature 98.3 F Pulse Rate 110 H Respiratory Rate 20 Blood Pressure 130/56 L Pulse Oximetry 100 100 100 Oxygen Delivery Nasal Cannula Nasal Cannula Oxygen Flow Rate 4 5 01/21/25 12:08 01/21/25 12:24 01/21/25 13:14 Temperature 98.3 F 98.3 F Pulse Rate 110 H 104 H 107 H Respiratory Rate 20 21 H 20 Blood Pressure 130/56 L 123/62 Pulse Oximetry 100 99 Oxygen Delivery Oxygen Flow Rate 01/21/25 13:20 01/21/25 13:24 01/21/25 13:48 Temperature 98.5 F 98.5 F Pulse Rate 103 H 105 H 105 H Respiratory Rate 20 20 20 Blood Pressure 130/61 130/61 Pulse Oximetry 99 99 Oxygen Delivery Oxygen Flow Rate 01/21/25 14:41 01/21/25 14:58 01/21/25 15:58 Temperature 98.2 F 98.8 F 98.9 F Pulse Rate 105 H 93 97 Respiratory Rate 20 19 20 Blood Pressure 115/58 L 118/69 137/57 L Pulse Oximetry 95 96 98 Oxygen Delivery Oxygen Flow Rate 01/21/25 16:00 Temperature Pulse Rate 96 Respiratory Rate Blood Pressure Pulse Oximetry Oxygen Delivery Oxygen Flow Rate Exam Const: Other: chronically ill appearing, she is very thin and frail Eyes: Sclera: sclerae normal Neck: Neck: supple Resp: Auscultation: diminished lung sounds Other: using oxygen GI: GI Palp: Yes Soft to palpation and No Tenderness to palpation present (GI) Auscultation: normal bowel sounds Skin: General skin exam: no rashes or lesions noted Neuro: Speech: normal speech Motor exam (neuro): 5/5 motor strength present throughout Extrem: General: normal to inspection Psych: Mental Status: mental status grossly normal Results Labs 01/21/25 07:06 01/21/25 07:08 Labs: Short CBC 01/20/25 01/21/25 Range/Units 21:27 07:06 WBC 8.8 5.0 (4.5-10.0) K/mm3 Hgb 7.3 L 7.4 L (12.0-15.0) g/dL Hct 27.6 L 28.1 L (37.0-47.0) % Plt Count 211 197 (150-375) k/mm3 BMP 01/20/25 01/21/25 21:27 07:08 Sodium 139 135 L Potassium 4.3 4.1 Chloride 98 100 Carbon Dioxide 35 H 33 H BUN 15 11 Creatinine 0.63 L 0.57 L Glucose 144 H 91 Calcium 9.0 8.5 Cardiac Enzymes 01/21/25 01/21/25 01/21/25 Range/Units 07:08 09:34 12:56 Troponin I < 0.012 < 0.012 < 0.012 (0.000-0.034) ng/mL Liver Function 01/20/25 Range/Units 21:27 Total Bilirubin 0.2 (0.2-1.3) mg/dL AST 29 (14-36) U/L ALT 12 (6-35) U/L Alkaline Phosphatase 90 (38-126) U/L Albumin 4.3 (3.5-5.1) g/dL
[2025-01-21] MEDS: BUDESONIDE RESPULE NEB 0.5 MG/2 ML AMP INHALATION (20:29)
[2025-01-21] MEDS: RANOLAZINE 500 MG TAB.ER.12H BY MOUTH (21:43)
[2025-01-21] MEDS: PRAVASTATIN SODIUM 10 MG TABLET BY MOUTH (21:43)
[2025-01-22] VITALS (24 sets, daily range): BP systolic 107–139; BP diastolic 52–94; PULSE 71–96; RESP 12–24; TEMP 36.6–37; O2SAT 94–100
[2025-01-22] MEDS: HYDROcodone/acetaminophen (*CRX) 10-325 MG TABLET 1 TAB PO ×2 (05:36→16:03)
--- NOTE | 2025-01-22 07:10 | P.PNIM_ITS ---
Progress Note: A&P Assessment and Plan (1) Acute on chronic anemia: Code(s): D64.9 - Anemia, unspecified Status: Acute Assessment and Plan: * Hgb 6.9 - received 1 unit PRBC * Iron 34, TIBC 449, ferritin 7.17, * Pending B12, folic acid, and TSH * transfuse if <7 * trend H&H * GI consult * No overt evidence of GI bleed * Recommend medical treatment given advanced COPD/risk of aspiration * Continue PPI and monitor for obvious signs of GI bleed * Continue Protonix IV q.12 hours (2) Iron deficiency anemia: Qualifiers: Iron deficiency anemia type: chronic blood loss Qualified Code(s): D50.0 - Iron deficiency anemia secondary to blood loss (chronic) Code(s): D50.9 - Iron deficiency anemia, unspecified Status: Acute Assessment and Plan: * See above (3) Right lower lobe pneumonia: Qualifiers: Pneumonia type: due to unspecified organism Qualified Code(s): J18.9 - Pneumonia, unspecified organism Code(s): J18.9 - Pneumonia, unspecified organism Status: Acute Assessment and Plan: * Chest/Abd/Pelvis CT: Right lower lobe bronchopneumonia superimposed on chronic lung disease.Follow-up recommended to assess resolution * started on CAP tx: azithromycin & ceftriaxone * Viral PCR: negative for Flu/COVID/RSV * Consider ordering legionella, mycoplasma and pneumococcal * no supplemental O2 requirement * supportive treatment * trend labs * Monitor vital signs, I&Os, neuro status and patient is a fall risk * Follow WBC, serum electrolytes, temperature curves and cultures * Send sputum cultures * Gentle IV fluid resuscitation * Continue IV antibiotics with transition to oral prior to discharge (4) Acute and chronic respiratory failure with hypoxia: Code(s): J96.21 - Acute and chronic respiratory failure with hypoxia Status: Acute Assessment and Plan: * SpO2: 100% on 5L NC * Suspected cause: Underlying pneumonia in setting of chronic COPD * EKG: NSR * Chest/abd/pelvis CTA: Right lower lobe bronchopneumonia superimposed on chronic lung disease.Follow-up recommended to assess resolution * Scheduled nebulizer treatments * Empiric antibiotic coverage - Rocephin and Azithromycin (5) Angina at rest: Code(s): I20.89 - Other forms of angina pectoris Status: Acute Assessment and Plan: * Monitor vital signs, I&Os, chest pain, shortness of breath and patient is a fall risk * Monitor PTT, serial troponins, Serum electrolytes, and cbc * Keep serum potassium >4 and keep magnesium >2 * Initial EKG in the ER did not demonstrate evidence of overt ischemia * Serial troponin negative * Presents with back between shoulder blades, radiates down arm/up to jaw, relieve with Nitro * Cardiology consulted, appreciate assistance and recommendations * Monitor for bloody bowel movements, chest pain, SOB or dizziness/lightheadedness * Diet: Heart healthy (6) CAD (coronary artery disease): Qualifiers: Associated angina: with unspecified form of angina Coronary Disease- Associated Artery/Lesion type: [place] artery [place] vs. transplanted heart: [place] heart Qualified Code(s): I25.119 - Atherosclerotic heart disease of [place] coronary artery with unspecified angina pectoris Code(s): I25.10 - Atherosclerotic heart disease of [place] coronary artery without angina pectoris Status: Acute Assessment and Plan: * Continue statin * Antiplatelets on hold in case of GI bleed (7) Severe protein-calorie malnutrition: Code(s): E43 - Unspecified severe protein-calorie malnutrition Status: Acute Subjective Date/time seen: 01/22/25 07:10 Interval history: 79-year-old female with a past medical history of chronic hypoxic respiratory failure due to COPD on 4 L home O2 at all times, multiple gastric ulcers 2022, multi-vessel coronary artery disease with 6 cardiac stents 2022, fibromyalgia with chronic pain who presented to the ER from home after outpatient labs demonstrated low hemoglobin. 01/22/2025 Patient sitting comfortable in bed at time of examination. Reports her shortness of breath has improved since yesterday. Denies any chest pain, nausea/vomiting or dizziness today. O2 supplementation down to 4 L which is her baseline. Bloodwork vital and signs remained stable. Review of Systems Review of Systems: 12 systems were reviewed with pertinent positives and negatives per HPI. Except as documented in the HPI, all other systems were reviewed and are negative. Exam Narrative: Weight 39.7 kg Const: Other: Frail, elderly, appears older than stated age, chronically ill-appearing HENMT: Other: Mucous membranes are tacky, no oral pharyngeal erythema, conjunctival pallor, edentulous Eyes: Other: Bilateral lens implants noted, no scleral icterus, marked pallor Neck: Other: No JVD, loss of cervical lordosis Resp: Other: Labored respirations, coarse breath sounds bilateral lower lobes right greater than left, speaking in 3-4 word sentences Cardio: Rate: tachycardic Other: regular rhythm, 2+ bilateral radial pedal pulses GI: Other: Distended, nontender, hyperactive bowel sounds Back/Spine/Pelvis: Other: Knocked thoracic kyphosis Skin: Other: Generalized pallor, non jaundice, cool to touch, cap refill 3-4 seconds Neuro: Other: Alert orient x4, speech is clear, no facial asymmetry, no localizing neurologic deficits noted during the course of conversation Extrem: Other: No cyanosis, no edema, moves all extremities equally Psych: Other: Appropriate mood and affect, pleasant and cooperative, judgment and insight intact Objective Data Vital Signs Vital Signs: Vital Signs - 24 hr 01/21/25 07:20 01/21/25 08:11 01/21/25 08:37 Temperature Pulse Rate 92 96 Respiratory Rate 20 20 Blood Pressure 117/94 H 155/52 H Pulse Oximetry 98 100 92 Oxygen Delivery Nasal Cannula Oxygen Flow Rate 4 01/21/25 08:37 01/21/25 08:43 01/21/25 09:10 Temperature 98.3 F Pulse Rate 103 H 97 98 Respiratory Rate 16 16 22 H Blood Pressure 122/70 Pulse Oximetry 96 Oxygen Delivery Oxygen Flow Rate 01/21/25 09:27 01/21/25 10:00 01/21/25 11:33 Temperature 98.3 F Pulse Rate 105 H 110 H Respiratory Rate 20 Blood Pressure 130/56 L Pulse Oximetry 100 100 Oxygen Delivery Nasal Cannula Oxygen Flow Rate 4 01/21/25 12:00 01/21/25 12:00 01/21/25 12:08 Temperature 98.3 F Pulse Rate 106 H 110 H Respiratory Rate 20 Blood Pressure 130/56 L Pulse Oximetry 100 100 Oxygen Delivery Nasal Cannula Oxygen Flow Rate 5 01/21/25 12:24 01/21/25 13:14 01/21/25 13:20 Temperature 98.3 F Pulse Rate 104 H 107 H 103 H Respiratory Rate 21 H 20 20 Blood Pressure 123/62 Pulse Oximetry 99 Oxygen Delivery Oxygen Flow Rate 01/21/25 13:24 01/21/25 13:48 01/21/25 14:00 Temperature 98.5 F 98.5 F Pulse Rate 105 H 105 H 105 H Respiratory Rate 20 20 Blood Pressure 130/61 130/61 Pulse Oximetry 99 99 Oxygen Delivery Oxygen Flow Rate 01/21/25 14:41 01/21/25 14:58 01/21/25 15:58 Temperature 98.2 F 98.8 F 98.9 F Pulse Rate 105 H 93 97 Respiratory Rate 20 19 20 Blood Pressure 115/58 L 118/69 137/57 L Pulse Oximetry 95 96 98 Oxygen Delivery Oxygen Flow Rate 01/21/25 16:00 01/21/25 16:00 01/21/25 16:00 Temperature Pulse Rate 96 95 Respiratory Rate Blood Pressure Pulse Oximetry 98 Oxygen Delivery Nasal Cannula Oxygen Flow Rate 4 01/21/25 16:55 01/21/25 18:00 01/21/25 20:00 Temperature 98.6 F 97.8 F Pulse Rate 99 91 94 Respiratory Rate 22 H 20 Blood Pressure 137/80 129/65 Pulse Oximetry 97 97 Oxygen Delivery Oxygen Flow Rate 01/21/25 20:00 01/21/25 20:00 01/21/25 20:29 Temperature Pulse Rate 92 93 Respiratory Rate 20 Blood Pressure Pulse Oximetry 94 Oxygen Delivery Nasal Cannula Oxygen Flow Rate 4 01/21/25 20:34 01/21/25 20:45 01/21/25 22:00 Temperature Pulse Rate 93 98 Respiratory Rate 20 Blood Pressure Pulse Oximetry 95 Oxygen Delivery Nasal Cannula Oxygen Flow Rate 4 01/22/25 00:00 01/22/25 00:00 01/22/25 00:00 Temperature 97.9 F Pulse Rate 86 81 Respiratory Rate 18 Blood Pressure 107/52 L Pulse Oximetry 97 97 Oxygen Delivery Nasal Cannula Oxygen Flow Rate 4 01/22/25 01:55 01/22/25 03:19 01/22/25 04:00 Temperature Pulse Rate 74 75 Respiratory Rate Blood Pressure Pulse Oximetry 100 Oxygen Delivery Nasal Cannula Oxygen Flow Rate 4 01/22/25 04:00 01/22/25 06:00 Temperature 97.8 F Pulse Rate 71 75 Respiratory Rate 20 Blood Pressure 119/60 Pulse Oximetry 100 Oxygen Delivery Oxygen Flow Rate Intake/Output Intake/Output: Intake & Output 01/19/25 01/20/25 01/21/25 01/22/25 23:59 23:59 23:59 23:59 Intake Total 2955 180 Output Total 550 Balance 2405 180 Meds/Results Medications: Active Medications Generic Name Dose Route Start Last Admin Trade Name Freq PRN Reason Stop Dose Admin Acetaminophen 650 mg 01/21/25 01:48 Acetaminophen 325 Mg Tablet PO Q4H PRN Mild Pain (1-3) or Fever Hydrocodone Bitart/Acetaminophen 1 tab 01/21/25 03:27 01/22/25 05:36 Hydrocodone/Acetaminophen (*Crx) 10-325 Mg Tablet PO 1 tab Q6H PRN Administration Pain Rated 7-10 Albuterol/Ipratropium 3 ml 01/21/25 08:00 01/22/25 05:19 Ipratropium 0.5 Mg/Albuterol Sulfate 2.5 Mg Ampul.Neb 3 Ml INHALATION Not Given Q6HRT AMBER Budesonide 0.5 mg 01/21/25 20:00 01/21/25 20:29 Budesonide Respule Neb 0.5 Mg/2 Ml Amp INHALATION 0.5 mg Q12HRT AMBER Administration Cyclobenzaprine HCl 5 mg 01/21/25 14:02 Cyclobenzaprine Hcl 5 Mg Tablet PO TID PRN Muscle Spasm Duloxetine HCl 30 mg 01/21/25 14:15 01/21/25 16:02 Duloxetine Hcl 30 Mg Capsule. PO 30 mg QAM AMBER Administration Ceftriaxone Sodium 1 gm/ 50 mls @ 100 mls/hr 01/21/25 22:00 01/21/25 22:13 Sodium Chloride IVPB Infused Q24H AMBER Infusion Azithromycin 500 mg/ Sodium 250 mls @ 250 mls/hr 01/21/25 21:00 01/21/25 22:43 Chloride IVPB 01/25/25 21:59 Infused Q24H AMBER Infusion Isosorbide Mononitrate 0 mg 01/21/25 14:05 Isosorbide Mononitrate 30 Mg Tab.Er.24h BY MOUTH .COMPLEX AMBER Miscellaneous Information 1 each 01/22/25 00:01 Clarify Imdur Dose--Med Rec. States Pt Takes 30 Mg Tab Give 1/2 Tab For 15 Mg Dose. But M XX 02/21/25 00:00 CLARIFY AMBER Miscellaneous Information 1 each 01/22/25 00:01 Brovana Is Nonform; Can Pt Use From Home? XX 02/21/25 00:00 CLARIFY AMBER Nitroglycerin 0.4 mg 01/21/25 14:05 Nitroglycerin Sl 0.4 Mg Tablet SUBLINGUAL PRN PRN Chest Pain Non-Formulary Medication 2 ml 01/21/25 17:00 Arformoterol [Brovana] INHALATION 02/20/25 16:59 BID AMBER Pantoprazole Sodium 40 mg 01/21/25 09:00 01/21/25 21:44 Pantoprazole Sodium Iv 40 Mg Vial IV PUSH 40 mg Q12HR AMBER Administration Pravastatin Sodium 10 mg 01/21/25 21:00 01/21/25 21:43 Pravastatin Sodium 10 Mg Tablet BY MOUTH 10 mg QHS AMBER Administration Ranolazine 500 mg 01/21/25 21:00 01/21/25 21:43 Ranolazine 500 Mg Tab.Er.12h BY MOUTH 500 mg Q12HR AMBER Administration Sertraline HCl 100 mg 01/21/25 14:15 01/21/25 16:02 Sertraline Hcl 50 Mg Tablet PO 100 mg DAILY AMBER Administration Trazodone HCl 150 mg 01/21/25 14:02 01/21/25 21:46 Trazodone Hcl 50 Mg Tablet PO 150 mg QHS PRN Administration Insomnia Radiology Results: ITS Impressions Chest/Abdomen/Pelvis CT 01/21/25 08:56 IMPRESSION: 1. Right lower lobe bronchopneumonia superimposed on chronic lung disease.Follow-up recommended to assess resolution 2. Probable gastritis. 3. Incidental findings detailed above Labs Labs: Laboratory Results - last 24 hr 01/21/25 01/21/25 01/21/25 07:06 07:08 09:34 WBC 5.0 RBC 3.51 L Hgb 7.4 L Hct 28.1 L MCV 80.1 MCH 21.1 L MCHC 26.3 L RDW 18.9 H Plt Count 197 MPV 9.5 PT 14.1 INR 1.1 APTT 56.0 H Sodium 135 L Potassium 4.1 Chloride 100 Carbon Dioxide 33 H Anion Gap 2 L BUN 11 Creatinine 0.57 L Estim Creat Clear Calc Not Reportable Estimated GFR > 60 Glucose 91 Calcium 8.5 Troponin I < 0.012 < 0.012 Vitamin B12 Folate TSH (Reflex) Blood Type O Positive Antibody Screen Negative Crossmatch See Detail 01/21/25 01/21/25 01/21/25 12:56 12:57 12:57 WBC RBC Hgb Hct MCV MCH MCHC RDW Plt Count MPV PT INR APTT Sodium Potassium Chloride Carbon Dioxide Anion Gap BUN Creatinine Estim Creat Clear Calc Estimated GFR Glucose Calcium Troponin I < 0.012 Vitamin B12 803.0 Folate 9.1 Cancelled TSH (Reflex) 3.070 Blood Type Antibody Screen Crossmatch Quality VTE Prophylaxis VTE prophylaxis: mechanical ordered (SCDs)
[2025-01-22] MEDS: IPRATROPIUM 0.5 MG/ALBUTEROL SULFATE 2.5 MG AMPUL.NEB 3 ML INHALATION ×3 (07:21→19:47)
[2025-01-22] MEDS: BUDESONIDE RESPULE NEB 0.5 MG/2 ML AMP INHALATION ×2 (07:22→19:47)
[2025-01-22 07:55] LABS: Hematocrit 34.2 % (37.0-47.0); Hemoglobin 10.0 g/dL (12.0-15.0); Immature Granulocyte Percent A 1.1 % (0-0.5); Lymphocytes Absolute Auto 0.97 K/mm3 (0.9-3.2); Mean Corpuscular HGB Conc 29.2 g/dl (32-36); Mean Corpuscular Hemoglobin 24.2 pg (26-34); Mean Corpuscular Volume 82.6 fl (80-100); Nucleated Red Blood Cells Absolute Auto 0.000 K/mm3 (0.0-0.012); Nucleated Red Blood Cells Perc 0.0 % (0.0-0.2); Platelet Count Result 182 k/mm3 (150-375); Red Blood Count 4.14 M/mm3 (4.2-5.4); White Blood Count 7.9 K/mm3 (4.5-10.0)
[2025-01-22 08:22] LABS: Alanine Aminotransferase 14 U/L (6-35); Albumin Level 3.9 g/dL (3.5-5.1); Alkaline Phosphatase 79 U/L (38-126); Anion Gap 5 mmol/L (4-12); Aspartate Amino Transferase 27 U/L (14-36); Bilirubin,Total 0.3 mg/dL (0.2-1.3); Blood Urea Nitrogen 9 mg/dL (7-17); Calcium 8.8 mg/dL (8.4-10.2); Carbon Dioxide 32 mmol/L (22-30); Chloride 100 mmol/L (98-107); Estimated Glomerular Filt Rate > 60; Glucose 89 mg/dL (65-110); Potassium 3.7 mmol/L (3.4-5.0); Sodium 137 mmol/L (137-145); Total Protein 6.9 g/dL (6.3-8.2)
[2025-01-22 08:38] LABS: Anisocytosis 1+; Hypochromasia 2+; Schistocytes None Seen
[2025-01-22] MEDS: PANTOPRAZOLE SODIUM IV 40 MG VIAL IV PUSH ×2 (09:23→21:08)
[2025-01-22] MEDS: SERTRALINE HCL 50 MG TABLET 100 MG PO (09:24)
[2025-01-22] MEDS: RANOLAZINE 500 MG TAB.ER.12H BY MOUTH ×2 (09:24→21:09)
--- NOTE | 2025-01-22 14:29 | WPDGIPROGNO ---
Progress Note: A&P Assessment and Plan (1) Acute on chronic anemia: Code(s): D64.9 - Anemia, unspecified Status: Acute Assessment and Plan: responded to blood transfusion and feeling better probably gastritis with erosions again but no overt gib continue with ppi she is high risk to undergo anesthesia, medical therapy and conservative treatment since she is doing better will follow only as needed (2) Gastritis and duodenitis: Code(s): K29.90 - Gastroduodenitis, unspecified, without bleeding Status: Acute (3) History of stomach ulcers: Code(s): Z87.11 - Personal history of peptic ulcer disease Status: Acute (4) Acute and chronic respiratory failure: Code(s): J96.20 - Acute and chronic respiratory failure, unspecified whether with hypoxia or hypercapnia Status: Acute (5) Right lower lobe pneumonia: Qualifiers: Pneumonia type: due to unspecified organism Qualified Code(s): J18.9 - Pneumonia, unspecified organism Code(s): J18.9 - Pneumonia, unspecified organism Status: Acute (6) Severe protein-calorie malnutrition: Code(s): E43 - Unspecified severe protein-calorie malnutrition Status: Acute Subjective Date/time seen: 01/22/25 14:29 Interval history: she is feeling much better today, received blood transfusion no report of gib she is eating Review of Systems Review of Systems: All systems reviewed & are unremarkable except as noted in HPI and below Exam Const: General: comfortable Other: chronically ill appearing, she is very thin and frail HENMT: Face/Nose/Sinus: Normal nares present Eyes: Sclera: sclerae normal Neck: Neck: supple Resp: Auscultation: diminished lung sounds Other: using oxygen GI: GI Palp: Yes Soft to palpation and No Tenderness to palpation present (GI) Auscultation: normal bowel sounds Skin: General skin exam: no rashes or lesions noted Neuro: Speech: normal speech Motor exam (neuro): 5/5 motor strength present throughout Extrem: General: normal to inspection Psych: Mental Status: mental status grossly normal Objective Data Vital Signs Vital Signs: Vital Signs - 24 hr 01/21/25 14:41 01/21/25 14:58 01/21/25 15:58 Temperature 98.2 F 98.8 F 98.9 F Pulse Rate 105 H 93 97 Respiratory Rate 20 19 20 Blood Pressure 115/58 L 118/69 137/57 L Pulse Oximetry 95 96 98 Oxygen Delivery Oxygen Flow Rate 01/21/25 16:00 01/21/25 16:00 01/21/25 16:00 Temperature Pulse Rate 96 95 Respiratory Rate Blood Pressure Pulse Oximetry 98 Oxygen Delivery Nasal Cannula Oxygen Flow Rate 4 01/21/25 16:55 01/21/25 18:00 01/21/25 20:00 Temperature 98.6 F 97.8 F Pulse Rate 99 91 94 Respiratory Rate 22 H 20 Blood Pressure 137/80 129/65 Pulse Oximetry 97 97 Oxygen Delivery Oxygen Flow Rate 01/21/25 20:00 01/21/25 20:00 01/21/25 20:29 Temperature Pulse Rate 92 93 Respiratory Rate 20 Blood Pressure Pulse Oximetry 94 Oxygen Delivery Nasal Cannula Oxygen Flow Rate 4 01/21/25 20:34 01/21/25 20:45 01/21/25 22:00 Temperature Pulse Rate 93 98 Respiratory Rate 20 Blood Pressure Pulse Oximetry 95 Oxygen Delivery Nasal Cannula Oxygen Flow Rate 4 01/22/25 00:00 01/22/25 00:00 01/22/25 00:00 Temperature 97.9 F Pulse Rate 86 81 Respiratory Rate 18 Blood Pressure 107/52 L Pulse Oximetry 97 97 Oxygen Delivery Nasal Cannula Oxygen Flow Rate 4 01/22/25 01:55 01/22/25 03:19 01/22/25 04:00 Temperature Pulse Rate 74 75 Respiratory Rate Blood Pressure Pulse Oximetry 100 Oxygen Delivery Nasal Cannula Oxygen Flow Rate 4 01/22/25 04:00 01/22/25 06:00 01/22/25 07:22 Temperature 97.8 F Pulse Rate 71 75 80 Respiratory Rate 20 18 Blood Pressure 119/60 Pulse Oximetry 100 Oxygen Delivery Oxygen Flow Rate 01/22/25 07:27 01/22/25 07:30 01/22/25 08:00 Temperature 98.3 F Pulse Rate 79 84 Respiratory Rate 18 24 H Blood Pressure 137/94 H Pulse Oximetry 100 100 Oxygen Delivery Nasal Cannula Oxygen Flow Rate 4 01/22/25 08:58 01/22/25 11:42 01/22/25 13:10 Temperature 98.6 F 98.1 F Pulse Rate 89 80 86 Respiratory Rate 14 12 19 Blood Pressure 120/77 131/62 Pulse Oximetry 94 98 Oxygen Delivery Oxygen Flow Rate 01/22/25 13:13 Temperature Pulse Rate 96 Respiratory Rate 18 Blood Pressure Pulse Oximetry Oxygen Delivery Oxygen Flow Rate Intake/Output Intake/Output: Intake & Output 01/19/25 01/20/25 01/21/25 01/22/25 23:59 23:59 23:59 23:59 Intake Total 2955 541 Output Total 550 Balance 2405 541 Meds/Results Medications: Active Medications Generic Name Dose Route Start Last Admin Trade Name Freq PRN Reason Stop Dose Admin Acetaminophen 650 mg 01/21/25 01:48 Acetaminophen 325 Mg Tablet PO Q4H PRN Mild Pain (1-3) or Fever Hydrocodone Bitart/Acetaminophen 1 tab 01/21/25 03:27 01/22/25 05:36 Hydrocodone/Acetaminophen (*Crx) 10-325 Mg Tablet PO 1 tab Q6H PRN Administration Pain Rated 7-10 Albuterol/Ipratropium 3 ml 01/21/25 08:00 01/22/25 13:10 Ipratropium 0.5 Mg/Albuterol Sulfate 2.5 Mg Ampul.Neb 3 Ml INHALATION 3 ml Q6HRT AMBER Administration Budesonide 0.5 mg 01/21/25 20:00 01/22/25 07:22 Budesonide Respule Neb 0.5 Mg/2 Ml Amp INHALATION 0.5 mg Q12HRT AMBER Administration Cyclobenzaprine HCl 5 mg 01/21/25 14:02 Cyclobenzaprine Hcl 5 Mg Tablet PO TID PRN Muscle Spasm Duloxetine HCl 30 mg 01/21/25 14:15 01/22/25 09:24 Duloxetine Hcl 30 Mg Capsule. PO 30 mg QAM AMBER Administration Ceftriaxone Sodium 1 gm/ 50 mls @ 100 mls/hr 01/21/25 22:00 01/21/25 22:13 Sodium Chloride IVPB Infused Q24H AMBER Infusion Azithromycin 500 mg/ Sodium 250 mls @ 250 mls/hr 01/21/25 21:00 01/21/25 22:43 Chloride IVPB 01/25/25 21:59 Infused Q24H AMBER Infusion Isosorbide Mononitrate 0 mg 01/21/25 14:05 Isosorbide Mononitrate 30 Mg Tab.Er.24h BY MOUTH .COMPLEX AMBER Miscellaneous Information 1 each 01/22/25 00:01 Clarify Imdur Dose--Med Rec. States Pt Takes 30 Mg Tab Give 2 Tab For 15 Mg Dose. But M XX 02/21/25 00:00 CLARIFY [facility] Miscellaneous Information 1 each 01/22/25 00:01 Brovana Is Nonform; Can Pt Use From Home? XX 02/21/25 00:00 CLARIFY AMBER Nitroglycerin 0.4 mg 01/21/25 14:05 Nitroglycerin Sl 0.4 Mg Tablet SUBLINGUAL PRN PRN Chest Pain Non-Formulary Medication 2 ml 01/21/25 17:00 Arformoterol [Brovana] INHALATION 02/20/25 16:59 BID AMBER Pantoprazole Sodium 40 mg 01/21/25 09:00 01/22/25 09:23 Pantoprazole Sodium Iv 40 Mg Vial IV PUSH 40 mg Q12HR AMBER Administration Pravastatin Sodium 10 mg 01/21/25 21:00 01/21/25 21:43 Pravastatin Sodium 10 Mg Tablet BY MOUTH 10 mg QHS AMBER Administration Ranolazine 500 mg 01/21/25 21:00 01/22/25 09:24 Ranolazine 500 Mg Tab.Er.12h BY MOUTH 500 mg Q12HR AMBER Administration Sertraline HCl 100 mg 01/21/25 14:15 01/22/25 09:24 Sertraline Hcl 50 Mg Tablet PO 100 mg DAILY AMBER Administration Trazodone HCl 150 mg 01/21/25 14:02 01/21/25 21:46 Trazodone Hcl 50 Mg Tablet PO 150 mg QHS PRN Administration Insomnia Radiology Results: ITS Impressions Chest/Abdomen/Pelvis CT 01/21/25 08:56 IMPRESSION: 1. Right lower lobe bronchopneumonia superimposed on chronic lung disease.Follow-up recommended to assess resolution 2. Probable gastritis. 3. Incidental findings detailed above Labs Labs: Laboratory Results - last 24 hr 01/21/25 01/22/25 07:08 07:41 WBC 7.9 RBC 4.14 L Hgb 10.0 L Hct 34.2 L MCV 82.6 MCH 24.2 L D MCHC 29.2 L RDW 18.5 H Plt Count 182 MPV 10.5 H Immature Gran % (Auto) 1.1 H Neut % (Auto) 77.4 H Lymph % (Auto) 12.3 L Piatt % (Auto) 8.0 Eos % (Auto) 0.8 Baso % (Auto) 0.4 Lymph # (Auto) 0.97 Piatt # (Auto) 0.6 Eos # (Auto) 0.1 Baso # (Auto) 0.0 Abs Immat Gran (auto) 0.09 H Absolute Neuts (auto) 6.1 Absolute Nucleated RBC 0.000 Band Neutrophils % Not Reportable Nucleated RBC % 0.0 Platelet Estimate Adequate Hypochromasia 2+ Anisocytosis 1+ Schistocytes None seen Sodium 137 Potassium 3.7 Chloride 100 Carbon Dioxide 32 H Anion Gap 5 BUN 9 Creatinine 0.45 L Estim Creat Clear Calc Not Reportable Estimated GFR > 60 Glucose 89 Calcium 8.8 Total Bilirubin 0.3 AST 27 ALT 14 Alkaline Phosphatase 79 Total Protein 6.9 Albumin 3.9 Blood Type O Positive Antibody Screen Negative Crossmatch See Detail
--- NOTE | 2025-01-22 15:53 | PC.NURSE ---
On 01/22/25, the student, Dayanna Zamarripa, provided care and completed [facility] documentation on this patient. I have reviewed the student's documentation and agree with the findings.
[2025-01-22] MEDS: AZITHROMYCIN IV 500 MG in SODIUM CHLORIDE 0.9% IV 250 ML IVPB (21:09)
[2025-01-22] MEDS: PRAVASTATIN SODIUM 10 MG TABLET BY MOUTH (21:09)
[2025-01-22] MEDS: cefTRIAXone 1 GM in SODIUM CHLORIDE 0.9% IV 50 ML IVPB (21:10)
[2025-01-23] VITALS (22 sets, daily range): BP systolic 99–142; BP diastolic 57–84; PULSE 60–93; RESP 16–22; TEMP 36.4–36.9; O2SAT 97–100
[2025-01-23] MEDS: IPRATROPIUM 0.5 MG/ALBUTEROL SULFATE 2.5 MG AMPUL.NEB 3 ML INHALATION ×4 (02:21→20:53)
--- NOTE | 2025-01-23 02:21 | PCRCNOTE ---
Pt requested that her 0200 tx be skipped is sleeping. RN notified to call RCS if patient request a tx.
[2025-01-23] MEDS: HYDROcodone/acetaminophen (*CRX) 10-325 MG TABLET 1 TAB PO ×3 (03:08→21:20)
[2025-01-23 04:58] LABS: Hematocrit 34.1 % (37.0-47.0); Hemoglobin 9.7 g/dL (12.0-15.0); Immature Granulocyte Percent A 0.9 % (0-0.5); Lymphocytes Absolute Auto 1.32 K/mm3 (0.9-3.2); Mean Corpuscular HGB Conc 28.4 g/dl (32-36); Mean Corpuscular Hemoglobin 24.1 pg (26-34); Mean Corpuscular Volume 84.8 fl (80-100); Nucleated Red Blood Cells Absolute Auto 0.000 K/mm3 (0.0-0.012); Nucleated Red Blood Cells Perc 0.0 % (0.0-0.2); Platelet Count Result 154 k/mm3 (150-375); Red Blood Count 4.02 M/mm3 (4.2-5.4); White Blood Count 5.5 K/mm3 (4.5-10.0)
[2025-01-23 05:11] LABS: Alanine Aminotransferase 12 U/L (6-35); Albumin Level 3.5 g/dL (3.5-5.1); Alkaline Phosphatase 63 U/L (38-126); Anion Gap 5 mmol/L (4-12); Aspartate Amino Transferase 26 U/L (14-36); Bilirubin,Total 0.3 mg/dL (0.2-1.3); Blood Urea Nitrogen 9 mg/dL (7-17); Calcium 8.7 mg/dL (8.4-10.2); Carbon Dioxide 27 mmol/L (22-30); Chloride 105 mmol/L (98-107); Estimated Glomerular Filt Rate > 60; Glucose 86 mg/dL (65-110); Potassium 4.3 mmol/L (3.4-5.0); Sodium 137 mmol/L (137-145); Total Protein 6.1 g/dL (6.3-8.2)
[2025-01-23 05:22] LABS: Anisocytosis 1+; Hypochromasia 1+; Schistocytes Rare
[2025-01-23] MEDS: BUDESONIDE RESPULE NEB 0.5 MG/2 ML AMP INHALATION ×2 (08:04→20:53)
[2025-01-23] MEDS: PANTOPRAZOLE SODIUM IV 40 MG VIAL IV PUSH ×2 (09:00→21:20)
[2025-01-23] MEDS: RANOLAZINE 500 MG TAB.ER.12H BY MOUTH ×2 (09:00→21:21)
[2025-01-23] MEDS: SERTRALINE HCL 50 MG TABLET 100 MG PO (09:01)
--- NOTE | 2025-01-23 10:18 | P.PNIM_ITS ---
Progress Note: A&P Assessment and Plan (1) Acute on chronic anemia: Code(s): D64.9 - Anemia, unspecified Status: Acute Assessment and Plan: * Hgb 6.9 - received 1 unit PRBC * Iron 34, TIBC 449, ferritin 7.17, * Pending B12, folic acid, and TSH * transfuse if <7 * trend H&H * GI consult * No overt evidence of GI bleed * Recommend medical treatment given advanced COPD/risk of aspiration * Continue PPI and monitor for obvious signs of GI bleed * Continue Protonix IV q.12 hours (2) Iron deficiency anemia: Qualifiers: Iron deficiency anemia type: chronic blood loss Qualified Code(s): D50.0 - Iron deficiency anemia secondary to blood loss (chronic) Code(s): D50.9 - Iron deficiency anemia, unspecified Status: Acute Assessment and Plan: * See above (3) Right lower lobe pneumonia: Qualifiers: Pneumonia type: due to unspecified organism Qualified Code(s): J18.9 - Pneumonia, unspecified organism Code(s): J18.9 - Pneumonia, unspecified organism Status: Acute Assessment and Plan: * Chest/Abd/Pelvis CT: Right lower lobe bronchopneumonia superimposed on chronic lung disease.Follow-up recommended to assess resolution * started on CAP tx: azithromycin & ceftriaxone * Viral PCR: negative for Flu/COVID/RSV * Consider ordering legionella, mycoplasma and pneumococcal * no supplemental O2 requirement * supportive treatment * trend labs * Monitor vital signs, I&Os, neuro status and patient is a fall risk * Follow WBC, serum electrolytes, temperature curves and cultures * Send sputum cultures * Gentle IV fluid resuscitation * Continue IV antibiotics with transition to oral prior to discharge - Levofloxacin (4) Acute and chronic respiratory failure with hypoxia: Code(s): J96.21 - Acute and chronic respiratory failure with hypoxia Status: Acute Assessment and Plan: * SpO2: 100% on 5L NC * Suspected cause: Underlying pneumonia in setting of chronic COPD * EKG: NSR * Chest/abd/pelvis CTA: Right lower lobe bronchopneumonia superimposed on chronic lung disease.Follow-up recommended to assess resolution * Scheduled nebulizer treatments * Empiric antibiotic coverage - Rocephin and Azithromycin (5) Angina at rest: Code(s): I20.89 - Other forms of angina pectoris Status: Acute Assessment and Plan: * Monitor vital signs, I&Os, chest pain, shortness of breath and patient is a fall risk * Monitor PTT, serial troponins, Serum electrolytes, and cbc * Keep serum potassium >4 and keep magnesium >2 * Initial EKG in the ER did not demonstrate evidence of overt ischemia * Serial troponin negative * Presents with back between shoulder blades, radiates down arm/up to jaw, relieve with Nitro * Cardiology consulted, appreciate assistance and recommendations * Monitor for bloody bowel movements, chest pain, SOB or dizziness/lightheadedness * Diet: Heart healthy (6) CAD (coronary artery disease): Qualifiers: Associated angina: with unspecified form of angina Coronary Disease- Associated Artery/Lesion type: [place] artery [place] vs. transplanted heart: [place] heart Qualified Code(s): I25.119 - Atherosclerotic heart disease of [place] coronary artery with unspecified angina pectoris Code(s): I25.10 - Atherosclerotic heart disease of [place] coronary artery without angina pectoris Status: Acute Assessment and Plan: * Continue statin * Antiplatelets on hold in case of GI bleed (7) Severe protein-calorie malnutrition: Code(s): E43 - Unspecified severe protein-calorie malnutrition Status: Acute Subjective Date/time seen: 01/23/25 10:18 Interval history: 79-year-old female with a past medical history of chronic hypoxic respiratory failure due to COPD on 4 L home O2 at all times, multiple gastric ulcers 2022, multi-vessel coronary artery disease with 6 cardiac stents 2022, fibromyalgia with chronic pain who presented to the ER from home after outpatient labs demonstrated low hemoglobin. 01/23/2025 Patient sitting comfortable in bed at time of examination. Reports continued improvement in symptoms. Remains afebrile without leukocytosis, on baseline O2 supplementation. Complaining of some constipation, will give Miralax and Dolculax. Will look to discharge tomorrow. Review of Systems Review of Systems: 12 systems were reviewed with pertinent positives and negatives per HPI. Except as documented in the HPI, all other systems were reviewed and are negative. Exam Narrative: Weight 39.7 kg Const: Other: Frail, elderly, appears older than stated age, chronically ill-appearing HENMT: Other: Mucous membranes are tacky, no oral pharyngeal erythema, conjunctival pallor, edentulous Eyes: Other: Bilateral lens implants noted, no scleral icterus, marked pallor Neck: Other: No JVD, loss of cervical lordosis Resp: Other: Labored respirations, coarse breath sounds bilateral lower lobes right greater than left, speaking in 3-4 word sentences Cardio: Rate: tachycardic Other: regular rhythm, 2+ bilateral radial pedal pulses GI: Other: Distended, nontender, hyperactive bowel sounds Back/Spine/Pelvis: Other: Knocked thoracic kyphosis Skin: Other: Generalized pallor, non jaundice, cool to touch, cap refill 3-4 seconds Neuro: Other: Alert orient x4, speech is clear, no facial asymmetry, no localizing neurologic deficits noted during the course of conversation Extrem: Other: No cyanosis, no edema, moves all extremities equally Psych: Other: Appropriate mood and affect, pleasant and cooperative, judgment and insight intact Objective Data Vital Signs Vital Signs: Vital Signs - 24 hr 01/22/25 11:42 01/22/25 12:00 01/22/25 12:00 Temperature 98.1 F Pulse Rate 80 96 Respiratory Rate 12 Blood Pressure 131/62 Pulse Oximetry 98 95 Oxygen Delivery Nasal Cannula Oxygen Flow Rate 4 01/22/25 13:10 01/22/25 13:13 01/22/25 14:00 Temperature Pulse Rate 86 96 93 Respiratory Rate 19 18 Blood Pressure Pulse Oximetry Oxygen Delivery Oxygen Flow Rate 01/22/25 15:54 01/22/25 16:00 01/22/25 16:00 Temperature 98.5 F Pulse Rate 94 83 Respiratory Rate 16 Blood Pressure 132/81 Pulse Oximetry 95 95 Oxygen Delivery Nasal Cannula Oxygen Flow Rate 4 01/22/25 18:00 01/22/25 19:47 01/22/25 19:52 Temperature Pulse Rate 83 86 86 Respiratory Rate 18 18 Blood Pressure Pulse Oximetry Oxygen Delivery Oxygen Flow Rate 01/22/25 20:00 01/22/25 20:00 01/22/25 20:00 Temperature 98.4 F Pulse Rate 83 85 Respiratory Rate 16 Blood Pressure 139/69 Pulse Oximetry 100 99 Oxygen Delivery Nasal Cannula Oxygen Flow Rate 4 01/22/25 22:00 01/22/25 23:41 01/23/25 00:00 Temperature Pulse Rate 81 72 Respiratory Rate Blood Pressure Pulse Oximetry 100 Oxygen Delivery Nasal Cannula Oxygen Flow Rate 4 01/23/25 00:00 01/23/25 02:00 01/23/25 03:12 Temperature 97.6 F Pulse Rate 77 70 Respiratory Rate 16 Blood Pressure 111/60 Pulse Oximetry 100 100 Oxygen Delivery Nasal Cannula Oxygen Flow Rate 4 01/23/25 04:00 01/23/25 04:00 01/23/25 06:00 Temperature 97.7 F Pulse Rate 72 76 75 Respiratory Rate 18 Blood Pressure 123/79 Pulse Oximetry 99 Oxygen Delivery Oxygen Flow Rate 01/23/25 07:58 01/23/25 08:00 01/23/25 08:00 Temperature 97.5 F L Pulse Rate 75 87 Respiratory Rate 18 18 Blood Pressure 142/84 H Pulse Oximetry 100 97 Oxygen Delivery Nasal Cannula Oxygen Flow Rate 4 01/23/25 08:15 Temperature Pulse Rate 89 Respiratory Rate 18 Blood Pressure Pulse Oximetry Oxygen Delivery Oxygen Flow Rate Intake/Output Intake/Output: Intake & Output 01/20/25 01/21/25 01/22/25 01/23/25 23:59 23:59 23:59 23:59 Intake Total 2955 1971 710 Output Total 550 1300 250 Balance 2405 671 460 Meds/Results Medications: Active Medications Generic Name Dose Route Start Last Admin Trade Name Freq PRN Reason Stop Dose Admin Acetaminophen 650 mg 01/21/25 01:48 Acetaminophen 325 Mg Tablet PO Q4H PRN Mild Pain (1-3) or Fever Hydrocodone Bitart/Acetaminophen 1 tab 01/21/25 03:27 01/23/25 09:01 Hydrocodone/Acetaminophen (*Crx) 10-325 Mg Tablet PO 1 tab Q6H PRN Administration Pain Rated 7-10 Albuterol/Ipratropium 3 ml 01/21/25 08:00 01/23/25 07:59 Ipratropium 0.5 Mg/Albuterol Sulfate 2.5 Mg Ampul.Neb 3 Ml INHALATION 3 ml Q6HRT AMBER Administration Bisacodyl 5 mg 01/24/25 09:00 Bisacodyl 5 Mg Tablet Ec PO QAM AMBER Budesonide 0.5 mg 01/21/25 20:00 01/23/25 08:04 Budesonide Respule Neb 0.5 Mg/2 Ml Amp INHALATION 0.5 mg Q12HRT AMBER Administration Cyclobenzaprine HCl 5 mg 01/21/25 14:02 Cyclobenzaprine Hcl 5 Mg Tablet PO TID PRN Muscle Spasm Duloxetine HCl 30 mg 01/21/25 14:15 01/23/25 09:01 Duloxetine Hcl 30 Mg Capsule.Dr PO 30 mg QAM AMBER Administration Ceftriaxone Sodium 1 gm/ 50 mls @ 100 mls/hr 01/21/25 22:00 01/22/25 21:10 Sodium Chloride IVPB 1 mls/hr Q24H AMBER Administration Azithromycin 500 mg/ Sodium 250 mls @ 250 mls/hr 01/21/25 21:00 01/22/25 22:09 Chloride IVPB 01/25/25 21:59 Infused Q24H AMBER Infusion Isosorbide Mononitrate 15 mg 01/24/25 09:00 Isosorbide Mononitrate 15 Mg Tab.Er.24h PO QAM [facility] Miscellaneous Information 1 each 01/22/25 00:01 Brovana Is Nonform; Can Pt Use From Home? XX 02/21/25 00:00 CLARIFY AMBER Nitroglycerin 0.4 mg 01/21/25 14:05 Nitroglycerin Sl 0.4 Mg Tablet SUBLINGUAL PRN PRN Chest Pain Non-Formulary Medication 2 ml 01/21/25 17:00 Arformoterol [Brovana] INHALATION 02/20/25 16:59 BID AMBER Pantoprazole Sodium 40 mg 01/21/25 09:00 01/23/25 09:00 Pantoprazole Sodium Iv 40 Mg Vial IV PUSH 40 mg Q12HR AMBER Administration Polyethylene Glycol 17 gm 01/24/25 09:00 Polyethylene Glycol 3350 17 Gm Powd.Pack PO QAM [facility] Pravastatin Sodium 10 mg 01/21/25 21:00 01/22/25 21:09 Pravastatin Sodium 10 Mg Tablet BY MOUTH 10 mg QHS AMBER Administration Ranolazine 500 mg 01/21/25 21:00 01/23/25 09:00 Ranolazine 500 Mg Tab.Er.12h BY MOUTH 500 mg Q12HR AMBER Administration Sertraline HCl 100 mg 01/21/25 14:15 01/23/25 09:01 Sertraline Hcl 50 Mg Tablet PO 100 mg DAILY AMBER Administration Trazodone HCl 150 mg 01/21/25 14:02 01/22/25 23:11 Trazodone Hcl 50 Mg Tablet PO 150 mg QHS PRN Administration Insomnia Radiology Results: ITS Impressions Chest/Abdomen/Pelvis CT 01/21/25 08:56 IMPRESSION: 1. Right lower lobe bronchopneumonia superimposed on chronic lung disease.Follow-up recommended to assess resolution 2. Probable gastritis. 3. Incidental findings detailed above Labs Labs: Laboratory Results - last 24 hr 01/23/25 04:50 WBC 5.5 RBC 4.02 L Hgb 9.7 L Hct 34.1 L MCV 84.8 MCH 24.1 L MCHC 28.4 L RDW 19.3 H Plt Count 154 MPV 9.6 Immature Gran % (Auto) 0.9 H Neut % (Auto) 61.7 Lymph % (Auto) 24.0 [place] % (Auto) 11.1 H Eos % (Auto) 1.8 Baso % (Auto) 0.5 Lymph # (Auto) 1.32 [place] # (Auto) 0.6 Eos # (Auto) 0.1 Baso # (Auto) 0.0 Abs Immat Gran (auto) 0.05 H Absolute Neuts (auto) 3.4 Absolute Nucleated RBC 0.000 Band Neutrophils % Not Reportable Nucleated RBC % 0.0 Platelet Estimate Adequate Hypochromasia 1+ Anisocytosis 1+ Schistocytes Rare Sodium 137 Potassium 4.3 Chloride 105 Carbon Dioxide 27 Anion Gap 5 BUN 9 Creatinine 0.41 L Estim Creat Clear Calc Not Reportable Estimated GFR > 60 Glucose 86 Calcium 8.7 Total Bilirubin 0.3 AST 26 ALT 12 Alkaline Phosphatase 63 Total Protein 6.1 L Albumin 3.5 Quality VTE Prophylaxis VTE prophylaxis: mechanical ordered (SCDs)
[2025-01-23] MEDS: BISACODYL 5 MG TABLET EC PO (10:32)
[2025-01-23] MEDS: ISOSORBIDE MONONITRATE 15 MG TAB.ER.24H PO (10:32)
[2025-01-23] MEDS: AZITHROMYCIN IV 500 MG in SODIUM CHLORIDE 0.9% IV 250 ML IVPB (21:21)
[2025-01-23] MEDS: PRAVASTATIN SODIUM 10 MG TABLET BY MOUTH (21:21)
[2025-01-23] MEDS: cefTRIAXone 1 GM in SODIUM CHLORIDE 0.9% IV 50 ML IVPB (21:21)
[2025-01-24] VITALS (14 sets, daily range): BP systolic 130–146; BP diastolic 68–79; PULSE 68–92; RESP 16–22; TEMP 36.3–36.9; O2SAT 98–100
[2025-01-24] MEDS: IPRATROPIUM 0.5 MG/ALBUTEROL SULFATE 2.5 MG AMPUL.NEB 3 ML INHALATION ×3 (02:21→13:56)
[2025-01-24 04:16] LABS: Hematocrit 33.7 % (37.0-47.0); Hemoglobin 9.6 g/dL (12.0-15.0); Immature Granulocyte Percent A 1.3 % (0-0.5); Lymphocytes Absolute Auto 1.32 K/mm3 (0.9-3.2); Mean Corpuscular HGB Conc 28.5 g/dl (32-36); Mean Corpuscular Hemoglobin 24.1 pg (26-34); Mean Corpuscular Volume 84.5 fl (80-100); Nucleated Red Blood Cells Absolute Auto 0.000 K/mm3 (0.0-0.012); Nucleated Red Blood Cells Perc 0.0 % (0.0-0.2); Platelet Count Result 169 k/mm3 (150-375); Red Blood Count 3.99 M/mm3 (4.2-5.4); White Blood Count 6.4 K/mm3 (4.5-10.0)
[2025-01-24 04:34] LABS: Alanine Aminotransferase 11 U/L (6-35); Albumin Level 3.5 g/dL (3.5-5.1); Alkaline Phosphatase 62 U/L (38-126); Anion Gap 3 mmol/L (4-12); Aspartate Amino Transferase 23 U/L (14-36); Bilirubin,Total 0.3 mg/dL (0.2-1.3); Blood Urea Nitrogen 12 mg/dL (7-17); Calcium 8.6 mg/dL (8.4-10.2); Carbon Dioxide 33 mmol/L (22-30); Chloride 103 mmol/L (98-107); Estimated Glomerular Filt Rate > 60; Glucose 82 mg/dL (65-110); Potassium 4.3 mmol/L (3.4-5.0); Sodium 139 mmol/L (137-145); Total Protein 6.3 g/dL (6.3-8.2)
[2025-01-24 04:58] LABS: Anisocytosis 1+; Hypochromasia 2+; Schistocytes None Seen
[2025-01-24] MEDS: HYDROcodone/acetaminophen (*CRX) 10-325 MG TABLET 1 TAB PO (07:21)
[2025-01-24] MEDS: BUDESONIDE RESPULE NEB 0.5 MG/2 ML AMP INHALATION (08:35)
[2025-01-24] MEDS: SERTRALINE HCL 50 MG TABLET 100 MG PO (09:16)
[2025-01-24] MEDS: RANOLAZINE 500 MG TAB.ER.12H BY MOUTH (09:16)
[2025-01-24] MEDS: ISOSORBIDE MONONITRATE 15 MG TAB.ER.24H PO (09:16)
[2025-01-24] MEDS: BISACODYL 5 MG TABLET EC PO (09:16)
[2025-01-24] MEDS: PANTOPRAZOLE SODIUM IV 40 MG VIAL IV PUSH (09:17)
[2025-01-24] MEDS: CYCLOBENZAPRINE HCL 5 MG TABLET PO (09:21)
--- NOTE | 2025-01-24 14:20 | P.DS_ITS ---
DS: Admitting Diagnosis Discharge Date 01/24/2025 Admitting Diagnosis Pneumonia, anemia DS: Discharge Diagnosis Discharge Diagnosis (1) Acute on chronic anemia: Code(s): D64.9 - Anemia, unspecified Status: Acute Assessment and Plan: * Hgb 6.9 - received 1 unit PRBC * Iron 34, TIBC 449, ferritin 7.17, * Pending B12, folic acid, and TSH * transfuse if <7 * trend H&H * GI consult * No overt evidence of GI bleed * Recommend medical treatment given advanced COPD/risk of aspiration * Continue PPI and monitor for obvious signs of GI bleed * Continue Protonix IV q.12 hours (2) Iron deficiency anemia: Qualifiers: Iron deficiency anemia type: chronic blood loss Qualified Code(s): D50.0 - Iron deficiency anemia secondary to blood loss (chronic) Code(s): D50.9 - Iron deficiency anemia, unspecified Status: Acute Assessment and Plan: * See above (3) Right lower lobe pneumonia: Qualifiers: Pneumonia type: due to unspecified organism Qualified Code(s): J18.9 - Pneumonia, unspecified organism Code(s): J18.9 - Pneumonia, unspecified organism Status: Acute Assessment and Plan: * Chest/Abd/Pelvis CT: 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.Follow-up recommended to assess resolution * started on CAP tx: azithromycin & ceftriaxone * Viral PCR: negative for Flu/COVID/RSV * Consider ordering legionella, mycoplasma and pneumococcal * no supplemental O2 requirement * supportive treatment * trend labs * Monitor vital signs, I&Os, neuro status and patient is a fall risk * Follow WBC, serum electrolytes, temperature curves and cultures * Send sputum cultures * Gentle IV fluid resuscitation * Continue IV antibiotics with transition to oral prior to discharge - Levofloxacin (4) Acute and chronic respiratory failure with hypoxia: Code(s): J96.21 - Acute and chronic respiratory failure with hypoxia Status: Acute Assessment and Plan: * SpO2: 100% on 5L NC * Suspected cause: Underlying pneumonia in setting of chronic COPD * EKG: NSR * Chest/abd/pelvis CTA: Right lower lobe bronchopneumonia superimposed on chronic lung disease.Follow-up recommended to assess resolution * Scheduled nebulizer treatments * Empiric antibiotic coverage - Rocephin and Azithromycin (5) Angina at rest: Code(s): I20.89 - Other forms of angina pectoris Status: Acute Assessment and Plan: * Monitor vital signs, I&Os, chest pain, shortness of breath and patient is a fall risk * Monitor PTT, serial troponins, Serum electrolytes, and cbc * Keep serum potassium >4 and keep magnesium >2 * Initial EKG in the ER did not demonstrate evidence of overt ischemia * Serial troponin negative * Presents with back between shoulder blades, radiates down arm/up to jaw, relieve with Nitro * Cardiology consulted, appreciate assistance and recommendations * Monitor for bloody bowel movements, chest pain, SOB or dizziness/lightheadedness * Diet: Heart healthy (6) CAD (coronary artery disease): Qualifiers: Associated angina: with unspecified form of angina Coronary Disease- Associated Artery/Lesion type: [place] artery [place] vs. transplanted heart: [place] heart Qualified Code(s): I25.119 - Atherosclerotic heart disease of [place] coronary artery with unspecified angina pectoris Code(s): I25.10 - Atherosclerotic heart disease of [place] coronary artery without angina pectoris Status: Acute Assessment and Plan: * Continue statin * Antiplatelets on hold in case of GI bleed (7) Severe protein-calorie malnutrition: Code(s): E43 - Unspecified severe protein-calorie malnutrition Status: Acute DS: Summary Hospital Course Reason for hospitalization: Shortness of breath Hospital Course: Per HPI: 79-year-old female with a past medical history of chronic hypoxic respiratory failure due to COPD on 4 L home O2 at all times, multiple gastric ulcers 2022, multi-vessel coronary artery disease with 6 cardiac stents 2022, fibromyalgia with chronic pain who presented to the ER from home after outpatient labs demonstrated low hemoglobin. She reported that after she returned home from err appointment she was called because she had a critically low hemoglobin and was directed to come to the ER. She denies having any recent melena or hematochezia but she has not had a bowel movement in at least a week. She does admit that she has been having nausea and frequent belching after she eats. She denies any hematuria. She has been having wear pads because functionally she cannot get to the bathroom due to her dyspnea. She is dyspneic at rest and takes maximum effort to do minimal activity. She reports that over the last 4-5 weeks she has also noticed increased pain between her shoulder blades that radiates down the back of her arms with any activity. She has also noticed some associated pain that will start in her gums and radiate up into her head that occurs with the chest pain. The pain is unrelieved despite her home [place] but is relieved when she takes sublingual nitroglycerin. The episodes of pain have been escalating in frequency over the last couple of weeks. She reports that she also has chronic orthopnea. She denies any lower extremity swelling. She states that her abdomen feels tight and distended. She denies any abdominal pain. She has had progressive weight loss. She has overall poor appetite. She reports that she has a chronic cough she states that after she uses her nebulizer treatments in the morning she can sometimes produce a lot of sputum in at other times she has difficulty with sputum production. She has not noticed a change in color or appearance of her sputum recently. She denies any fevers but is frequently chilled at baseline. She reports that she has sensation of incomplete bladder emptying which has been increasing in recent weeks. She denies any dysuria or or hematuria. Hospital Course: Cardiology was consulted on 01/21 for acute on chronic anemia and CAD. Troponins were negative within EKG that was unremarkable. Cardiology agrees with no further cardiac workup being necessary at this time and signed off. GI consulted regarding acute on chronic anemia. Patient presents with no overt GI bleed and has known small gastric ulcers. Patient is a high risk for anesthesia with advanced COPD, pneumonia and cachectic. GI recommends treating medically and continuing with PPI daily and monitoring for obvious signs of GI bleed, with no scopes unless obvious bleeding. Patient remained hospitalized for pneumonia. Patient has underlying COPD and uses oxygen supplementation 4 L at baseline. She was eventually weaned down to 4 L and was able to have full conversations without any dyspnea. Throughout hospitalization, she did not have any document fevers or leukocytosis. Chest x-ray on 01/24 showed early pneumonia, however this is likely unchanged from previous imaging as she had documented pneumonia on CT scan upon admission. On physical exam on 01/24, patient did not have any adventitious lung sounds on auscultation and endorsed significant improvement of symptoms. Patient otherwise hemodynamically stable, with stable vital signs and blood work, for discharge at this time. Patient is amenable to this plan and would prefer not to have consideration for correction facility placement as she prefers to be discharged home. She states her is able to help her out at home and has no other desire for physical therapy at this point. Plan for discharge at this time. Status at Discharge Functional status at discharge: uses cane/walker Overall status at discharge: patient is progressing back to baseline Time Spent with Patient Time attestation: Total time spent providing and/or coordinating discharge services: 32 Exam Narrative: Weight 39.7 kg Const: Other: Frail, elderly, appears older than stated age, chronically ill-appearing HENMT: Other: Mucous membranes are moist, no oral pharyngeal erythema, conjunctival pallor, edentulous Eyes: Other: Bilateral lens implants noted, no scleral icterus, marked pallor Neck: Other: No JVD, loss of cervical lordosis Resp: Effort & Inspection: normal respiratory effort Auscultation: clear to auscultation bilaterally, crackles, rales, rhonchi and wheezes Other: Speaking in full sentences, lungs clear to auscultation. Cardio: Rate: tachycardic Other: regular rhythm, 2+ bilateral radial pedal pulses GI: Other: Flat, nontender, normoactive bowel sounds Back/Spine/Pelvis: Other: Knocked thoracic kyphosis Skin: Other: Generalized pallor, non jaundice, cool to touch, cap refill 3-4 seconds Neuro: Other: Alert orient x4, speech is clear, no facial asymmetry, no localizing neurologic deficits noted during the course of conversation Extrem: Other: No cyanosis, no edema, moves all extremities equally Psych: Other: Appropriate mood and affect, pleasant and cooperative, judgment and insight intact DS: Data Data Completed and Pending Labs on day of discharge: Labs from last 24 hours 01/24/25 01/21/25 04:00 10:52 WBC 6.4 RBC 3.99 L Hgb 9.6 L Hct 33.7 L MCV 84.5 MCH 24.1 L MCHC 28.5 L RDW 19.9 H Plt Count 169 MPV 9.3 Immature Gran % (Auto) 1.3 H Neut % (Auto) 66.7 Lymph % (Auto) 20.8 [place] % (Auto) 9.0 H Eos % (Auto) 1.7 Baso % (Auto) 0.5 Lymph # (Auto) 1.32 [place] # (Auto) 0.6 Eos # (Auto) 0.1 Baso # (Auto) 0.0 Abs Immat Gran (auto) 0.08 H Absolute Neuts (auto) 4.3 Absolute Nucleated RBC 0.000 Band Neutrophils % Not Reportable Nucleated RBC % 0.0 Platelet Estimate Adequate Hypochromasia 2+ Anisocytosis 1+ Schistocytes None seen Sodium 139 Potassium 4.3 Chloride 103 Carbon Dioxide 33 H Anion Gap 3 L BUN 12 Creatinine 0.55 L Estim Creat Clear Calc Not Reportable Estimated GFR > 60 Glucose 82 Calcium 8.6 Total Bilirubin 0.3 AST 23 ALT 11 Alkaline Phosphatase 62 Total Protein 6.3 Albumin 3.5 Urine Pneumococcal Ag Cancelled Discharge Plan Discharge Attending physician on discharge: Rosa Powers Consulting providers: Meek García; Kevin Conde Discharging Clinician: Meek García Anticipated Discharge Date/Time: 01/24/25 14:15 Patient Disposition: Home Activity: no straining Diet: regular Discharge Instructions: Discharge disposition: Home Take medications as prescribed. You'll be prescribed 2 doses of Augmentin to be taken once in the morning tomorrow and once at night tomorrow night. You'll also be prescribed a does of one pill of Azithromycin to take tomorrow. Monitor blood pressures Take caution while standing, rising, or moving Change positions slowly taking a break between each position change If you standing feel dizzy sit back down and take a break Encouraged to continue with yearly vaccinations Return to the emergency department if he developed sudden shortness of breath, chest pain, nausea, vomiting, upset stomach or intractable diarrhea Return to the emergency department if you develop fever greater than 101.5 Follow-up with the primary care physician within 1-2 weeks Thank you for choosing [facility] for your healthcare needs Patient Instructions: Antibiotic Form, Clopidogrel (By mouth) Patient Language: Japanese Stand Alone Forms: General Discharge Information Follow-up/Referrals: Sina Ramirez DO [Primary Care Provider, Internal Medicine] Discharge Medications: New amoxicillin-pot clavulanate 875-125 mg tablet 1 tablet PO Q12H 1 Days Qty: 2 0RF azithromycin 500 mg tablet 500 mg PO DAILY Qty: 1 0RF Continued cyclobenzaprine 5 mg tablet 5 mg PO TID PRN (Reason: muscle spasm) Qty: 90 1RF aspirin 81 mg tablet,delayed release (DR/EC) 81 mg PO BID albuterol sulfate 2.5 mg /3 mL (0.083 %) solution for nebulization 2.5 mg inhalation Q6H PRN (Reason: shortness of breath or wheezing) 90 Days Qty: 180 2RF budesonide 0.5 mg/2 mL suspension for nebulization 0.5 mg inhalation BID Qty: 120 5RF Rx Instructions: Use 1 vial by nebulizer (2mL) twice daily - morning and night. arformoterol [Brovana] 15 mcg/2 mL solution for nebulization 2 ml inhalation BID Qty: 120 5RF Rx Instructions: Use 1 vial by nebulizer (2mL) twice daily - morning and night. isosorbide mononitrate 30 mg tablet extended release 24 hr See Rx Instructions .ROUTE .COMPLEX Qty: 30 5RF Dose Instruction: Take 1/2 (one-half) tablet by mouth once daily Rx Instructions: Take 1/2 (one-half) tablet by mouth once daily clopidogrel 75 mg tablet See Rx Instructions .ROUTE .COMPLEX Qty: 90 2RF Dose Instruction: Take 1 tablet by mouth once daily Rx Instructions: Take 1 tablet by mouth once daily nitroglycerin 0.4 mg tablet, sublingual See Rx Instructions .ROUTE .COMPLEX Qty: 25 5RF Dose Instruction: DISSOLVE ONE TABLET UNDER THE TONGUE EVERY 5 MINUTES NEEDED FOR CHEST PAIN. DO NOT EXCEED A TOTAL OF 3 DOSES IN 15 MINUTES Rx Instructions: DISSOLVE ONE TABLET UNDER THE TONGUE EVERY 5 MINUTES NEEDED FOR CHEST PAIN. DO NOT EXCEED A TOTAL OF 3 DOSES IN 15 MINUTES trazodone 150 mg tablet 150 mg PO QHS PRN (Reason: insomnia) Qty: 90 1RF ranolazine 500 mg tablet extended release 12 hr See Rx Instructions .ROUTE .COMPLEX Qty: 60 5RF Dose Instruction: Take 1 tablet by mouth twice daily Rx Instructions: Take 1 tablet by mouth twice daily pravastatin 10 mg tablet See Rx Instructions .ROUTE .COMPLEX Qty: 90 2RF Dose Instruction: Take 1 tablet by mouth once daily Rx Instructions: Take 1 tablet by mouth once daily duloxetine 30 mg capsule,delayed release(DR/EC) 30 mg PO QAM Qty: 90 0RF Rx Instructions: NEEDS APPOINTMENT FOR FURTHER REFILLS sertraline 100 mg tablet 100 mg PO DAILY Qty: 90 0RF Rx Instructions: NEEDS APPOINTMENT FOR FURTHER REFILLS hydrocodone-acetaminophen 10-325 mg tablet See Rx Instructions PO DAILY PRN (Reason: pain) Qty: 45 0RF Rx Instructions: orally daily PRN; Discontinued albuterol sulfate [ProAir HFA] 90 mcg/actuation HFA aerosol inhaler 1 - 2 puff INHALATION Q4-6H PRN (Reason: Shortness Of Breath) Qty: 8.5 3RF Date of admission: 01/21/25 01:48 Primary Care Provider: Sina Ramirez Admitting Provider: Brittnee Cruz Attending physician on admission: Brittnee Cruz Condition: Stable Quality VTE Prophylaxis VTE prophylaxis: mechanical ordered (SCDs)
== END 2025-01-24 14:54 | disposition home or self-care (01) | DRG 811 ==
LOC: ANHED 01-21 02:13 → ANHIMU 01-21 08:49 → ANH3MEDSUR 01-26 13:10
PROVIDERS: Emergency Medicine; Admitting Provider Internal Medicine; Emergency Provider Student in an Organized Health Care Education/Training Program; PCP Internal Medicine; Visit Provider Physician Assistant
DX: D50.9 Iron deficiency anemia, unspecified (principal); E43 Unspecified severe protein-calorie malnutrition; J18.9 Pneumonia, unspecified organism; J96.21 Acute and chronic respiratory failure with hypoxia; J44.0 Chronic obstructive pulmonary disease with (acute) lower respiratory infection; Z68.1 Body mass index [BMI] 19.9 or less, adult; I25.119 Atherosclerotic heart disease of native coronary artery with unspecified angina pectoris; E78.5 Hyperlipidemia, unspecified; M79.7 Fibromyalgia; F41.9 Anxiety disorder, unspecified; F32.A Depression, unspecified; Z79.02 Long term (current) use of antithrombotics/antiplatelets; Z79.82 Long term (current) use of aspirin; Z99.81 Dependence on supplemental oxygen; Z87.11 Personal history of peptic ulcer disease; Z95.5 Presence of coronary angioplasty implant and graft; Z87.891 Personal history of nicotine dependence
CPT/HCPCS: 36415; 36430; 71045; 71260; 74177; 80048; 80053; 82607; 82728; 82746; 83540; 83550; 84443; 84484; 85025; 85027; 85610; 85730; 86850; 86900; 86901; 86923; 87449; 87899; 93005; 94640; 96365; 96375; 99291; A9270; J0456; J0696; J1756; J2470; J7050; P9016; Q9967

== ENCOUNTER 2025-02-14 15:56 | Inpatient (IN) | payer MEDICARE, SELFPAY ==
[2025-02-14] VITALS (35 sets, daily range): BP systolic 100–182; BP diastolic 60–158; PULSE 92–123; RESP 13–38; TEMP 36.2–36.5; O2SAT 87–100; BMI 17.9
--- NOTE | ~2025-02-14 | XR_ITS ---
EXAMINATION: XR knee LT 3V DATE: 02/14/2025 16:39 INDICATION: Left knee pain post fall TECHNIQUE: Anteroposterior, sunrise and crosstable lateral views of the left knee were obtained COMPARISON: None. FINDINGS: Alignment is normal. No fracture. Mild joint space narrowing the medial compartment consistent with at least mild osteoarthritis although severity could be underestimated on nonweightbearing imaging. Small left knee joint effusion without layering lipohemarthrosis. Atherosclerotic calcification along the arteries posteriorly along the distal thigh and proximal calf. Soft tissues are otherwise unremarkable. IMPRESSION: 1. Mild osteoarthritis in the medial compartment of the left knee with nonspecific small knee joint effusion. No acute osseous abnormality. Reviewed, dictated and finalized at location A. IMPRESSION: 1. Mild osteoarthritis in the medial compartment of the left knee with nonspeci fic small knee joint effusion. No acute osseous abnormality.
--- NOTE | ~2025-02-14 | XR_ITS ---
XR chest 1V portable 02/14/2025 16:38 Indication: Shortness of breath Procedure: AP portable chest Comparison: Comparison to multiple prior studies sequentially, with oldest reviewed study dated 08/23/2022. Findings: Heart size normal. There is a coronary artery stent. There are chronic interstitial infiltrates which are not significantly changed. No significant effusion. No pneumothorax. No acute osseous abnormality. Osteopenia. There is levoscoliosis of the thoracic spine. Impression: 1: Stable chronic mild interstitial infiltrates which may represent edema or developing chronic interstitial fibrosis. Reviewed, dictated and finalized at location O. Impression: 1: Stable chronic mild interstitial infiltrates which may represent edema or de veloping chronic interstitial fibrosis.
--- NOTE | ~2025-02-14 | XR_ITS ---
Examination: XR chest 1V portable Clinical History: Respiratory failure Comparison: 02/14/2025 Technique: Portable AP Findings: Cardiomegaly. Chronic hyperinflation and interstitial changes. Right hilar calcifications. No acute bony abnormality. IMPRESSION: 1. No acute cardiopulmonary findings given portable technique. Reviewed, dictated and finalized at location R.
--- NOTE | 2025-02-14 16:01 | ECG_ITS ---
Test Date: 2025-02-14 16:17:37 Measurements Intervals [place] Rate: 116 P: 58 [place]: 152 QRS: -57 QRSD: 89 T: 43 QT: 321 QTc: 446 Interpretive Statements SINUS TACHYCARDIA LEFT ANTERIOR FASCICULAR BLOCK CANNOT R/O SEPTAL INFARCT, AGE INDETERMINATE BASELINE ARTIFACT- I, II, III, AVR, AVL, AVF, V1-V6 ABNORMAL ECG Compared to ECG 01/20/2025 21:31:12 HEART RATE HAS INCREASED Electronically Signed On 02-14-2025 16:36:51 CDT by Kevin Conde D.O.
[2025-02-14 16:20] LABS: Hematocrit 39.6 % (37.0-47.0); Hemoglobin 11.5 g/dL (12.0-15.0); Immature Granulocyte Percent A 0.6 % (0-0.5); Lymphocytes Absolute Auto 0.51 K/mm3 (0.9-3.2); Mean Corpuscular HGB Conc 29.0 g/dl (32-36); Mean Corpuscular Hemoglobin 26.3 pg (26-34); Mean Corpuscular Volume 90.4 fl (80-100); Nucleated Red Blood Cells Absolute Auto 0.000 K/mm3 (0.0-0.012); Nucleated Red Blood Cells Perc 0.0 % (0.0-0.2); Platelet Count Result 237 k/mm3 (150-375); Red Blood Count 4.38 M/mm3 (4.2-5.4); White Blood Count 18.6 K/mm3 (4.5-10.0)
[2025-02-14 16:33] LABS: Alanine Aminotransferase 41 U/L (6-35); Albumin Level 4.9 g/dL (3.5-5.1); Alkaline Phosphatase 81 U/L (38-126); Anion Gap 10 mmol/L (4-12); Aspartate Amino Transferase 45 U/L (14-36); Bilirubin,Total 0.5 mg/dL (0.2-1.3); Blood Urea Nitrogen 23 mg/dL (7-17); Calcium 9.4 mg/dL (8.4-10.2); Carbon Dioxide 33 mmol/L (22-30); Chloride 99 mmol/L (98-107); Estimated Glomerular Filt Rate > 60; Glucose 174 mg/dL (65-110); Potassium 4.4 mmol/L (3.4-5.0); Sodium 142 mmol/L (137-145); Total Protein 8.6 g/dL (6.3-8.2)
[2025-02-14 16:46] LABS: Anisocytosis 2+; Hypochromasia 1+
[2025-02-14 16:47] LABS: Band Neutrophils Percent 0 % (0-6); Schistocytes None Seen
[2025-02-14] MEDS: SODIUM CHLORIDE 0.9% IV 100 ML 999 ML IV CONT (16:57)
[2025-02-14] MEDS: SODIUM CHLORIDE 0.9% IV 1,000 ML 999 ML IV CONT (16:58)
[2025-02-14] MEDS: ALBUTEROL SULFATE NEB 2.5 MG/3 ML INH 10 MG INHALATION (17:09)
[2025-02-14] MEDS: IPRATROPIUM BR 0.02% INH SOLN 0.5 MG/2.5 ML VIAL 1 MG INHALATION (17:09)
[2025-02-14 17:40] LABS: Alveolar/Arterial O2 Gradient 209.3 mmHg; Carboxyhemoglobin 1.0 % THb (0-2.0); Fractional Inspired Oxygen 52 %; HCO3 ABG 21.9 mEq/l (22.0-26.0); Methemoglobin ABG 0.1 %THb (0-1.5); Oxygen Content ABG 14.4 %vol (16.0-22.0); Oxygen Saturation ABG 97.0 % (95.0-100.0); PCO2 ABG 50.3 mmHg (35.0-45.0); PO2 ABG 105.1 mmHg (80.0-100.0); PO2 FiO2 Ratio Arterial Blood 2.02 %; Reduced Hemoglobin 2.5 %THb (0-5.0)
[2025-02-14 17:58] LABS: Liters per Minute 40.0 LPM; Modified Allen's Test Pass; Site Drawn RIGHT RADIAL
--- NOTE | 2025-02-14 18:40 | ED_ITS ---
HPI - SOB/Dyspnea General Chief Complaint: Shortness of Breath/Dyspnea Stated Complaint: SOB Time Seen by Provider: 02/14/25 16:25 History of Present Illness HPI Narrative: Patient is a 79-year-old female with COPD who presents ER with shortness of breath. Acutely worsening today. History of chronic cough from recently admitted for pneumonia. Denies fevers or chills or sweats. No chest pain. She is hypoxic on her home O2 of 4 L. She is satting in the 70s. Patient also reports she came in because she turned yesterday and felt a pop in her knee and it is causing her pain. Related Data Home Medications ?Medication ?Instructions ?Recorded ?Confirmed ?Last Taken ?Type aspirin 81 mg tablet,delayed 81 mg PO BID 10/23/2201/20/25 09:00 History release 81 mg Allergies Allergy/AdvReac Type Severity Reaction Status Date / Time No Known Allergies Allergy Verified 02/14/25 16:07 Review of Systems 2 Review of Systems: All systems reviewed & are unremarkable except as noted in HPI and below Constitutional: Constitutional: Reports no additional constitutional complaints Cardiovascular: Cardiovascular: Reports no additional cardiovascular complaints Respiratory: Respiratory: Reports no additional respiratory complaints Gastrointestinal: Gastrointestinal: Reports no additional gastrointestinal complaints [facility] Past Medical History Medical History (Updated 02/14/25 @ 18:45 by Rj Zafar MD) History of stomach ulcers Chest pain Gastric cardia ulcer (2021) Chronic hypoxic respiratory failure, on home oxygen therapy Chronic obstructive pulmonary disease Depression Hyperlipidemia Trochanteric bursitis, right hip Anxiety Insomnia Fibromyalgia COPD (chronic obstructive pulmonary disease) Surgical History Surgical History (Updated 01/21/25 @ 07:23 by Brittnee Cruz DO) History of esophagogastroduodenoscopy (EGD) (06/2023) H/O heart artery stent X6 stents Hx of cataract surgery (~12/2021) History of hip surgery right hip surgery H/O: hysterectomy Family History Family History Mother Family history of arthritis Family history of cardiovascular disease Father Family history of arthritis Family history of multiple sclerosis Other Family history of congenital heart disease Social History Social History (Updated 01/21/25 @ 07:04 by Brittnee Cruz DO) Social History: She lives with her they have been together since she was approximately 40. The patient had 2 sons with a a . 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 Code status: DNR/DNI per patient request Healthcare power of immigration attorney: Smoking packs per day: 1.5 Smoking cigarettes per day: 30.0 Years smoked: 50 Smoking pack-years: 75.00 Smoking status: Former smoker Tobacco type: cigarettes Second hand tobacco smoke exposure: No Smoking end date: 04/28/13 Alcohol intake: never Alcohol use details: socially, very rare. Substance use: never Substance use type: does not use Lack of Transportation: No Lack of Food: Never True Current Housing: I Have Housing Concerned About Future Housing: No Difficulty Paying Gas/Electric Bills: No Difficulty Paying for Meds: No Currently Unemployed: No Education: Decline to Answer Difficulty w/ Childcare or Family Care: No Living arrangements: with family Additional living arrangements comments: Lives with in [place]. Occupation/Education: retired Gender identity (if verbalized by the patient): Female Spiritual care concerns: No Exam 2 Narrative: GENERAL: Chronically ill-appearing, thin, and in no acute distress. HEAD: Normocephalic, atraumatic. ENT: Mucous membranes moist. NECK: Supple. CHEST: Diffuse rales and wheezing, increased respiratory rate with moderate distress. HEART: Tachycardic and regular. Normal peripheral pulses. ABDOMEN: Soft, nontender, nondistended. EXTREMITIES: Normal range of motion. No edema. SKIN: Warm, dry, no rash. NEURO: Alert and oriented x3. PSYCH: Normal mood and affect. Course Course Emergency Course: Lung sounds improving with nebulizer treatment but respiratory rate increasing. ABG with elevated pCO2 and metabolic acidosis. Will place on BiPAP. Elevated white blood cell count and significant neutrophil predominance. Ceftriaxone and azithromycin provided. Patient is a do not resuscitate per her own words. Also discussed possibility of hospice due to end-stage lung disease. Vital Signs Vital signs: Vital Signs Temperature 97.2 F L 02/14/25 16:02 Pulse Rate 111 H 02/14/25 16:02 Respiratory Rate 28 H 02/14/25 16:02 Blood Pressure 109/71 02/14/25 16:02 Pulse Oximetry 90 02/14/25 16:02 Oxygen Delivery Non-Rebreather Mask 02/14/25 16:02 Oxygen Flow Rate 10 02/14/25 16:02 Temperature 97.2 F L 02/14/25 16:02 Pulse Rate 113 H 02/14/25 16:22 Respiratory Rate 21 H 02/14/25 18:31 Blood Pressure 118/60 02/14/25 16:22 Pulse Oximetry 94 02/14/25 16:43 Oxygen Delivery BiPAP 02/14/25 18:31 Oxygen Flow Rate 30 02/14/25 16:43 Fraction of Inspired Oxygen 45 02/14/25 16:43 MDM - SOB/Dyspnea Lab Data 02/14/25 16:09 02/14/25 16:09 Labs: Lab Results 02/14/25 02/14/25 Range/Units 16:09 17:39 WBC 18.6 H (4.5-10.0) K/mm3 RBC 4.38 (4.2-5.4) M/mm3 Hgb 11.5 L (12.0-15.0) g/dL Hct 39.6 (37.0-47.0) % MCV 90.4 (80-100) fl MCH 26.3 (26-34) pg MCHC 29.0 L (32-36) g/dl RDW 23.5 H (11.5-14.5) % Plt Count 237 (150-375) k/mm3 MPV 9.6 (7.4-10.4) fl Immature Gran % (Auto) 0.6 H (0-0.5) % Neut % (Auto) 90.0 H (45.5-73.1) % Lymph % (Auto) 2.7 L (18.3-44.2) % Kidder % (Auto) 6.4 (2.6-8.5) % Eos % (Auto) 0.1 (0-4.4) % Baso % (Auto) 0.2 (0.2-1.2) % Lymph # (Auto) 0.51 L (0.9-3.2) K/mm3 Kidder # (Auto) 1.2 H (0.1-0.6) K/mm3 Eos # (Auto) 0.0 (0-0.3) K/mm3 Baso # (Auto) 0.0 (0.0-0.1) K/mm3 Abs Immat Gran (auto) 0.12 H (0.00-0.031) K/mm3 Absolute Neuts (auto) 16.7 H (1.3-6.7) K/mm3 Absolute Nucleated RBC 0.000 (0.0-0.012) K/mm3 Band Neutrophils % 0 (0-6) % Nucleated RBC % 0.0 (0.0-0.2) % Platelet Estimate Adequate (Adequate) Hypochromasia 1+ Anisocytosis 2+ Schistocytes None seen Methemoglobin 0.1 (0-1.5) %THb Sodium 142 (137-145) mmol/L Potassium 4.4 (3.4-5.0) mmol/L Chloride 99 (98-107) mmol/L Carbon Dioxide 33 H (22-30) mmol/L Anion Gap 10 (4-12) mmol/L BUN 23 H D (7-17) mg/dL Creatinine 0.64 L (0.7-1.0) mg/dL Estim Creat Clear Calc Not Reportable Estimated GFR > 60 (59 - ) Glucose 174 H (65-110) mg/dL Lactic Acid 3.3 H (0.7-2.0) mmol/L Calcium 9.4 (8.4-10.2) mg/dL Total Bilirubin 0.5 (0.2-1.3) mg/dL AST 45 H (14-36) U/L ALT 41 H (6-35) U/L Alkaline Phosphatase 81 (38-126) U/L Total Protein 8.6 H (6.3-8.2) g/dL Albumin 4.9 (3.5-5.1) g/dL ABG Data ABG results: 02/14/25 17:39 Puncture Site Right radial ABG pH 7.257 L* ABG pCO2 50.3 H ABG pO2 105.1 H ABG PO2/FiO2 Ratio 2.02 ABG HCO3 21.9 L ABG O2 Saturation 97.0 ABG O2 Content 14.4 L ABG Base Excess -5.2 A-a Gradient 209.3 Oxyhemoglobin 96.4 Carboxyhemoglobin 1.0 Reduced Hemoglobin 2.5 Total Hemoglobin 10.5 L O2 Delivery Device High flow nasal [place] O2 Liters/Min 40.0 FiO2 52 Imaging Data Radiologist's impression: ITS Impressions Chest X-Ray 02/14/25 16:39 Impression: 1: Stable chronic mild interstitial infiltrates which may represent edema or developing chronic interstitial fibrosis. Knee X-Ray 02/14/25 16:40 IMPRESSION: 1. Mild osteoarthritis in the medial compartment of the left knee with nonspecific small knee joint effusion. No acute osseous abnormality. Critical Care Time Critical Care Time Critical Care Time: Yes Total Critical Care Time: 35 Discharge Plan Discharge Clinical Impression: COPD exacerbation, Respiratory failure Patient Disposition: Still a Patient Condition: Serious Patient Language: Sinhala Prescriptions: No Action cyclobenzaprine 5 mg tablet 5 mg PO TID PRN (Reason: muscle spasm) Qty: 90 1RF aspirin 81 mg tablet,delayed release (DR/EC) 81 mg PO BID amoxicillin-pot clavulanate 875-125 mg tablet 1 tablet PO Q12H 1 Days Qty: 2 0RF azithromycin 500 mg tablet 500 mg PO DAILY Qty: 1 0RF albuterol sulfate 2.5 mg /3 mL (0.083 %) solution for nebulization 2.5 mg inhalation Q6H PRN (Reason: shortness of breath or wheezing) 90 Days Qty: 180 2RF budesonide 0.5 mg/2 mL suspension for nebulization 0.5 mg inhalation BID Qty: 120 5RF Rx Instructions: Use 1 vial by nebulizer (2mL) twice daily - morning and night. arformoterol [Brovana] 15 mcg/2 mL solution for nebulization 2 ml inhalation BID Qty: 120 5RF Rx Instructions: Use 1 vial by nebulizer (2mL) twice daily - morning and night. isosorbide mononitrate 30 mg tablet extended release 24 hr See Rx Instructions .ROUTE .COMPLEX Qty: 30 5RF Dose Instruction: Take 1/2 (one-half) tablet by mouth once daily Rx Instructions: Take 1/2 (one-half) tablet by mouth once daily clopidogrel 75 mg tablet See Rx Instructions .ROUTE .COMPLEX Qty: 90 2RF Dose Instruction: Take 1 tablet by mouth once daily Rx Instructions: Take 1 tablet by mouth once daily nitroglycerin 0.4 mg tablet, sublingual See Rx Instructions .ROUTE .COMPLEX Qty: 25 5RF Dose Instruction: DISSOLVE ONE TABLET UNDER THE TONGUE EVERY 5 MINUTES NEEDED FOR CHEST PAIN. DO NOT EXCEED A TOTAL OF 3 DOSES IN 15 MINUTES Rx Instructions: DISSOLVE ONE TABLET UNDER THE TONGUE EVERY 5 MINUTES NEEDED FOR CHEST PAIN. DO NOT EXCEED A TOTAL OF 3 DOSES IN 15 MINUTES trazodone 150 mg tablet 150 mg PO QHS PRN (Reason: insomnia) Qty: 90 1RF ranolazine 500 mg tablet extended release 12 hr See Rx Instructions .ROUTE .COMPLEX Qty: 60 5RF Dose Instruction: Take 1 tablet by mouth twice daily Rx Instructions: Take 1 tablet by mouth twice daily pravastatin 10 mg tablet See Rx Instructions .ROUTE .COMPLEX Qty: 90 2RF Dose Instruction: Take 1 tablet by mouth once daily Rx Instructions: Take 1 tablet by mouth once daily duloxetine 30 mg capsule,delayed release(DR/EC) 30 mg PO QAM Qty: 90 0RF Rx Instructions: NEEDS APPOINTMENT FOR FURTHER REFILLS sertraline 100 mg tablet 100 mg PO DAILY Qty: 90 0RF Rx Instructions: NEEDS APPOINTMENT FOR FURTHER REFILLS hydrocodone-acetaminophen 10-325 mg tablet See Rx Instructions PO DAILY PRN (Reason: pain) Qty: 45 0RF Rx Instructions: orally daily PRN; Follow-up/Referrals: Sina Ramirez DO [Primary Care Provider, Internal Medicine]
[2025-02-14] MEDS: cefTRIAXone 1 GM in SODIUM CHLORIDE 0.9% IV 50 ML 100 ML IVPB (19:03)
[2025-02-14] MEDS: AZITHROMYCIN IV 500 MG in SODIUM CHLORIDE 0.9% IV 250 ML IVPB (19:24)
[2025-02-14] MEDS: HYDROcodone/acetaminophen (*CRX) 5-325 MG TABLET 1 TAB PO (19:47)
[2025-02-14] MEDS: IPRATROPIUM 0.5 MG/ALBUTEROL SULFATE 2.5 MG (BASE) AMPUL.NEB 3 ML INHALATION (20:10)
--- NOTE | 2025-02-14 21:46 | ADMGEN ---
This patient, Zandra Jackson, was admitted to IMU Room 207-01. Patient/family oriented to hospital policies and general routines including ID bracelet, bed and alarms, visiting hours, pain management, procedures, bathroom and other care routines, personal items, smoking policy, room service/diet, and visiting hours. Information on how to activate the Rapid Response Team has been discussed. Patient/Family are encouraged to report perceived risks to care and to ask questions if they do not understand what they are told or what they should do.
--- NOTE | 2025-02-14 22:19 | P.HP_ITS ---
H&P: HPI History of Present Illness Date/Time: 02/14/25 22:19 Chief Complaint: Shortness of breath Narrative: 79-year-old female with PMH severe COPD, chronic respiratory failure on 4 L nasal cannula at home, depression and anxiety, chronic pain, fibromyalgia, chronic opioid use, history of heart stent, presents to [facility] on 02/14/2025 complaining of acute on chronic shortness of breath. Patient was recently discharged from this hospital for pneumonia. She reports intermittent cough, nothing new. Denies fever, chest pain, abdominal pain, syncope. The patient was saturating in the 70s, she was placed on BiPAP, she had tachypnea. ER demonstrates WBC 18.6, ABG with pH 7.25, pCO2 50.3, PO2 105.1, bicarb 21.9, serum creatinine 0.64, patient reported she was walking and felt a pop in her left knee. X-ray three view left side shows mild osteoarthritis in the medial compartment with small knee joint effusion, no acute osseous abnormality. Chest x-ray with stable chronic mild interstitial infiltrates. She was given Solu-Medrol 125 mg IV x1, ceftriaxone 1 g IV x1, azithromycin 500 mg IV x1, 1 L normal saline bolus, breathing treatments. Review of Systems Review of Systems: All systems reviewed & are unremarkable except as noted in HPI and below (Subjective) PMFSH Past Medical History Medical History (Updated 02/14/25 @ 18:45 by Rj Zafar MD) History of stomach ulcers Chest pain Gastric cardia ulcer (2021) Chronic hypoxic respiratory failure, on home oxygen therapy Chronic obstructive pulmonary disease Depression Hyperlipidemia Trochanteric bursitis, right hip Anxiety Insomnia Fibromyalgia COPD (chronic obstructive pulmonary disease) Surgical History Surgical History (Updated 01/21/25 @ 07:23 by Brittnee Cruz DO) History of esophagogastroduodenoscopy (EGD) (06/2023) H/O heart artery stent X6 stents Hx of cataract surgery (~12/2021) History of hip surgery right hip surgery H/O: hysterectomy Family History Family History Mother Family history of arthritis Family history of cardiovascular disease Father Family history of arthritis Family history of multiple sclerosis Other Family history of congenital heart disease Social History Social History (Updated 01/21/25 @ 07:04 by Brittnee Cruz DO) Social History: She lives with her they have been together since she was approximately 40. The patient had 2 sons with a a . 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 Code status: DNR/DNI per patient request Healthcare power of civil litigation attorney: Smoking packs per day: 1.5 Smoking cigarettes per day: 30.0 Years smoked: 50 Smoking pack-years: 75.00 Smoking status: Former smoker Tobacco type: cigarettes Second hand tobacco smoke exposure: No Smoking end date: 04/28/13 Alcohol intake: never Alcohol use details: socially, very rare. Substance use: never Substance use type: does not use Lack of Transportation: No Lack of Food: Never True Current Housing: I Have Housing Concerned About Future Housing: No Difficulty Paying Gas/Electric Bills: No Difficulty Paying for Meds: No Currently Unemployed: No Education: Decline to Answer Difficulty w/ Childcare or Family Care: No Living arrangements: with family Additional living arrangements comments: Lives with in [place]. Occupation/Education: retired Gender identity (if verbalized by the patient): Female Spiritual care concerns: No Meds Home Medications and Allergies Home Medications ?Medication ?Instructions ?Recorded ?Confirmed ?Type albuterol sulfate 2.5 mg/3 mL 2.5 mg (3 mL) inhalation Q6H PRN 07/15/22 02/14/25 Rx (0.083 %) solution for nebulization shortness of breat h or wheezing 3 months #180 vials aspirin 81 mg tablet,delayed 81 mg PO BID 10/23/22 History release arformoterol 15 mcg/2 mL solution 2 ml inhalation BID #120 mL 12/25/22 02/14/25 Rx for nebulization (Brovana) budesonide 0.5 mg/2 mL suspension 0.5 mg (2 mL) inhala tion BID #120 12/25/22 02/14/25 Rx for nebulization mL isosorbide mononitrate 30 mg See Rx Instructions .Rout e 04/26/24 02/14/25 Rx tablet,extended release 24 hr .COMPLEX #30 tabs clopidogrel 75 mg tablet See Rx Instructions .Route 0 06/11/24 02/14/25 Rx .COMPLEX #90 tabs nitroglycerin 0.4 mg sublingual See Rx Instructions .R oute 08/18/24 02/14/25 Rx tablet .COMPLEX #25 tabs trazodone 150 mg tablet 150 mg PO QHS PRN insomnia # 90 tabs 09/06/24 02/14/25 Rx ranolazine 500 mg tablet,extended See Rx Instructions .Route 10/04/24 02/14/25 Rx release,12 hr .COMPLEX #60 tabs pravastatin 10 mg tablet See Rx Instructions .Route 0 11/01/24 02/14/25 Rx .COMPLEX #90 tabs duloxetine 30 mg capsule,delayed 30 mg PO QAM #90 ea 0 12/01/24 02/14/25 Rx release sertraline 100 mg tablet 100 mg PO DAILY #90 tabs 10/2002/14/25 Rx cyclobenzaprine 5 mg tablet 5 mg PO TID PRN muscle spa sm #90 01/20/25 02/14/25 Rx tabs amoxicillin 875 mg-potassium 1 tablet PO Q12H 1 day #2 tabs 01/24/25 02/14/25 Rx clavulanate 125 mg tablet azithromycin 500 mg tablet 500 mg PO DAILY #1 tablet 0 01/24/25 02/14/25 Rx hydrocodone 10 mg-acetaminophen See Rx Instructions PO DAILY PRN 02/09/25 02/14/25 Rx 325 mg tablet pain #45 tabs Allergies Allergy/AdvReac Type Severity Reaction Status Date / Time No Known Allergies Allergy Verified 02/14/25 21:52 Vital Signs Vital Signs - 24 hr 02/14/25 16:02 02/14/25 16:08 02/14/25 16:21 Temperature 97.2 F L Pulse Rate 111 H 109 H Respiratory Rate 28 H Blood Pressure 109/71 Pulse Oximetry 90 95 Oxygen Delivery Non-Rebreather Mask Non-Rebreather Mask Oxygen Flow Rate 10 10 Fraction of Inspired Oxygen 02/14/25 16:22 02/14/25 16:22 02/14/25 16:30 Temperature Pulse Rate 113 H 114 H 108 H Respiratory Rate 24 H 13 25 H Blood Pressure 118/60 108/73 Pulse Oximetry 100 Oxygen Delivery Oxygen Flow Rate Fraction of Inspired Oxygen 02/14/25 16:31 02/14/25 16:43 02/14/25 16:52 Temperature Pulse Rate 101 H 108 H Respiratory Rate 24 H 22 H Blood Pressure Pulse Oximetry 87 L 94 Oxygen Delivery High Flow Therapy with Na Oxygen Flow Rate 30 Fraction of Inspired Oxygen 45 02/14/25 17:00 02/14/25 17:01 02/14/25 17:52 Temperature Pulse Rate 92 95 112 H Respiratory Rate 21 H 20 28 H Blood Pressure 119/61 Pulse Oximetry Oxygen Delivery Oxygen Flow Rate Fraction of Inspired Oxygen 02/14/25 18:04 02/14/25 18:15 02/14/25 18:16 Temperature Pulse Rate 116 H 117 H 114 H Respiratory Rate 30 H 29 H 23 H Blood Pressure 153/88 H Pulse Oximetry 90 92 Oxygen Delivery Oxygen Flow Rate Fraction of Inspired Oxygen 02/14/25 18:31 02/14/25 18:31 02/14/25 18:52 Temperature Pulse Rate 118 H 120 H Respiratory Rate 21 H 27 H Blood Pressure 156/120 H Pulse Oximetry Oxygen Delivery BiPAP Oxygen Flow Rate Fraction of Inspired Oxygen 02/14/25 19:15 02/14/25 19:16 02/14/25 19:17 Temperature Pulse Rate 123 H 122 H 123 H Respiratory Rate 38 H 32 H 26 H Blood Pressure 110/65 Pulse Oximetry 93 Oxygen Delivery High Flow Therapy with Na Oxygen Flow Rate 40 Fraction of Inspired Oxygen 50 02/14/25 19:39 02/14/25 19:45 02/14/25 19:46 Temperature Pulse Rate 116 H 116 H 115 H Respiratory Rate 27 H 21 H 22 H Blood Pressure 100/83 Pulse Oximetry 91 94 92 Oxygen Delivery Oxygen Flow Rate Fraction of Inspired Oxygen 02/14/25 20:00 02/14/25 20:10 02/14/25 20:16 Temperature Pulse Rate 112 H 111 H 111 H Respiratory Rate 29 H 25 H 25 H Blood Pressure Pulse Oximetry 92 95 Oxygen Delivery High Flow Therapy with Na Oxygen Flow Rate 40 Fraction of Inspired Oxygen 40 02/14/25 20:23 02/14/25 20:31 02/14/25 20:45 Temperature Pulse Rate 108 H 112 H 110 H Respiratory Rate 22 H 34 H 24 H Blood Pressure Pulse Oximetry 95 92 94 Oxygen Delivery Oxygen Flow Rate Fraction of Inspired Oxygen 02/14/25 20:47 02/14/25 21:00 02/14/25 21:02 Temperature Pulse Rate 106 H 103 H 106 H Respiratory Rate 27 H 20 27 H Blood Pressure 182/158 H 128/61 Pulse Oximetry 94 96 Oxygen Delivery Oxygen Flow Rate Fraction of Inspired Oxygen 02/14/25 21:20 02/14/25 21:34 Temperature Pulse Rate 101 H 103 H Respiratory Rate 27 H 23 H Blood Pressure Pulse Oximetry 97 96 Oxygen Delivery Oxygen Flow Rate Fraction of Inspired Oxygen Exam Const: General: comfortable Other: Acute distress due to pain and respiratory distress Eyes: Pupils: Equal, round and reactive pupils present Neck: Neck: supple Resp: Other: Severely decreased breath sounds, no adventitious sounds identified Cardio: Rate: regular rate Rhythm: regular rhythm Heart sounds: no murmurs GI: Inspection: non-distended GI Palp: Yes Soft to palpation Neuro: Motor exam (neuro): 5/5 motor strength present throughout Extrem: General: no edema H&P: Results Labs Labs: Short CBC 02/14/25 Range/Units 16:09 WBC 18.6 H (4.5-10.0) K/mm3 Hgb 11.5 L (12.0-15.0) g/dL Hct 39.6 (37.0-47.0) % Plt Count 237 (150-375) k/mm3 BMP 02/14/25 16:09 Sodium 142 Potassium 4.4 Chloride 99 Carbon Dioxide 33 H BUN 23 H D Creatinine 0.64 L Glucose 174 H Calcium 9.4 Liver Function 02/14/25 Range/Units 16:09 Total Bilirubin 0.5 (0.2-1.3) mg/dL AST 45 H (14-36) U/L ALT 41 H (6-35) U/L Alkaline Phosphatase 81 (38-126) U/L Albumin 4.9 (3.5-5.1) g/dL Assessment and Plan Assessment and plan (1) COPD (chronic obstructive pulmonary disease): Qualifiers: COPD type: unspecified COPD Qualified Code(s): J44.9 - Chronic obstructive pulmonary disease, unspecified Code(s): J44.9 - Chronic obstructive pulmonary disease, unspecified Status: Acute (2) Acute and chronic respiratory failure: Code(s): J96.20 - Acute and chronic respiratory failure, unspecified whether with hypoxia or hypercapnia Status: Acute (3) COPD exacerbation: Code(s): J44.1 - Chronic obstructive pulmonary disease with (acute) exacerbation Status: Acute Plan 79-year-old female with PMH severe COPD,, prior tobacco abuse, chronic respiratory failure on 4 L nasal cannula at home, depression and anxiety, chronic pain, fibromyalgia, chronic opioid use, history of heart stent, presents to [facility] on 02/14/2025 complaining of acute on chronic shortness of breath. Patient was recently discharged from this hospital for pneumonia. She reports intermittent cough, nothing new. Denies fever, chest pain, abdominal pain, syncope. The patient was saturating in the 70s, she was placed on BiPAP, she had tachypnea. ER demonstrates WBC 18.6, ABG with pH 7.25, pCO2 50.3, PO2 105.1, bicarb 21.9, serum creatinine 0.64, patient reported she was walking and felt a pop in her left knee. X-ray three view left side shows mild osteoarthritis in the medial compartment with small knee joint effusion, no acute osseous abnormality. Chest x-ray with stable chronic mild interstitial infiltrates. She was given Solu-Medrol 125 mg IV x1, ceftriaxone 1 g IV x1, azithromycin 500 mg IV x1, 1 L normal saline bolus, breathing treatments. ----- The patient presents with acute COPD exacerbation with hypercapnia and respiratory acidosis. Leukocytosis but no glaring evidence of pneumonia on the chest x-ray. Continue ceftriaxone and azithromycin for now. Afebrile, trend le ukocytosis. Will check a procalcitonin in the morning. Check quad viral screen and a full respiratory viral pathogen panel. Patient complains of chronic pain and causing her be anxious and is adamant about using her home Marina. We discussed the risks versus benefits. Hold ELECTROMECHANICAL ASSEMBLY TECHNICIAN muscle relaxant, start ELECTROMECHANICAL ASSEMBLY TECHNICIAN Marina. Continue Solu-Medrol, DuoNeb scheduled, after the BiPAP was placed she ripped it off. We discussed the importance of the noninvasive ventilator at length, sister was present in the room for this cousin. The patient refuses to use it tonight, reports maybe tomorrow. I let her know with her tachypnea and shortness of breath which have not improved greatly it is possible she deteriorates further. She verbalized understanding. At this time she is on Airvo 45% saturating 93%. Repeat ABG in the morning. Restart ELECTROMECHANICAL ASSEMBLY TECHNICIAN Plavix, aspirin. She is also on ranolazine at home which we will continue. Hold ELECTROMECHANICAL ASSEMBLY TECHNICIAN trazodone for the adverse effect of respiratory depression. Blood pressure currently 124 systolic, hold antihypertensives and restarted as indicated. She has guarded condition, multiple admissions related to pneumonia and end- stage COPD. Patient wishes to be DNR, this was discussed with the patient's sister present in the room. Hospice/palliative consultation in the morning ----- Prior to admission patient lives with her . On chronic O2. Patient wishes to be DNR. Refusing noninvasive ventilator. Saline lock IV. Fall precautions. Heart healthy diet. SCDs. Hospitalist [facility] Advance Care Plan I have confirmed that the patient's Advanced Care Plan is present, code status is documented, or surrogate decision maker is listed in patient medical record.: Yes Medication Reconciliation I have utilized all available resources to obtain, update and review the patients current medications (includes all prescriptions, OTC, herbals, ca nnabis, and nutritional supplements).: Yes
[2025-02-14] MEDS: RANOLAZINE 500 MG TAB.ER.12H BY MOUTH (23:49)
[2025-02-15] VITALS (25 sets, daily range): BP systolic 119–157; BP diastolic 71–99; PULSE 86–111; RESP 18–24; TEMP 36.4–36.7; O2SAT 91–100; BMI 17.9
[2025-02-15] MEDS: IPRATROPIUM 0.5 MG/ALBUTEROL SULFATE 2.5 MG (BASE) AMPUL.NEB 3 ML INHALATION ×4 (01:22→19:41)
[2025-02-15 04:42] LABS: Hematocrit 31.4 % (37.0-47.0); Hemoglobin 9.2 g/dL (12.0-15.0); Immature Granulocyte Percent A 0.4 % (0-0.5); Immature Platelet Fraction Pct 3.0 % (0.9-11.2); Lymphocytes Absolute Auto 0.49 K/mm3 (0.9-3.2); Mean Corpuscular HGB Conc 29.3 g/dl (32-36); Mean Corpuscular Hemoglobin 26.1 pg (26-34); Mean Corpuscular Volume 89.2 fl (80-100); Nucleated Red Blood Cells Absolute Auto 0.000 K/mm3 (0.0-0.012); Nucleated Red Blood Cells Perc 0.0 % (0.0-0.2); Platelet Count Result 158 k/mm3 (150-375); Red Blood Count 3.52 M/mm3 (4.2-5.4); White Blood Count 7.3 K/mm3 (4.5-10.0)
[2025-02-15] MEDS: HYDROcodone/acetaminophen (*CRX) 5-325 MG TABLET 1 TAB PO ×2 (04:48→15:12)
[2025-02-15 05:06] LABS: Anion Gap 6 mmol/L (4-12); Blood Urea Nitrogen 17 mg/dL (7-17); Calcium 8.9 mg/dL (8.4-10.2); Carbon Dioxide 29 mmol/L (22-30); Chloride 102 mmol/L (98-107); Estimated Glomerular Filt Rate > 60; Glucose 147 mg/dL (65-110); Magnesium 2.3 mg/dL (1.6-2.3); Potassium 4.4 mmol/L (3.4-5.0); Sodium 137 mmol/L (137-145)
[2025-02-15 05:08] LABS: Procalcitonin 0.2 ng/mL
[2025-02-15 05:14] LABS: Alveolar/Arterial O2 Gradient 159.4 mmHg; Carboxyhemoglobin 1.2 % THb (0-2.0); Fractional Inspired Oxygen 40 %; HCO3 ABG 29.8 mEq/l (22.0-26.0); Methemoglobin ABG 0.1 %THb (0-1.5); Oxygen Content ABG 15.1 %vol (16.0-22.0); Oxygen Saturation ABG 94.8 % (95.0-100.0); PCO2 ABG 46.4 mmHg (35.0-45.0); PO2 ABG 72.4 mmHg (80.0-100.0); PO2 FiO2 Ratio Arterial Blood 1.81 %; Reduced Hemoglobin 4.9 %THb (0-5.0)
[2025-02-15 05:16] LABS: Anisocytosis 1+; Hypochromasia 1+; Schistocytes None Seen
[2025-02-15 05:17] LABS: Liters per Minute 40.0 LPM; Modified Allen's Test Pass; Site Drawn RIGHT RADIAL
--- NOTE | 2025-02-15 07:55 | PM.IMPN ---
Progress Note: A&P Assessment and Plan (1) COPD (chronic obstructive pulmonary disease): Qualifiers: COPD type: unspecified COPD Qualified Code(s): J44.9 - Chronic obstructive pulmonary disease, unspecified Code(s): J44.9 - Chronic obstructive pulmonary disease, unspecified Status: Acute Assessment and Plan: see below (2) Acute and chronic respiratory failure: Code(s): J96.20 - Acute and chronic respiratory failure, unspecified whether with hypoxia or hypercapnia Status: Acute Assessment and Plan: --> patient was saturating in the 70s, she was placed on BiPAP, she had tachypnea --> given Solu-Medrol 125 mg IV x1, ceftriaxone 1 g IV x1, azithromycin 500 mg IV x1, 1 L normal saline bolus, breathing treatments in ER. -->recently discharged from this hospital for pneumonia, intermittent cough, nothing new -->ABG with pH 7.25, pCO2 50.3, PO2 105.1, bicarb 21.9 --> Chest x-ray with stable chronic mild interstitial infiltrates -->Continue ceftriaxone and azithromycin -->quad viral screen and a full respiratory viral pathogen panel. --> Continue Solu-Medrol, DuoNeb scheduled, --after the BiPAP was placed she ripped it off. --> discussed the importance of the noninvasive ventilator at length, sister was present in the room for this cousin, but refuses to use --> on Airvo 45% saturating 93%. 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 Patient wishes to be DNR, this was discussed with the patient's sister present in the room. Hospice/palliative consultation ordered. (3) COPD exacerbation: Code(s): J44.1 - Chronic obstructive pulmonary disease with (acute) exacerbation Status: Acute Assessment and Plan: - see above (4) Iron deficiency anemia: Qualifiers: Iron deficiency anemia type: chronic blood loss Qualified Code(s): D50.0 - Iron deficiency anemia secondary to blood loss (chronic) Code(s): D50.9 - Iron deficiency anemia, unspecified Status: Acute Assessment and Plan: - monitor labs, trend (5) Fibromyalgia: Code(s): M79.7 - Fibromyalgia Status: Acute Assessment and Plan: - will hold muscle relaxer - restart [place] for pain (6) Anxiety: Code(s): F41.9 - Anxiety disorder, unspecified Status: Acute Assessment and Plan: - will order xanax 0.25 mg po TID orn for anxiety. (7) Insomnia: Qualifiers: Insomnia type: unspecified Qualified Code(s): G47.00 - Insomnia, unspecified Code(s): G47.00 - Insomnia, unspecified Status: Acute Assessment and Plan: - monitor patient Plan Prior to admission patient lives with her On chronic O2. code status- DNR Refusing noninvasive ventilator wants to be referred to Hospice [facility] IV Fall precautions diet- Heart healthy diet DVT - SCDs. Disposition - will consult hospice services per patient request. Continue management, work with case management on hospice and discharge planning. Subjective Date/time seen: 02/15/25 07:55 Interval history: 79-year-old female with PMH severe COPD,, prior tobacco abuse, chronic respiratory failure on 4 L nasal cannula at home, depression and anxiety, chronic pain, fibromyalgia, chronic opioid use, history of heart stent, presents to [facility] on 02/14/2025 complaining of acute on chronic shortness of breath. Patient was recently discharged from this hospital for pneumonia. She reports intermittent cough, nothing new. Denies fever, chest pain, abdominal pain, syncope. The patient was saturating in the 70s, she was placed on BiPAP, she had tachypnea. ER demonstrates WBC 18.6, ABG with pH 7.25, pCO2 50.3, PO2 105.1, bicarb 21.9, serum creatinine 0.64, patient reported she was walking and felt a pop in her left knee. X-ray three view left side shows mild osteoarthritis in the medial compartment with small knee joint effusion, no acute osseous abnormality. Chest x-ray with stable chronic mild interstitial infiltrates. She was given Solu-Medrol 125 mg IV x1, ceftriaxone 1 g IV x1, azithromycin 500 mg IV x1, 1 L normal saline bolus, breathing treatments. Patient refused to wear Bipap long in ER. Was placed on Airvo 45% saturating 93%. - Today patient is sitting up in bed, very anxious. Patient requesting a nerve pill. Discussed in great detail again her multiple admissions related to pneumonia and end-stage COPD. Yesterday patient wished to be DNR, this was discussed with the patient's sister present in the room. Requested a Hospice/palliative consultation to be ordered. Patient continues to verbalize this. Patient does report shortness of breath with any exertion. Denies any chest pain, N/V/D, chills or fever. Review of Systems Review of Systems: All systems reviewed & are unremarkable except as noted in HPI and below (Subjective) Exam Const: General: cooperative, no acute distress, alert, awake, Physically active and anxious Other: Acute distress due to pain and respiratory distress HENMT: Head: normal to inspection, normocephalic and atraumatic Eyes: General: appearance normal, both eyes and all related structures Visual Chou: normal visual chou by confrontation Pupils: Equal, round and reactive pupils present Neck: Neck: full ROM and supple Chest: Chest palpation & inspection: normal inspection of the chest Resp: Effort & Inspection: able to speak in complete sentences and Actively coughing Auscultation: rhonchi lower bilaterally and diminished lung sounds Other: Severely decreased breath sounds, no adventitious sounds identified Cardio: Jugular venous distension: no JVD Rate: regular rate Rhythm: regular rhythm Heart sounds: S1 normal heart sound present, S2 normal heart sound present and no murmurs Peripheral pulses: Peripheral pulses 2+ throughout GI: Inspection: normal to inspection and non-distended Auscultation: normal bowel sounds Skin: General skin exam: normal color and no rashes or lesions noted Neuro: General: patient oriented x3, moves all extremities and Normal light touch and pain sensation Cranial nerves: Yes Equal, round and reactive pupils present Motor exam (neuro): 5/5 motor strength present throughout Extrem: General: normal to inspection, full ROM, capillary refill normal and no edema Right upper extremity: full ROM Left upper extremity: full ROM Psych: Appearance: grossly normal Mental Status: mental status grossly normal Objective Data Vital Signs Vital Signs: Vital Signs - 24 hr 02/14/25 16:02 02/14/25 16:08 02/14/25 16:21 Temperature 97.2 F L Pulse Rate 111 H 109 H Respiratory Rate 28 H Blood Pressure 109/71 Pulse Oximetry 90 95 Oxygen Delivery Non-Rebreather Mask Non-Rebreather Mask Oxygen Flow Rate 10 10 Fraction of Inspired Oxygen 02/14/25 16:22 02/14/25 16:22 02/14/25 16:30 Temperature Pulse Rate 113 H 114 H 108 H Respiratory Rate 24 H 13 25 H Blood Pressure 118/60 108/73 Pulse Oximetry 100 Oxygen Delivery Oxygen Flow Rate Fraction of Inspired Oxygen 02/14/25 16:31 02/14/25 16:43 02/14/25 16:52 Temperature Pulse Rate 101 H 108 H Respiratory Rate 24 H 22 H Blood Pressure Pulse Oximetry 87 L 94 Oxygen Delivery High Flow Therapy with Na Oxygen Flow Rate 30 Fraction of Inspired Oxygen 45 02/14/25 17:00 02/14/25 17:01 02/14/25 17:52 Temperature Pulse Rate 92 95 112 H Respiratory Rate 21 H 20 28 H Blood Pressure 119/61 Pulse Oximetry Oxygen Delivery Oxygen Flow Rate Fraction of Inspired Oxygen 02/14/25 18:04 02/14/25 18:15 02/14/25 18:16 Temperature Pulse Rate 116 H 117 H 114 H Respiratory Rate 30 H 29 H 23 H Blood Pressure 153/88 H Pulse Oximetry 90 92 Oxygen Delivery Oxygen Flow Rate Fraction of Inspired Oxygen 02/14/25 18:31 02/14/25 18:31 02/14/25 18:52 Temperature Pulse Rate 118 H 120 H Respiratory Rate 21 H 27 H Blood Pressure 156/120 H Pulse Oximetry Oxygen Delivery BiPAP Oxygen Flow Rate Fraction of Inspired Oxygen 02/14/25 19:15 02/14/25 19:16 02/14/25 19:17 Temperature Pulse Rate 123 H 122 H 123 H Respiratory Rate 38 H 32 H 26 H Blood Pressure 110/65 Pulse Oximetry 93 Oxygen Delivery High Flow Therapy with Na Oxygen Flow Rate 40 Fraction of Inspired Oxygen 50 02/14/25 19:39 02/14/25 19:45 02/14/25 19:46 Temperature Pulse Rate 116 H 116 H 115 H Respiratory Rate 27 H 21 H 22 H Blood Pressure 100/83 Pulse Oximetry 91 94 92 Oxygen Delivery Oxygen Flow Rate Fraction of Inspired Oxygen 02/14/25 20:00 02/14/25 20:10 02/14/25 20:16 Temperature Pulse Rate 112 H 111 H 111 H Respiratory Rate 29 H 25 H 25 H Blood Pressure Pulse Oximetry 92 95 Oxygen Delivery High Flow Therapy with Na Oxygen Flow Rate 40 Fraction of Inspired Oxygen 40 02/14/25 20:23 02/14/25 20:31 02/14/25 20:45 Temperature Pulse Rate 108 H 112 H 110 H Respiratory Rate 22 H 34 H 24 H Blood Pressure Pulse Oximetry 95 92 94 Oxygen Delivery Oxygen Flow Rate Fraction of Inspired Oxygen 02/14/25 20:47 02/14/25 21:00 02/14/25 21:02 Temperature Pulse Rate 106 H 103 H 106 H Respiratory Rate 27 H 20 27 H Blood Pressure 182/158 H 128/61 Pulse Oximetry 94 96 Oxygen Delivery Oxygen Flow Rate Fraction of Inspired Oxygen 02/14/25 21:20 02/14/25 21:34 02/14/25 22:10 Temperature 97.7 F Pulse Rate 101 H 103 H 106 H Respiratory Rate 27 H 23 H 36 H Blood Pressure 151/86 H Pulse Oximetry 97 96 93 Oxygen Delivery Oxygen Flow Rate Fraction of Inspired Oxygen 02/14/25 23:30 02/15/25 00:00 02/15/25 00:00 Temperature Pulse Rate 113 H 93 Respiratory Rate 22 H Blood Pressure Pulse Oximetry 95 96 Oxygen Delivery High Flow Therapy with Na High Flow Therapy with Na Oxygen Flow Rate 40 40 Fraction of Inspired Oxygen 40 02/15/25 00:00 02/15/25 01:22 02/15/25 01:25 Temperature 97.7 F Pulse Rate 87 96 90 Respiratory Rate 24 H 20 22 H Blood Pressure 119/71 Pulse Oximetry 97 96 Oxygen Delivery High Flow Therapy with Na Oxygen Flow Rate 40 Fraction of Inspired Oxygen 38 02/15/25 01:31 02/15/25 02:00 02/15/25 04:00 Temperature Pulse Rate 102 H 86 Respiratory Rate 20 Blood Pressure Pulse Oximetry 97 Oxygen Delivery High Flow Therapy with Na Oxygen Flow Rate 40 Fraction of Inspired Oxygen 02/15/25 04:00 02/15/25 04:00 02/15/25 04:54 Temperature 97.9 F Pulse Rate 88 93 98 Respiratory Rate 22 H 20 Blood Pressure 147/93 H Pulse Oximetry 95 98 Oxygen Delivery High Flow Therapy with Na Oxygen Flow Rate 40 Fraction of Inspired Oxygen 40 Intake/Output Intake/Output: Intake & Output 02/12/25 02/13/25 02/14/25 02/15/25 23:59 23:59 23:59 23:59 Intake Total 1400 200 Balance 1400 200 Meds/Results Medications: Active Medications Generic Name Dose Route Start Last Admin Trade Name Freq PRN Reason Stop Dose Admin Acetaminophen 650 mg 02/14/25 18:41 Acetaminophen 325 Mg Tablet PO Q4H PRN Mild Pain (1-3) or Fever Hydrocodone Bitart/Acetaminophen 1 tab 02/14/25 18:41 02/15/25 04:48 Hydrocodone/Acetaminophen (*Crx) 5-325 Mg Tablet PO 1 tab Q4H PRN Administration Pain Rated 4-6 Albuterol/Ipratropium 3 ml 02/14/25 20:00 02/15/25 01:22 Ipratropium 0.5 Mg/Albuterol Sulfate 2.5 Mg (Base) Ampul.Neb 3 Ml INHALATION 3 ml Q6HRT AMBER Administration Clopidogrel Bisulfate 75 mg 02/15/25 09:00 Clopidogrel Bisulfate 75 Mg Tablet BY MOUTH DAILY [facility] Duloxetine HCl 30 mg 02/15/25 09:00 Duloxetine Hcl 30 Mg Capsule.Dr [place] QAM [facility] Ceftriaxone Sodium 1 gm/ 50 mls @ 100 mls/hr 02/15/25 19:00 Sodium Chloride IVPB Q24H AMBER Azithromycin 500 mg/ Sodium 250 mls @ 250 mls/hr 02/15/25 20:00 Chloride IVPB 02/18/25 20:59 Q24H [facility] Methylprednisolone Sodium Succinate 60 mg 02/15/25 00:00 02/15/25 05:01 Methylprednisolone Sod Succ 125 Mg Vial IV PUSH 60 mg Q6HR AMBER Administration Pravastatin Sodium 10 mg 02/15/25 09:00 Pravastatin Sodium 10 Mg Tablet BY MOUTH DAILY [facility] Ranolazine 500 mg 02/14/25 22:15 02/14/25 23:49 Ranolazine 500 Mg Tab.Er.12h BY MOUTH 500 mg Q12HR AMBER Administration Sertraline HCl 100 mg 02/15/25 09:00 Sertraline Hcl 50 Mg Tablet PO DAILY [facility] Radiology Results: ITS Impressions Chest X-Ray 02/14/25 16:39 Impression: 1: Stable chronic mild interstitial infiltrates which may represent edema or developing chronic interstitial fibrosis. Knee X-Ray 02/14/25 16:40 IMPRESSION: 1. Mild osteoarthritis in the medial compartment of the left knee with nonspecific small knee joint effusion. No acute osseous abnormality. Labs Labs: Laboratory Results - last 24 hr 02/14/25 02/14/25 02/14/25 16:09 17:39 20:08 WBC 18.6 H RBC 4.38 Hgb 11.5 L Hct 39.6 MCV 90.4 MCH 26.3 MCHC 29.0 L RDW 23.5 H Plt Count 237 MPV 9.6 Immature Gran % (Auto) 0.6 H Neut % (Auto) 90.0 H Lymph % (Auto) 2.7 L [place] % (Auto) 6.4 Eos % (Auto) 0.1 Baso % (Auto) 0.2 Lymph # (Auto) 0.51 L [place] # (Auto) 1.2 H Eos # (Auto) 0.0 Baso # (Auto) 0.0 Abs Immat Gran (auto) 0.12 H Absolute Neuts (auto) 16.7 H Absolute Nucleated RBC 0.000 Band Neutrophils % 0 Nucleated RBC % 0.0 Platelet Estimate Adequate % Immature Plt Fraction Hypochromasia 1+ Anisocytosis 2+ Schistocytes None seen Puncture Site Right radial ABG pH 7.257 L* ABG pCO2 50.3 H ABG pO2 105.1 H ABG PO2/FiO2 Ratio 2.02 ABG HCO3 21.9 L ABG O2 Saturation 97.0 ABG O2 Content 14.4 L ABG Base Excess -5.2 A-a Gradient 209.3 Oxyhemoglobin 96.4 Carboxyhemoglobin 1.0 Methemoglobin 0.1 Reduced Hemoglobin 2.5 Total Hemoglobin 10.5 L O2 Delivery Device High flow nasal [place] O2 Liters/Min 40.0 FiO2 52 Sodium 142 Potassium 4.4 Chloride 99 Carbon Dioxide 33 H Anion Gap 10 BUN 23 H D Creatinine 0.64 L Estim Creat Clear Calc Not Reportable Estimated GFR > 60 Glucose 174 H Lactic Acid 3.3 H 2.3 H Calcium 9.4 Phosphorus Magnesium Total Bilirubin 0.5 AST 45 H ALT 41 H Alkaline Phosphatase 81 Total Protein 8.6 H Albumin 4.9 Procalcitonin 02/15/25 02/15/25 04:29 04:37 WBC 7.3 RBC 3.52 L Hgb 9.2 L Hct 31.4 L MCV 89.2 MCH 26.1 MCHC 29.3 L RDW 23.9 H Plt Count 158 MPV 9.4 Immature Gran % (Auto) 0.4 Neut % (Auto) 91.4 H Lymph % (Auto) 6.7 L [place] % (Auto) 1.4 L Eos % (Auto) 0.0 Baso % (Auto) 0.1 L Lymph # (Auto) 0.49 L [place] # (Auto) 0.1 Eos # (Auto) 0.0 Baso # (Auto) 0.0 Abs Immat Gran (auto) 0.03 Absolute Neuts (auto) 6.7 Absolute Nucleated RBC 0.000 Band Neutrophils % Not Reportable Nucleated RBC % 0.0 Platelet Estimate Adequate % Immature Plt Fraction 3.0 Hypochromasia 1+ Anisocytosis 1+ Schistocytes None seen Puncture Site Right radial ABG pH 7.426 ABG pCO2 46.4 H ABG pO2 72.4 L ABG PO2/FiO2 Ratio 1.81 ABG HCO3 29.8 H ABG O2 Saturation 94.8 L ABG O2 Content 15.1 L ABG Base Excess 4.8 A-a Gradient 159.4 Oxyhemoglobin 93.8 Carboxyhemoglobin 1.2 Methemoglobin 0.1 Reduced Hemoglobin 4.9 Total Hemoglobin 11.4 L O2 Delivery Device High flow nasal [place] O2 Liters/Min 40.0 FiO2 40 Sodium 137 Potassium 4.4 Chloride 102 Carbon Dioxide 29 Anion Gap 6 BUN 17 Creatinine 0.40 L Estim Creat Clear Calc Not Reportable Estimated GFR > 60 Glucose 147 H Lactic Acid Calcium 8.9 Phosphorus 2.6 Magnesium 2.3 Total Bilirubin AST ALT Alkaline Phosphatase Total Protein Albumin Procalcitonin 0.2
[2025-02-15] MEDS: RANOLAZINE 500 MG TAB.ER.12H BY MOUTH ×2 (08:56→20:36)
[2025-02-15] MEDS: CLOPIDOGREL BISULFATE 75 MG TABLET BY MOUTH (08:56)
[2025-02-15] MEDS: SERTRALINE HCL 50 MG TABLET 100 MG PO (08:56)
[2025-02-15] MEDS: PHENOL/SOD PHENO SPRAY CHERRY (*BKC) 1 SPRAY MUCOUS MEM (09:24)
[2025-02-15 10:12] LABS: Influenza A QL RT-PCR Negative (Negative); Influenza B QL RT-PCR Negative (Negative); RSV RNA, RT-PCR Negative (Negative); SARS-CoV-2 RNA PCR Negative (Negative)
[2025-02-15] MEDS: ALBUTEROL SULFATE NEB 2.5 MG/3 ML INH INHALATION (10:27)
[2025-02-15] MEDS: ALPRAZolam (*CRX) 0.25 MG TABLET PO ×2 (11:21→20:37)
--- NOTE | 2025-02-15 11:49 | P.CDI_ITS ---
<Statement entered by Faith Garland APRN - 02/15/25 12:52> This documentation has been reviewed and approved. CDI Query Clarification Request BMI: 17.9 Nutritional Diagnostic Statement: Please refer to the comprehensive nutrition assessment for further information. If you agree with diagnosis of Severe protein calorie malnutrition related to increased energy needs from chronic disease (severe COPD) and inadequate energy intake as evidenced by pt report of poor po intake greater than 1 month, and NFPE findings for severe subcutaneous fat loss and severe muscle wasting. Please specify severity if known: * Mild * Moderate * Severe * Other/Unknown
[2025-02-15] MEDS: cefTRIAXone 1 GM in SODIUM CHLORIDE 0.9% IV 50 ML 100 ML IVPB (18:12)
[2025-02-15] MEDS: BUDESONIDE RESPULE NEB 0.5 MG/2 ML AMP INHALATION (19:40)
[2025-02-15] MEDS: AZITHROMYCIN IV 500 MG in SODIUM CHLORIDE 0.9% IV 250 ML IVPB (20:38)
[2025-02-16] VITALS (23 sets, daily range): BP systolic 115–144; BP diastolic 65–79; PULSE 83–103; RESP 18–24; TEMP 36.4–36.6; O2SAT 91–100
[2025-02-16] MEDS: IPRATROPIUM 0.5 MG/ALBUTEROL SULFATE 2.5 MG (BASE) AMPUL.NEB 3 ML INHALATION ×4 (01:45→21:35)
[2025-02-16] MEDS: HYDROcodone/acetaminophen (*CRX) 5-325 MG TABLET 1 TAB PO ×3 (02:12→21:29)
[2025-02-16 04:20] LABS: Hematocrit 33.3 % (37.0-47.0); Hemoglobin 10.0 g/dL (12.0-15.0); Immature Granulocyte Percent A 0.6 % (0-0.5); Lymphocytes Absolute Auto 0.42 K/mm3 (0.9-3.2); Mean Corpuscular HGB Conc 30.0 g/dl (32-36); Mean Corpuscular Hemoglobin 26.4 pg (26-34); Mean Corpuscular Volume 87.9 fl (80-100); Nucleated Red Blood Cells Absolute Auto 0.000 K/mm3 (0.0-0.012); Nucleated Red Blood Cells Perc 0.0 % (0.0-0.2); Platelet Count Result 179 k/mm3 (150-375); Red Blood Count 3.79 M/mm3 (4.2-5.4); White Blood Count 8.8 K/mm3 (4.5-10.0)
[2025-02-16 04:46] LABS: Hypochromasia 1+; Ovalocytes Occasional; Schistocytes None Seen
[2025-02-16] MEDS: BUDESONIDE RESPULE NEB 0.5 MG/2 ML AMP INHALATION ×2 (07:51→21:35)
[2025-02-16] MEDS: CLOPIDOGREL BISULFATE 75 MG TABLET BY MOUTH (08:35)
[2025-02-16] MEDS: PRAVASTATIN SODIUM 10 MG TABLET BY MOUTH (08:35)
[2025-02-16] MEDS: RANOLAZINE 500 MG TAB.ER.12H BY MOUTH ×2 (08:35→20:24)
[2025-02-16] MEDS: SERTRALINE HCL 50 MG TABLET 100 MG PO (08:35)
[2025-02-16] MEDS: ALPRAZolam (*CRX) 0.25 MG TABLET PO ×2 (08:43→21:29)
[2025-02-16 09:31] LABS: Alanine Aminotransferase 57 U/L (6-35); Albumin Level 3.8 g/dL (3.5-5.1); Alkaline Phosphatase 63 U/L (38-126); Anion Gap 7 mmol/L (4-12); Aspartate Amino Transferase 40 U/L (14-36); Bilirubin,Total 0.3 mg/dL (0.2-1.3); Blood Urea Nitrogen 21 mg/dL (7-17); Calcium 9.0 mg/dL (8.4-10.2); Carbon Dioxide 31 mmol/L (22-30); Chloride 101 mmol/L (98-107); Estimated Glomerular Filt Rate > 60; Glucose 206 mg/dL (65-110); Magnesium 2.3 mg/dL (1.6-2.3); Potassium 4.0 mmol/L (3.4-5.0); Sodium 139 mmol/L (137-145); Total Protein 6.4 g/dL (6.3-8.2)
--- NOTE | 2025-02-16 10:11 | PM.IMPN ---
Progress Note: A&P Assessment and Plan (1) Acute and chronic respiratory failure: Code(s): J96.20 - Acute and chronic respiratory failure, unspecified whether with hypoxia or hypercapnia Status: Acute Assessment and Plan: --> patient was saturating in the 70s, she was placed on BiPAP, she had tachypnea --> given Solu-Medrol 125 mg IV x1, ceftriaxone 1 g IV x1, azithromycin 500 mg IV x1, 1 L normal saline bolus, breathing treatments in ER. -->recently discharged from this hospital for pneumonia, intermittent cough, nothing new -->ABG with pH 7.25, pCO2 50.3, PO2 105.1, bicarb 21.9 --> Chest x-ray with stable chronic mild interstitial infiltrates -->Continue ceftriaxone and azithromycin -->quad viral screen and a full respiratory viral pathogen panel. --> Continue Solu-Medrol, DuoNeb scheduled, --after the BiPAP was placed she ripped it off. --> discussed the importance of the noninvasive ventilator at length, sister was present in the room for this cousin, but refuses to use --> on Airvo 40% saturating 97%. 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 Patient wishes to be DNR, this was discussed with the patient's sister present in the room. Hospice/palliative consultation ordered, not sure if ready. --> Pulmonology consult placed. (2) COPD exacerbation: Code(s): J44.1 - Chronic obstructive pulmonary disease with (acute) exacerbation Status: Acute Assessment and Plan: - see above (3) Iron deficiency anemia: Qualifiers: Iron deficiency anemia type: chronic blood loss Qualified Code(s): D50.0 - Iron deficiency anemia secondary to blood loss (chronic) Code(s): D50.9 - Iron deficiency anemia, unspecified Status: Acute Assessment and Plan: - monitor labs, trend (4) Fibromyalgia: Code(s): M79.7 - Fibromyalgia Status: Acute Assessment and Plan: - will hold muscle relaxer - restart [place] for pain (5) Anxiety: Code(s): F41.9 - Anxiety disorder, unspecified Status: Acute Assessment and Plan: - Xanax 0.25 mg po TID orn for anxiety. (6) Insomnia: Qualifiers: Insomnia type: unspecified Qualified Code(s): G47.00 - Insomnia, unspecified Code(s): G47.00 - Insomnia, unspecified Status: Acute Assessment and Plan: - monitor patient Subjective Date/time seen: 02/16/25 10:11 Interval history: Patient sitting up in bed. Patient reports breathing is slightly better today. Denies any chest pain, N/V/D, chills or fever. Reports shortness of breath on exertion or if talking too much. Reports that her Corn Picker is Dr. Mccain. Review of Systems Review of Systems: All systems reviewed & are unremarkable except as noted in HPI and below Exam Const: General: cooperative, no acute distress, alert, awake and Physically active HENMT: Head: normal to inspection, normocephalic and atraumatic Eyes: General: appearance normal, both eyes and all related structures Visual Wagoner: normal visual wagoner by confrontation Pupils: Equal, round and reactive pupils present Neck: Neck: full ROM and supple Chest: Chest palpation & inspection: normal inspection of the chest Resp: Effort & Inspection: able to speak in complete sentences and Actively coughing Auscultation: rhonchi lower bilaterally and diminished lung sounds Cardio: Jugular venous distension: no JVD Rate: regular rate Rhythm: regular rhythm Heart sounds: S1 normal heart sound present, S2 normal heart sound present and no murmurs GI: Inspection: normal to inspection and non-distended Auscultation: normal bowel sounds Skin: General skin exam: normal color and no rashes or lesions noted Neuro: General: patient oriented x3, moves all extremities and Normal light touch and pain sensation Cranial nerves: Yes Equal, round and reactive pupils present Motor exam (neuro): 5/5 motor strength present throughout Extrem: General: normal to inspection, full ROM, capillary refill normal and no edema Right upper extremity: full ROM Left upper extremity: full ROM Psych: Appearance: grossly normal Mental Status: mental status grossly normal Objective Data Vital Signs Vital Signs: Vital Signs - 24 hr 02/15/25 10:27 02/15/25 10:34 02/15/25 11:38 Temperature 98.1 F Pulse Rate 104 H 100 97 Respiratory Rate 20 20 20 Blood Pressure 144/99 H Pulse Oximetry 93 Oxygen Delivery Oxygen Flow Rate Fraction of Inspired Oxygen 02/15/25 12:00 02/15/25 12:00 02/15/25 13:42 Temperature Pulse Rate 111 H 105 H Respiratory Rate 20 Blood Pressure Pulse Oximetry 93 Oxygen Delivery High Flow Therapy with Na Oxygen Flow Rate 30 Fraction of Inspired Oxygen 40 02/15/25 13:50 02/15/25 14:00 02/15/25 16:00 Temperature Pulse Rate 106 H 98 99 Respiratory Rate 20 Blood Pressure Pulse Oximetry Oxygen Delivery Oxygen Flow Rate Fraction of Inspired Oxygen 02/15/25 16:00 02/15/25 16:00 02/15/25 18:00 Temperature 98 F Pulse Rate 110 H 100 Respiratory Rate 20 Blood Pressure 157/77 H Pulse Oximetry 99 93 Oxygen Delivery High Flow Therapy with Na Oxygen Flow Rate 30 Fraction of Inspired Oxygen 40 02/15/25 19:40 02/15/25 19:40 02/15/25 19:55 Temperature Pulse Rate 110 H 110 H 98 Respiratory Rate 18 18 18 Blood Pressure Pulse Oximetry 97 Oxygen Delivery High Flow Therapy with Na Oxygen Flow Rate 30 Fraction of Inspired Oxygen 43 02/15/25 20:00 02/15/25 20:00 02/15/25 20:00 Temperature 97.6 F Pulse Rate 101 H 103 H Respiratory Rate 22 H Blood Pressure 153/83 H Pulse Oximetry 91 91 Oxygen Delivery High Flow Therapy with Na Oxygen Flow Rate 30 Fraction of Inspired Oxygen 40 02/15/25 22:00 02/16/25 00:00 02/16/25 00:00 Temperature 97.7 F Pulse Rate 98 103 H Respiratory Rate 20 Blood Pressure 115/70 Pulse Oximetry 100 95 Oxygen Delivery High Flow Therapy with Na Oxygen Flow Rate 30 Fraction of Inspired Oxygen 40 02/16/25 00:00 02/16/25 01:45 02/16/25 01:45 Temperature Pulse Rate 83 96 96 Respiratory Rate 20 20 Blood Pressure Pulse Oximetry 100 Oxygen Delivery High Flow Therapy with Na Oxygen Flow Rate 40 Fraction of Inspired Oxygen 38 02/16/25 01:55 02/16/25 02:00 02/16/25 03:21 Temperature Pulse Rate 103 H 90 Respiratory Rate 20 Blood Pressure Pulse Oximetry 97 Oxygen Delivery High Flow Therapy with Na Oxygen Flow Rate 30 Fraction of Inspired Oxygen 40 02/16/25 04:00 02/16/25 04:00 02/16/25 06:00 Temperature 97.6 F Pulse Rate 87 86 84 Respiratory Rate 20 Blood Pressure 134/65 Pulse Oximetry 97 Oxygen Delivery Oxygen Flow Rate Fraction of Inspired Oxygen 02/16/25 07:51 02/16/25 07:51 02/16/25 08:00 Temperature 97.9 F Pulse Rate 99 99 Respiratory Rate 24 H 21 H Blood Pressure 144/77 H Pulse Oximetry 100 96 Oxygen Delivery High Flow Therapy with Na Oxygen Flow Rate 40 Fraction of Inspired Oxygen 38 02/16/25 08:05 Temperature Pulse Rate 97 Respiratory Rate 24 H Blood Pressure Pulse Oximetry Oxygen Delivery Oxygen Flow Rate Fraction of Inspired Oxygen Intake/Output Intake/Output: Intake & Output 02/13/25 02/14/25 02/15/25 02/16/25 23:59 23:59 23:59 23:59 Intake Total 1400 500 270 Output Total 500 0 Balance 1400 0 270 Meds/Results Medications: Active Medications Generic Name Dose Route Start Last Admin Trade Name Freq PRN Reason Stop Dose Admin Acetaminophen 650 mg 02/14/25 18:41 Acetaminophen 325 Mg Tablet PO Q4H PRN Mild Pain (1-3) or Fever Hydrocodone Bitart/Acetaminophen 1 tab 02/14/25 18:41 02/16/25 08:43 Hydrocodone/Acetaminophen (*Crx) 5-325 Mg Tablet PO 1 tab Q4H PRN Administration Pain Rated 4-6 Albuterol 2.5 mg 02/15/25 10:02 02/15/25 10:27 Albuterol Sulfate Neb 2.5 Mg/3 Ml Inh INHALATION 2.5 mg Q4HRT PRN Administration Shortness Of Breath Albuterol/Ipratropium 3 ml 02/14/25 20:00 02/16/25 07:51 Ipratropium 0.5 Mg/Albuterol Sulfate 2.5 Mg (Base) Ampul.Neb 3 Ml INHALATION 3 ml Q6HRT AMBER Administration Alprazolam 0.25 mg 02/15/25 10:05 02/16/25 08:43 Alprazolam (*Crx) 0.25 Mg Tablet PO 0.25 mg TID PRN Administration Anxiety Budesonide 0.5 mg 02/15/25 20:00 02/16/25 07:51 Budesonide Respule Neb 0.5 Mg/2 Ml Amp INHALATION 0.5 mg Q12HRT AMBER Administration Clopidogrel Bisulfate 75 mg 02/15/25 09:00 02/16/25 08:35 Clopidogrel Bisulfate 75 Mg Tablet BY MOUTH 75 mg DAILY AMBER Administration Duloxetine HCl 30 mg 02/15/25 09:00 02/16/25 08:35 Duloxetine Hcl 30 Mg Capsule.Dr PO 30 mg QAM AMBER Administration Ceftriaxone Sodium 1 gm/ 50 mls @ 100 mls/hr 02/15/25 19:00 02/15/25 18:12 Sodium Chloride IVPB 100 mls/hr Q24H AMBER Administration Azithromycin 500 mg/ Sodium 250 mls @ 250 mls/hr 02/15/25 20:00 02/15/25 20:38 Chloride IVPB 02/18/25 20:59 250 mls/hr Q24H AMBER Administration Methylprednisolone Sodium Succinate 60 mg 02/15/25 00:00 02/16/25 05:36 Methylprednisolone Sod Succ 125 Mg Vial IV PUSH 60 mg Q6HR AMBER Administration Miscellaneous Information 0 each 02/15/25 00:01 02/16/25 08:39 Brovana Nonform Can Pt Bring From Home? XX 03/17/25 00:00 Not Given CLARIFY AMBER Non-Formulary Medication 2 ml 02/15/25 17:00 Arformoterol [Brovana] INHALATION 03/17/25 16:59 BID AMBER Phenol 1 spray 02/15/25 09:10 02/15/25 09:24 Phenol/Sod Pheno [place] Stephen (*Bkc) MUCOUS MEM 1 spray PRN PRN Administration Sore Throat Pravastatin Sodium 10 mg 02/15/25 09:00 02/16/25 08:35 Pravastatin Sodium 10 Mg Tablet BY MOUTH 10 mg DAILY AMBER Administration Ranolazine 500 mg 02/14/25 22:15 02/16/25 08:35 Ranolazine 500 Mg Tab.Er.12h BY MOUTH 500 mg Q12HR AMBER Administration Sertraline HCl 100 mg 02/15/25 09:00 02/16/25 08:35 Sertraline Hcl 50 Mg Tablet PO 100 mg DAILY AMBER Administration Trazodone HCl 150 mg 02/15/25 14:42 02/15/25 20:36 Trazodone Hcl 50 Mg Tablet PO 150 mg QHS PRN Administration Insomnia Radiology Results: ITS Impressions Chest X-Ray 02/14/25 16:39 Impression: 1: Stable chronic mild interstitial infiltrates which may represent edema or developing chronic interstitial fibrosis. Knee X-Ray 02/14/25 16:40 IMPRESSION: 1. Mild osteoarthritis in the medial compartment of the left knee with nonspecific small knee joint effusion. No acute osseous abnormality. Labs Labs: Laboratory Results - last 24 hr 02/15/25 02/16/25 02/16/25 09:23 04:08 08:43 WBC 8.8 RBC 3.79 L Hgb 10.0 L Hct 33.3 L MCV 87.9 MCH 26.4 MCHC 30.0 L RDW 25.1 H Plt Count 179 MPV 10.8 H Immature Gran % (Auto) 0.6 H Neut % (Auto) 89.8 H Lymph % (Auto) 4.8 L [place] % (Auto) 4.7 Eos % (Auto) 0.0 Baso % (Auto) 0.1 L Lymph # (Auto) 0.42 L [place] # (Auto) 0.4 Eos # (Auto) 0.0 Baso # (Auto) 0.0 Abs Immat Gran (auto) 0.05 H Absolute Neuts (auto) 7.9 H Absolute Nucleated RBC 0.000 Band Neutrophils % Not Reportable Nucleated RBC % 0.0 Platelet Estimate Adequate Hypochromasia 1+ Ovalocytes Occasional Schistocytes None seen Sodium 139 Potassium 4.0 Chloride 101 Carbon Dioxide 31 H Anion Gap 7 BUN 21 H Creatinine 0.54 L Estim Creat Clear Calc Not Reportable Estimated GFR > 60 Glucose 206 H Calcium 9.0 Magnesium 2.3 Total Bilirubin 0.3 AST 40 H ALT 57 H Alkaline Phosphatase 63 Total Protein 6.4 Albumin 3.8 Influenza A (RT-PCR) Negative Influenza B (RT-PCR) Negative RSV (RT-PCR) Negative SARS-CoV-2 RNA (RT-PCR) Negative Quality VTE Prophylaxis VTE prophylaxis: mechanical ordered
[2025-02-16] MEDS: cefTRIAXone 1 GM in SODIUM CHLORIDE 0.9% IV 50 ML 100 ML IVPB (17:26)
[2025-02-16] MEDS: AZITHROMYCIN IV 500 MG in SODIUM CHLORIDE 0.9% IV 250 ML IVPB (20:24)
[2025-02-17] VITALS (24 sets, daily range): BP systolic 131–148; BP diastolic 64–99; PULSE 73–102; RESP 18–24; TEMP 36.3–36.9; O2SAT 90–99
[2025-02-17] MEDS: IPRATROPIUM 0.5 MG/ALBUTEROL SULFATE 2.5 MG (BASE) AMPUL.NEB 3 ML INHALATION ×4 (02:22→19:47)
[2025-02-17 04:02] LABS: Hematocrit 30.3 % (37.0-47.0); Hemoglobin 9.1 g/dL (12.0-15.0); Immature Granulocyte Percent A 0.5 % (0-0.5); Lymphocytes Absolute Auto 0.41 K/mm3 (0.9-3.2); Mean Corpuscular HGB Conc 30.0 g/dl (32-36); Mean Corpuscular Hemoglobin 26.4 pg (26-34); Mean Corpuscular Volume 87.8 fl (80-100); Nucleated Red Blood Cells Absolute Auto 0.000 K/mm3 (0.0-0.012); Nucleated Red Blood Cells Perc 0.0 % (0.0-0.2); Platelet Count Result 151 k/mm3 (150-375); Red Blood Count 3.45 M/mm3 (4.2-5.4); White Blood Count 7.4 K/mm3 (4.5-10.0)
[2025-02-17] MEDS: HYDROcodone/acetaminophen (*CRX) 5-325 MG TABLET 1 TAB PO ×3 (04:05→16:26)
[2025-02-17 04:15] LABS: Alanine Aminotransferase 45 U/L (6-35); Albumin Level 3.6 g/dL (3.5-5.1); Alkaline Phosphatase 61 U/L (38-126); Anion Gap 4 mmol/L (4-12); Aspartate Amino Transferase 27 U/L (14-36); Bilirubin,Total 0.3 mg/dL (0.2-1.3); Blood Urea Nitrogen 23 mg/dL (7-17); Calcium 9.0 mg/dL (8.4-10.2); Carbon Dioxide 30 mmol/L (22-30); Chloride 101 mmol/L (98-107); Estimated Glomerular Filt Rate > 60; Glucose 140 mg/dL (65-110); Magnesium 2.4 mg/dL (1.6-2.3); Potassium 4.0 mmol/L (3.4-5.0); Sodium 135 mmol/L (137-145); Total Protein 6.2 g/dL (6.3-8.2)
[2025-02-17 04:27] LABS: Hypochromasia 1+; Schistocytes None Seen
[2025-02-17] MEDS: BUDESONIDE RESPULE NEB 0.5 MG/2 ML AMP INHALATION ×2 (08:04→19:47)
[2025-02-17] MEDS: ALPRAZolam (*CRX) 0.25 MG TABLET PO ×2 (08:36→21:23)
[2025-02-17] MEDS: PRAVASTATIN SODIUM 10 MG TABLET BY MOUTH (08:37)
[2025-02-17] MEDS: SERTRALINE HCL 50 MG TABLET 100 MG PO (08:37)
[2025-02-17] MEDS: RANOLAZINE 500 MG TAB.ER.12H BY MOUTH ×2 (08:37→20:19)
[2025-02-17] MEDS: CLOPIDOGREL BISULFATE 75 MG TABLET BY MOUTH (08:37)
--- NOTE | 2025-02-17 10:14 | P.PNIM_ITS ---
Progress Note: A&P Assessment and Plan (1) Acute and chronic respiratory failure: Code(s): J96.20 - Acute and chronic respiratory failure, unspecified whether with hypoxia or hypercapnia Status: Acute Assessment and Plan: patient was saturating in the 70s, she was placed on BiPAP, she had tachypnea given Solu-Medrol 125 mg IV x1, ceftriaxone 1 g IV x1, azithromycin 500 mg IV x1, 1 L normal saline bolus, breathing treatments in ER. Chest x-ray with stable chronic mild interstitial infiltrates Continue ceftriaxone and azithromycin quad viral screen and a full respiratory viral pathogen panel. Continue Solu-Medrol, DuoNeb scheduled, Patient noncompliant with BiPAP on Airvo 40% saturating 97%. 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 Patient wishes to be DNR, this was discussed with the patient's sister present in the room. Hospice/palliative consultation ordered, not sure if ready. Pulmonology consult placed Repeat chest x-ray Family care conference tomorrow with hospice (2) COPD exacerbation: Code(s): J44.1 - Chronic obstructive pulmonary disease with (acute) exacerbation Status: Acute Assessment and Plan: - see above (3) Iron deficiency anemia: Qualifiers: Iron deficiency anemia type: chronic blood loss Qualified Code(s): D50.0 - Iron deficiency anemia secondary to blood loss (chronic) Code(s): D50.9 - Iron deficiency anemia, unspecified Status: Acute Assessment and Plan: Hemoglobin trending down Iron panel pending (4) Fibromyalgia: Code(s): M79.7 - Fibromyalgia Status: Acute Assessment and Plan: Restart muscle relaxer in home pain medication (5) Anxiety: Code(s): F41.9 - Anxiety disorder, unspecified Status: Acute Assessment and Plan: Continue Xanax. Continue Cymbalta (6) Insomnia: Qualifiers: Insomnia type: unspecified Qualified Code(s): G47.00 - Insomnia, unspecified Code(s): G47.00 - Insomnia, unspecified Status: Acute Assessment and Plan: Trazodone Time Spent With Patient Time with patient: Greater than 35 minutes Subjective Date/time seen: 02/17/25 10:14 Interval history: 79-year-old female with PMH severe COPD, chronic respiratory failure on 4 L nasal cannula at home, depression and anxiety, chronic pain, fibromyalgia, chronic opioid use, history of heart stent, presents to [facility] on 02/14/2025 complaining of acute on chronic shortness of breath. Found to have COPD exacerbation Hospice consulted today patient met with them and would like like to have a family meeting and discuss hospice with family as has been is in denial that patient has been declining over the last couple months. Care conference planned for tomorrow Review of Systems Review of Systems: 12 systems were reviewed and are negativ e except for as per HPI. Exam Narrative: General: well appearing, appears stated age. HEENT: normocephalic, atraumatic. Mucous membranes moist. EOMI, PERRLA, bilateral sclera anicteric, no conjunctival injection. Neck supple without JVD, lymphadenopathy, or bruit. Respiratory: clear to ascultation bilaterally. No rales/rhonic/wheezes. Cardiovascular: Regular rate and rhythm, normal S1-S2 upon ascultation. No murmurs, rubs, or clicks. PMI is nondisplaced, capillary refill less than 3 second. Abdomen: Soft, round, no pulsatile masses, nondistended and nontender. No rebound, no guarding. No CVA tenderness, no hepatosplenomegaly. Bowel sounds present to all four quadrants. No high pitch or tinkling sounds, resonant to percussion. Extremities: No cyanosis, clubbing, or edema present. Pulses are palpable 2/2. Active ROM to all four extremities. Neuro: Alert and orientated x 4. PERRLA. Cranial nerves 2-12 intact without focal deficit. Skin: Warm, dry, and intact, without rash, erythema, or lesion. Psych: pleasant, cooperative, normal speech, normal affect, no hallucinations, no dysarthia Objective Data Vital Signs Vital Signs: Vital Signs - 24 hr 02/16/25 11:50 02/16/25 12:00 02/16/25 13:22 Temperature 97.6 F Pulse Rate 84 95 89 Respiratory Rate 20 24 H Blood Pressure 120/75 Pulse Oximetry 98 Oxygen Delivery Oxygen Flow Rate Fraction of Inspired Oxygen 02/16/25 13:29 02/16/25 14:00 02/16/25 15:48 Temperature 97.8 F Pulse Rate 85 96 85 Respiratory Rate 24 H 22 H Blood Pressure 130/79 Pulse Oximetry 97 Oxygen Delivery Oxygen Flow Rate Fraction of Inspired Oxygen 02/16/25 16:00 02/16/25 18:00 02/16/25 20:00 Temperature 97.6 F Pulse Rate 86 93 92 Respiratory Rate 22 H Blood Pressure 141/75 H Pulse Oximetry 91 Oxygen Delivery Oxygen Flow Rate Fraction of Inspired Oxygen 02/16/25 20:00 02/16/25 20:00 02/16/25 21:35 Temperature Pulse Rate 91 90 Respiratory Rate 18 Blood Pressure Pulse Oximetry 92 Oxygen Delivery High Flow Therapy with Na Oxygen Flow Rate 30 Fraction of Inspired Oxygen 40 02/16/25 21:38 02/16/25 22:00 02/17/25 00:00 Temperature Pulse Rate 90 83 Respiratory Rate 18 Blood Pressure Pulse Oximetry 93 94 Oxygen Delivery High Flow Therapy with Na High Flow Therapy with Na Oxygen Flow Rate 40 30 Fraction of Inspired Oxygen 30 40 02/17/25 00:00 02/17/25 00:00 02/17/25 02:00 Temperature 97.6 F Pulse Rate 85 87 75 Respiratory Rate 20 Blood Pressure 147/76 H Pulse Oximetry 94 Oxygen Delivery Oxygen Flow Rate Fraction of Inspired Oxygen 02/17/25 02:23 02/17/25 02:23 02/17/25 02:31 Temperature Pulse Rate 87 87 88 Respiratory Rate 20 20 18 Blood Pressure Pulse Oximetry 91 Oxygen Delivery High Flow Therapy with Na Oxygen Flow Rate 40 Fraction of Inspired Oxygen 30 02/17/25 03:43 02/17/25 04:00 02/17/25 04:00 Temperature 97.8 F Pulse Rate 88 84 Respiratory Rate 20 Blood Pressure 143/80 H Pulse Oximetry 96 92 Oxygen Delivery High Flow Therapy with Na Oxygen Flow Rate 30 Fraction of Inspired Oxygen 40 02/17/25 06:00 02/17/25 08:00 02/17/25 08:00 Temperature 98.4 F Pulse Rate 73 85 101 H Respiratory Rate 22 H Blood Pressure 131/99 H Pulse Oximetry 90 Oxygen Delivery Oxygen Flow Rate Fraction of Inspired Oxygen 02/17/25 08:04 02/17/25 08:04 02/17/25 08:14 Temperature Pulse Rate 101 H 101 H 98 Respiratory Rate 24 H 24 H 24 H Blood Pressure Pulse Oximetry 92 Oxygen Delivery High Flow Therapy with Na Oxygen Flow Rate 40 Fraction of Inspired Oxygen 30 Intake/Output Intake/Output: Intake & Output 02/14/25 02/15/25 02/16/25 02/17/25 23:59 23:59 23:59 23:59 Intake Total 1400 800 510 640 Output Total 500 700 300 Balance 1400 300 -190 340 Meds/Results Medications: Active Medications Generic Name Dose Route Start Last Admin Trade Name Freq PRN Reason Stop Dose Admin Acetaminophen 650 mg 02/14/25 18:41 Acetaminophen 325 Mg Tablet PO Q4H PRN Mild Pain (1-3) or Fever Hydrocodone Bitart/Acetaminophen 1 tab 02/14/25 18:41 02/17/25 08:36 Hydrocodone/Acetaminophen (*Crx) 5-325 Mg Tablet PO 1 tab Q4H PRN Administration Pain Rated 4-6 Albuterol 2.5 mg 02/15/25 10:02 02/15/25 10:27 Albuterol Sulfate Neb 2.5 Mg/3 Ml Inh INHALATION 2.5 mg Q4HRT PRN Administration Shortness Of Breath Albuterol/Ipratropium 3 ml 02/14/25 20:00 02/17/25 08:04 Ipratropium 0.5 Mg/Albuterol Sulfate 2.5 Mg (Base) Ampul.Neb 3 Ml INHALATION 3 ml Q6HRT AMBER Administration Alprazolam 0.25 mg 02/15/25 10:05 02/17/25 08:36 Alprazolam (*Crx) 0.25 Mg Tablet PO 0.25 mg TID PRN Administration Anxiety Budesonide 0.5 mg 02/15/25 20:00 02/17/25 08:04 Budesonide Respule Neb 0.5 Mg/2 Ml Amp INHALATION 0.5 mg Q12HRT AMBER Administration Clopidogrel Bisulfate 75 mg 02/15/25 09:00 02/17/25 08:37 Clopidogrel Bisulfate 75 Mg Tablet BY MOUTH 75 mg DAILY AMBER Administration Duloxetine HCl 30 mg 02/15/25 09:00 02/17/25 08:37 Duloxetine Hcl 30 Mg Capsule.Dr PO 30 mg QAM AMBER Administration Ceftriaxone Sodium 1 gm/ 50 mls @ 100 mls/hr 02/15/25 19:00 02/16/25 17:26 Sodium Chloride IVPB 100 mls/hr Q24H AMBER Administration Azithromycin 500 mg/ Sodium 250 mls @ 250 mls/hr 02/15/25 20:00 02/16/25 20:24 Chloride IVPB 02/18/25 20:59 250 mls/hr Q24H AMBER Administration Methylprednisolone Sodium Succinate 60 mg 02/15/25 00:00 02/17/25 05:20 Methylprednisolone Sod Succ 125 Mg Vial IV PUSH 60 mg Q6HR AMBER Administration Phenol 1 spray 02/15/25 09:10 02/15/25 09:24 Phenol/Sod Pheno [place] Stephen (*Bkc) MUCOUS MEM 1 spray PRN PRN Administration Sore Throat Pravastatin Sodium 10 mg 02/15/25 09:00 02/17/25 08:37 Pravastatin Sodium 10 Mg Tablet BY MOUTH 10 mg DAILY AMBER Administration Ranolazine 500 mg 02/14/25 22:15 02/17/25 08:37 Ranolazine 500 Mg Tab.Er.12h BY MOUTH 500 mg Q12HR AMBER Administration Sertraline HCl 100 mg 02/15/25 09:00 02/17/25 08:37 Sertraline Hcl 50 Mg Tablet PO 100 mg DAILY AMBER Administration Trazodone HCl 150 mg 02/15/25 14:42 02/15/25 20:36 Trazodone Hcl 50 Mg Tablet PO 150 mg QHS PRN Administration Insomnia Radiology Results: ITS Impressions Chest X-Ray 02/14/25 16:39 Impression: 1: Stable chronic mild interstitial infiltrates which may represent edema or developing chronic interstitial fibrosis. Knee X-Ray 02/14/25 16:40 IMPRESSION: 1. Mild osteoarthritis in the medial compartment of the left knee with nonspecific small knee joint effusion. No acute osseous abnormality. Labs Labs: Laboratory Results - last 24 hr 02/15/25 02/17/25 02/17/25 09:23 03:53 03:54 WBC 7.4 RBC 3.45 L Hgb 9.1 L Hct 30.3 L MCV 87.8 MCH 26.4 MCHC 30.0 L RDW 25.2 H Plt Count 151 MPV 8.8 Immature Gran % (Auto) 0.5 Neut % (Auto) 91.4 H Lymph % (Auto) 5.5 L [place] % (Auto) 2.6 Eos % (Auto) 0.0 Baso % (Auto) 0.0 L Lymph # (Auto) 0.41 L [place] # (Auto) 0.2 Eos # (Auto) 0.0 Baso # (Auto) 0.0 Abs Immat Gran (auto) 0.04 H Absolute Neuts (auto) 6.8 H Absolute Nucleated RBC 0.000 Band Neutrophils % Not Reportable Nucleated RBC % 0.0 Platelet Estimate Adequate Hypochromasia 1+ Schistocytes None seen Sodium 135 L Potassium 4.0 Chloride 101 Carbon Dioxide 30 Anion Gap 4 BUN 23 H Creatinine 0.49 L Estim Creat Clear Calc Not Reportable Estimated GFR > 60 Glucose 140 H Calcium 9.0 Magnesium 2.4 H Total Bilirubin 0.3 AST 27 ALT 45 H Alkaline Phosphatase 61 Total Protein 6.2 L Albumin 3.6 Chlamy pneumoniae PCR Not detected Adenovirus (PCR) Not detected B. pertussis DNA (PCR) Not detected B.parapertussis DNA PCR Not detected Coronavirus OC43 (PCR) Not detected Coronavirus HKU1 (PCR) Not detected Coronavirus 229E (PCR) Not detected Coronavirus NL63 (PCR) Not detected Human Metapneumovir PCR Not detected Influenza A (H1) PCR Not detected Influ A (H1/09) PCR Not detected Influenza A (H3) PCR Not detected Influenza Type A (PCR) Not detected Influenza Type B (PCR) Not detected M. pneumoniae (PCR) Not detected Parainfluenza 1 (PCR) Not detected Parainfluenza 2 (PCR) Not detected Parainfluenza 3 (PCR) Not detected Parainfluenza 4 (PCR) Not detected RSV (PCR) Not detected Entero/Rhino (PCR) Not detected SARS-CoV-2 (PCR) Not detected Quality VTE Prophylaxis VTE prophylaxis: mechanical ordered Hospitalist MIPS Advance Care Plan I have confirmed that the patient's Advanced Care Plan is present, code status is documented, or surrogate decision maker is listed in patient medical record.: Yes Medication Reconciliation I have utilized all available resources to obtain, update and review the patients current medications (includes all prescriptions, OTC, herbals, cannabis, and nutritional supplements).: Yes
[2025-02-17] MEDS: guaiFENesin 12 HR 600 MG TABCR 1200 MG PO ×2 (11:53→20:20)
[2025-02-17] MEDS: cefTRIAXone 1 GM in SODIUM CHLORIDE 0.9% IV 50 ML 100 ML IVPB (18:05)
[2025-02-17] MEDS: AZITHROMYCIN IV 500 MG in SODIUM CHLORIDE 0.9% IV 250 ML IVPB (20:20)
[2025-02-18] VITALS (18 sets, daily range): BP systolic 140–175; BP diastolic 65–91; PULSE 63–102; RESP 15–23; TEMP 36.2–37; O2SAT 92–100
[2025-02-18] MEDS: HYDROcodone/acetaminophen (*CRX) 5-325 MG TABLET 1 TAB PO (00:51)
[2025-02-18] MEDS: IPRATROPIUM 0.5 MG/ALBUTEROL SULFATE 2.5 MG (BASE) AMPUL.NEB 3 ML INHALATION ×3 (02:15→20:15)
[2025-02-18 04:19] LABS: Hematocrit 36.8 % (37.0-47.0); Hemoglobin 10.7 g/dL (12.0-15.0); Immature Granulocyte Percent A 2.2 % (0-0.5); Lymphocytes Absolute Auto 0.51 K/mm3 (0.9-3.2); Mean Corpuscular HGB Conc 29.1 g/dl (32-36); Mean Corpuscular Hemoglobin 26.2 pg (26-34); Mean Corpuscular Volume 90.2 fl (80-100); Nucleated Red Blood Cells Absolute Auto 0.000 K/mm3 (0.0-0.012); Nucleated Red Blood Cells Perc 0.0 % (0.0-0.2); Platelet Count Result 175 k/mm3 (150-375); Red Blood Count 4.08 M/mm3 (4.2-5.4); White Blood Count 7.6 K/mm3 (4.5-10.0)
[2025-02-18 04:41] LABS: Alanine Aminotransferase 43 U/L (6-35); Albumin Level 4.0 g/dL (3.5-5.1); Alkaline Phosphatase 83 U/L (38-126); Anion Gap 8 mmol/L (4-12); Aspartate Amino Transferase 25 U/L (14-36); Bilirubin,Total 0.4 mg/dL (0.2-1.3); Blood Urea Nitrogen 20 mg/dL (7-17); Calcium 8.9 mg/dL (8.4-10.2); Carbon Dioxide 28 mmol/L (22-30); Chloride 100 mmol/L (98-107); Estimated Glomerular Filt Rate > 60; Glucose 183 mg/dL (65-110); Magnesium 2.5 mg/dL (1.6-2.3); Potassium 3.6 mmol/L (3.4-5.0); Sodium 136 mmol/L (137-145); Total Protein 6.9 g/dL (6.3-8.2)
[2025-02-18 04:42] LABS: Iron 49 ug/dL (37-170)
[2025-02-18 04:49] LABS: Anisocytosis 1+; Hypochromasia 1+; Schistocytes None Seen
[2025-02-18 04:51] LABS: Percent Iron Saturation 19 % (20-50)
[2025-02-18] MEDS: BUDESONIDE RESPULE NEB 0.5 MG/2 ML AMP INHALATION ×2 (07:38→20:15)
--- NOTE | 2025-02-18 08:36 | P.PNIM_ITS ---
Progress Note: A&P Assessment and Plan (1) Acute and chronic respiratory failure: Code(s): J96.20 - Acute and chronic respiratory failure, unspecified whether with hypoxia or hypercapnia Status: Acute Assessment and Plan: patient was saturating in the 70s, she was placed on BiPAP, she had tachypnea given Solu-Medrol 125 mg IV x1, ceftriaxone 1 g IV x1, azithromycin 500 mg IV x1, 1 L normal saline bolus, breathing treatments in ER. Chest x-ray with stable chronic mild interstitial infiltrates Continue ceftriaxone and azithromycin quad viral screen and a full respiratory viral pathogen panel. Continue Solu-Medrol, DuoNeb scheduled, Patient noncompliant with BiPAP on Airvo 40% saturating 97%. 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 Patient wishes to be DNR, this was discussed with the patient's sister present in the room. Hospice/palliative consultation ordered, not sure if ready. Pulmonology consult placed Repeat chest x-ray Family care conference tomorrow with hospice (2) COPD exacerbation: Code(s): J44.1 - Chronic obstructive pulmonary disease with (acute) exacerbation Status: Acute Assessment and Plan: - see above (3) Iron deficiency anemia: Qualifiers: Iron deficiency anemia type: chronic blood loss Qualified Code(s): D50.0 - Iron deficiency anemia secondary to blood loss (chronic) Code(s): D50.9 - Iron deficiency anemia, unspecified Status: Acute Assessment and Plan: Hemoglobin trending down Iron panel pending (4) Fibromyalgia: Code(s): M79.7 - Fibromyalgia Status: Acute Assessment and Plan: Restart muscle relaxer in home pain medication (5) Anxiety: Code(s): F41.9 - Anxiety disorder, unspecified Status: Acute Assessment and Plan: Continue Xanax. Continue Cymbalta (6) Insomnia: Qualifiers: Insomnia type: unspecified Qualified Code(s): G47.00 - Insomnia, unspecified Code(s): G47.00 - Insomnia, unspecified Status: Acute Assessment and Plan: Trazodone Plan Patient met with hospice yesterday plan for family conference with hospice today Subjective Date/time seen: 02/18/25 08:36 Interval history: 79-year-old female with PMH severe COPD, chronic respiratory failure on 4 L nasal cannula at home, depression and anxiety, chronic pain, fibromyalgia, chronic opioid use, history of heart stent, presents to [facility] on 02/14/2025 complaining of acute on chronic shortness of breath. Found to have COPD exacerbation Patient on 4 L nasal cannula this morning Plan for family conference with hospice today Review of Systems Review of Systems: 12 systems were reviewed and are negativ e except for as per HPI. All systems reviewed & are unremarkable except as noted in HPI and below Exam Narrative: General: well appearing, appears stated age. HEENT: normocephalic, atraumatic. Mucous membranes moist. EOMI, PERRLA, bilateral sclera anicteric, no conjunctival injection. Neck supple without JVD, lymphadenopathy, or bruit. Respiratory: clear to ascultation bilaterally. No rales/rhonic/wheezes. Cardiovascular: Regular rate and rhythm, normal S1-S2 upon ascultation. No murmurs, rubs, or clicks. PMI is nondisplaced, capillary refill less than 3 second. Abdomen: Soft, round, no pulsatile masses, nondistended and nontender. No rebound, no guarding. No CVA tenderness, no hepatosplenomegaly. Bowel sounds present to all four quadrants. No high pitch or tinkling sounds, resonant to percussion. Extremities: No cyanosis, clubbing, or edema present. Pulses are palpable 2/2. Active ROM to all four extremities. Neuro: Alert and orientated x 4. PERRLA. Cranial nerves 2-12 intact without focal deficit. Skin: Warm, dry, and intact, without rash, erythema, or lesion. Psych: pleasant, cooperative, normal speech, normal affect, no hallucinations, no dysarthia Objective Data Vital Signs Vital Signs: Vital Signs - 24 hr 02/17/25 10:00 02/17/25 11:29 02/17/25 12:00 Temperature 97.8 F Pulse Rate 100 89 102 H Respiratory Rate 20 Blood Pressure 142/64 H Pulse Oximetry 95 Oxygen Delivery Oxygen Flow Rate Fraction of Inspired Oxygen 02/17/25 13:52 02/17/25 13:52 02/17/25 14:00 Temperature Pulse Rate 94 94 82 Respiratory Rate 20 20 Blood Pressure Pulse Oximetry 94 Oxygen Delivery High Flow Therapy with Na Oxygen Flow Rate 40 Fraction of Inspired Oxygen 30 02/17/25 14:02 02/17/25 14:08 02/17/25 14:22 Temperature Pulse Rate 91 90 94 Respiratory Rate 20 20 20 Blood Pressure Pulse Oximetry 99 95 Oxygen Delivery Nasal Cannula Nasal Cannula Oxygen Flow Rate 2 2 Fraction of Inspired Oxygen 02/17/25 16:00 02/17/25 16:00 02/17/25 16:00 Temperature 97.4 F L Pulse Rate 89 92 Respiratory Rate 20 Blood Pressure 148/94 H Pulse Oximetry 95 95 Oxygen Delivery Nasal Cannula Oxygen Flow Rate 2 Fraction of Inspired Oxygen 02/17/25 18:00 02/17/25 19:47 02/17/25 19:47 Temperature Pulse Rate 91 91 Respiratory Rate 18 Blood Pressure Pulse Oximetry 97 Oxygen Delivery Nasal Cannula Oxygen Flow Rate 4 Fraction of Inspired Oxygen 02/17/25 20:00 02/17/25 20:00 02/17/25 20:00 Temperature 98.3 F Pulse Rate 80 91 Respiratory Rate 20 Blood Pressure 147/73 H Pulse Oximetry 97 97 Oxygen Delivery Nasal Cannula Oxygen Flow Rate 4 Fraction of Inspired Oxygen 02/17/25 20:01 02/17/25 22:00 02/18/25 00:00 Temperature 98 F Pulse Rate 90 85 63 Respiratory Rate 18 20 Blood Pressure 140/65 Pulse Oximetry 97 Oxygen Delivery Oxygen Flow Rate Fraction of Inspired Oxygen 02/18/25 00:00 02/18/25 00:00 02/18/25 02:00 Temperature Pulse Rate 68 74 Respiratory Rate Blood Pressure Pulse Oximetry 96 Oxygen Delivery Nasal Cannula Oxygen Flow Rate 4 Fraction of Inspired Oxygen 02/18/25 02:15 02/18/25 02:21 02/18/25 03:11 Temperature Pulse Rate 79 86 Respiratory Rate 15 15 Blood Pressure Pulse Oximetry 96 Oxygen Delivery Nasal Cannula Oxygen Flow Rate 4 Fraction of Inspired Oxygen 02/18/25 04:00 02/18/25 04:00 02/18/25 06:00 Temperature 97.8 F Pulse Rate 80 78 70 Respiratory Rate 20 Blood Pressure 147/70 H Pulse Oximetry 100 Oxygen Delivery Oxygen Flow Rate Fraction of Inspired Oxygen 02/18/25 07:39 02/18/25 07:39 02/18/25 07:47 Temperature Pulse Rate 94 94 91 Respiratory Rate 17 17 Blood Pressure Pulse Oximetry 99 Oxygen Delivery Nasal Cannula Oxygen Flow Rate 4 Fraction of Inspired Oxygen 02/18/25 08:00 Temperature 97.4 F L Pulse Rate 79 Respiratory Rate 20 Blood Pressure 162/85 H Pulse Oximetry 96 Oxygen Delivery Oxygen Flow Rate Fraction of Inspired Oxygen Intake/Output Intake/Output: Intake & Output 02/15/25 02/16/25 02/17/25 02/18/25 23:59 23:59 23:59 23:59 Intake Total 099 974 9779 Output Total 500 700 300 100 Balance 514 005 6824 -100 Meds/Results Medications: Active Medications Generic Name Dose Route Start Last Admin Trade Name Freq PRN Reason Stop Dose Admin Acetaminophen 650 mg 02/14/25 18:41 Acetaminophen 325 Mg Tablet PO Q4H PRN Mild Pain (1-3) or Fever Hydrocodone Bitart/Acetaminophen 1 tab 02/14/25 18:41 02/18/25 00:51 Hydrocodone/Acetaminophen (*Crx) 5-325 Mg Tablet PO 1 tab Q4H PRN Administration Pain Rated 4-6 Hydrocodone Bitart/Acetaminophen 1 tab 02/17/25 15:53 Hydrocodone/Acetaminophen (*Crx) 10-325 Mg Tablet PO DAILY PRN Pain Rated 7 or Greater Albuterol/Ipratropium 3 ml 02/14/25 20:00 02/18/25 07:38 Ipratropium 0.5 Mg/Albuterol Sulfate 2.5 Mg (Base) Ampul.Neb 3 Ml INHALATION 3 ml Q6HRT AMBER Administration Alprazolam 0.25 mg 02/15/25 10:05 02/17/25 21:23 Alprazolam (*Crx) 0.25 Mg Tablet PO 0.25 mg TID PRN Administration Anxiety Budesonide 0.5 mg 02/15/25 20:00 02/18/25 07:38 Budesonide Respule Neb 0.5 Mg/2 Ml Amp INHALATION 0.5 mg Q12HRT AMBER Administration Clopidogrel Bisulfate 75 mg 02/15/25 09:00 02/17/25 08:37 Clopidogrel Bisulfate 75 Mg Tablet BY MOUTH 75 mg DAILY AMBER Administration Cyclobenzaprine HCl 5 mg 02/17/25 15:53 Cyclobenzaprine Hcl 5 Mg Tablet PO TID PRN Muscle Spasm Duloxetine HCl 30 mg 02/15/25 09:00 02/17/25 08:37 Duloxetine Hcl 30 Mg Capsule.Dr PO 30 mg QAM AMBER Administration Guaifenesin 1,200 mg 02/17/25 10:25 02/17/25 20:20 Guaifenesin 12 Hr 600 Mg Tabcr PO 1,200 mg Q12HR AMBER Administration Ceftriaxone Sodium 1 gm/ 50 mls @ 100 mls/hr 02/15/25 19:00 02/17/25 18:35 Sodium Chloride IVPB Infused Q24H AMBER Infusion Azithromycin 500 mg/ Sodium 250 mls @ 250 mls/hr 02/15/25 20:00 02/17/25 20:20 Chloride IVPB 02/18/25 20:59 250 mls/hr Q24H AMBER Administration Isosorbide Mononitrate 15 mg 02/18/25 09:00 Isosorbide Mononitrate 15 Mg Tab.Er.24h BY MOUTH QAM AMBER Methylprednisolone Sodium Succinate 60 mg 02/15/25 00:00 02/18/25 06:06 Methylprednisolone Sod Succ 125 Mg Vial IV PUSH 60 mg Q6HR AMBER Administration Miscellaneous Information 1 each 02/18/25 00:01 Clarify Imdur Dose In Milligrams. Is It 15 Mg Or 30 Mg For Dose? XX 03/20/25 00:00 CLARIFY AMBER Phenol 1 spray 02/15/25 09:10 02/15/25 09:24 Phenol/Sod Pheno [place] Stephen (*Bkc) MUCOUS MEM 1 spray PRN PRN Administration Sore Throat Pravastatin Sodium 10 mg 02/15/25 09:00 02/17/25 08:37 Pravastatin Sodium 10 Mg Tablet BY MOUTH 10 mg DAILY AMBER Administration Ranolazine 500 mg 02/14/25 22:15 02/17/25 20:19 Ranolazine 500 Mg Tab.Er.12h BY MOUTH 500 mg Q12HR AMBER Administration Sertraline HCl 100 mg 02/15/25 09:00 02/17/25 08:37 Sertraline Hcl 50 Mg Tablet PO 100 mg DAILY AMBER Administration Trazodone HCl 150 mg 02/15/25 14:42 02/17/25 21:23 Trazodone Hcl 50 Mg Tablet PO 150 mg QHS PRN Administration Insomnia Radiology Results: ITS Impressions Knee X-Ray 02/14/25 16:40 IMPRESSION: 1. Mild osteoarthritis in the medial compartment of the left knee with nonspecific small knee joint effusion. No acute osseous abnormality. Chest X-Ray 02/17/25 10:32 IMPRESSION: 1. No acute cardiopulmonary findings given portable technique. Labs Labs: Laboratory Results - last 24 hr 02/18/25 04:00 WBC 7.6 RBC 4.08 L Hgb 10.7 L Hct 36.8 L MCV 90.2 MCH 26.2 MCHC 29.1 L RDW 24.9 H Plt Count 175 MPV 10.2 Immature Gran % (Auto) 2.2 H Neut % (Auto) 85.2 H Lymph % (Auto) 6.7 L [place] % (Auto) 5.8 Eos % (Auto) 0.0 Baso % (Auto) 0.1 L Lymph # (Auto) 0.51 L [place] # (Auto) 0.4 Eos # (Auto) 0.0 Baso # (Auto) 0.0 Abs Immat Gran (auto) 0.17 H Absolute Neuts (auto) 6.5 Absolute Nucleated RBC 0.000 Band Neutrophils % Not Reportable Nucleated RBC % 0.0 Platelet Estimate Adequate Hypochromasia 1+ Anisocytosis 1+ Schistocytes None seen Sodium 136 L Potassium 3.6 Chloride 100 Carbon Dioxide 28 Anion Gap 8 BUN 20 H Creatinine 0.50 L Estim Creat Clear Calc Not Reportable Estimated GFR > 60 Glucose 183 H Calcium 8.9 Magnesium 2.5 H Iron 49 TIBC 264 % Saturation 19 L Total Bilirubin 0.4 AST 25 ALT 43 H Alkaline Phosphatase 83 Total Protein 6.9 Albumin 4.0 Quality VTE Prophylaxis VTE prophylaxis: mechanical ordered
[2025-02-18] MEDS: SERTRALINE HCL 50 MG TABLET 100 MG PO (08:48)
[2025-02-18] MEDS: guaiFENesin 12 HR 600 MG TABCR 1200 MG PO ×2 (08:48→20:38)
[2025-02-18] MEDS: CLOPIDOGREL BISULFATE 75 MG TABLET BY MOUTH (08:49)
[2025-02-18] MEDS: RANOLAZINE 500 MG TAB.ER.12H BY MOUTH ×2 (08:49→20:38)
[2025-02-18] MEDS: PRAVASTATIN SODIUM 10 MG TABLET BY MOUTH (08:49)
[2025-02-18] MEDS: ISOSORBIDE MONONITRATE 15 MG TAB.ER.24H BY MOUTH (08:59)
[2025-02-18] MEDS: HYDROcodone/acetaminophen (*CRX) 10-325 MG TABLET 1 TAB PO (12:20)
[2025-02-18] MEDS: ALPRAZolam (*CRX) 0.25 MG TABLET PO (14:59)
--- NOTE | 2025-02-18 15:38 | PM.CCN ---
Critical Care Event Note Summary Code activated: No Narrative: Patient has decided to discharge home on hospice. She would also like to change her code status to comfort measures only at this time as it will take a little bit to get hospice set up in her home. She wants to continue the steroids and antibiotics for comfort. She will be taken off telemetry and transferred to the floor. She consult her oxygen for comfort. She can have a Garcia catheter if she wants to. Includes review of chart, time spent family, consulting teams and nursing. A significant amount time spent with case management, nursing, patient and hospice outside of rounding 35 minutes This case had a high probability of a clinically significant, sudden, or life threatening deterioration of this patient's condition which required my full and direct attention, intervention and personal management. Critical care time: 30 - 74 mins
--- NOTE | 2025-02-18 16:42 | PC.NURSE ---
This patient, Zandra Jackson, was transferred to [ [facility]] on 02/18/25 at 1642. Personal belongings sent with patient. Report given to [Melody ]. Appropriate documentation sent with patient.
--- NOTE | 2025-02-18 16:58 | PC.NURSE ---
On 02/18/25, the BILLBOARD POSTER HELPER, [Tera Dougherty ], provided care and completed [facility] documentation on this patient. I have reviewed the BILLBOARD POSTER HELPER's documentation and agree with the findings.
--- NOTE | 2025-02-18 17:11 | PC.NURSE ---
This patient, Zandra Jackson, was received from [ [id number]] on 02/18/25 at 1655. Patient/family oriented to unit policies and routines
[2025-02-18] MEDS: cefTRIAXone 1 GM in SODIUM CHLORIDE 0.9% IV 50 ML 100 ML IVPB (18:06)
[2025-02-18] MEDS: AZITHROMYCIN IV 500 MG in SODIUM CHLORIDE 0.9% IV 250 ML IVPB (20:40)
[2025-02-19] VITALS (9 sets, daily range): BP systolic 110–151; BP diastolic 83–89; PULSE 85–98; RESP 16–20; TEMP 36.8–37.1; O2SAT 96–100
[2025-02-19] MEDS: HYDROcodone/acetaminophen (*CRX) 5-325 MG TABLET 1 TAB PO ×3 (00:01→17:19)
[2025-02-19] MEDS: ALPRAZolam (*CRX) 0.5 MG TABLET PO ×3 (00:02→17:19)
[2025-02-19] MEDS: IPRATROPIUM 0.5 MG/ALBUTEROL SULFATE 2.5 MG (BASE) AMPUL.NEB 3 ML INHALATION ×4 (01:52→20:09)
--- NOTE | 2025-02-19 07:32 | P.PNIM_ITS ---
Progress Note: A&P Assessment and Plan (1) Acute and chronic respiratory failure: Code(s): J96.20 - Acute and chronic respiratory failure, unspecified whether with hypoxia or hypercapnia Status: Acute Assessment and Plan: patient was saturating in the 70s, she was placed on BiPAP, she had tachypnea given Solu-Medrol 125 mg IV x1, ceftriaxone 1 g IV x1, azithromycin 500 mg IV x1, 1 L normal saline bolus, breathing treatments in ER. Chest x-ray with stable chronic mild interstitial infiltrates Continue ceftriaxone and azithromycin quad viral screen and a full respiratory viral pathogen panel. Continue Solu-Medrol, DuoNeb scheduled, Patient noncompliant with BiPAP on Airvo 40% saturating 97%. 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 Patient wishes to be DNR, this was discussed with the patient's sister present in the room. Hospice/palliative consultation ordered, not sure if ready. Pulmonology consult placed Repeat chest x-ray Patient has been make comfort care only and will discharge home hospice (2) COPD exacerbation: Code(s): J44.1 - Chronic obstructive pulmonary disease with (acute) exacerbation Status: Acute Assessment and Plan: - see above (3) Iron deficiency anemia: Qualifiers: Iron deficiency anemia type: chronic blood loss Qualified Code(s): D50.0 - Iron deficiency anemia secondary to blood loss (chronic) Code(s): D50.9 - Iron deficiency anemia, unspecified Status: Acute Assessment and Plan: Hemoglobin stable (4) Fibromyalgia: Code(s): M79.7 - Fibromyalgia Status: Acute Assessment and Plan: Restart muscle relaxer in home pain medication (5) Anxiety: Code(s): F41.9 - Anxiety disorder, unspecified Status: Acute Assessment and Plan: Continue Xanax. Continue Cymbalta (6) Insomnia: Qualifiers: Insomnia type: unspecified Qualified Code(s): G47.00 - Insomnia, unspecified Code(s): G47.00 - Insomnia, unspecified Status: Acute Assessment and Plan: Trazodone Plan Patient has been made comfort care only transfer out of IMU medications for anxiety and air hunger IV and oral been added patient wishes to continue antibiotics and steroids. Time Spent With Patient Time with patient: Greater than 35 minutes Subjective Date/time seen: 02/19/25 07:32 Interval history: 79-year-old female with PMH severe COPD, chronic respiratory failure on 4 L nasal cannula at home, depression and anxiety, chronic pain, fi bromyalgia, chronic opioid use, history of heart stent, presents [facility] on 02/14[facility]25 complaining of acute on chronic shortness of breath. Found to have COPD exacerbation Patient on 4 L nasal cannula this morning With hospice yesterday afternoon, states that he needed some from a friend to make room for the hospice bed in his living room. Once arrangements have been made she will discharge home on hospice. Patient is made comfort care only while hospital with medication orders placed she wishes to continue steroids and antibiotics. Patient does not need to stay in hospital Friday. She will be discharged hospice is set up at home. Review of Systems Review of Systems: 12 systems were reviewed and are negativ e except for as per HPI. All systems reviewed & are unremarkable except as noted in HPI and below Exam 2 Narrative: General: Chronically-ill, with mild distress while talking HEENT: normocephalic, atraumatic. Mucous membranes moist. EOMI, PERRLA, bilateral sclera anicteric, no conjunctival injection. Neck supple without JVD, lymphadenopathy, or bruit. Respiratory: Diminished, pursed lip breathing, unable to speak in full sentences Cardiovascular: Regular rate and rhythm, normal S1-S2 upon ascultation. No murmurs, rubs, or clicks. PMI is nondisplaced, capillary refill less than 3 second. Abdomen: Soft, round, no pulsatile masses, nondistended and nontender. No rebound, no guarding. No CVA tenderness, no hepatosplenomegaly. Bowel sounds present to all four quadrants. No high pitch or tinkling sounds, resonant to percussion. Extremities: No cyanosis, clubbing, or edema present. Pulses are palpable 2/2. Active ROM to all four extremities. Neuro: Alert and orientated x 4. PERRLA. Cranial nerves 2-12 intact without focal deficit. Skin: Warm, dry, and intact, without rash, erythema, or lesion. Psych: pleasant, cooperative, normal speech, normal affect, no hallucinations, no dysarthia Objective Data Vital Signs Vital Signs: Vital Signs - 24 hr 02/18/25 07:39 02/18/25 07:39 02/18/25 07:47 Temperature Pulse Rate 94 94 91 Respiratory Rate 17 17 Blood Pressure Pulse Oximetry 99 Oxygen Delivery Nasal Cannula Oxygen Flow Rate 4 02/18/25 08:00 02/18/25 08:00 02/18/25 08:00 Temperature 97.4 F L Pulse Rate 79 92 Respiratory Rate 20 Blood Pressure 162/85 H Pulse Oximetry 96 92 Oxygen Delivery Nasal Cannula Oxygen Flow Rate 2 02/18/25 10:00 02/18/25 12:00 02/18/25 12:00 Temperature 98.6 F Pulse Rate 93 85 Respiratory Rate 23 H Blood Pressure 152/91 H Pulse Oximetry 95 92 Oxygen Delivery Nasal Cannula Oxygen Flow Rate 2 02/18/25 12:00 02/18/25 14:00 02/18/25 15:42 Temperature 97.5 F L Pulse Rate 102 H 85 88 Respiratory Rate 22 H Blood Pressure 159/87 H Pulse Oximetry 93 Oxygen Delivery Oxygen Flow Rate 02/18/25 17:15 02/18/25 20:00 02/18/25 20:00 Temperature 97.2 F L 97.8 F Pulse Rate 98 88 Respiratory Rate 22 H 18 Blood Pressure 175/90 H 153/84 H Pulse Oximetry 97 99 97 Oxygen Delivery Nasal Cannula Oxygen Flow Rate 4 02/18/25 20:16 02/18/25 20:21 02/19/25 01:55 Temperature Pulse Rate 92 92 85 Respiratory Rate 17 17 16 Blood Pressure Pulse Oximetry Oxygen Delivery Oxygen Flow Rate 02/19/25 05:30 Temperature 98.5 F Pulse Rate 95 Respiratory Rate 20 Blood Pressure 110/85 Pulse Oximetry 100 Oxygen Delivery Oxygen Flow Rate Intake/Output Intake/Output: Intake & Output 02/16/25 02/17/25 02/18/25 02/19/25 23:59 23:59 23:59 23:59 Intake Total 810 1620 510 Output Total 700 300 100 100 Balance 110 1320 410 -100 Meds/Results Medications: Active Medications Generic Name Dose Route Start Last Admin Trade Name Freq PRN Reason Stop Dose Admin Acetaminophen 650 mg 02/14/25 18:41 Acetaminophen 325 Mg Tablet PO Q4H PRN Mild Pain (1-3) or Fever Hydrocodone Bitart/Acetaminophen 1 tab 02/14/25 18:41 02/19/25 05:27 Hydrocodone/Acetaminophen (*Crx) 5-325 Mg Tablet PO 1 tab Q4H PRN Administration Pain Rated 4-6 Hydrocodone Bitart/Acetaminophen 1 tab 02/18/25 15:47 Hydrocodone/Acetaminophen (*Crx) 10-325 Mg Tablet PO Q4H PRN Pain Rated 7 or Greater Albuterol/Ipratropium 3 ml 02/14/25 20:00 02/19/25 01:52 Ipratropium 0.5 Mg/Albuterol Sulfate 2.5 Mg (Base) Ampul.Neb 3 Ml INHALATION 3 ml Q6HRT AMBER Administration Alprazolam 0.5 mg 02/18/25 15:47 02/19/25 00:02 Alprazolam (*Crx) 0.5 Mg Tablet PO 0.5 mg Q3HR PRN Administration Anxiety Budesonide 0.5 mg 02/15/25 20:00 02/18/25 20:15 Budesonide Respule Neb 0.5 Mg/2 Ml Amp INHALATION 0.5 mg Q12HRT AMBER Administration Clopidogrel Bisulfate 75 mg 02/15/25 09:00 02/18/25 08:49 Clopidogrel Bisulfate 75 Mg Tablet BY MOUTH 75 mg DAILY AMBER Administration Cyclobenzaprine HCl 5 mg 02/17/25 15:53 Cyclobenzaprine Hcl 5 Mg Tablet PO TID PRN Muscle Spasm Diazepam 5 mg 02/18/25 15:45 Diazepam Inj (*Crx) 10 Mg/2 Ml Syringe IV PUSH Q3HR PRN Anxiety Duloxetine HCl 30 mg 02/15/25 09:00 02/18/25 08:48 Duloxetine Hcl 30 Mg Capsule.Dr PO 30 mg QAM AMBER Administration Guaifenesin 1,200 mg 02/17/25 10:25 02/18/25 20:38 Guaifenesin 12 Hr 600 Mg Tabcr PO 1,200 mg Q12HR AMBER Administration Ceftriaxone Sodium 1 gm/ 50 mls @ 100 mls/hr 02/15/25 19:00 02/18/25 18:36 Sodium Chloride IVPB 02/20/25 19:29 Infused Q24H AMBER Infusion Isosorbide Mononitrate 15 mg 02/18/25 09:00 02/18/25 08:59 Isosorbide Mononitrate 15 Mg Tab.Er.24h BY MOUTH 15 mg QAM AMBER Administration Methylprednisolone Sodium Succinate 60 mg 02/15/25 00:00 02/19/25 05:29 Methylprednisolone Sod Succ 125 Mg Vial IV PUSH 60 mg Q6HR AMBER Administration Morphine Sulfate 2 mg 02/18/25 15:45 Morphine Sulfate (*Crx) 4 Mg/Ml Inj IV PUSH Q4H PRN air hunger Phenol 1 spray 02/15/25 09:10 02/15/25 09:24 Phenol/Sod Pheno [place] Stephen (*Bkc) MUCOUS MEM 1 spray PRN PRN Administration Sore Throat Pravastatin Sodium 10 mg 02/15/25 09:00 02/18/25 08:49 Pravastatin Sodium 10 Mg Tablet BY MOUTH 10 mg DAILY AMBER Administration Ranolazine 500 mg 02/14/25 22:15 02/18/25 20:38 Ranolazine 500 Mg Tab.Er.12h BY MOUTH 500 mg Q12HR AMBER Administration Sertraline HCl 100 mg 02/15/25 09:00 02/18/25 08:48 Sertraline Hcl 50 Mg Tablet PO 100 mg DAILY AMBER Administration Trazodone HCl 150 mg 02/15/25 14:42 02/17/25 21:23 Trazodone Hcl 50 Mg Tablet PO 150 mg QHS PRN Administration Insomnia Radiology Results: ITS Impressions Knee X-Ray 02/14/25 16:40 IMPRESSION: 1. Mild osteoarthritis in the medial compartment of the left knee with nonspecific small knee joint effusion. No acute osseous abnormality. Chest X-Ray 02/17/25 10:32 IMPRESSION: 1. No acute cardiopulmonary findings given portable technique. Quality VTE Prophylaxis VTE prophylaxis: mechanical ordered [place]ist [facility] [place] Care Plan I have confirmed that the patient's Advanced Care Plan is present, code status is documented, or surrogate decision maker is listed in patient medical record.: Yes Medication Reconciliation I have utilized all available resources to obtain, update and review the patients current medications (includes all prescriptions, OTC, herbals, cannabis, and nutritional supplements).: Yes
[2025-02-19] MEDS: BUDESONIDE RESPULE NEB 0.5 MG/2 ML AMP INHALATION ×2 (07:38→20:09)
[2025-02-19] MEDS: RANOLAZINE 500 MG TAB.ER.12H BY MOUTH ×2 (10:01→20:31)
[2025-02-19] MEDS: CLOPIDOGREL BISULFATE 75 MG TABLET BY MOUTH (10:01)
[2025-02-19] MEDS: guaiFENesin 12 HR 600 MG TABCR 1200 MG PO ×2 (10:02→20:31)
[2025-02-19] MEDS: ISOSORBIDE MONONITRATE 15 MG TAB.ER.24H BY MOUTH (10:02)
[2025-02-19] MEDS: SERTRALINE HCL 50 MG TABLET 100 MG PO (10:02)
[2025-02-19] MEDS: PRAVASTATIN SODIUM 10 MG TABLET BY MOUTH (10:02)
[2025-02-19] MEDS: cefTRIAXone 1 GM in SODIUM CHLORIDE 0.9% IV 50 ML 100 ML IVPB (18:41)
--- NOTE | 2025-02-19 20:09 | PCRCNOTE ---
Med charted manually, scanner not working on alternate WOW and RCS WOW not located on patient floor.
[2025-02-19] MEDS: HYDROcodone/acetaminophen (*CRX) 10-325 MG TABLET 1 TAB PO (23:34)
[2025-02-20] VITALS (11 sets, daily range): BP systolic 150–162; BP diastolic 66–77; PULSE 83–96; RESP 16–20; TEMP 36.2–36.7; O2SAT 95–100
[2025-02-20] MEDS: IPRATROPIUM 0.5 MG/ALBUTEROL SULFATE 2.5 MG (BASE) AMPUL.NEB 3 ML INHALATION ×4 (02:19→19:55)
[2025-02-20] MEDS: ALPRAZolam (*CRX) 0.5 MG TABLET PO ×3 (04:09→20:16)
[2025-02-20] MEDS: guaiFENesin 12 HR 600 MG TABCR 1200 MG PO ×2 (07:53→20:16)
[2025-02-20] MEDS: CLOPIDOGREL BISULFATE 75 MG TABLET BY MOUTH (07:53)
[2025-02-20] MEDS: RANOLAZINE 500 MG TAB.ER.12H BY MOUTH ×2 (07:54→20:16)
[2025-02-20] MEDS: ISOSORBIDE MONONITRATE 15 MG TAB.ER.24H BY MOUTH (07:54)
[2025-02-20] MEDS: SERTRALINE HCL 50 MG TABLET 100 MG PO (07:54)
[2025-02-20] MEDS: PRAVASTATIN SODIUM 10 MG TABLET BY MOUTH (07:54)
[2025-02-20] MEDS: BUDESONIDE RESPULE NEB 0.5 MG/2 ML AMP INHALATION ×2 (08:49→19:55)
--- NOTE | 2025-02-20 10:27 | P.PNIM_ITS ---
Progress Note: A&P Assessment and Plan (1) Acute and chronic respiratory failure: Code(s): J96.20 - Acute and chronic respiratory failure, unspecified whether with hypoxia or hypercapnia Status: Acute Assessment and Plan: patient was saturating in the 70s, she was placed on BiPAP, she had tachypnea given Solu-Medrol 125 mg IV x1, ceftriaxone 1 g IV x1, azithromycin 500 mg IV x1, 1 L normal saline bolus, breathing treatments in ER. Chest x-ray with stable chronic mild interstitial infiltrates Continue ceftriaxone and azithromycin quad viral screen and a full respiratory viral pathogen panel. Continue Solu-Medrol, DuoNeb scheduled, Patient noncompliant with BiPAP on Airvo 40% saturating 97%. 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 Patient wishes to be DNR, this was discussed with the patient's sister present in the room. Hospice/palliative consultation ordered, not sure if ready. Pulmonology consult placed Repeat chest x-ray Patient has been make comfort care only and will discharge home hospice 02/21 to allow time to retain caregivers and rearrange home (2) COPD exacerbation: Code(s): J44.1 - Chronic obstructive pulmonary disease with (acute) exacerbation Status: Acute Assessment and Plan: - see above (3) Iron deficiency anemia: Qualifiers: Iron deficiency anemia type: chronic blood loss Qualified Code(s): D50.0 - Iron deficiency anemia secondary to blood loss (chronic) Code(s): D50.9 - Iron deficiency anemia, unspecified Status: Acute Assessment and Plan: Hemoglobin stable (4) Fibromyalgia: Code(s): M79.7 - Fibromyalgia Status: Acute Assessment and Plan: Continue home medication (5) Anxiety: Code(s): F41.9 - Anxiety disorder, unspecified Status: Acute Assessment and Plan: Continue Xanax. Continue Cymbalta (6) Insomnia: Qualifiers: Insomnia type: unspecified Qualified Code(s): G47.00 - Insomnia, unspecified Code(s): G47.00 - Insomnia, unspecified Status: Acute Assessment and Plan: Trazodone Subjective Date/time seen: 02/20/25 10:27 Interval history: Multiple admissions during the past several months for COPD, pneumonia. Chronic pain with hx of fibromyalgia. Pain is in bilateral arms with aching and tingling, interscapular, left hip. SOB with conversation. Very weak. Poor appetite. Review of Systems Review of Systems: All systems reviewed & are unremarkable except as noted in HPI and below Exam Narrative: GEN: Appears frail and older than stated age HEENT: EOMI, PERRL, sclerae nonicteric, pharyngeal mucosa pink and intact NECK: No JVD CHEST: Tachypneic, increased APD, coarse BS with inspiratory and expiratory rhonchi HEART: NL S1/S2, regular, no murmur ABDOMEN: BS+, soft, nontender, no mass, no bruits EXTREMITIES: No edema NEUROLOGIC: CN intact and symmetric to inspection MUSCULOSKELETAL: Tone and strength symmetric PSYCH: Alert. Oriented to person, place, and time Objective Data Vital Signs Vital Signs: Vital Signs - 24 hr 02/19/25 14:00 02/19/25 14:11 02/19/25 20:00 Temperature 98.3 F Pulse Rate 98 90 Respiratory Rate 20 16 Blood Pressure 151/89 H Pulse Oximetry 97 97 Oxygen Delivery Nasal Cannula Oxygen Flow Rate 4 02/19/25 20:00 02/19/25 20:09 02/19/25 20:13 Temperature 98.8 F Pulse Rate 92 86 Respiratory Rate 18 16 Blood Pressure 147/83 H Pulse Oximetry 99 96 Oxygen Delivery Nasal Cannula Oxygen Flow Rate 4 02/19/25 20:21 02/20/25 02:20 02/20/25 02:25 Temperature Pulse Rate 85 84 85 Respiratory Rate 16 16 16 Blood Pressure Pulse Oximetry Oxygen Delivery Oxygen Flow Rate 02/20/25 08:00 02/20/25 08:00 02/20/25 08:51 Temperature 97.1 F L Pulse Rate 95 85 Respiratory Rate 18 16 Blood Pressure 162/77 H Pulse Oximetry 96 100 Oxygen Delivery Nasal Cannula Oxygen Flow Rate 4 02/20/25 09:00 Temperature Pulse Rate 83 Respiratory Rate 16 Blood Pressure Pulse Oximetry Oxygen Delivery Oxygen Flow Rate Intake/Output Intake/Output: Intake & Output 02/17/25 02/18/25 02/19/25 02/20/25 23:59 23:59 23:59 23:59 Intake Total 1620 510 640 486 Output Total 300 100 300 Balance 1320 410 340 486 Meds/Results Medications: Active Medications Generic Name Dose Route Start Last Admin Trade Name Freq PRN Reason Stop Dose Admin Acetaminophen 650 mg 02/14/25 18:41 Acetaminophen 325 Mg Tablet PO Q4H PRN Mild Pain (1-3) or Fever Hydrocodone Bitart/Acetaminophen 1 tab 10/20/25 18:41 02/19/25 17:19 Hydrocodone/Acetaminophen (*Crx) 5-325 Mg Tablet PO 1 tab Q4H PRN Administration Pain Rated 4-6 Hydrocodone Bitart/Acetaminophen 1 tab 02/18/25 15:47 02/19/25 23:34 Hydrocodone/Acetaminophen (*Crx) 10-325 Mg Tablet PO 1 tab Q4H PRN Administration Pain Rated 7 or Greater Albuterol/Ipratropium 3 ml 02/14/25 20:00 02/20/25 08:49 Ipratropium 0.5 Mg/Albuterol Sulfate 2.5 Mg (Base) Ampul.Neb 3 Ml INHALATION 3 ml Q6HRT AMBER Administration Alprazolam 0.5 mg 02/18/25 15:47 02/20/25 04:09 Alprazolam (*Crx) 0.5 Mg Tablet PO 0.5 mg Q3HR PRN Administration Anxiety Budesonide 0.5 mg 02/15/25 20:00 02/20/25 08:49 Budesonide Respule Neb 0.5 Mg/2 Ml Amp INHALATION 0.5 mg Q12HRT AMBER Administration Clopidogrel Bisulfate 75 mg 02/15/25 09:00 02/20/25 07:53 Clopidogrel Bisulfate 75 Mg Tablet BY MOUTH 75 mg DAILY AMBER Administration Cyclobenzaprine HCl 5 mg 02/17/25 15:53 Cyclobenzaprine Hcl 5 Mg Tablet PO TID PRN Muscle Spasm Diazepam 5 mg 02/18/25 15:45 Diazepam Inj (*Crx) 10 Mg/2 Ml Syringe IV PUSH Q3HR PRN Anxiety Duloxetine HCl 30 mg 02/15/25 09:00 02/20/25 07:53 Duloxetine Hcl 30 Mg Capsule.Dr PO 30 mg QAM AMBER Administration Guaifenesin 1,200 mg 02/17/25 10:25 02/20/25 07:53 Guaifenesin 12 Hr 600 Mg Tabcr PO 1,200 mg Q12HR AMBER Administration Ceftriaxone Sodium 1 gm/ 50 mls @ 100 mls/hr 02/15/25 19:00 02/19/25 18:41 Sodium Chloride IVPB 02/20/25 19:29 100 mls/hr Q24H AMBER Administration Isosorbide Mononitrate 15 mg 02/18/25 09:00 02/20/25 07:54 Isosorbide Mononitrate 15 Mg Tab.Er.24h BY MOUTH 15 mg QAM AMBER Administration Methylprednisolone Sodium Succinate 60 mg 02/15/25 00:00 02/20/25 05:24 Methylprednisolone Sod Succ 125 Mg Vial IV PUSH 60 mg Q6HR AMBER Administration Morphine Sulfate 2 mg 02/18/25 15:45 Morphine Sulfate (*Crx) 4 Mg/Ml Inj IV PUSH Q4H PRN air hunger Phenol 1 spray 02/15/25 09:10 02/15/25 09:24 Phenol/Sod Pheno [place] (*Bkc) MUCOUS MEM 1 spray PRN PRN Administration Sore Throat Pravastatin Sodium 10 mg 02/15/25 09:00 02/20/25 07:54 Pravastatin Sodium 10 Mg Tablet BY MOUTH 10 mg DAILY AMBER Administration Ranolazine 500 mg 02/14/25 22:15 02/20/25 07:54 Ranolazine 500 Mg Tab.Er.12h BY MOUTH 500 mg Q12HR AMBER Administration Sertraline HCl 100 mg 02/15/25 09:00 02/20/25 07:54 Sertraline Hcl 50 Mg Tablet PO 100 mg DAILY AMBER Administration Trazodone HCl 150 mg 02/15/25 14:42 02/17/25 21:23 Trazodone Hcl 50 Mg Tablet PO 150 mg QHS PRN Administration Insomnia Radiology Results: ITS Impressions Knee X-Ray 02/14/25 16:40 IMPRESSION: 1. Mild osteoarthritis in the medial compartment of the left knee with nonspecific small knee joint effusion. No acute osseous abnormality. Chest X-Ray 02/17/25 10:32 IMPRESSION: 1. No acute cardiopulmonary findings given portable technique.
[2025-02-20] MEDS: HYDROcodone/acetaminophen (*CRX) 10-325 MG TABLET 1 TAB PO (10:34)
[2025-02-20] MEDS: cefTRIAXone 1 GM in SODIUM CHLORIDE 0.9% IV 50 ML 100 ML IVPB (17:52)
[2025-02-20] MEDS: HYDROcodone/acetaminophen (*CRX) 5-325 MG TABLET 1 TAB PO (20:16)
[2025-02-21] VITALS (7 sets, daily range): BP systolic 152; BP diastolic 79; PULSE 85–95; RESP 16–18; TEMP 36.1; O2SAT 95–98
[2025-02-21] MEDS: ALPRAZolam (*CRX) 0.5 MG TABLET PO ×3 (01:39→16:24)
[2025-02-21] MEDS: IPRATROPIUM 0.5 MG/ALBUTEROL SULFATE 2.5 MG (BASE) AMPUL.NEB 3 ML INHALATION ×3 (02:06→14:50)
[2025-02-21] MEDS: HYDROcodone/acetaminophen (*CRX) 10-325 MG TABLET 1 TAB PO (04:52)
[2025-02-21] MEDS: BUDESONIDE RESPULE NEB 0.5 MG/2 ML AMP INHALATION (07:41)
[2025-02-21] MEDS: CLOPIDOGREL BISULFATE 75 MG TABLET BY MOUTH (08:37)
[2025-02-21] MEDS: SERTRALINE HCL 50 MG TABLET 100 MG PO (08:37)
[2025-02-21] MEDS: RANOLAZINE 500 MG TAB.ER.12H BY MOUTH (08:37)
[2025-02-21] MEDS: guaiFENesin 12 HR 600 MG TABCR 1200 MG PO (08:37)
[2025-02-21] MEDS: PRAVASTATIN SODIUM 10 MG TABLET BY MOUTH (08:38)
[2025-02-21] MEDS: ISOSORBIDE MONONITRATE 15 MG TAB.ER.24H BY MOUTH (08:39)
[2025-02-21] MEDS: HYDROcodone/acetaminophen (*CRX) 5-325 MG TABLET 1 TAB PO ×2 (11:32→16:24)
--- NOTE | 2025-02-21 12:25 | P.DS_ITS ---
DS: Admitting Diagnosis Discharge Date 02/21/25 Admitting Diagnosis Shortness of breath DS: Discharge Diagnosis Discharge Diagnosis (1) COPD (chronic obstructive pulmonary disease): Qualifiers: COPD type: unspecified COPD Qualified Code(s): J44.9 - Chronic obstructive pulmonary disease, unspecified Code(s): J44.9 - Chronic obstructive pulmonary disease, unspecified Status: Acute (2) Acute and chronic respiratory failure with hypoxia: Code(s): J96.21 - Acute and chronic respiratory failure with hypoxia Status: Acute DS: Summary Hospital Course Hospital Course: Admitting Diagnosis: * Acute on chronic respiratory failure * COPD exacerbation * Severe COPD * Iron deficiency anemia * Fibromyalgia * Anxiety * Insomnia Hospital Course Ms. Jackson is a 79-year-old female with a history of severe COPD (on 4 L home O2), chronic respiratory failure, multiple prior admissions for pneumonia and COPD exacerbations, depression, anxiety, chronic pain, fibromyalgia, chronic opioid use, and coronary artery disease with prior stenting. She presented with acute on chronic shortness of breath, hypoxemia, and tachypnea. She was recently discharged from this hospital for pneumonia. On arrival, she was hypoxic (saturations in the 70s), tachypneic, and required escalation to BiPAP, which she was unable to tolerate. She was transitioned to high-flow nasal cannula (Airvo 45%) with improvement in oxygenation (saturating 93%). She reported chronic cough without new sputum, fever, or chest pain. She also reported a pop in her left knee while walking; x-ray showed mild osteoarthritis and a small effusion, but no acute fracture. Initial labs were notable for leukocytosis (WBC 18.6), mild anemia (Hgb 11.5), and mild transaminitis. ABG revealed respiratory acidosis (pH 7.25, pCO2 50.3, HCO3 21.9). Chest x-ray showed stable chronic interstitial infiltrates without new consolidation. She was treated empirically with IV methylprednisolone, ceftriaxone, azithromycin, and scheduled nebulized bronchodilators. She was c ontinued on her home medications, including hydrocodone/acetaminophen for chronic pain, and her chronic antidepressants and anxiolytics. Despite aggressive medical management, her respiratory status remained tenuous, and she continued to require high-flow oxygen. She was not a candidate for intubation or escalation of ventilatory support per her wishes (DNR/DNI). She declined further noninvasive ventilation after discussion of risks and benefits. She requested transition to comfort-focused care and hospice, with her and sister involved in decision-making. Palliative and hospice care teams were consulted. The patient and family elected for discharge home with hospice services. She requested to continue steroids and antibiotics for comfort until discharge. She was transitioned to comfort measures only, telemetry was discontinued, and a Garcia catheter was offered for comfort. Case management and nursing coordinated with hospice to arrange for home services and equipment. Pertinent Hospital Data * Imaging: * Chest x-ray: Stable chronic mild interstitial infiltrates, no acute process * Left knee x-ray: Mild osteoarthritis, small effusion, no acute fracture * Labs: * WBC 18.6 (elevated) * Hgb 11.5 (mild anemia) * Creatinine 0.64 * ABG: pH 7.25, pCO2 50.3, pO2 105.1, HCO3 21.9 * Mildly elevated AST/ALT Discharge Condition * Alert, oriented, able to make decisions * Shortness of breath with minimal exertion * Weak, poor appetite * Pain controlled on home regimen * Comfort measures only * DNR/DNI, no escalation of care * Discharge home with hospice Discharge Medications Continue for comfort as per hospice protocol: * Methylprednisolone (Solu-Medrol) * Ceftriaxone and azithromycin (until completed or as per comfort) * Hydrocodone/acetaminophen for pain * Albuterol and other home inhalers/nebulizers as needed * Alprazolam for anxiety * Trazodone for insomnia * Continue other home medications as appropriate for comfort Discontinue: * Non-essential medications per hospice protocol * Telemetry and noninvasive ventilation Discharge Instructions * Discharge home with hospice services * Continue oxygen as needed for comfort * Garcia catheter if desired for comfort * Family and hospice to monitor for symptoms and provide support * No return to hospital unless specifically desired by patient/family * All further care to be directed by hospice team Follow-Up Appointments * Hospice team to follow at home * No further outpatient appointments unless requested by patient/family Time Spent with Patient Time attestation: Total time spent providing and/or coordinating discharge services: DS: Data Data Completed and Pending Labs on day of discharge: Preliminary micro results at discharge 02/14/25 19:01 Blood Culture - Preliminary Blood Discharge Plan Discharge Attending physician on discharge: Maeve Ca Discharging Clinician: Maeve Ca Anticipated Discharge Date/Time: 02/21/25 12:20 Patient Disposition: Hospice - Home Activity: as tolerated Diet: as tolerated Patient Instructions: Clopidogrel (By mouth) Patient Language: [place] Stand Alone Forms: General Discharge Information Follow-up/Referrals: Sina Ramirez DO [Primary Care Provider, Internal Medicine] Referral Note: F/u with PCP in 3-5 days Discharge Medications: Continued cyclobenzaprine 5 mg tablet 5 mg PO TID PRN (Reason: muscle spasm) Qty: 90 1RF aspirin 81 mg tablet,delayed release (DR/EC) 81 mg PO BID amoxicillin-pot clavulanate 875-125 mg tablet 1 tablet PO Q12H 1 Days Qty: 2 0RF azithromycin 500 mg tablet 500 mg PO DAILY Qty: 1 0RF albuterol sulfate 2.5 mg /3 mL (0.083 %) solution for nebulization 2.5 mg inhalation Q6H PRN (Reason: shortness of breath or wheezing) 90 Days Qty: 180 2RF budesonide 0.5 mg/2 mL suspension for nebulization 0.5 mg inhalation BID Qty: 120 5RF Rx Instructions: Use 1 vial by nebulizer (2mL) twice daily - morning and night. arformoterol [Brovana] 15 mcg/2 mL solution for nebulization 2 ml inhalation BID Qty: 120 5RF Rx Instructions: Use 1 vial by nebulizer (2mL) twice daily - morning and night. isosorbide mononitrate 30 mg tablet extended release 24 hr See Rx Instructions .ROUTE .COMPLEX Qty: 30 5RF Dose Instruction: Take 1/2 (one-half) tablet by mouth once daily Rx Instructions: Take 1/2 (one-half) tablet by mouth once daily clopidogrel 75 mg tablet See Rx Instructions .ROUTE .COMPLEX Qty: 90 2RF Dose Instruction: Take 1 tablet by mouth once daily Rx Instructions: Take 1 tablet by mouth once daily nitroglycerin 0.4 mg tablet, sublingual See Rx Instructions .ROUTE .COMPLEX Qty: 25 5RF Dose Instruction: DISSOLVE ONE TABLET UNDER THE TONGUE EVERY 5 MINUTES NEEDED FOR CHEST PAIN. DO NOT EXCEED A TOTAL OF 3 DOSES IN 15 MINUTES Rx Instructions: DISSOLVE ONE TABLET UNDER THE TONGUE EVERY 5 MINUTES NEEDED FOR CHEST PAIN. DO NOT EXCEED A TOTAL OF 3 DOSES IN 15 MINUTES trazodone 150 mg tablet 150 mg PO QHS PRN (Reason: insomnia) Qty: 90 1RF ranolazine 500 mg tablet extended release 12 hr See Rx Instructions .ROUTE .COMPLEX Qty: 60 5RF Dose Instruction: Take 1 tablet by mouth twice daily Rx Instructions: Take 1 tablet by mouth twice daily pravastatin 10 mg tablet See Rx Instructions .ROUTE .COMPLEX Qty: 90 2RF Dose Instruction: Take 1 tablet by mouth once daily Rx Instructions: Take 1 tablet by mouth once daily duloxetine 30 mg capsule,delayed release(DR/EC) 30 mg PO QAM Qty: 90 0RF Rx Instructions: NEEDS APPOINTMENT FOR FURTHER REFILLS sertraline 100 mg tablet 100 mg PO DAILY Qty: 90 0RF Rx Instructions: NEEDS APPOINTMENT FOR FURTHER REFILLS hydrocodone-acetaminophen 10-325 mg tablet See Rx Instructions PO DAILY PRN (Reason: pain) Qty: 45 0RF Rx Instructions: orally daily PRN; Date of admission: 02/15/25 14:10 Primary Care Provider: Sina Ramirez Admitting Provider: Maeve Ca Attending physician on admission: Maeve Ca Condition: Serious
== END 2025-02-21 18:10 | disposition hospice, home (50) | DRG 190 ==
LOC: ANHED 18:45 → ANHIMU 20:34 → ANH3MEDSUR 02-18 17:45
PROVIDERS: General Practice; Nurse Practitioner Family; Nurse Practitioner Gerontology; Student in an Organized Health Care Education/Training Program; Admitting Provider Internal Medicine; Emergency Provider Emergency Medicine; PCP Internal Medicine; Visit Provider Internal Medicine
DX: J44.1 Chronic obstructive pulmonary disease with (acute) exacerbation (principal); E43 Unspecified severe protein-calorie malnutrition; J96.21 Acute and chronic respiratory failure with hypoxia; Z68.1 Body mass index [BMI] 19.9 or less, adult; D50.0 Iron deficiency anemia secondary to blood loss (chronic); E78.5 Hyperlipidemia, unspecified; F32.A Depression, unspecified; F41.9 Anxiety disorder, unspecified; F11.90 Opioid use, unspecified, uncomplicated; G89.29 Other chronic pain; G47.00 Insomnia, unspecified; I25.10 Atherosclerotic heart disease of native coronary artery without angina pectoris; M79.7 Fibromyalgia; M17.12 Unilateral primary osteoarthritis, left knee; Z99.81 Dependence on supplemental oxygen; Z20.822 Contact with and (suspected) exposure to COVID-19; Z79.82 Long term (current) use of aspirin; Z79.02 Long term (current) use of antithrombotics/antiplatelets; Z95.5 Presence of coronary angioplasty implant and graft; Z66 Do not resuscitate; Z87.891 Personal history of nicotine dependence; Z91.199 Patient's noncompliance with other medical treatment and regimen due to unspecified reason
CPT/HCPCS: 36415; 36600; 71045; 73562; 80048; 80053; 82375; 82805; 83050; 83540; 83550; 83605; 83735; 84100; 84145; 85018; 85025; 85055; 87040; 87637; 93005; 94002; 94640; 96361; 96365; 96368; 96375; 99285; A9270; G0378; J0456; J0696; J2919; J7030; J7050